=== PATIENT | female | born 1980 | race Caucasian/White ===

== ENCOUNTER 2017-09-28 13:02 | Emergency (ER) | payer MEDICAID, SELFPAY ==
[2017-09-28 13:02] VITALS: BP 162/101; PULSE 83; RESP 18; TEMP 36.6; O2SAT 99; BMI 42.7
--- NOTE | 2017-09-28 13:19 | CT_ITS ---
STUDY: CT ABDOMEN AND PELVIS WITHOUT CONTRAST REASON FOR EXAM: Female, 36 years old. Severe abdominal pain. History of prior gastric bypass surgery. RADIATION DOSAGE (If Supplied By Facility): CTDIvol = ( 23.32 ) mGy, DLP = ( 1223.28 ) mGycm TECHNIQUE: Transaxial images were obtained from the dome of the diaphragm to the symphysis pubis without oral contrast, and without intravenous contrast. Sagittal and coronal images were reconstructed. Individualized dose optimization techniques were used for this CT. COMPARISON: Comparison is made with prior study dated April 03, 2017. FINDINGS: The visualized lung bases are unremarkable. The visualized portions of the heart are within normal limits. Normal liver. There are surgical clips in the gallbladder fossa consistent with a prior cholecystectomy. Normal spleen. Normal pancreas. Normal bilateral adrenal glands. Normal right kidney. Normal left kidney. Prior subtotal gastrectomy for gastric bypass surgery. This is unchanged. Normal small intestine. Normal colon. The appendix is visualized and appears normal. Normal abdominal aorta. Normal inferior vena cava. Normal retroperitoneum. Normal urinary bladder. Normal abdominal wall. There are degenerative changes of the visualized lumbar spine. CT/Abdomen/Pelvis without Cont IMPRESSION: Status post gastric bypass surgery. No acute abnormality is seen. Electronically Signed: Rafael Dai MD at 15:39 EST Tel [phone], Service support ,
--- NOTE | 2017-09-28 13:26 | ED.VISSUMM ---
- ER Visit Summary Date of Service: 09/28/17 Chief Complaint: [] Left side abdominal pain, gastric bypass surgery with complications 2014 History of Present Illness: The patient is a 36 F [] she reports she had gastric bypass surgery in 2014 or 16, outside facility a few weeks later was complicated by which she believes might of been a leak, she required other extensive surgery and eventually everything healed. She reports since that time she has had chronic intermittent pain to the left side abdomen. He followed by gastric bypass surgeons in [place] who evaluated her for this condition, she has had multiple workups CAT scans etc. she has been told she has scar tissue related to some aspect of the left side of her abdomen she was scheduled to have a colonoscopy this week but the surgeon had some issues and that procedure was canceled. She has had normal ability to eat, normal bowel bladder habits without blood no fever no cough, she indicates her from the physician provides with Percocet use as needed for the pain, she is again having pain to the left side abdomen that is crampy in nature but she believes she had her gallbladder removed Physical Examination: [] Is in no distress is very large woman HEENT exam is unremarkable lungs clear heart tones normal she has pain to the left middle quadrant region. There is no rebound guarding organomegaly the abdomen actually soft there is no signs of bowel obstruction or distention. Her back is unremarkable and she assures me she has had normal bowel bladder habits, her extremities and rest of her exam are unremarkable Test Results: [] Emergency Department Course and Treatment: [] Conversation with the patient and a relative, this appears to be a chronic recurring condition I try to understand what was the new problem and they said the pain seemed to be more intense she is currently on home Percocet. Had multiple CAT scans reviewed some of the more recent ones that showed nothing acute with previous exacerbations Treatment Plan: [] IV fluids pain meds screening labs CT abdomen CT and the rest of the studies are unremarkable see those reports In all the above the patient and her partner I explained that the exact etiology of the chronic abdominal pain that she has had is unclear I advised her to follow-up with her physicians who are gastric bypass specialist and follow any instructions they have given her with regards to her pain management I explained her pain management cannot be assumed from the emergency department she needs to obtain her pain management from her physicians as an outpatient she stay in a bland diet return for change in symptoms Disposition: [] Home stable Impression: [] Recurrent abdominal pain since gastric bypass surgery This note was generated with [employer] dictation software. It may contain incorrect words, spelling, and punctuation that were not noted in review of the chart prior to signing ED Disposition - Plan for ED Patient: Chief Complaint: Abd Pain Referrals: Israel North DO [Primary Care Provider] -
[2017-09-28] MEDS: Ondansetron 4 MG/2 ML Vial IV (14:14)
[2017-09-28] MEDS: 0.9% Normal Saline 1,000 ML 125 ML IV (14:15)
[2017-09-28 14:17] LABS: Mucous, Urine 0 SEEN /hpf (<or=2+)
[2017-09-28 14:20] LABS: Absolute Lymphocyte Count 1.46 X10^3/ul (0.83-4.51); Absolute Neutrophil Count 2.9 X10^3/uL (2.0-7.7); Basophil# 0.02 X10^3/uL; Basophil% 0.4 % (0-1); Color, Urine Yellow (Yellow); Eosinophil# 0.06 X10^3/uL; Eosinophils% 1.3 % (0-5); Glucose, Dipstick Normal (Normal); Hematocrit 37.6 % (37-47); Hemoglobin 11.5 g/dl (12.0-15.0); Ketone-Dipstick Negative (Negative); Leukocyte Esterase-Dipstick Negative /ul (Negative); Lymphocyte # 1.46 X10^3/ul (4.0); Lymphocyte % 30.7 % (19-41); Mean Corp Hgb Conc 30.6 g/gl (32-36); Mean Corpuscular Hgb 23.1 pg (27.0-32.0); Mean Corpuscular Volume 75.7 fL (81-99); Mean Platelet Vol. 10.7 fl (6.2-12.0); Monocyte# 0.29 X10^3/uL; Monocyte% 6.1 % (0-10); Neutrophil # 2.91 X10^3/uL (2.7-7.7); Neutrophil % 61.3 % (47-70); Nitrite-Dipstick Negative (Negative); Occult Blood-Urine Negative /ul (Negative); Platelet Count 217 K/mm3 (150-450); Protein-Dipstick Negative (Negative); RBC Distribution Width CV 15.1 % (11.6-14.6); RBC Distribution Width SD 40.9 fl (35.1-43.9); Red Blood Count 4.97 M/mm3 (4.2-5.4); Urine Bilirubin Dipstick Negative (Negative); Urine Clarity Clear (Clear); Urine Urobilinogen Normal (Normal); White Blood Count 4.8 K/mm3 (4.4-11.0)
[2017-09-28 14:21] LABS: POSITIVE COUNT NO; POSITIVE DIFFERENTIAL NO; POSITIVE MORPHOLOGY NO
[2017-09-28 14:25] LABS: Bacteria 1+ /hpf (None Seen); Red Blood Cells-Urine 0-5 SEEN /hpf (0-5); Squamous Epithelial Cells - UA 0-5 SEEN /hpf (5-10); White Blood Cells 0-5 SEEN /hpf (0-5)
[2017-09-28 14:33] LABS: AST(SGOT) 19 U/L (15-37); Alanine Aminotransfer ALT/SGPT 29 U/L (13-56); Albumin, Serum 3.7 g/dL (3.2-5.0); Alkaline Phosphatase 101 U/L (45-117); Anion Gap 8 (5-15); BUN 11 mg/dL (7-18); BUN/Creat Ratio 16.6 RATIO (10-20); Bilirubin, Direct 0.07 mg/dL (0.00-0.30); Calcium,Total 8.8 mg/dL (8.5-10.1); Chloride 105 mmol/L (98-107); Creatinine, Serum 0.66 mg/dL (0.55-1.02); EST Glomerular Filtration Rate 107 mL/min (>60); Est Glom Filt Rate - Afr Amer 129 mL/min (>60); Estimated Creatinine Clearance 110.31 ml/min; Globulin 4.3 g/dL (2.2-4.2); Glucose 112 mg/dL (74-106); Lipase 161 U/L (73-393); Potassium 4.2 mmol/L (3.5-5.1); Sodium Level 140 mmol/L (136-145)
[2017-09-28 14:38] LABS: Pregnancy, Serum, hCG Quali. NEGATIVE Negative (0-9 Nonpreg)
--- NOTE | 2017-09-28 15:45 | ED.DEP ---
ED Disposition - Plan for ED Patient: Chief Complaint: Abd Pain Instructions: ED Abdominal Pain Unkn Cause Referrals: Israel North DO [Primary Care Provider] - Additional Instructions: See your gastric bypass specialist follow-up doctors
[2017-09-28 15:55] VITALS: BP 127/87; PULSE 71; RESP 15; O2SAT 100
== END 2017-09-28 15:56 | disposition home or self-care (01) ==
LOC: ED 13:21
PROVIDERS: Emergency Provider Emergency Medicine; Family Provider Family Medicine; PCP Family Medicine
DX: R10.9 Unspecified abdominal pain (principal); G89.29 Other chronic pain; Z79.899 Other long term (current) drug therapy; Z98.84 Bariatric surgery status
CPT/HCPCS: 74176; 80048; 80076; 81001; 83690; 84703; 85025; 96361; 96374; 96375; 99283; J7030; A4216; J2405

== ENCOUNTER → 2017-10-20 13:43 | Outpatient (CLI) | payer MEDICAID, SELFPAY ==
[2017-10-20 16:08] LABS: Absolute Lymphocyte Count 1.58 X10^3/ul (0.83-4.51); Absolute Neutrophil Count 5.2 X10^3/uL (2.0-7.7); Basophil# 0.01 X10^3/uL; Basophil% 0.1 % (0-1); Eosinophil# 0.04 X10^3/uL; Eosinophils% 0.6 % (0-5); Hematocrit 38.8 % (37-47); Hemoglobin 12.3 g/dl (12.0-15.0); Lymphocyte # 1.58 X10^3/ul (4.0); Lymphocyte % 21.9 % (19-41); Mean Corp Hgb Conc 31.7 g/gl (32-36); Mean Corpuscular Hgb 24.3 pg (27.0-32.0); Mean Corpuscular Volume 76.5 fL (81-99); Mean Platelet Vol. 12.2 fl (6.2-12.0); Monocyte# 0.39 X10^3/uL; Monocyte% 5.4 % (0-10); Neutrophil % 71.9 % (47-70); Platelet Count 236 K/mm3 (150-450); RBC Distribution Width CV 16.6 % (11.6-14.6); RBC Distribution Width SD 43.2 fl (35.1-43.9); Red Blood Count 5.07 M/mm3 (4.2-5.4); White Blood Count 7.2 K/mm3 (4.4-11.0)
[2017-10-20 16:16] LABS: ALB/GLOB Ratio 0.9 RATIO (0.9-2.4); AST(SGOT) 21 U/L (15-37); Alanine Aminotransfer ALT/SGPT 27 U/L (13-56); Albumin, Serum 3.7 g/dL (3.2-5.0); Alkaline Phosphatase 95 U/L (45-117); Anion Gap 6 (5-15); BUN 12 mg/dL (7-18); BUN/Creat Ratio 17.8 RATIO (10-20); Calcium,Total 8.4 mg/dL (8.5-10.1); Chloride 105 mmol/L (98-107); Creatinine, Serum 0.68 mg/dL (0.55-1.02); EST Glomerular Filtration Rate 104 mL/min (>60); Est Glom Filt Rate - Afr Amer 126 mL/min (>60); Ferritin 4 ng/mL (8-252); Globulin 4.3 g/dL (2.2-4.2); Glucose 109 mg/dL (74-106); Iron 36 ug/dL (50-170); Potassium 4.3 mmol/L (3.5-5.1); Sodium Level 137 mmol/L (136-145); T4 Free Direct 0.97 ng/dL (0.76-1.46); Thyroid Stim Hormone (TSH) 0.53 uIU/mL (0.358-3.74)
[2017-10-20 16:23] LABS: POSITIVE COUNT NO; POSITIVE DIFFERENTIAL NO; POSITIVE MORPHOLOGY NO
[2017-10-20 16:24] LABS: Vitamin B12 493 pg/mL (211-911); Vitamin D,25 Hydroxy 14.6 ng/mL (29.95-100.01)
== END ==
PROVIDERS: Family Provider Family Medicine; PCP Family Medicine; Visit Provider Family Medicine
DX: R53.83 Other fatigue (principal); E55.9 Vitamin D deficiency, unspecified; D64.9 Anemia, unspecified; R06.00 Dyspnea, unspecified; Z98.890 Other specified postprocedural states
CPT/HCPCS: 36415; 80053; 82306; 82607; 82728; 83540; 84439; 84443; 85025

== ENCOUNTER 2017-11-06 20:56 | Emergency (ER) | payer MEDICAID, SELFPAY ==
[2017-11-06 20:56] VITALS: BP 152/95; PULSE 101; RESP 16; TEMP 37; O2SAT 100; BMI 41.5
--- NOTE | 2017-11-06 21:04 | RAD_ITS ---
STUDY: X-RAY - LEFT ANKLE REASON FOR EXAM: Female, 36 years old. Injury TECHNIQUE: 3 view(s) of the ankle. COMPARISON: None. FINDINGS: Normal visualized distal tibia and fibula. Normal medial and lateral malleoli. Normal tibiotalar articulation and ankle mortise. There is calcaneal spurring. The visualized subtalar, talonavicular, calcaneocuboid and tarsal articulations are normal. Soft tissue calcification at the leg. RAD/Ankle min 3 Views IMPRESSION: No acute fracture Electronically Signed: Merlin Mensah MD at 21:27 EDT Tel , Service support ,
--- NOTE | 2017-11-06 22:29 | ED.DCSUM_ITS ---
- ER Visit Summary Date of Service: 11/06/17 Chief Complaint: Left foot pain History of Present Illness: The patient is a 36 F who presents after a fall. She states that she was stepping over a baby gate when she slipped and twisted her left foot and fell. She states she is unable to bear weight due to pain. She denies paresthesias weakness or loss of function. She denies any other injuries. No head injury loss of consciousness back injury chest pain abdominal pain injury to any other extremity or neck pain. Physical Examination: Heart rate 101 vitals otherwise normal No lacerations contusions abrasions or hematomas No evidence of head trauma Heart regular No respiratory distress Patient sitting comfortably with her left ankle and foot crossed across her lap in the bed she has active full range of motion is able to wiggle the toes I do not appreciate any significant soft tissue swelling or ecchymosis easily palpable dorsalis pedis pulse she has no focal bony tenderness but does have some diffuse tenderness across the foot no bony tenderness of the medial or lateral malleolus no tenderness of the proximal fibula brisk capillary refill with normal sensation distally Test Results: Left foot and ankle x-rays are normal. Emergency Department Course and Treatment: Patient reports allergy to all NSAIDs and Toradol. Per her medication reconciliation she has opiates prescribed. She was advised on supportive care including rest ice and elevation. Was given crutches. She understands to return for new or worsening symptoms. She was discharged. Treatment Plan: [] Disposition: Discharge Impression: Left foot sprain This note was generated with [employer] dictation software. It may contain incorrect words, spelling, and punctuation that were not noted in review of the chart prior to signing ED Disposition - Plan for ED Patient: Chief Complaint: Fall Referrals: Israel North DO [Primary Care Provider] -
--- NOTE | 2017-11-06 22:38 | RAD_ITS ---
STUDY: X-RAY - LEFT FOOT CLINICAL: Female, 36 years old. Fall TECHNIQUE: 3 view(s) of the foot. COMPARISON: None. FINDINGS: Normal talus, calcaneus, and tarsal bones. Calcaneal spurring. Normal visualized subtalar, talonavicular, calcaneocuboid, tarsal and tarsometatarsal articulations. Normal metatarsi. Normal metatarsophalangeal joint of the great toe. Normal tibial and fibular sesamoid bones. Normal interphalangeal joint of the great toe. Normal phalanges of the great toe. Normal second through fifth metatarsophalangeal joints. Normal interphalangeal joints and phalanges of the lesser toes. The soft tissue structures are unremarkable. RAD/Foot min 3 Views IMPRESSION: Normal x-ray examination of the foot. Electronically Signed: Jose Lovelace DO at 23:01 EDT Tel [phone], Service support ,
--- NOTE | 2017-11-06 23:11 | ED.DEP ---
ED Disposition - Plan for ED Patient: Chief Complaint: Fall Instructions: ED Mechanical Fall, ED Sprain Foot Referrals: Israel North DO [Primary Care Provider] -
== END 2017-11-06 23:39 | disposition home or self-care (01) ==
LOC: ED 22:31
PROVIDERS: Emergency Provider Emergency Medicine; Family Provider Family Medicine; PCP Family Medicine
DX: S93.602A Unspecified sprain of left foot, initial encounter (principal); W01.0XXA Fall on same level from slipping, tripping and stumbling without subsequent striking against object, initial encounter; Y93.89 Activity, other specified; Y92.9 Unspecified place or not applicable; M79.7 Fibromyalgia; Z98.84 Bariatric surgery status
CPT/HCPCS: 73610; 73630; 99283

== ENCOUNTER → 2018-01-04 12:05 | Outpatient (CLI) | payer MEDICAID, SELFPAY ==
[2018-01-04 16:07] LABS: Absolute Lymphocyte Count 1.56 X10^3/ul (0.83-4.51); Absolute Neutrophil Count 3.2 X10^3/uL (2.0-7.7); Basophil# 0.01 X10^3/uL; Basophil% 0.2 % (0-1); Eosinophil# 0.08 X10^3/uL; Eosinophils% 1.5 % (0-5); Hematocrit 34.2 % (37-47); Hemoglobin 10.6 g/dl (12.0-15.0); Lymphocyte # 1.56 X10^3/ul (4.0); Lymphocyte % 29.8 % (19-41); Mean Corpuscular Hgb 23.7 pg (27.0-32.0); Mean Corpuscular Volume 76.3 fL (81-99); Mean Platelet Vol. 11.2 fl (6.2-12.0); Monocyte% 7.6 % (0-10); Neutrophil # 3.18 X10^3/uL (2.7-7.7); Neutrophil % 60.7 % (47-70); POSITIVE COUNT NO; POSITIVE DIFFERENTIAL NO; POSITIVE MORPHOLOGY NO; Platelet Count 207 K/mm3 (150-450); RBC Distribution Width CV 15.4 % (11.6-14.6); RBC Distribution Width SD 42.1 fl (35.1-43.9); Red Blood Count 4.48 M/mm3 (4.2-5.4); White Blood Count 5.2 K/mm3 (4.4-11.0)
[2018-01-04 18:27] LABS: ALB/GLOB Ratio 0.9 RATIO (0.9-2.4); AST(SGOT) 20 U/L (15-37); Alanine Aminotransfer ALT/SGPT 24 U/L (13-56); Albumin, Serum 3.7 g/dL (3.2-5.0); Alkaline Phosphatase 86 U/L (45-117); Anion Gap 8 (5-15); BUN 7 mg/dL (7-18); BUN/Creat Ratio 9.2 RATIO (10-20); CRP 5.49 mg/L (0.0-3.0); Calcium,Total 8.6 mg/dL (8.5-10.1); Chloride 103 mmol/L (98-107); Creatinine, Serum 0.76 mg/dL (0.55-1.02); EST Glomerular Filtration Rate 91 mL/min (>60); Est Glom Filt Rate - Afr Amer 110 mL/min (>60); Ferritin 4 ng/mL (8-252); Globulin 4.2 g/dL (2.2-4.2); Glucose 105 mg/dL (74-106); Iron 40 ug/dL (50-170); Potassium 4.2 mmol/L (3.5-5.1); Protein, Total 7.9 g/dL (6.4-8.2); Sodium Level 138 mmol/L (136-145); Thyroid Stim Hormone (TSH) 1.15 uIU/mL (0.358-3.74)
[2018-01-09 12:53] LABS: ANTINUCLEAR ANTIBODIES DIRECT Negative (Negative)
== END ==
PROVIDERS: Family Provider Family Medicine; PCP Family Medicine; Visit Provider Family Medicine
DX: R60.9 Edema, unspecified (principal); R53.83 Other fatigue; E55.9 Vitamin D deficiency, unspecified; I10 Essential (primary) hypertension; G43.909 Migraine, unspecified, not intractable, without status migrainosus; D50.9 Iron deficiency anemia, unspecified; Z79.899 Other long term (current) drug therapy
CPT/HCPCS: 36415; 80053; 82533; 82728; 83540; 84443; 85025; 86038; 86140; 86225; 86235

== ENCOUNTER → 2018-01-30 14:57 | Outpatient (CLI) | payer MEDICAID, SELFPAY ==
[2018-01-30 15:13] VITALS: BP 120/82; PULSE 71; RESP 16; TEMP 36.4; O2SAT 100; BMI 41.3
== END ==
PROVIDERS: Family Provider Family Medicine; PCP Family Medicine; Visit Provider Family Medicine
DX: D50.9 Iron deficiency anemia, unspecified (principal); K90.9 Intestinal malabsorption, unspecified
CPT/HCPCS: 96365; J1756; J7050; A4216

== ENCOUNTER → 2018-02-13 14:58 | Outpatient (CLI) | payer MEDICAID, SELFPAY ==
[2018-02-13 15:04] VITALS: BP 128/81; PULSE 69; RESP 18; TEMP 36.9; O2SAT 98; BMI 41.3
== END ==
PROVIDERS: Family Provider Family Medicine; PCP Family Medicine; Visit Provider Family Medicine
DX: D50.9 Iron deficiency anemia, unspecified (principal); K90.9 Intestinal malabsorption, unspecified
CPT/HCPCS: 96374; J1756; J7050; A4216

== ENCOUNTER → 2018-03-13 14:59 | Outpatient (CLI) | payer MEDICAID, SELFPAY ==
[2018-03-13 15:11] VITALS: BP 118/79; PULSE 79; RESP 18; TEMP 35.8; O2SAT 98; BMI 41.3
== END ==
PROVIDERS: Family Provider Family Medicine; PCP Family Medicine; Visit Provider Family Medicine
DX: D50.9 Iron deficiency anemia, unspecified (principal); K90.9 Intestinal malabsorption, unspecified
CPT/HCPCS: 96365; J1756; J7050

== ENCOUNTER 2018-03-13 16:04 | Emergency (ER) | payer MEDICAID, SELFPAY ==
[2018-03-13 16:05] VITALS: BP 112/77; PULSE 73; RESP 16; TEMP 36.9; O2SAT 97; BMI 44.8
[2018-03-13] MEDS: proCHLORPERazine 10 MG/2 ML Vial IV (16:43)
[2018-03-13] MEDS: DiphenhydrAMINE 50 MG/ML Syringe 25 MG IV (16:43)
[2018-03-13] MEDS: 0.9% Normal Saline 1,000 ML 999 ML IV (16:43)
--- NOTE | 2018-03-13 17:31 | ED.DCSUM_ITS ---
- ER Visit Summary Date of Service: 03/13/18 Chief Complaint: Headache History of Present Illness: The patient is a 37 F who presents with a headache. She does have a history of migraines. She states the current headache began about 4 days ago and is gradually worsened since that time. She does have a history of similar prior headaches. Her pain is in the right retro-orbital region. She currently states it is severe but not the worst headache or pain of her life. She complains of seeing some spots and photophobia. She does report nausea and vomiting. She has had all of these symptoms previously with headaches except for seeing spots which was a new symptom. No fever. No head injury. Review of systems otherwise negative. Physical Examination: Afebrile vitals are normal No distress Alert and oriented no focal or lateralizing neurological deficits Moist mucous membranes Heart regular rate and rhythm Lungs are clear Abdomen soft Neck supple no meningismus Test Results: Not indicated Emergency Department Course and Treatment: Patient was treated with IV fluids Compazine and Benadryl and Decadron. On reevaluation she reports greater than 50% improvement. This is tolerable level of pain for her. She does feel well enough to go home. She understands return for new or worsening symptoms. Treatment Plan: [] Disposition: Discharge Impression: Migraine This note was generated with [employer] dictation software. It may contain incorrect words, spelling, and punctuation that were not noted in review of the chart prior to signing ED Disposition - Plan for ED Patient: Chief Complaint: Headache Referrals: Israel North DO [Primary Care Provider] -
--- NOTE | 2018-03-13 17:35 | ED.DEP ---
ED Disposition - Plan for ED Patient: Chief Complaint: Headache Instructions: ED Headache Migraine Referrals: Israel North DO [Primary Care Provider] -
== END 2018-03-13 17:49 | disposition home or self-care (01) ==
PROVIDERS: Emergency Provider Emergency Medicine; Family Provider Family Medicine; PCP Family Medicine
DX: G43.909 Migraine, unspecified, not intractable, without status migrainosus (principal); D50.9 Iron deficiency anemia, unspecified; K90.9 Intestinal malabsorption, unspecified; E11.9 Type 2 diabetes mellitus without complications; I10 Essential (primary) hypertension; Z79.899 Other long term (current) drug therapy
CPT/HCPCS: 96365; 96361; 96374; 96375; 99285; J1756; J7030; J7050; A4216

== ENCOUNTER 2018-03-23 15:13 | Emergency (ER) | payer MEDICAID, SELFPAY ==
[2018-03-23 15:15] VITALS: BP 127/75; PULSE 115; RESP 24; TEMP 37; O2SAT 99; BMI 44.4
--- NOTE | 2018-03-23 15:23 | ED.RN ---
PT SOUNDS LIKE RHONCHI.
[2018-03-23 15:56] LABS: Absolute Lymphocyte Count 1.51 X10^3/ul (0.83-4.51); Absolute Neutrophil Count 9.9 X10^3/uL (2.0-7.7); Basophil# 0.01 X10^3/uL; Basophil% 0.1 % (0-1); Eosinophil# 0.07 X10^3/uL; Eosinophils% 0.6 % (0-5); Hematocrit 38.2 % (37-47); Hemoglobin 12.2 g/dl (12.0-15.0); Lymphocyte # 1.51 X10^3/ul (4.0); Lymphocyte % 12.2 % (19-41); Mean Corp Hgb Conc 31.9 g/gl (32-36); Mean Corpuscular Hgb 23.7 pg (27.0-32.0); Mean Corpuscular Volume 74.3 fL (81-99); Mean Platelet Vol. 11.1 fl (6.2-12.0); Monocyte# 0.81 X10^3/uL; Monocyte% 6.6 % (0-10); Neutrophil # 9.92 X10^3/uL (2.7-7.7); Neutrophil % 80.3 % (47-70); Platelet Count 211 K/mm3 (150-450); RBC Distribution Width SD 44.1 fl (35.1-43.9); Red Blood Count 5.14 M/mm3 (4.2-5.4); White Blood Count 12.4 K/mm3 (4.4-11.0)
[2018-03-23 16:01] LABS: POSITIVE COUNT NO; POSITIVE DIFFERENTIAL NO; POSITIVE MORPHOLOGY NO
[2018-03-23] MEDS: 0.9% Normal Saline 1,000 ML 1000 ML IV (16:03)
[2018-03-23] MEDS: Morphine 4 MG/ML Syringe IV (16:03)
[2018-03-23] MEDS: Ondansetron 4 MG/2 ML Vial IV (16:03)
[2018-03-23 16:10] LABS: AST(SGOT) 13 U/L (15-37); Alanine Aminotransfer ALT/SGPT 20 U/L (13-56); Albumin, Serum 3.6 g/dL (3.2-5.0); Alkaline Phosphatase 100 U/L (45-117); Anion Gap 7 (5-15); BUN 11 mg/dL (7-18); BUN/Creat Ratio 15.3 RATIO (10-20); Bilirubin, Direct 0.11 mg/dL (0.00-0.30); Calcium,Total 8.7 mg/dL (8.5-10.1); Chloride 105 mmol/L (98-107); Creatinine, Serum 0.72 mg/dL (0.55-1.02); EST Glomerular Filtration Rate 97 mL/min (>60); Est Glom Filt Rate - Afr Amer 117 mL/min (>60); Estimated Creatinine Clearance 104.03 ml/min; Globulin 4.4 g/dL (2.2-4.2); Glucose 183 mg/dL (74-106); Lipase 68 U/L (73-393); Potassium 3.9 mmol/L (3.5-5.1); Sodium Level 138 mmol/L (136-145)
--- NOTE | 2018-03-23 16:10 | RAD_ITS ---
STUDY: X-RAY CHEST REASON FOR EXAM: Female, 37 years old. Productive cough TECHNIQUE: PA and lateral views of the chest. COMPARISON: Previous study of 04/04/2017 FINDINGS: The lungs are clear and expanded. There is no demonstrated pleural abnormality. Normal size heart. Normal mediastinum and edward. Normal visualized pulmonary arteries. Normal visualized aortic arch and descending thoracic aorta. There are diffuse degenerative changes of the visualized thoracic spine. Normal visualized ribs, clavicles, and shoulders. There is no demonstrated abnormality of the visualized soft tissue structures of the upper abdomen. RAD/Chest PA and Lateral IMPRESSION: Degenerative changes, as described above. No demonstrated acute cardiopulmonary process. Electronically Signed: Zion Trevino MD at 16:26 EDT , Service support ,
[2018-03-23 16:24] LABS: Pregnancy, Serum, hCG Quali. NEGATIVE Negative (0-9 Nonpreg)
[2018-03-23 16:31] LABS: Red Blood Cells-Urine 0 SEEN /hpf (0-5)
[2018-03-23 16:34] LABS: Color, Urine Yellow (Yellow); Glucose, Dipstick Normal (Normal); Ketone-Dipstick 5 mg/dl (Negative); Leukocyte Esterase-Dipstick 25 /ul (Negative); Nitrite-Dipstick Negative (Negative); Occult Blood-Urine Negative /ul (Negative); Protein-Dipstick 15 mg/dl (Negative); Urine Clarity Sl. Cloudy (Clear); Urine Urobilinogen 1 mg/dl (Normal)
[2018-03-23 16:49] LABS: Urine Bilirubin Dipstick 1 mg/dL (Negative)
[2018-03-23 16:52] LABS: Bacteria 1+ /hpf (None Seen); Mucous, Urine 1+ /hpf (<or=2+); Squamous Epithelial Cells - UA 10-25 SEEN /hpf (5-10); White Blood Cells 0-5 SEEN /hpf (0-5)
[2018-03-23 17:13] VITALS: BP 106/72; PULSE 82; RESP 14; O2SAT 99
--- NOTE | 2018-03-23 17:21 | ED.DCSUM_ITS ---
- ER Visit Summary Date of Service: 03/23/18 Chief Complaint: Abdominal pain History of Present Illness: The patient is a [address] North. She reports that she has abdominal pain that began at approximately midnight. Is a continuous burning pain in the right upper quadrant. Is 10 out of 10 at worst and 6 out of 10 currently. Is worsened by movement and relieved by pushing on it. She has had nausea without vomiting. She first had diarrhea 3-4 times a day for the past 2 days. No blood in her stools or black tarry stools. No dysuria or frequency. Patient also complains of subjective fever and chills that began overnight. She is a sore throat that is 10 out of 10 severity and began today. She has a cough productive brown/green sputum without blood. She reports that she is having mild difficulty breathing. Physical Examination: Vitals: Stable. Afebrile. General: Well-nourished and well-developed. Head: Normocephalic atraumatic. Neck: Supple, no lymphadenopathy. No JVD. Nontender. Pharyngeal erythema. No tonsillar enlargement or exudate. Cardiovascular: Regular rate and rhythm. No murmurs. Respiratory: No respiratory distress. Clear to auscultation bilaterally. Abdominal: Soft, mild right upper quadrant tenderness to palpation, nondistended , normal bowel sounds. No guarding, rebound, or peritoneal signs. Back: Nontender. Extremities: Nontender, no edema. Skin: Normal color, no rash. Neurologic: Alert and oriented ?3. Cranial nerves II through XII are intact. Normal strength and sensation. Psych: Normal affect. Test Results: Strep is negative. CBC is more for a white count of 12.4 with 80 segmented neutrophils and 12 lymphocytes. Chem-7 is more for glucose of 183. LFTs marked for an AST of 13 globulin 4.4. Lipase is 68. UA is negative. test is negative. Chest x-ray shows chronic changes. Emergency Department Course and Treatment: Patient was treated the dose of morphine and Zofran IV. She is resting comfortably. Treatment Plan: Patient will be discharged with Zofran. Instructed to push fluids. Follow-up with her primary care physician in 3-5 days if not improving. Return to the emergency department for any worsening symptoms. Disposition: To home in improved and stable condition. Impression: 1. Abdominal pain, uncertain cause. 2. URI. This note was generated with [employer] dictation software. It may contain incorrect words, spelling, and punctuation that were not noted in review of the chart prior to signing ED Disposition - Plan for ED Patient: Chief Complaint: Abd Pain Instructions: ED Abdominal Pain Unkn Cause, ED Upper Resp Infec No Abx Tx Prescriptions: Ondansetron [Zofran Odt] 4 mg PO Q8H PRN PRN #10 tablet PRN Reason: Nausea Referrals: Israel North DO [Primary Care Provider] - 3-5 Days if not improving
[2018-03-23 17:27] VITALS: BP 106/72; PULSE 82; RESP 14; O2SAT 99
== END 2018-03-23 17:34 | disposition home or self-care (01) ==
LOC: ED 16:36
PROVIDERS: Emergency Provider Emergency Medicine; Family Provider Family Medicine; PCP Family Medicine
DX: J06.9 Acute upper respiratory infection, unspecified (principal); R19.7 Diarrhea, unspecified; E11.9 Type 2 diabetes mellitus without complications; M54.9 Dorsalgia, unspecified; G89.29 Other chronic pain; F32.9 Major depressive disorder, single episode, unspecified; F41.9 Anxiety disorder, unspecified; Z79.899 Other long term (current) drug therapy; Z79.891 Long term (current) use of opiate analgesic; Z98.84 Bariatric surgery status
CPT/HCPCS: 71046; 80048; 80076; 81001; 83690; 84703; 85025; 87880; 96361; 96374; 96375; 99283; J7030; A4216; J2405

== ENCOUNTER 2018-03-26 08:32 | Outpatient (RCR) | payer MEDICAID, SELFPAY | END 2018-04-20 23:59 | LOC: NS 08:32 | PROVIDERS: Family Provider Family Medicine; PCP Family Medicine; Visit Provider Family Medicine | DX: R69 Illness, unspecified (principal) | CPT/HCPCS: 97803 ==

== ENCOUNTER → 2018-03-27 13:41 | Outpatient (CLI) | payer MEDICAID, SELFPAY ==
[2018-03-27 14:18] VITALS: BP 132/84; PULSE 71; RESP 16; TEMP 35.9; O2SAT 98
== END ==
PROVIDERS: Family Provider Family Medicine; PCP Family Medicine; Visit Provider Family Medicine
DX: D50.9 Iron deficiency anemia, unspecified (principal); K90.9 Intestinal malabsorption, unspecified
CPT/HCPCS: 96365; J1756; J7050; A4216

== ENCOUNTER → 2018-05-08 11:05 | Outpatient (CLI) | payer MEDICAID, SELFPAY ==
[2018-05-08 15:28] LABS: Absolute Lymphocyte Count 2.91 X10^3/ul (0.83-4.51); Absolute Neutrophil Count 4.1 X10^3/uL (2.0-7.7); Basophil# 0.01 X10^3/uL; Basophil% 0.1 % (0-1); Eosinophil# 0.11 X10^3/uL; Eosinophils% 1.5 % (0-5); Hematocrit 39.1 % (37-47); Lymphocyte # 2.91 X10^3/ul (4.0); Lymphocyte % 38.6 % (19-41); Mean Corp Hgb Conc 30.7 g/gl (32-36); Mean Corpuscular Volume 78.2 fL (81-99); Mean Platelet Vol. 10.3 fl (6.2-12.0); Monocyte# 0.44 X10^3/uL; Monocyte% 5.8 % (0-10); Neutrophil # 4.06 X10^3/uL (2.7-7.7); Neutrophil % 53.9 % (47-70); Platelet Count 209 K/mm3 (150-450); RBC Distribution Width CV 16.3 % (11.6-14.6); RBC Distribution Width SD 46.5 fl (35.1-43.9); White Blood Count 7.5 K/mm3 (4.4-11.0)
[2018-05-08 15:36] LABS: CRP 4.19 mg/L (0.0-3.0); Cholesterol 134 mg/dL (200); Glucose 122 mg/dL (74-106); High Density Lipoprotein 43 mg/dL; POSITIVE COUNT NO; POSITIVE DIFFERENTIAL NO; POSITIVE MORPHOLOGY NO; Triglycerides 112 mg/dL; Very Low Density Lipoprotein 22 mg/dL (5-40)
[2018-05-08 16:04] LABS: Erythrocyte Sedimentation Rate 15 mm/hr (0-20)
[2018-05-08 19:33] LABS: Hemoglobin A1c 7.8 % (4.2-6.3)
[2018-05-10 15:22] LABS: ANTINUCLEAR ANTIBODIES DIRECT Negative (Negative)
== END ==
PROVIDERS: Family Provider Family Medicine; PCP Family Medicine; Visit Provider Family Medicine
DX: Z00.00 Encounter for general adult medical examination without abnormal findings (principal); M79.7 Fibromyalgia; R73.01 Impaired fasting glucose; R21 Rash and other nonspecific skin eruption; G89.4 Chronic pain syndrome; Z98.890 Other specified postprocedural states
CPT/HCPCS: 36415; 80061; 82947; 83036; 85025; 85652; 86038; 86140; 86225; 86235

== ENCOUNTER 2018-05-15 09:30 | Outpatient (RCR) | payer MEDICAID, SELFPAY | END 2018-05-20 23:59 | LOC: NS 09:30 | PROVIDERS: Family Provider Family Medicine; PCP Family Medicine; Visit Provider Family Medicine | DX: E66.01 Morbid (severe) obesity due to excess calories (principal); Z71.3 Dietary counseling and surveillance | CPT/HCPCS: 97802; 97803 ==

== ENCOUNTER → 2018-05-28 13:26 | Outpatient (CLI) | payer MEDICAID, SELFPAY ==
[2018-05-28 15:34] LABS: BUN 7 mg/dL (7-18); Creatinine, Serum 0.66 mg/dL (0.55-1.02); EST Glomerular Filtration Rate 106 mL/min (>60); Est Glom Filt Rate - Afr Amer 128 mL/min (>60)
== END ==
PROVIDERS: Family Provider Family Medicine; PCP Family Medicine; Visit Provider Family Medicine
DX: R21 Rash and other nonspecific skin eruption (principal); R20.2 Paresthesia of skin
CPT/HCPCS: 36415; 82565; 84520

== ENCOUNTER → 2018-05-28 13:46 | Outpatient (CLI) | payer MEDICAID, SELFPAY ==
--- NOTE | 2018-05-28 13:48 | RAD_ITS ---
STUDY: X-RAY - LUMBAR SPINE REASON FOR EXAM: Female, 37 years old. Low back pain. Patient fell TECHNIQUE: 5 view(s) of the lumbar spine were obtained. COMPARISON: None FINDINGS: There is lumbarization of S1 and narrowing of the L4-5 disc space. There are spurs from the endplates at the L4-5 level. The rest of the disc spaces are normal. No fracture. RAD/L/S Spine Min 4 Views IMPRESSION: Lumbarization of S1. 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 No fracture Electronically Signed: Federico Cadena MD at 5:49 EDT Tel , Service support ,
== END ==
PROVIDERS: Family Provider Family Medicine; PCP Family Medicine; Referring Provider Family Medicine; Visit Provider Family Medicine
DX: M54.5 Low back pain (principal); R21 Rash and other nonspecific skin eruption; R20.2 Paresthesia of skin
CPT/HCPCS: 36415; 72110; 82565; 84520

== ENCOUNTER 2018-06-05 12:58 | Outpatient (RCR) | payer MEDICAID, SELFPAY | END 2018-06-20 23:59 | LOC: NS 12:58 | PROVIDERS: Family Provider Family Medicine; PCP Family Medicine; Visit Provider Family Medicine | DX: E66.01 Morbid (severe) obesity due to excess calories (principal); Z71.3 Dietary counseling and surveillance | CPT/HCPCS: 97803 ==

== ENCOUNTER 2018-07-10 11:06 | Outpatient (RCR) | payer MEDICAID, SELFPAY | END 2018-07-20 23:59 | LOC: NS 11:06 | PROVIDERS: Family Provider Family Medicine; PCP Family Medicine; Visit Provider Family Medicine | DX: E66.01 Morbid (severe) obesity due to excess calories (principal); Z71.3 Dietary counseling and surveillance | CPT/HCPCS: 97803 ==

== ENCOUNTER 2018-07-31 19:25 | Emergency (ER) | payer MEDICAID, SELFPAY ==
[2018-07-21 01:05] VITALS: BMI 42.7
[2018-07-31 19:26] VITALS: BP 161/106; PULSE 58; RESP 16; TEMP 35.9; O2SAT 99; BMI 43.7
--- NOTE | 2018-07-31 19:52 | ED.VISSUMM ---
- ER Visit Summary Date of Service: 07/31/18 Chief Complaint: Headache History of Present Illness: The patient is a 37 F presenting for evaluation secondary to headache. Patient reports that she had a gradual onset of a headache since yesterday. Patient reports that it is a continuous headache that started on the right side of her head and now is behind her left eye. She reports a throbbing type pain associated with nausea and photophobia. She denies any recent head injuries. She does state that she had a fever 2 days ago, but fever since resolved. She denies any neck stiffness or abnormal rashes. Patient does have a history of having headaches in the past, she took Imitrex at home and it did not seem to alleviate her symptoms. Physical Examination: Vital signs: Within normal limits General: Well-nourished well-developed no acute distress Head: Normocephalic atraumatic, left temporal tenderness to palpation, no vesicular rash noted. No sinus tenderness to percussion. Eyes: PERRLA, EOMI. Direct funduscopy shows no evidence of hemorrhage or papilledema. Neck: Supple, no lymphadenopathy, no JVD no meningismus. Negative Brudzinski, Kernig, jolt, and heel strike Cardiovascular: Heart regular rate and rhythm no murmurs Respiratory: Lung sounds clear to auscultation bilaterally no respiratory distress Abdomen: Soft, nontender Extremities: Nontender, no edema Skin: Normal color, no rash, no evidence of petechia Neuro: Alert and oriented ?4, cranial nerves II through XII intact, normal strength, sensation Test Results: ESR is normal Emergency Department Course and Treatment: Patient presented secondary to headache. She did have some temporal artery tenderness, ESR was obtained which makes the likelihood of giant cell arteritis unlikely. She was treated with Compazine and Benadryl. Repeat evaluation at 2100 showed the patient have some traumatic improvement. This point I believe the patient to be appropriate for discharge. Patient will follow up with primary care as needed. Disposition: Discharge Impression: 1. Migraine headache This note was generated with [employer] software. It may contain incorrect words, spelling, and punctuation that were not noted in review of the chart prior to signing ED Disposition - Plan for ED Patient: Disposition: Home or Assisted Living Chief Complaint: Headache Diagnosis: Migraine Instructions: ED Headache Migraine Referrals: Israel North DO [Primary Care Provider] - 3-5 Days
[2018-07-31] MEDS: proCHLORPERazine 10 MG/2 ML Vial IV (20:02)
[2018-07-31] MEDS: 0.9% Normal Saline 1,000 ML 999 ML IV (20:02)
[2018-07-31] MEDS: DiphenhydrAMINE 50 MG/ML Syringe IV (20:02)
[2018-07-31 20:18] LABS: Erythrocyte Sedimentation Rate 14 mm/hr (0-20)
[2018-07-31 21:10] VITALS: BP 172/102; PULSE 60; RESP 18; O2SAT 99
[2018-07-31 21:16] VITALS: BP 172/102; PULSE 60; RESP 17
--- OUTSIDE RECORDS SUMMARY | 2018-09-17 00:18 | XMS RPT_ITS ---
:1980 Author Organization OHIP Support Name Relationship Address Phone SNITZER, EZIO Unavailable [id number] + [place] [address] UE Unavailable Unavailable Unavailable SNITZER, EZIO Unavailable [address] + [place] [address] UE Unavailable Unavailable Unavailable SNITZER, EZIO Unavailable [address] + [place] [address] UE Unavailable Unavailable Unavailable SNITZER, EZIO Unavailable [address] + [place] [address] UE Unavailable Unavailable Unavailable SNITZER, EZIO Unavailable [address] + [place] [address] UE Unavailable Unavailable Unavailable SNITZER, EZIO Unavailable [address] + [place] [address] UE Unavailable Unavailable Unavailable SNITZER, EZIO Unavailable [address] + [place] [address] UE Unavailable Unavailable Unavailable SNITZER, EZIO Unavailable [address] + [place] [address] UE Unavailable Unavailable Unavailable SNITZER, EZIO Unavailable [address] + [place] [address] UE Unavailable Unavailable Unavailable SNITZER, EZIO Unavailable [address] + [place] [address] UE Unavailable Unavailable Unavailable SNITZER, EZIO Unavailable [address] + [place] [address] UE Unavailable Unavailable Unavailable SNITZER, EZIO Unavailable [address] + [place] [address] UE Unavailable Unavailable Unavailable SNITZER, EZIO Unavailable [address] + [place] [address] UE Unavailable Unavailable Unavailable SNITZER, EZIO Unavailable [address] + [place] [address] UE Unavailable Unavailable Unavailable SNITZER, EZIO Unavailable Unavailable + SNITZER, EZIO Unavailable Unavailable + SNITZER, EZIO Unavailable [address] + [place] [address] UE Unavailable Unavailable Unavailable SNITZER, EZIO Unavailable [address] + [place] [address] UE Unavailable Unavailable Unavailable SNITZER, EZIO Unavailable [address] + [place] [address] UE Unavailable Unavailable Unavailable SNITZER, EIZO Unavailable [address] + [place] [address] UE Unavailable Unavailable Unavailable SNITZER, EZIO Unavailable [address] + [place] [address] UE Unavailable Unavailable Unavailable SNITZER, EZIO Unavailable [address] + [place] [address] UE Unavailable Unavailable Unavailable SNITZER, EZIO Unavailable [address] + [place] [address] UE Unavailable Unavailable Unavailable SNITZER, EZIO Unavailable [address] + [place] [address] UE Unavailable Unavailable Unavailable Care Team Providers Name Role Phone Heather North Primary Care Unavailable Lien Hahn Attending Unavailable CanHeather Primary Care Unavailable Dwaine Bella Attending Unavailable Cheng Thompson Referring Unavailable CanHeather Primary Care Unavailable Hola Mckinley Attending Unavailable CanHeather youngblood Attending Unavailable CanHeather Primary Care Unavailable Can, Heather Primary Care Unavailable Jason Doss Attending Unavailable Heather North Attending Unavailable CanHeather youngblood Primary Care Unavailable Heather North Attending Unavailable Heather North Referring Unavailable CanHeather youngblood Primary Care Unavailable Heather North Attending Unavailable Heather North Referring Unavailable Can, Heather Primary Care Unavailable Heather North Attending Unavailable Heather North Referring Unavailable Can, Heather Primary Care Unavailable CanHeather youngblood Attending Unavailable Can, Heather Referring Unavailable Can, Heather Primary Care Unavailable Can, Heather Primary Care Unavailable Jason Doss Attending Unavailable Can, Heather Primary Care Unavailable Dat Stark Attending Unavailable CanHeather youngblood Attending Unavailable Can, Heather Primary Care Unavailable CanHeather youngblood Attending Unavailable Can, Heather Referring Unavailable Can, Heather Primary Care Unavailable CanHeather youngblood Attending Unavailable Can, Heather Referring Unavailable Can, Heather Primary Care Unavailable CanHeather youngblood Attending Unavailable Can, Heather Primary Care Unavailable CanHeather Attending Unavailable Can, Heather Primary Care Unavailable Can, Heather Attending Unavailable Can, Heather Primary Care Unavailable CanHeather youngblood Attending Unavailable Can, Heather Primary Care Unavailable Heather North Attending Unavailable Can, Heather Referring Unavailable Can, Heather Primary Care Unavailable CanHeather youngblood Attending Unavailable Can, Heather Primary Care Unavailable CanHeather youngblood Attending Unavailable Can, Heather Primary Care Unavailable REDDY WELLS Attending Unavailable HEATHER NORTH A Referring Unavailable REDDY WELLS Admitting Unavailable REDDY WELLS Attending Unavailable REDDY WELLS Referring Unavailable REDDY WELLS Referring Unavailable ELIAS JOHNSON, NBA Madsen JR. Attending Unavailable DR. HEATHRE NORTH DO Primary Care Unavailable Mini WELLS Referring Unavailable [facility] Primary Care Unavailable Mini WELLS Referring Unavailable [facility] Primary Care Unavailable Mini WELLS Referring Unavailable [facility] Primary Care Unavailable Mini WELLS Referring Unavailable [facility] Primary Care Unavailable Mini WELLS Admitting Unavailable Mini WELLS Attending Unavailable [facility] Primary Care Unavailable Mini WELLS Attending Unavailable [facility] Referring Unavailable [facility] Primary Care Unavailable Mini WELLS Attending Unavailable [facility] Referring Unavailable [facility] Primary Care Unavailable HUMZA TALBERT) Attending Unavailable [facility] Referring Unavailable [facility] Primary Care Unavailable PROBLEMS PROBLEMS DATE TYPE CONDITION / CODE ATTENDING STATUS SOURCE 09/10/2018 Unknown E66.01 - Morbid Heather North Active [facility] (severe) obesity due Community to excess calories / Hospital E66.01(ICD-10) Repository 05/28/2018 Unknown M54.5 - Low back Heather North Active [facility] pain / M54.5(ICD-10) Community Hospital Repository 05/08/2018 Unknown Z98.890 - Other Heather North Active [facility] specified Community postprocedural Hospital states / Repository Z98.890(ICD-10) 05/08/2018 Unknown Z00.00 - Encounter Heather North Active [facility] for general adult [facility] without abnormal Repository findings / Z00.00(ICD-10) 05/08/2018 Unknown M79.7 - Fibromyalgia Heather North Active [facility] / M79.7(ICD-10) Community Hospital Repository 05/08/2018 Unknown R21 - Rash and other Heather North Active [facility] nonspecific skin Community eruption / Hospital R21(ICD-10) Repository 05/08/2018 Unknown G89.4 - Chronic pain Heather North Active [facility] syndrome / Community G89.4(ICD-10) Hospital Repository 04/21/2018 Unknown R69 - Illness, Heather North Active [facility] unspecified / Community R69(ICD-10) Hospital Repository 02/27/2018 Unknown D50.9 - Iron Heather North Active [facility] deficiency anemia, Community unspecified / Hospital D50.9(ICD-10) Repository 10/23/2017 Admitting Unknown / NA Active [facility] diagnosis K(Unknown) [facility] System Repository 10/23/2017 Active Generalized REDDY WELLS Active [facility] abdominal pain / [facility] Other R10.84(ICD-10) [place] Repository 01/04/2018 Unknown R53.83 - Other Heather North Active [facility] fatigue / Community R53.83(ICD-10) Hospital Repository 01/04/2018 Unknown E55.9 - Vitamin D Heather North Active [facility] deficiency, Community unspecified / Hospital E55.9(ICD-10) Repository 01/04/2018 Unknown R60.9 - Edema, Heather North Active [facility] unspecified / Community R60.9(ICD-10) Hospital Repository 01/04/2018 Unknown I10 - Essential Heather North Active [facility] (primary) Community hypertension / Hospital I10(ICD-10) Repository 01/04/2018 Unknown Z79.899 - Other long Heather North Active [facility] term (current) drug Community therapy / Hospital Z79.899(ICD-10) Repository 01/04/2018 Unknown G43.909 - Migraine, Heather North Active [facility] unspecified, not Community intractable, without Hospital status migrainosus / Repository G43.909(ICD-10) 10/23/2017 Active Epigastric pain / NEHERREDDY Active [place] R10.13(ICD-10) [facility] Other [facility] Repository 10/20/2017 Unknown R06.00 - Dyspnea, Heather North Active [facility] unspecified / Community R06.00(ICD-10) Hospital Repository 10/20/2017 Unknown D64.9 - Anemia, Heather North Active [facility] unspecified / Community D64.9(ICD-10) Hospital Repository PROCEDURES PROCEDURES No Procedure Records FoundRESULTS RESULTS EMERGENCY DEPARTMENT Observed: 08/01/2018 Status: F Source: [place] SUMMARY 12:35 AM [facility] REPOSITORY [facility] Medical Records Department [address] [place] [address] Emergency Department Summary 07/31/181951 MR#: [id number] Acct: [id number] Name: NELLA DALE Rep #: [id number] : 1980 37 From: Hola Mckinley MD PCP: Heather Norht DO Status: DEP ER - ER Visit Summary Date of Service: 07/31/18 Chief Complaint: Headache History of Present Illness: The patient is a 37 F presenting for evaluation secondary to headache. Patient reports that she had a gradual onset of a headache since yesterday. Patient reports that it is a continuous headache that started on the right side of her head and now is behind her left eye. She reports a throbbing type pain associated with nausea and photophobia. She denies any recent head injuries. She does state that she had a fever 2 days ago, but fever since resolved. She denies any neck stiffness or abnormal rashes. Patient does have a history of having headaches in the past, she took Imitrex at home and it did not seem to alleviate her symptoms. Physical Examination: Vital signs: Within normal limits General: Well-nourished well-developed no acute distress Head: Normocephalic atraumatic, left temporal tenderness to palpation, no vesicular rash noted. No sinus tenderness to percussion. Eyes: PERRLA, EOMI. Direct funduscopy shows no evidence of hemorrhage or papilledema. Neck: Supple, no lymphadenopathy, no JVD no meningismus. Negative Brudzinski, Kernig, jolt, and heel strike Cardiovascular: Heart regular rate and rhythm no murmurs Respiratory: Lung sounds clear to auscultation bilaterally no respiratory distress Abdomen: Soft, nontender Extremities: Nontender, no edema Skin: Normal color, no rash, no evidence of petechia Neuro: Alert and oriented 4, cranial nerves II through XII intact, normal strength, sensation Test Results: ESR is normal Emergency Department Course and Treatment: Patient presented secondary to headache. She did have some temporal artery tenderness, ESR was obtained which makes the likelihood of giant cell arteritis unlikely. She was treated with Compazine and Benadryl. Repeat evaluation at 2100 showed the patient have some traumatic improvement. This point I believe the patient to be appropriate for discharge. Patient will follow up with primary care as needed. Disposition: Discharge Impression: 1. Migraine headache This note was generated with [employer]ugg [employer] dictation software. It may contain incorrect words, spelling, and punctuation that were not noted in review of the chart prior to signing ED Disposition - Plan for ED Patient: Disposition: Home or Assisted Living Chief Complaint: Headache Diagnosis: Migraine Instructions: ED Headache Migraine Referrals: Heather North, [Primary Care Provider] - 3-5 Days What to do if you have Problems For any increased pain, shortness of breath, bleeding, nausea or vomiting, chest pain, or any unexpected problems, contact your Primary Care Provider. Call [facility] ([phone]) or report to the closest Emergency Room. Call 911 if necessary. 08/01/18 0035 <Electronically signed by Hola Mckinley MD> Date Hola Mckinley MD Cosigner Signature (If Indicated): Date CC: Heather North DO ERYTHROCYTE SED RATE Collected: 07/31/2018 Status: F Source: [place] 7:46 PM [facility] REPOSITORY TYPE CODE TESTS RESULT OUT OF RANGE REFERENCE UNITS LAB L102.0000 0-20 mm/hr Normal SED RATE 14 Performed By: #### L101.9900 #### [facility] [address] [place], [address] L/S SPINE MIN 4 Observed: 05/28/2018 Status: F Source: [place] VIEWS 1:49 PM [facility] REPOSITORY [facility] Imaging Services [address] [place] [address] L/S Spine Min 4 Views MR#: [id number] Acct: [id number] Name: NELLA DALE Rep #: [id number] : 1980 F 37 From: Federico Cadena MD PCP: Heather North DO Status: REG CLI Study: L/S Spine Min 4 Views Date of Exam: 05/28/18 Exam# [id number] Ordering Dr: Heather North DO STUDY: X-RAY - LUMBAR SPINE REASON FOR EXAM: Female, 37 years old. Low back pain. Patient fell TECHNIQUE: 5 view(s) of the lumbar spine were obtained. COMPARISON: None FINDINGS: There is lumbarization of S1 and narrowing of the L4-5 disc space. There are spurs from the endplates at the L4-5 level. The rest of the disc spaces are normal. No fracture. RAD/L/S Spine Min 4 Views IMPRESSION: Lumbarization of S1. 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 No fracture Electronically Signed: Federico Cadena MD at 5:49 EDT Tel , Service support , CC: Heather North DO Garment Cutter: Signed BUN Collected: 05/28/2018 Status: F Source: [place] 1:30 PM [facility] REPOSITORY TYPE CODE TESTS RESULT OUT OF RANGE REFERENCE UNITS LAB L501.1000 7-18 mg/dL Normal BUN 7 Performed By: #### L501.1000, L501.1105 #### [facility] [address] [place], [place], [address] SERUM CREATININE AND Collected: 05/28/2018 Status: F Source: [place] GFR 1:30 PM [facility] REPOSITORY TYPE CODE TESTS RESULT OUT OF RANGE REFERENCE UNITS LAB L501.1100 0.55-1.02 mg/dL Normal 0.66 CREAT,SERUM Result Comment: The validity of the calculated GFR AND GFRAA in patients over 70 years has not been determined. Clinical correlation is essential. LAB L501.1110 >60 mL/min Normal EST GFR 106 Result Comment: Non- GFR Calc LAB L501.1115 >60 mL/min Normal EST GFR - AA 128 Result Comment: GFR Calc Performed By: #### L501.1000, L501.1105 #### [facility] [address] [place], [place], [address] CBC W/DIFF, AUTOMATED Collected: 05/08/2018 Status: F Source: [place] 11:07 AM [facility] REPOSITORY TYPE CODE TESTS RESULT OUT OF RANGE REFERENCE UNITS LAB L100.1000 4.4-11.0 K/mm3 Normal WBC 7.5 LAB L100.1200 4.2-5.4 M/mm3 Normal RBC 5.00 LAB L100.1300 12.0-15.0 g/dl Normal HGB 12.0 LAB L100.1400 37-47 % Normal HCT 39.1 LAB L100.1500 81-99 fL Low MCV 78.2 LAB L100.1600 27.0-32.0 pg Low MCH 24.0 LAB L100.1700 32-36 g/gl Low MCHC 30.7 LAB L100.1810 11.6-14.6 % High RDW CV 16.3 LAB L100.1820 35.1-43.9 fl High RDW SD 46.5 LAB L100.1900 150-450 K/mm3 Normal PLT 209 LAB L100.2000 6.2-12.0 fl Normal MPV 10.3 LAB L100.2100 47-70 % Normal NEUT% 53.9 LAB L100.2200 19-41 % Normal LY% 38.6 LAB L100.2300 0-10 % Normal MONO% 5.8 LAB L100.2400 0-5 % Normal EO% 1.5 LAB L100.2500 0-1 % Normal BASO% 0.1 LAB L100.2550 0.0-0.9 % Normal IM GRAN % 0.100 Result Comment: IG% - Immature Granulocytes (promyelocytes, myelocytes and metamyelocytes) > 1% indicates that a LEFT SHIFT is Present. LAB L100.2620 2.0-7.7 X10 3/uL Normal Absolute Neut 4.1 LAB L100.2720 0.83-4.51 X10 3/ul Normal Absolute Lymph 2.91 Performed By: #### L100.0100, L101.9900 #### [facility] [address] [place], [place], [address] ERYTHROCYTE SED RATE Collected: 05/08/2018 Status: F Source: [place] 11:07 [facility] REPOSITORY TYPE CODE TESTS RESULT OUT OF RANGE REFERENCE UNITS LAB L102.0000 0-20 mm/hr Normal SED RATE 15 Performed By: #### L100.0100, L101.9900 #### [facility] [address] [place], [place], [address] LIPID PROFILE Collected: 05/08/2018 Status: F Source: [place] 11:07 [facility] REPOSITORY TYPE CODE TESTS RESULT OUT OF RANGE REFERENCE UNITS LAB L501.4900 200 mg/dL Normal CHOL 134 Result Comment: <200 mg/dL Desirable 200-240 mg/dL Borderline >240 mg/dL High Risk LAB L501.5000 mg/dL Normal TRIG 112 Result Comment: The drugs N-Acetylcysteine and Metamizole may falsely depress this assay. Serum Triglycerides Reference Interval Normal <150 mg/dL Borderline high 150 - 199 mg/dL High 200 - 499 mg/dL Very High > or = 500 mg/dL LAB L501.6400 mg/dL Normal HDL 43 Result Comment: The drugs N-Acetylcysteine and Metamizole may falsely depress this assay. Reference Range HDL <40 mg/dL Low HDL Cholesterol HDL >or= 60 mg/dL High HDL Cholesterol LAB L501.6500 0-130 mg/dL Normal LDL 69 LAB L501.6600 5-40 mg/dL Normal VLDL 22 Performed By: #### L500.4100, L501.0100, L501.6710 #### [facility] [address] [place], [address] GLUCOSE Collected: 05/08/2018 Status: F Source: [place] 11:07 AM [facility] REPOSITORY TYPE CODE TESTS RESULT OUT OF RANGE REFERENCE UNITS LAB L501.0100 74-106 mg/dL High GLU 122 Result Comment: Fasting Glucose result from 100 to 125 mg/dL suggests IMPAIRED HOMEOSTASIS per A.D.A. criteria. Please note revised GLUCOSE reference range effective 2017. Performed By: #### L500.4100, L501.0100, L501.6710 #### [facility] [address] [place], [address] CRP Collected: 05/08/2018 Status: F Source: [place] 11:07 AM [facility] REPOSITORY TYPE CODE TESTS RESULT OUT OF RANGE REFERENCE UNITS LAB L501.6710 0.0-3.0 mg/L High 4.19 C-REACTIVE PROT Result Comment: C-Reactive Protein (CRP) provides useful information for the diagnosis, therapy and monitoring of inflammatory processes and associated diseases. For the evaluation of Relative Risk for Cardiovascular Disease, a High Sensitivity CRP (HSCRP) should be ordered. Performed By: #### L500.4100, L501.0100, L501.6710 #### [facility] [address] [place], [address] HEMOGLOBIN A1C Collected: 05/08/2018 Status: F Source: [place] 11:07 AM [facility] REPOSITORY TYPE CODE TESTS RESULT OUT OF RANGE REFERENCE UNITS LAB L501.9985 4.2-6.3 % High HGB A1C 7.8 Performed By: #### L501.9985 #### [facility] [address] [place], [address] CARROLL W/ REFLEX MULT Collected: 05/08/2018 Status: F Source: [place] CONFIRM 11:07 AM [facility] REPOSITORY TYPE CODE TESTS RESULT OUT OF RANGE REFERENCE UNITS LAB L3100.5475 Negative Normal Negative CARROLL-DIRECT Result Comment: Performed at: - [facility] [address] [id number] Steam Shovel Operating Engineer: Theron Pearce PhD, Phone: [phone] Performed By: #### L3100.5450 #### [facility] (refer to report for specific site) refer to report for address and phone number EMERGENCY DEPARTMENT Observed: 03/24/2018 Status: F Source: [place] SUMMARY 12:36 AM [facility] REPOSITORY [facility] Medical Records Department [address] [place] [address] Emergency Department Summary 03/23/18 1718 MR#: [id number] Acct: [id number] Name: NELLA DALE Rep #: [id number] : 1980 37 From: Dat Stark MD PCP: Heather North DO Status: DEP ER - ER Visit Summary Date of Service: 03/23/18 Chief Complaint: Abdominal pain History of Present Illness: The patient is a [address] North. She reports that she has abdominal pain that began at approximately midnight. Is a continuous burning pain in the right upper quadrant. Is 10 out of 10 at worst and 6 out of 10 currently. Is worsened by movement and relieved by pushing on it. She has had nausea without vomiting. She first had diarrhea 3-4 times a day for the past 2 days. No blood in her stools or black tarry stools. No dysuria or frequency. Patient also complains of subjective fever and chills that began overnight. She is a sore throat that is 10 out of 10 severity and began today. She has a cough productive brown/green sputum without blood. She reports that she is having mild difficulty breathing. Physical Examination: Vitals: Stable. Afebrile. General: Well-nourished and well-developed. Head: Normocephalic atraumatic. Neck: Supple, no lymphadenopathy. No JVD. Nontender. Pharyngeal erythema. No tonsillar enlargement or exudate. Cardiovascular: Regular rate and rhythm. No murmurs. Respiratory: No respiratory distress. Clear to auscultation bilaterally. Abdominal: Soft, mild right upper quadrant tenderness to palpation, nondistended, normal bowel sounds. No guarding, rebound, or peritoneal signs. Back: Nontender. Extremities: Nontender, no edema. Skin: Normal color, no rash. Neurologic: Alert and oriented 3. Cranial nerves II through XII are intact. Normal strength and sensation. Psych: Normal affect. Test Results: Strep is negative. CBC is more for a white count of 12.4 with 80 segmented neutrophils and 12 lymphocytes. Chem-7 is more for glucose of 183. LFTs marked for an AST of 13 globulin 4.4. Lipase is 68. UA is negative. test is negative. Chest x-ray shows chronic changes. Emergency Department Course and Treatment: Patient was treated the dose of morphine and Zofran IV. She is resting comfortably. Treatment Plan: Patient will be discharged with Zofran. Instructed to push fluids. Follow-up with her primary care physician in 3-5 days if not improving. Return to the emergency department for any worsening symptoms. Disposition: To home in improved and stable condition. Impression: 1. Abdominal pain, uncertain cause. 2. URI. This note was generated with [employer]ugg [employer] dictation software. It may contain incorrect words, spelling, and punctuation that were not noted in review of the chart prior to signing ED Disposition - Plan for ED Patient: Chief Complaint: Abd Pain Instructions: ED Abdominal Pain Unkn Cause, ED Upper Resp Infec No Abx Tx Prescriptions: Ondansetron [Zofran Odt] 4 mg PO Q8H PRN PRN #10 tablet PRN Reason: Nausea Referrals: Heather North, [Primary Care Provider] - 3-5 Days if not improving What to do if you have Problems For any increased pain, shortness of breath, bleeding, nausea or vomiting, chest pain, or any unexpected problems, contact your Primary Care Provider. Call [facility] ([phone]) or report to the closest Emergency Room. Call 911 if necessary. 03/24/18 0036 <Electronically signed by Dat Stark MD> Date Dat Berkowitz Signature (If Indicated): Date CC: Heather AraujoCan DO CBC W/DIFF, AUTOMATED Collected: 03/23/2018 Status: F Source: [place] 3:45 PM [facility] REPOSITORY TYPE CODE TESTS RESULT OUT OF RANGE REFERENCE UNITS LAB L100.1000 4.4-11.0 K/mm3 High WBC 12.4 LAB L100.1200 4.2-5.4 M/mm3 Normal RBC 5.14 LAB L100.1300 12.0-15.0 g/dl Normal HGB 12.2 LAB L100.1400 37-47 % Normal HCT 38.2 LAB L100.1500 81-99 fL Low MCV 74.3 LAB L100.1600 27.0-32.0 pg Low MCH 23.7 LAB L100.1700 32-36 g/gl Low MCHC 31.9 LAB L100.1810 11.6-14.6 % High RDW CV 17.0 LAB L100.1820 35.1-43.9 fl High RDW SD 44.1 LAB L100.1900 150-450 K/mm3 Normal PLT 211 LAB L100.2000 6.2-12.0 fl Normal MPV 11.1 LAB L100.2100 47-70 % High NEUT% 80.3 LAB L100.2200 19-41 % Low LY% 12.2 LAB L100.2300 0-10 % Normal MONO% 6.6 LAB L100.2400 0-5 % Normal EO% 0.6 LAB L100.2500 0-1 % Normal BASO% 0.1 LAB L100.2550 0.0-0.9 % Normal IM GRAN % 0.200 Result Comment: IG% - Immature Granulocytes (promyelocytes, myelocytes and metamyelocytes) > 1% indicates that a LEFT SHIFT is Present. LAB L100.2620 2.0-7.7 X10 3/uL High Absolute Neut 9.9 LAB L100.2720 0.83-4.51 X10 3/ul Normal Absolute Lymph 1.51 Performed By: #### L100.0100 #### [facility] [address] [facility] [place], [place], [id number] BASIC METABOLIC Collected: 03/23/2018 Status: F Source: [place] PROFILE (BMP) 3:45 PM [facility] REPOSITORY TYPE CODE TESTS RESULT OUT OF RANGE REFERENCE UNITS LAB L501.0100 74-106 mg/dL High GLU 183 Result Comment: Fasting Glucose result greater than or equal to 126 mg/dL suggests DIABETES MELLITUS per A.D.A. criteria. Please note revised GLUCOSE reference range effective 2017. LAB L501.1000 7-18 mg/dL Normal BUN 11 LAB L501.1100 0.55-1.02 mg/dL Normal CREAT,SERUM 0.72 Result Comment: The validity of the calculated GFR AND GFRAA in patients over 70 years has not been determined. Clinical correlation is essential. LAB L501.1110 >60 mL/min Normal EST GFR 97 Result Comment: Non- GFR Calc LAB L501.1115 >60 mL/min Normal EST GFR - AA 117 Result Comment: GFR Calc LAB L501.1255 ml/min Normal Estimated CRCL 104.03 LAB L501.1300 10-20 RATIO BUN/CRE Normal 15.3 LAB L501.2200 8.5-10 mg/dL .1 CA Normal 8.7 LAB L501.5300 136-14 mmol/L 5 NA Normal 138 LAB L501.5600 3.5-5. mmol/L 1 K Normal 3.9 LAB L501.5900 98-107 mmol/L CL Normal 105 LAB L501.6100 21.0-3 mmol/L 2.0 CO2 Normal 26.0 LAB L501.6200 5-15 GAP Normal 7 Performed By: #### L500.2500, L500.3400, L501.2450 #### [facility] [address] [place], [place], [id number] LIVER PROFILE Collected: 03/23/2018 Status: F Source: [place] 3:45 PM [facility] REPOSITORY TYPE CODE TESTS RESULT OUT OF RANGE REFERENCE UNITS LAB L501.1500 6.4-8.2 g/dL Normal T PROT 8.0 LAB L501.1800 3.2-5.0 g/dL Normal ALB 3.6 LAB L501.1950 2.2-4.2 g/dL High GLOB 4.4 LAB L501.4100 15-37 U/L Low AST 13 LAB L501.4305 45-117 U/L Normal ALK P 100 LAB L501.4405 13-56 U/L Normal ALT 20 LAB L501.4600 0.20-1.00 mg/dL Normal T BILI 0.40 LAB L501.4700 0.00-0.30 mg/dL Normal D BILI 0.11 Performed By: #### L500.2500, L500.3400, L501.2450 #### [facility] [address] [place], [place], [id number] LIPASE Collected: 03/23/2018 Status: F Source: [place] 3:45 PM [facility] REPOSITORY TYPE CODE TESTS RESULT OUT OF REFERENCE UNITS RANGE LAB L501.2450 73-393 U/L Low LIPASE 68 Performed By: #### L500.2500, L500.3400, L501.2450 #### [facility] [address] [place], [place], [id number] ,SERUM,HCG QUALI. Collected: Status: F Source: [place] 03/23/2018 3:45 PM [facility] REPOSITORY TYPE CODE TESTS RESULT OUT OF REFERENCE UNITS RANGE LAB L700.7000 0-9 Nonpreg Negative Normal HCGSQUAL NEGATIVE LAB L700.6700 =>Qualitative mIU/mL Normal HCG Qual < 1 triggr Performed By: #### L700.6800 #### [facility] [address] [place], [place], [id number] Observed: 03/23/2018 Status: F Source: [place] STREP A (THRO[place] 3:43 PM [facility] RAPID MICHAEL) REPOSITORY Strep A Rapid Rapid Strep A Screen NEGATIVE A Disk (Conf. Cult) Negative for Strep Group A : All NEGATIVE screens will be confirmed with a culture. Performed By: #### M100.676 #### [facility] [address] [place], [address] URINALYSIS, COMPLETE Collected: 03/23/2018 Status: F Source: [place] 3:41 PM [facility] REPOSITORY Order Comment: How was Urine Obtained? CLEAN CATCH TYPE CODE TESTS RESULT OUT OF RANGE REFERENCE UNITS LAB L400.3000 Yellow COLOR Normal Yellow LAB L400.3050 Clear Normal CLARITY Sl. Cloudy LAB L400.3200 Normal mg/dl Normal GLUCOSE, UR Normal LAB L400.3300 Negative mg/dL High BILIRUBIN URINE 1 Result Comment: COLOR OF URINE MAY AFFECT DIPSTICK RESULTS. LAB L400.3400 Negative mg/dl High KETONE UR 5 LAB L400.3465 1.002-1.030 Normal SP.GR. DIPSTX 1.020 LAB L400.3550 5.0 - 8.0 pH Normal UR 5.0 LAB L400.3600 Negative mg/dl High PROT DIPSTX 15 LAB L400.3700 Normal mg/dl High UROBILI 1 LAB L400.3750 Negative Normal NITRITE UR Negative LAB L400.3780 Negative /ul Normal OCCULT Negative BLOOD-UR LAB L400.3800 Negative /ul High LEUK ESTERASE 25 LAB L400.4050 0-5 /hpf Normal WBC 0-5 SEEN LAB L400.4100 0-5 /hpf Normal RBC-UA 0 SEEN LAB L400.4150 5-10 /hpf Normal SQUAM EPI 10-25 SEEN LAB L400.4300 None Seen /hpf Normal BACTERIA 1+ LAB L400.4350 <or=2+ /hpf Normal MUCUS, URINE 1+ Performed By: #### L400.0001 #### [facility] [address] [facility] [place], [address] CHEST PA AND LATERAL Observed: 03/23/2018 Status: F Source: [place] 3:37 PM [facility] REPOSITORY [facility] Imaging Services [address] [place] [address] Chest PA and Lateral MR#: [id number] Acct: [id number] Name: NELLA DALE Rep #: [id number] : 1980 F 37 From: Zion Trevino MD PCP: Can DO,Heather Status: PRE ER Study: Chest PA and Lateral Date of Exam: 03/23/18 Exam# [id number] Ordering Dr: Dat Stark MD STUDY: X-RAY CHEST REASON FOR EXAM: Female, 37 years old. Productive cough TECHNIQUE: PA and lateral views of the chest. COMPARISON: Previous study of 04/04/2017 FINDINGS: The lungs are clear and expanded. There is no demonstrated pleural abnormality. Normal size heart. Normal mediastinum and edward. Normal visualized pulmonary arteries. Normal visualized aortic arch and descending thoracic aorta. There are diffuse degenerative changes of the visualized thoracic spine. Normal visualized ribs, clavicles, and shoulders. There is no demonstrated abnormality of the visualized soft tissue structures of the upper abdomen. RAD/Chest PA and Lateral IMPRESSION: Degenerative changes, as described above. No demonstrated acute cardiopulmonary process. Electronically Signed: Zion Trevino MD at 16:26 EDT , Service support , CC: Heather North DO; Dat Stark MD Garment Cutter: Signed EMERGENCY DEPARTMENT Observed: 03/13/2018 Status: F Source: [place] SUMMARY 5:35 PM [facility] REPOSITORY [facility] Medical Records Department [address] [place] [address] Emergency Department Summary 03/13/18 1731 MR#: [id number] Acct: [id number] Name: NELLA DALE Rep #: [id number] : 1980 37 From: Jason Doss MD PCP: Heather North DO Status: REG ER - ER Visit Summary Date of Service: 03/13/18 Chief Complaint: Headache History of Present Illness: The patient is a 37 F who presents with a headache. She does have a history of migraines. She states the current headache began about 4 days ago and is gradually worsened since that time. She does have a history of similar prior headaches. Her pain is in the right retro-orbital region. She currently states it is severe but not the worst headache or pain of her life. She complains of seeing some spots and photophobia. She does report nausea and vomiting. She has had all of these symptoms previously with headaches except for seeing spots which was a new symptom. No fever. No head injury. Review of systems otherwise negative. Physical Examination: Afebrile vitals are normal No distress Alert and oriented no focal or lateralizing neurological deficits Moist mucous membranes Heart regular rate and rhythm Lungs are clear Abdomen soft Neck supple no meningismus Test Results: Not indicated Emergency Department Course and Treatment: Patient was treated with IV fluids Compazine and Benadryl and Decadron. On reevaluation she reports greater than 50% improvement. This is tolerable level of pain for her. She does feel well enough to go home. She understands return for new or worsening symptoms. Treatment Plan: [] Disposition: Discharge Impression: Migraine This note was generated with [employer] dictation software. It may contain incorrect words, spelling, and punctuation that were not noted in review of the chart prior to signing ED Disposition - Plan for ED Patient: Chief Complaint: Headache Referrals: Heather North, [Primary Care Provider] - What to do if you have Problems For any increased pain, shortness of breath, bleeding, nausea or vomiting, chest pain, or any unexpected problems, contact your Primary Care Provider. Call [facility] ([phone]) or report to the closest Emergency Room. Call 911 if necessary. 03/13/18 7682 <Electronically signed by Jason Doss MD> Date Jason Doss MD Cosigner Signature (If Indicated): Date CC: Heather North DO DISCHARGE INSTRUCTION Observed: 03/13/2018 Status: F Source: [place] 5:35 PM [facility] REPOSITORY [facility] Medical Records Department [address] [place] [address] Discharge Instruction 03/13/181734 MR#: [id number] Acct: [id number] Name: NELLA DALE Rep #: [id number] : 1980 37 From: Jason Doss MD PCP: Heather North DO Status: REG ER ED Disposition - Plan for ED Patient: Chief Complaint: Headache Instructions: ED Headache Migraine Referrals: Heather North DO [Primary Care Provider] - What to do if you have Problems For any increased pain, shortness of breath, bleeding, nausea or vomiting, chest pain, or any unexpected problems, contact your Primary Care Provider. Call [facility] ([phone]) or report to the closest Emergency Room. Call 911 if necessary. 03/13/181734 <Electronically signed by Jason Doss MD> Date Jason Doss MD Cosigner Signature (If Indicated): Date CC: Heather North DO CT ABDOMEN AND PELVIS Observed: 01/22/2018 Status: F Source: [facility] WITH CONTRAST 3:06 PM HEALTH SYSTEM REPOSITORY Performed at [facility] APPROVED BY: MARCUS CARRASQUILLO MD EXAMINATION: CT ABDOMEN AND PELVIS WITH IV CONTRAST CLINICAL HISTORY: Abdominal pain. Pain during bowel movement. History of prior gastric bypass surgery. TECHNIQUE: CT of the abdomen and pelvis was performed using standard technique, scanning from just above the dome of the diaphragm to the symphysis pubis. MQ: CTAP_3 Contrast: IV: 150 ml of Omnipaque 300 Oral: [address] Radiation dose: Integrated Dose-length product (DLP) for this visit = 1164.5 mGy*cm. CT Dose Reduction Employed: Automated exposure control (AEC) was used COMPARISON: None. RESULT: Liver: The liver is of low-density, when compared the spleen, suggesting fatty infiltration of liver. More focal fatty change is seen within the liver, adjacent to the falciform ligament. There is no focal hepatic mass. Biliary: The patient is status post cholecystectomy. There is mild biliary dilation, likely related to the cholecystectomy. Spleen: No mass. The spleen is enlarged, measuring approximately 16.2 cm in length. Pancreas: No mass or duct dilation. Adrenals: No mass. Kidneys: There is no hydronephrosis or perinephric fluid collection. GI tract: The patient is status post gastric bypass surgery. There are no dilated loops of bowel to suggest obstruction. The appendix is seen in the right lower quadrant and is within normal limits. Lymph nodes: There are prominent, less than 1 cm abdominal lymph nodes, likely reactive. Mesentery/Peritoneum: No ascites or mass. Retroperitoneum: No mass. Vasculature: The celiac axis and SMA are patent. The portal vein and branches, splenic vein, SMV, and hepatic veins are patent. Pelvis: There is an approximately 1.9 x 1.3 cm likely hemorrhagic left adnexal cyst (series 2, image #106). Trace amount of pelvic ascites is likely physiologic. There are prominent, less than 1 cm pe lvic lymph nodes, likely reactive. There is no pelvic mass. A few phleboliths are incidentally seen within the pelvis. Bones/Soft Tissues: There is multilevel degenerative change seen within the visualized spine, with associated mild scoliosis of the spine. There is mild bilateral hip degenerative change. There is no destructive bony lesion. Lower thorax: Lung bases are grossly clear. IMPRESSION: No acute abdominal or pelvic process is identified. Postsurgical changes of prior gastric bypass surgery. No evidence for bowel obstruction. Fatty infiltration of the liver. Splenomegaly, with the spleen measuring approximately 16.2 cm in length. No focal splenic lesion is identified. Approximately 1.9 cm likely hemorrhagic left adnexal cyst. Trace amount of pelvic ascites, likely physiologic. CREATININE WHOLE BLOOD Collected: 01/22/2018 Status: F Source: [facility] 2:50 PM HEALTH SYSTEM REPOSITORY TYPE CODE TESTS RESULT OUT OF REFERENCE UNITS RANGE LAB PCREA(LOIN 0.6-1.3 mg/dL C) Creatinine Whole 0.6 Blood Performed By: #### PCREA #### [place] [address] ANES POST Observed: 01/16/2018 Status: COMPLETED Source: [place] 11:17 AM [facility] REPOSITORY HNO ID: [id number] Author: Mike He Service: Anesthesiology Author Type: Physician Type: Anesthesia PostOp Filed: 01/16/2018 11:19 AM Note Text: POST ANESTHESIA EVALUATION NOTE SERVICE DATE: 01/16/2018 SERVICE TIME: 11:19 AM : 1980 Vitals: 01/16/18 0902 Temp: 36.9 ?C (98.4 ?F) 01/16/18 0902 01/16/18 0917 01/16/18 1049 01/16/18 1108 BP: 113/75 107/72 116/77 116/79 01/16/18 0902 01/16/18 0917 01/16/18 1049 01/16/18 1108 Pulse: (!) 142 103 68 79 01/16/18 0902 01/16/18 0917 01/16/18 1049 01/16/18 1108 Resp: 22 20 14 14 01/16/18 0902 01/16/18 0917 01/16/18 1049 01/16/18 1108 SpO2: 100% 100% 100% 100% Validated Vital Signs: Yes POST ANES STATUS: No apparent anesthetic complications. The patient is appropriately hydrated with stable respiratory and cardiovascular status. Patient has safe and adequate airway control. The patient has appropriate pain relief and no significant post operative nausea or vomiting. The patient has achieved baseline mental status. Further assessment by Anesthesia Service: None Other Remarks: SIGNATURE: Mike He MD PATIENT NAME: Nella Dale DATE: January 16, 2018 TIME: 11:19 AM PAGER/CONTACT #: PT ED Observed: 01/16/2018 Status: COMPLETED Source: [place] 11:08 AM [facility] REPOSITORY HNO ID: [id number] Author: Dion Mann) JABIER Reyes Service: Gastroenterology Author Type: Registered Nurse Type: Patient Education Filed: 01/16/2018 11:08 AM Note Text: POST OP LEARNING RESPONSE INSTRUCTION PROVIDED TO: Patient METHOD OF INSTRUCTION: Individual instruction PATIENT / FAMILY RESPONSE: Verbalizes understanding of: POST-PROCEDURE INSTRUCTIONS-Correct actions to take to reduce post procedure complications Information received as demonstrated by interest and questions FOLLOW-UP PLAN: Complete - No need for follow-up SUPPLEMENTAL MATERIAL: None REFERRAL (RECOMMENDATION): None Electronically Signed By: Dion Reyes RN In Department: [facility] BRIEF OP NOT Observed: 01/16/2018 Status: COMPLETED Source: [place] 10:48 AM [facility] REPOSITORY HNO ID: [id number] Author: Reddy Wells Service: Gastroenterology Author Type: Physician Type: Brief Op Note Filed: 01/16/2018 10:50 AM Note Text: BRIEF OPERATIVE / PROCEDURE NOTE LOG ID: [id number] SURGERY/PROCEDURE DATE: 01/16/2018 INCISION/PROCEDURE START TIME: 10:32 AM INCISION CLOSE/PROCEDURE END TIME: 10:42 AM SURGEON(S)/PROCEDURALIST(S) AND FISHER POT(S): Surgeon(s) and Role: * Reddy Wells - Primary No Additional Staff PROCEDURE(S): Colonoscopy ANESTHESIA: Monitored Anesthesia Care FINDINGS: 1. Suboptimal prep, but grossly nl colonoscopy ESTIMATED BLOOD LOSS: None SPECIMENS: * No specimens in log * COMPLICATIONS: None PRE-OP/PRE-PROCEDURE DIAGNOSIS: 1. Lower abd pain POST-OP/POST-PROCEDURE DIAGNOSIS: As above Rec: 1. Reschedule CT SIGNATURE: Reddy Wells MD PATIENT NAME: Nella Dale DATE: January 16, 2018 TIME: 10:48 AM PAGER/CONTACT #: PT ED Observed: 01/16/2018 Status: COMPLETED Source: [place] 9:19 AM [facility] REPOSITORY HNO ID: [id number] Author: Nichelle Mann) JABIER Angelo Service: Gastroenterology Author Type: Registered Nurse Type: Patient Education Filed: 01/16/2018 9:20 AM Note Text: PRE OP LEARNING ASSESSMENT PROCEDURE/SURGERY: GI PROCEDURES: Colonoscopy READINESS TO LEARN COGNITIVE ABILITY: Alert and oriented MOTIVATION TO LEARN: Eager FAMILY SUPPORT: High - Very involved in pt care PATIENT LEARNS BEST BY: Individual Instruction FACTORS AFFECTING LEARNING: None PHYSICAL LIMITATIONS AFFECTING LEARNING: None Electronically Signed By: Nichelle Angelo RN In Department: [facility] Colon with anesthesia, diet and activity restrictions, f/u with physician, emergent symptoms to report to physician URINE HCG, QUAL. Collected: 01/16/2018 Status: F Source: [facility] 9:13 AM HEALTH SYSTEM REPOSITORY TYPE CODE TESTS RESULT OUT OF REFERENCE UNITS RANGE LAB URHCG(LOIN Negative C) HCG, Qual. Negative Urine LAB SPGR(LOINC 1.005-1.030 ) Specific 1.016 [place], Ur Performed By: #### HCGUR #### [facility] [address] [place] [id number] ANES PREOP Observed: 01/16/2018 Status: COMPLETED Source: [place] 9:02 AM [facility] REPOSITORY HNO ID: [id number] Author: Mike He Service: Anesthesiology Author Type: Physician Type: Anesthesia PreOp Filed: 01/16/2018 9:34 AM Note Text: ANESTHESIOLOGY DAY OF SURGERY NOTE SERVICE DATE: 01/16/2018 SERVICE TIME: 9:04 AM : 1980 Procedure(s) (LRB): COLONOSCOPY (Left) Surgeon(s): Reddy Wells Estimated body mass index is 41.35 kg/m? as calculated from the following: Height as of 10/23/17: 170.2 cm (5' 7). Weight as of 10/23/17: 119.7 kg (264 lb). Most recent hematocrit and potassium results: No results found for this basename: HCT,HEMATOCRIT,K,POTASSIUM ANES DOS/PREOP NOTE: Vitals: There were no vitals filed for this visit. 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 The bones of the pelvis are unremarkable - DM (diabetes mellitus) (HCC) 2007 diet controlled - H/O arthroscopy of right knee 12/04/2013 [facility] - Helicobacter pylori ab+ 10/21/2015 - History of EMG 10/29/2015 [facility] - Normal study of bilateral lower exremities - History of gallstones - History of MRI of lumbar spine 09/16/2015 [facility]- L3-L4 : there is a 4 to 5 mm circumfrential disc bulge wiht narrowing of the intervertebral disc. Mild bilateral neural foraminal narrowing. Moderate spinal canal stenosis. PAST SURGICAL HISTORY Procedure Laterality Date - CARPAL TUNNEL Left - CARPAL TUNNEL RIGHT WRIST Right - GASTRIC BYPASS HX 12/2014 x2 - KNEE SCOPE,DIAGNOSTIC Right Arthroscopy, knee - L'SCOPE CHOLECYSTECTOMY FAMILY HISTORY Problem Relation Age of Onset - Arthritis Mother - Cancer Mother uterine - Hypertension Mother - Hyperlipidemia Mother - Diabetes Mother Social History: Social History Substance Use Topics - Smoking status: Former Smoker - Smokeless tobacco: Former User Quit date: 11/06/2010 Comment: Smoked on and off 15 yrs but never heavy - Alcohol use No Comment: No EtOH for 8 yrs No current facility-administered medications on file prior to encounter. Current Outpatient Prescriptions on File Prior to Encounter: PROAIR HFA 90 mcg/actuation inhaler INHALE TWO PUFFS BY MOUTH EVERY 4 HOURS (SHAKE WELL BEFORE USING) NYAMYC powder Apply to affected area twice daily as needed. rOPINIRole (REQUIP) 0.5 mg tablet TAKE ONE TABLET BY MOUTH EVERY DAY one to three hours before bedtime metoprolol succinate ER (TOPROL XL) 50 mg 24 hr tablet Take 50 mg by mouth once daily. morphine SR (MS CONTIN, ORAMORPH SR) 30 mg 12 hr tablet 1 tablet twice daily. zolpidem (AMBIEN) 10 mg tab Take 1 tablet by mouth at bedtime as needed (insomnia). oxyCODONE-acetaminophen (PERCOCET) 10-325 mg tablet Take 1 tablet by mouth every 6 hours as needed for Pain. clonazePAM (KLONOPIN) 1 mg tablet Take 1 tablet by mouth twice daily. fluocinolone (SYNALAR) 0.025 % ointment Apply 1 application to affected area twice daily. pea-sized amount No current facility-administered medications for this encounter. Allergies: ALLERGIES Allergen Reactions - Nsaids (Non-Steroid* Other: See Comments stomach ulcers - hx. of gastric bypass DOS EXAM: Adequate NPO status: Yes Anesthetic risks, benefits, alternatives, personnel and consent discussed: Yes Patient agrees to proceed: Yes Previous Anesthesia: No history of adverse event. Airway Assessment: MP 2; Neck ROM: Full ROM without neurologic symptoms; Airway Evaluation: No significant abnormalities Symptoms of Sleep Apnea: Hypertension and BMI > 35 Dentition: Teeth intact caps Additional Physical Exam: Lungs: Patient health status unchanged since recent history and physical. See history and physical for exam findings. Cardiac: Patient health status unchanged since recent history and physical. See history and physical for exam findings. Additional Pertinent Findings: N/A Blood Products: Not anticipated for this procedure. Anesthetic Plan: MAC with Sedation Pain Management Plan: Parenteral or Oral ASA Class: 3 Other Medical Problems: None. hcg neg. Chronic Beta Phuc medication administered within 24 hours: Yes I have interviewed and examined the patient. I have reviewed the medical record and/or the pre-anesthesia evaluation, pertinent labs, and test results. Significant changes in the patient's condition since the History and Physical, not otherwise documented in primary service progress notes: No This contains updated information obtained within 48 hours of Surgery/Procedure. SIGNATURE: Mike He MD PATIENT NAME: Nella Dale DATE: January 16, 2018 TIME: 9:02 AM CSN: [id number] HISTORY PHYSICAL Observed: 01/16/2018 Status: COMPLETED Source: [place] 8:32 AM [facility] REPOSITORY O ID: [id number] Author: Yin Ness Service: General Surgery Author Type: Nurse Practitioner Type: HANDP Filed: 01/16/2018 9:29 AM Note Text: HISTORY AND PHYSICAL EXAMINATION SERVICE DATE: 01/16/2018 SERVICE TIME: 832 PRIMARY CARE PHYSICIAN: Heather North DO REASON FOR VISIT: Nella Dale is a 37 year old female who is scheduled for Procedure(s): COLONOSCOPY (Left) - Dr. Wells. 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 First colonoscopy. Patient reports with abd pain with every BM. Denies rectal pain. Symptoms for 18 months. Gastric bypass in 2014- then bowel resection 2 wks later. Denies bloody and tarry stools. Daily BM. Denies constipation and diarrhea. Denies acid reflux. Denies dysphagia. Positive nausea and emesis. [address] Thompson. Past 2 months has gained 20 pounds- patient not sure reason for weight changes. 05/2017 IMPRESSION: 1. ?Changes consistent with the patient's history of gastric bypass surgery. ? Barium passes by the jejunojejunostomy without evidence of obstruction. ?Remainder ?of the small bowel is unremarkable. ? ? 2. On several of the early images, there is a persistent focus of barium within the gastric pouch. ?On subsequent images however this is not seen. ?This is felt to most likely represent a clump of undissolved barium that subsequently passed. ? The possibility of a small erosion that would be subsequently obscured on the later images is possible but felt less likely. ? 3. ?Small hiatal hernia. PAST MEDICAL HISTORY Diagnosis Date - Abnormal MRI, musculoskeletal 12/17/2015 Left hip - [facility] - Sacroiliac joints are intact. The bones of the pelvis are unremarkable - DM (diabetes mellitus) (HCC) 2007 diet controlled - H/O arthroscopy of right knee 12/04/2013 [facility] - Helicobacter pylori ab+ 10/21/2015 - History of EMG 10/29/2015 [facility] - Normal study of bilateral lower exremities - History of gallstones - History of MRI of lumbar spine 09/16/2015 [facility]- L3-L4 : there is a 4 to 5 mm circumfrential disc bulge wiht narrowing of the intervertebral disc. Mild bilateral neural foraminal narrowing. Moderate spinal canal stenosis. PAST SURGICAL HISTORY Procedure Laterality Date - CARPAL TUNNEL Left left upper arm surgery - CARPAL TUNNEL RIGHT WRIST Right - GASTRIC BYPASS HX 12/2014 x2 - KNEE SCOPE,DIAGNOSTIC Right Arthroscopy, knee - L'SCOPE CHOLECYSTECTOMY FAMILY HISTORY Problem Relation Age of Onset - Arthritis Mother - Cancer Mother uterine - Hypertension Mother - Hyperlipidemia Mother - Diabetes Mother SOCIAL HISTORY: Social History Marital status: Single Spouse name: Years of education: Number of children: Social History Main Topics Smoking status: Former Smoker Packs/day: 0.00 Years: 0.00 Smokeless tobacco: Former User Quit date: 11/06/2010 Comment: Smoked on and off 15 yrs but never heavy Alcohol use: No Comment: No EtOH for 8 yrs Drug use: No Sexual activity: Yes Partners with: Female Other Topics Concern Occupational Exposure No Comment:Not working. Been applying to [employer] since 2010 Sleep Concern Yes Comment:Sleeps well for 3 hrs. Then on and off the rest of the night Stress Concern Yes Comment:medium Back Care No Comment:none Exercise No Comment:none Prior to Admission medications as of 01/16/18 0907 Medication Sig Last Dose Taking rOPINIRole (REQUIP) 0.5 mg tablet TAKE ONE TABLET BY MOUTH EVERY DAY one to three hours before bedtime 01/15/2018 at Unknown time Yes morphine SR (MS CONTIN, ORAMORPH SR) 30 mg 12 hr tablet 1 tablet twice daily. 01/15/2018 at Unknown time Yes zolpidem (AMBIEN) 10 mg tab Take 1 tablet by mouth at bedtime as needed (insomnia). 01/15/2018 at Unknown time Yes clonazePAM (KLONOPIN) 1 mg tablet Take 1 tablet by mouth twice daily. 01/15/2018 at Unknown time Yes PROAIR HFA 90 mcg/actuation inhaler INHALE TWO PUFFS BY MOUTH EVERY 4 HOURS (SHAKE WELL BEFORE USING) 09/17/2017 NYAMYC powder Apply to affected area twice daily as needed. 12/17/2017 metoprolol succinate ER (TOPROL XL) 50 mg 24 hr tablet Take 50 mg by mouth once daily. 01/02/2018 oxyCODONE-acetaminophen (PERCOCET) 10-325 mg tablet Take 1 tablet by mouth every 6 hours as needed for Pain. t at 0400 fluocinolone (SYNALAR) 0.025 % ointment Apply 1 application to affected area twice daily. pea-sized amount 12/17/2017 No medication comments found. ALLERGIES Allergen Reactions - Nsaids (Non-Steroid* Other: See Comments stomach ulcers - hx. of gastric bypass REVIEW OF SYSTEMS: PAIN ASSESSMENT: Pain Pain Score: 0/10 Pain Assessment (RN/THICKENER OPERATOR): Assessment Tool: Verbal (Numeric Rating or Visual Analog Scale) General: Denies fever, chills. Neuro: Denies dizziness and headaches. Respiratory: Denies SOB. Cardiovascular: Denies CP and palpitations. GI: see HPI. : Denies dysuria. 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 Endocrine: history of diabetes- no medications Hematology: Denies history of bleeding or clotting disorder. Psych: positive anxiety/depression. Musculoskeletal: joint and back pain- seen by pcp Skin: Denies open sores and rashes. Objective PHYSICAL EXAM: VITALS: BP 107/72 Pulse 103 Temp 98.4 Resp 20 Wt 263 lb 14.3 oz (119.7kg) SpO2 100% General: NAD. Cooperative. Skin: Skin is warm, no rashes, and no open sores. HEENT: Normocephalic. Cardiovascular: Normal S1 AND S2. RRR Lungs: CTA. No respiratory distress. Abdomen: Soft. +BS Extremities: No edema. Neurological: Alert and oriented to person, place, and time. Pulses: radial pulses +2 Assessment/Plan METS: Climb a flight of stairs or walk up a hill (5.50 METs) ANESTHESIA FINDINGS: Intubation History: No history of difficult intubation Significant Anesthesia Considerations: None PLAN Diagnosis: Generalized abdominal pain [R10.84] Planned Procedure: Procedure(s): COLONOSCOPY (Left) The Following Tests/Procedures Have Been Initiated: Insert IV, LR KVO, HCG Planned Anesthetic: MAC Instructions Given to Patient: Patient given verbal preop instructions and voices comprehension and compliance. SIGNATURE: Yin Ness APRN.CNP PATIENT NAME: Nella Dale DATE: January 16, 2018 TIME: 8:33 AM PAGER/CONTACT #: OPERATIVE NO Observed: 01/16/2018 Status: COMPLETED Source: [place] 12:00 AM CLINIC OTHER CAMPUS REPOSITORY [facility] ID: [id number] Author: Reddy Wells Service: Gastroenterology Author Type: Physician Type: Operative Report Filed: 01/18/2018 8:40 AM Note Text: [facility] - Operative Report SURGEON: Reddy Wells MD PATIENT NAME: NELLA DALE CSN: [id number] DATE OF SURGERY: 01/16/2018 DATE OF : 1980 SEX/AGE: F/37 PATIENT TYPE: A HOSP SVC: [facility] LOCATION: [facility] DATE OF SURGERY: 01/16/2018 SURGEON: Reddy Wells MD PROCEDURE PERFORMED: Colonoscopy. PREPROCEDURE DIAGNOSIS: Lower abdominal pain. POSTPROCEDURE DIAGNOSIS: Suboptimal prep, but normal colonoscopy grossly. CONSENT: Risks and benefits of the procedure were discussed with the patient and consent was obtained. ENDOSCOPE: Olympus pediatric colonoscope. MEDICATIONS: MAC sedation. DESCRIPTION OF PROCEDURE: The procedure was performed in the endoscopy suite. The patient was placed in left lateral decubitus position. The patient was monitored throughout. Once the patient was sedated, a perianal exam was performed, which was normal. Digital examination revealed no rectal masses. The endoscope was pulled into the anorectal canal and advanced all the way to the cecum. The appendiceal orifice and ileocecal valve were identified and photo documented. The terminal ileum was intubated few centimeters distally and revealed normal mucosal pattern. The endoscope was then brought back slowly. There was formed stool and debris in the right side of the colon in particular. This obscured about 30% of the overall view of the colon. There were no gross abnormalities noted as the scope was withdrawn. Retroflexed view of the distal rectum was unremarkable. The endoscope was then completely withdrawn. The patient was transferred to the recovery room in stable condition. RECOMMENDATIONS: 1. High-fiber diet. 2. Stool softeners and MiraLAX p.r.n. 3. Reschedule CT scan as previously ordered in the office. Reddy Wells MD Gastroenterology JRN:modl /[id number] cc: * Heather North, CBC W/DIFF, AUTOMATED Collected: 01/04/2018 Status: F Source: [place] 12:07 PM [facility] REPOSITORY TYPE CODE TESTS RESULT OUT OF RANGE REFERENCE UNITS LAB L100.1000 4.4-11.0 K/mm3 Normal WBC 5.2 LAB L100.1200 4.2-5.4 M/mm3 Normal RBC 4.48 LAB L100.1300 12.0-15.0 g/dl Low HGB 10.6 LAB L100.1400 37-47 % Low HCT 34.2 LAB L100.1500 81-99 fL Low MCV 76.3 LAB L100.1600 27.0-32.0 pg Low MCH 23.7 LAB L100.1700 32-36 g/gl Low MCHC 31.0 LAB L100.1810 11.6-14.6 % High RDW CV 15.4 LAB L100.1820 35.1-43.9 fl Normal RDW SD 42.1 LAB L100.1900 150-450 K/mm3 Normal PLT 207 LAB L100.2000 6.2-12.0 fl Normal MPV 11.2 LAB L100.2100 47-70 % Normal NEUT% 60.7 LAB L100.2200 19-41 % Normal LY% 29.8 LAB L100.2300 0-10 % Normal MONO% 7.6 LAB L100.2400 0-5 % Normal EO% 1.5 LAB L100.2500 0-1 % Normal BASO% 0.2 LAB L100.2550 0.0-0.9 % Normal IM GRAN % 0.200 Result Comment: IG% - Immature Granulocytes (promyelocytes, myelocytes and metamyelocytes) > 1% indicates that a LEFT SHIFT is Present. LAB L100.2620 2.0-7.7 X10 3/uL Normal Absolute Neut 3.2 LAB L100.2720 0.83-4.51 X10 3/ul Normal Absolute Lymph 1.56 Performed By: #### L100.0100 #### [facility] [address] [place], [address] COMPREHENSIVE METABOLIC Collected: 01/04/2018 Status: F Source: [facility] 12:07 PM [facility] REPOSITORY Order Comment: Comments: WHOLE BLOOD SEND BOTH TUBES PLEASE TYPE CODE TESTS RESULT OUT OF RANGE REFERENCE UNITS LAB L501.0100 74-106 mg/dL Normal GLU 105 Result Comment: Fasting Glucose result from 100 to 125 mg/dL suggests IMPAIRED HOMEOSTASIS per A.D.A. criteria. Please note revised GLUCOSE reference range effective 2017. LAB L501.1000 7-18 mg/dL Normal BUN 7 LAB L501.1100 0.55-1.02 mg/dL Normal CREAT,SERUM 0.76 Result Comment: The validity of the calculated GFR AND GFRAA in patients over 70 years has not been determined. Clinical correlation is essential. LAB L501.1110 >60 mL/min Normal EST GFR 91 Result Comment: Non- GFR Calc LAB L501.1115 >60 mL/min Normal EST GFR - AA 110 Result Comment: GFR Calc LAB L501.1300 10-20 RATIO Low BUN/CRE 9.2 LAB L501.1500 6.4-8.2 g/dL Normal T PROT 7.9 LAB L501.1800 3.2-5.0 g/dL Normal ALB 3.7 LAB L501.1950 2.2-4.2 g/dL Normal GLOB 4.2 LAB L501.2000 0.9-2.4 RATIO Normal A/G 0.9 LAB L501.2200 8.5-10.1 mg/dL Normal CA 8.6 LAB L501.4100 15-37 U/L Normal AST 20 LAB L501.4305 45-117 U/L Normal ALK P 86 LAB L501.4405 13-56 U/L Normal ALT 24 LAB L501.4600 0.20-1.00 mg/dL Normal T BILI 0.20 LAB L501.5300 136-145 mmol/L Normal NA 138 LAB L501.5600 3.5-5.1 mmol/L Normal K 4.2 LAB L501.5900 98-107 mmol/L Normal CL 103 LAB L501.6100 21.0-32.0 mmol/L Normal CO2 27.0 LAB L501.6200 5-15 Normal GAP 8 Performed By: #### L500.4050, L501.6710, L501.9520, L503.6150, L503.6550 #### [facility] [address] [place], [place], [id number] CRP Collected: 01/04/2018 Status: F Source: [place] 12:07 PM [facility] REPOSITORY Order Comment: Comments: WHOLE BLOOD SEND BOTH TUBES PLEASE TYPE CODE TESTS RESULT OUT OF RANGE REFERENCE UNITS LAB L501.6710 0.0-3.0 mg/L High 5.49 C-REACTIVE PROT Result Comment: C-Reactive Protein (CRP) provides useful information for the diagnosis, therapy and monitoring of inflammatory processes and associated diseases. For the evaluation of Relative Risk for Cardiovascular Disease, a High Sensitivity CRP (HSCRP) should be ordered. Performed By: #### L500.4050, L501.6710, L501.9520, L503.6150, L503.6550 #### [facility] [address] [place], [place], [id number] THYROID STIM HORMONE Collected: 01/04/2018 Status: F Source: [place] (TSH) 12:07 PM [facility] REPOSITORY Order Comment: Comments: WHOLE BLOOD SEND BOTH TUBES PLEASE TYPE CODE TESTS RESULT OUT OF RANGE REFERENCE UNITS LAB L501.9520 0.358-3.74 uIU/mL Normal TSH 1.15 Performed By: #### L500.4050, L501.6710, L501.9520, L503.6150, L503.6550 #### [facility] [address] [place], [address] IRON Collected: 01/04/2018 Status: F Source: [place] 12:07 PM [facility] REPOSITORY Order Comment: Comments: WHOLE BLOOD SEND BOTH TUBES PLEASE TYPE CODE TESTS RESULT OUT OF RANGE REFERENCE UNITS LAB L503.6150 50-170 ug/dL Low IRON 40 Performed By: #### L500.4050, L501.6710, L501.9520, L503.6150, L503.6550 #### [facility] [address] [place], [address] FERRITIN Collected: 01/04/2018 Status: F Source: [place] 12:07 PM [facility] REPOSITORY Order Comment: Comments: WHOLE BLOOD SEND BOTH TUBES PLEASE TYPE CODE TESTS RESULT OUT OF REFERENCE UNITS RANGE LAB L503.6550 8-252 ng/mL Low FERRITIN 4 Performed By: #### L500.4050, L501.6710, L501.9520, L503.6150, L503.6550 #### [facility] [address] [place], [address] CORTISOL SERUM Collected: 01/04/2018 Status: F Source: [place] 12:07 PM [facility] REPOSITORY Order Comment: Comments: WHOLE BLOOD SEND BOTH TUBES PLEASE TYPE CODE TESTS RESULT OUT OF RANGE REFERENCE UNITS LAB L509.6000 3.09-22.40 ug/dL Normal CORTISOL 8.10 Result Comment: Adult (AM) 4.30 - 22.40 ug/dL Adult (PM) 3.09 - 16.66 ug/dL Performed By: #### L509.6000 #### [facility] [address] [place], [address] CARROLL W/ REFLEX MULT Collected: 01/04/2018 Status: F Source: [place] CONFIRM 12:07 PM [facility] REPOSITORY TYPE CODE TESTS RESULT OUT OF RANGE REFERENCE UNITS LAB L3100.5475 Negative Normal Negative CARROLL-DIRECT Result Comment: Performed at: [address] [place] [id number] Steam Shovel Operating Engineer: Theron Pearce PhD, Phone: [phone] Performed By: #### M4030.9108 #### [facility] (refer to report for specific site) refer to report for address and phone number MISCELLANEOUS LAB Collected: 01/04/2018 Status: F Source: [place] PROCEDURE 12:07 PM [facility] REPOSITORY Order Comment: Comments: WHOLE BLOOD SEND BOTH TUBES PLEASE Test(s) Ordered: [id number] TYPE CODE TESTS RESULT OUT OF RANGE REFERENCE UNITS LAB L801.1541 Normal [facility] TEST Result Comment: TEST RESULT UNITS REF INTERVAL Drug Screen 16 w/Conf, WB AMPHETAMINES, [place] Negative ng/mL Cutoff:50 BARBITURATES, [place] Negative ug/mL Cutoff:0.1 BENZODIAZEPINES, [place] Negative ng/mL Cutoff:20 COCAINE/METABOLITE,[place] Negative ng/mL Cutoff:25 PHENCYCLIDINE, [place] Negative ng/mL Cutoff:8 THC (MARIJUANA) MTB,IA Negative ng/mL Cutoff:5 OPIATES, [place] Negative ng/mL Cutoff:5 OXYCODONES, [place] ++POSITIVE++ ng/mL Cutoff:5 METHADONE, [place] Negative ng/mL Cutoff:25 FENTANYL, [place] Negative ng/mL Cutoff:1.0 BUPRENORPHINE, [place] Negative ng/mL Cutoff:1.0 PROPOXYPHENE, IA Negative ng/mL Cutoff:50 MEPERIDINE, IA Negative ng/mL Cutoff:100 TRAMADOL, [place] Negative ng/mL Cutoff:50 GABAPENTIN, [place] Negative ug/mL Cutoff:1.0 CARISOPRODOL, [place] Negative ug/mL Cutoff:0.5 This test was developed and its performance characteristics determined by [facility]. It has not been cleared or approved by the Food and Drug Administration. OXYCODONES,MS,WB/SP RFX Oxycodones Confirmation Positive Oxycodone 24.6 ng/mL Oxymorphone Negative ng/mL Confirmation threshold: 1.0 ng/mL TESTING PERFORMED AT [facility]. ORIGINAL REPORT ON FILE IN LAB CONTAINS ADDITIONAL TEST SITE INFORMATION. Performed By: #### L801.1541 #### [facility] [address] [place], [address] DISCHARGE INSTRUCTION Observed: 11/06/2017 Status: F Source: [place] 11:12 PM [facility] REPOSITORY [facility] [place] [facility] Medical Records Department [address] [place], [place] [address] [address] Discharge Instruction 11/06/172310 MR#: [id number] Acct: [id number] Name: NELLA DALE Rep #: [id number] : 1980 36 From: Jason Doss MD PCP: Heather North DO Status: REG ER ED Disposition - Plan for ED Patient: Chief Complaint: Fall Instructions: ED Mechanical Fall, ED Sprain Foot Referrals: Heather North DO [Primary Care Provider] - What to do if you have Problems For any increased pain, shortness of breath, bleeding, nausea or vomiting, chest pain, or any unexpected problems, contact your Primary Care Provider. Call [facility] ([phone]) or report to the closest Emergency Room. Call 911 if necessary. 11/06/172310 <Electronically signed by Jason Doss MD> Date Jason Doss MD Cosigner Signature (If Indicated): Date CC: Heather North DO EMERGENCY DEPARTMENT Observed: 11/06/2017 Status: F Source: [place] SUMMARY 11:11 PM [facility] REPOSITORY [facility] [place] [facility] Medical Records Department [address] [place] [address] Emergency Department Summary 11/06/172224 MR#: [id number] Acct: [id number] Name: NELLA DALE Rep #: [id number] : 1980 36 From: Jason Doss MD PCP: Heather North DO Status: REG ER - ER Visit Summary Date of Service: 11/06/17 Chief Complaint: Left foot pain History of Present Illness: The patient is a 36 F who presents after a fall. She states that she was stepping over a baby gate when she slipped and twisted her left foot and fell. She states she is unable to bear weight due to pain. She denies paresthesias weakness or loss of function. She denies any other injuries. No head injury loss of consciousness back injury chest pain abdominal pain injury to any other extremity or neck pain. Physical Examination: Heart rate 101 vitals otherwise normal No lacerations contusions abrasions or hematomas No evidence of head trauma Heart regular No respiratory distress Patient sitting comfortably with her left ankle and foot crossed across her lap in the bed she has active full range of motion is able to wiggle the toes I do not appreciate any significant soft tissue swelling or ecchymosis easily palpable dorsalis pedis pulse she has no focal bony tenderness but does have some diffuse tenderness across the foot no bony tenderness of the medial or lateral malleolus no tenderness of the proximal fibula brisk capillary refill with normal sensation distally Test Results: Left foot and ankle x-rays are normal. Emergency Department Course and Treatment: Patient reports allergy to all NSAIDs and Toradol. Per her medication reconciliation she has opiates prescribed. She was advised on supportive care including rest ice and elevation. Was given crutches. She understands to return for new or worsening symptoms. She was discharged. Treatment Plan: [] Disposition: Discharge Impression: Left foot sprain This note was generated with [employer] dictation software. It may contain incorrect words, spelling, and punctuation that were not noted in review of the chart prior to signing ED Disposition - Plan for ED Patient: Chief Complaint: Fall Referrals: Heather North DO [Primary Care Provider] - What to do if you have Problems For any increased pain, shortness of breath, bleeding, nausea or vomiting, chest pain, or any unexpected problems, contact your Primary Care Provider. Call [employer] [facility] ([phone]) or report to the closest Emergency Room. Call 911 if necessary. 11/06/17 2311 <Electronically signed by Jason Doss MD> Date Jason Doss MD Cosigner Signature (If Indicated): Date CC: Heather North DO FOOT MIN 3 VIEWS Observed: 11/06/2017 Status: F Source: [place] 10:23 PM [facility] REPOSITORY [facility] [place] [facility] Imaging Services [address] [place] [address] Foot min 3 Views MR#: [id number] Acct: [id number] Name: NELLA DALE Taras Rep #: [id number] : 1980 F 36 From: Jose Lovelace DO PCP: Heather North DO Status: REG ER Study: Foot min 3 Views Date of Exam: 11/06/17 Exam# [id number] Ordering Dr: Jason Doss MD STUDY: X-RAY - LEFT FOOT CLINICAL: Female, 36 years old. Fall TECHNIQUE: 3 view(s) of the foot. COMPARISON: None. FINDINGS: Normal talus, calcaneus, and tarsal bones. Calcaneal spurring. Normal visualized subtalar, talonavicular, calcaneocuboid, tarsal and tarsometatarsal articulations. Normal metatarsi. Normal metatarsophalangeal joint of the great toe. Normal tibial and fibular sesamoid bones. Normal interphalangeal joint of the great toe. Normal phalanges of the great toe. Normal second through fifth metatarsophalangeal joints. Normal interphalangeal joints and phalanges of the lesser toes. The soft tissue structures are unremarkable. RAD/Foot min 3 Views IMPRESSION: Normal x-ray examination of the foot. Electronically Signed: Jose Lovelace DO at 23:01 EDT Tel [phone], Service support , CC: Jason Doss MD; Heather North DO Garment Cutter: Signed ANKLE MIN 3 VIEWS Observed: 11/06/2017 Status: F Source: [place] 9:05 PM [facility] REPOSITORY [facility] [place] [facility] Imaging Services [address] [place] [address] Ankle min 3 Views MR#: [id number] Acct: [id number] Name: NELLA DALE Rep #: [id number] : 1980 F 36 From: Merlin Mensah MD PCP: Heather North DO Status: PRE ER Study: Ankle min 3 Views Date of Exam: 11/06/17 Exam# [id number] Ordering Dr: Provider, Ed P. STUDY: X-RAY - LEFT ANKLE REASON FOR EXAM: Female, 36 years old. Injury TECHNIQUE: 3 view(s) of the ankle. COMPARISON: None. FINDINGS: Normal visualized distal tibia and fibula. Normal medial and lateral malleoli. Normal tibiotalar articulation and ankle mortise. There is calcaneal spurring. The visualized subtalar, talonavicular, calcaneocuboid and tarsal articulations are normal. Soft tissue calcification at the leg. RAD/Ankle min 3 Views IMPRESSION: No acute fracture Electronically Signed: Merlin Mensah MD at 21:27 EDT Tel , Service support , CC: ED PHYSICIAN PROVIDER; Heather North DO Garment Cutter: Signed PROGRESS Observed: 10/23/2017 Status: COMPLETED Source: [place] 3:31 PM CLINIC OTHER CAMPUS REPOSITORY [facility] ID: [id number] Author: Reddy Wells Service: (none) Author Type: Physician Type: Progress Notes Filed: 10/23/2017 3:47 PM Note Text: HPI: Nella Dale is a 36 year old female who presents for Consult (colonoscopy ). Pt is here for hx of abd pain and pain w defecation. Had a gastric bypass in 2014, then had subsequent surgery including some type of bowel resection about 2 wks later. No blood, has a daily BM not hard. No reflux, dysphgia, frequent nausea, no emesis. 10# wt loss since 2014. EGD reviewed by Dr. Thompson in 2015. UGI w SBFT reviewed also. Current Outpatient Prescriptions: PROAIR HFA 90 mcg/actuation inhaler INHALE TWO PUFFS BY MOUTH EVERY 4 HOURS (SHAKE WELL BEFORE USING) NYAMYC powder Apply to affected area twice daily as needed. rOPINIRole (REQUIP) 0.5 mg tablet TAKE ONE TABLET BY MOUTH EVERY DAY one to three hours before bedtime metoprolol succinate ER (TOPROL XL) 50 mg 24 hr tablet Take 50 mg by mouth once daily. morphine SR (MS CONTIN, ORAMORPH SR) 30 mg 12 hr tablet 1 tablet twice daily. zolpidem (AMBIEN) 10 mg tab Take 1 tablet by mouth at bedtime as needed (insomnia). oxyCODONE-acetaminophen (PERCOCET) 10-325 mg tablet Take 1 tablet by mouth every 6 hours as needed for Pain. clonazePAM (KLONOPIN) 1 mg tablet Take 1 tablet by mouth twice daily. fluocinolone (SYNALAR) 0.025 % ointment Apply 1 application to affected area twice daily. pea-sized amount No current facility-administered medications for this visit. PAST MEDICAL HISTORY Diagnosis Date - Abnormal MRI, musculoskeletal 12/17/2015 Left hip - [facility] - Sacroiliac joints are intact. The bones of the pelvis are unremarkable - DM (diabetes mellitus) (HCC) 2007 diet controlled - H/O arthroscopy of right knee 12/04/2013 [facility] - Helicobacter pylori ab+ 10/21/2015 - History of EMG 10/29/2015 [facility] - Normal study of bilateral lower exremities - History of gallstones - History of MRI of lumbar spine 09/16/2015 [facility]- L3-L4 : there is a 4 to 5 mm circumfrential disc bulge wiht narrowing of the intervertebral disc. Mild bilateral neural foraminal narrowing. Moderate spinal canal stenosis. PAST SURGICAL HISTORY Procedure Laterality Date - CARPAL TUNNEL Left - CARPAL TUNNEL RIGHT WRIST Right - GASTRIC BYPASS HX 12/2014 x2 - KNEE SCOPE,DIAGNOSTIC Right Arthroscopy, knee - L'SCOPE CHOLECYSTECTOMY FAMILY HISTORY Problem Relation Age of Onset - Arthritis Mother - Cancer Mother uterine - Hypertension Mother - Hyperlipidemia Mother - Diabetes Mother Social History Marital status: Single Spouse name: Years of education: Number of children: Social History Main Topics Smoking status: Former Smoker Packs/day: 0.00 Years: 0.00 Smokeless status: Former User Quit date: 11/06/2010 Comment: Smoked on and off 15 yrs but never heavy Alcohol use: No Comment: No EtOH for 8 yrs Drug use: No Sexual activity: Yes Partners with: Female Other Topics Concern Occupational Exposure No Comment:Not working. Been applying to [employer] since 2010 Sleep Concern Yes Comment:Sleeps well for 3 hrs. Then on and off the rest of the night Stress Concern Yes Comment:medium Back Care No Comment:none Exercise No Comment:none ALLERGIES Allergen Reactions - Nsaids (Non-Steroid* Other: See Comments stomach ulcers - hx. of gastric bypass REVIEW OF SYSTEMS GENERAL: No weight loss, malaise or fevers. HEENT: Negative for frequent or significant headaches, No changes in hearing or vision, no nose bleeds or other nasal problems. NECK: Negative for lumps, goiter, pain and significant neck swelling. RESPIRATORY: Negative for cough, hemoptysis, wheezing or shortness of breath CARDIOVASCULAR: Negative for chest pain, leg swelling or palpitations GI: See HPI : No history of dysuria, frequency or incontinence MUSCULOSKELETAL: Negative for joint pain or swelling, back pain or muscle pain. SKIN: Negative for lesions, rash, and itching PSYCH: Negative for sleep disturbance, mood disorder and recent psychosocial stressors NEURO: No history of headaches, syncope, paralysis, seizures or tremors PHYSICAL EXAMINATION: BP 116/73 Pulse 75 Ht 5' 7 (1.70m) Wt 264 lb (119.8kg) BMI 41.34 kg/(m2). GENERAL APPEARANCE: Well appearing, alert, in no acute distress, well-hydrated, well nourished.. SKIN: Skin color, texture, turgor normal, no suspicious rashes or lesions. EYES: Anicteric sclera. Pupils are equally round and reactive to light. Extraocular movements are intact. . NECK: Supple, no adenopathy; thyroid symmetric, normal size, no bruits. LUNGS: Lungs clear to auscultation. No wheezing, rhonchi, rales. HEART: RRR without murmur, gallop, or rubs. No ectopy. ABDOMEN: Normal, soft, non-tender, no masses or organomegaly. EXTREMITIES: No deformities, edema, skin discoloration, clubbing or cyanosis. NEUROLOGIC: Gait normal. Sensation and strength grossly intact.. ASSESSMENT AND PLAN: ASSESSMENT/PLAN: 1. Epigastric pain - ICD9: 789.06, ICD10: R10.13 (primary diagnosis) - CT ABD/PEL W IVCON - IV CONTRAST (RADIOLOGY PROCEDURE) - ENTERIC CONTRAST (RADIOLOGY PROCEDURE) - BASIC METABOLIC PNL 2. Generalized abdominal pain - ICD9: 789.07, ICD10: R10.84 - COLONOSCOPY - DIAGNOSTIC - CT ABD/PEL W IVCON - IV CONTRAST (RADIOLOGY PROCEDURE) - ENTERIC CONTRAST (RADIOLOGY PROCEDURE) - BASIC METABOLIC PNL Reddy Wells MD CNOV Observed: 10/23/2017 Status: COMPLETED Source: [place] 2:30 PM [facility] OTHER [facility] REPOSITORY Office Visit (AGGASTACC) NELLA DALE ([id number]) 1980 F Date Time Provider Department 10/23/17 2:30 PM REDDY WELLS AGGASTACC During your visit today, we recorded the following information about you: Pulse Blood pressure Weight Height 75/minute 116/73 119.7 kg 1.702 m Reddy Wells MD 10/23/2017 3:47 PM Signed HPI: Nella Dale is a 36 year old female who presents for Consult (colonoscopy ). Pt is here for hx of abd pain and pain w defecation. Had a gastric bypass in 2014, then had subsequent surgery including some type of bowel resection about 2 wks later. No blood, has a daily BM not hard. No reflux, dysphgia, frequent nausea, no emesis. 10# wt loss since 2014. EGD reviewed by Dr. Thompson in 2016. UGI w SBFT reviewed also. Current Outpatient Prescriptions: PROAIR HFA 90 mcg/actuation inhaler INHALE TWO PUFFS BY MOUTH EVERY 4 HOURS (SHAKE WELL BEFORE USING) NYAMYC powder Apply to affected area twice daily as needed. rOPINIRole (REQUIP) 0.5 mg tablet TAKE ONE TABLET BY MOUTH EVERY DAY one to three hours before bedtime metoprolol succinate ER (TOPROL XL) 50 mg 24 hr tablet Take 50 mg by mouth once daily. morphine SR (MS CONTIN, ORAMORPH SR) 30 mg 12 hr tablet 1 tablet twice daily. zolpidem (AMBIEN) 10 mg tab Take 1 tablet by mouth at bedtime as needed (insomnia). oxyCODONE-acetaminophen (PERCOCET) 10-325 mg tablet Take 1 tablet by mouth every 6 hours as needed for Pain. clonazePAM (KLONOPIN) 1 mg tablet Take 1 tablet by mouth twice daily. fluocinolone (SYNALAR) 0.025 % ointment Apply 1 application to affected area twice daily. pea-sized amount No current facility-administered medications for this visit. PAST MEDICAL HISTORY Diagnosis Date - Abnormal MRI, musculoskeletal 12/17/2015 Left hip - [facility] - Sacroiliac joints are intact. The bones of the pelvis are unremarkable - DM (diabetes mellitus) [facility] 2007 diet controlled - H/O arthroscopy of right knee 12/04/2013 [facility] - Helicobacter pylori ab+ 10/21/2015 - History of EMG 10/29/2015 [facility] - Normal study of bilateral lower exremities - History of gallstones - History of MRI of lumbar spine 09/16/2015 [facility]- L3-L4 : there is a 4 to 5 mm circumfrential disc bulge wiht narrowing of the intervertebral disc. Mild bilateral neural foraminal narrowing. Moderate spinal canal stenosis. PAST SURGICAL HISTORY Procedure Laterality Date - CARPAL TUNNEL Left - CARPAL TUNNEL RIGHT WRIST Right - GASTRIC BYPASS HX 12/2014 x2 - KNEE SCOPE,DIAGNOSTIC Right Arthroscopy, knee - L'SCOPE CHOLECYSTECTOMY FAMILY HISTORY Problem Relation Age of Onset - Arthritis Mother - Cancer Mother uterine - Hypertension Mother - Hyperlipidemia Mother - Diabetes Mother Social History Marital status: Single Spouse name: Years of education: Number of children: Social History Main Topics Smoking status: Former Smoker Packs/day: 0.00 Years: 0.00 Smokeless status: Former User Quit date: 11/06/2010 Comment: Smoked on and off 15 yrs but never heavy Alcohol use: No Comment: No EtOH for 8 yrs Drug use: No Sexual activity: Yes Partners with: Female Other Topics Concern Occupational Exposure No Comment:Not working. Been applying to [employer] since 2010 Sleep Concern Yes Comment:Sleeps well for 3 hrs. Then on and off the rest of the night Stress Concern Yes Comment:medium Back Care No Comment:none Exercise No Comment:none ALLERGIES Allergen Reactions - Nsaids (Non-Steroid* Other: See Comments stomach ulcers - hx. of gastric bypass REVIEW OF SYSTEMS GENERAL: No weight loss, malaise or fevers. HEENT: Negative for frequent or significant headaches, No changes in hearing or vision, no nose bleeds or other nasal problems. NECK: Negative for lumps, goiter, pain and significant neck swelling. RESPIRATORY: Negative for cough, hemoptysis, wheezing or shortness of breath CARDIOVASCULAR: Negative for chest pain, leg swelling or palpitations GI: See HPI : No history of dysuria, frequency or incontinence MUSCULOSKELETAL: Negative for joint pain or swelling, back pain or muscle pain. SKIN: Negative for lesions, rash, and itching PSYCH: Negative for sleep disturbance, mood disorder and recent psychosocial stressors NEURO: No history of headaches, syncope, paralysis, seizures or tremors PHYSICAL EXAMINATION: BP 116/73 Pulse 75 Ht 5' 7ANDquot; (1.70m) Wt 264 lb (119.8kg) BMI 41.34 kg/(m2). GENERAL APPEARANCE: Well appearing, alert, in no acute distress, well-hydrated, well nourished.. SKIN: Skin color, texture, turgor normal, no suspicious rashes or lesions. EYES: Anicteric sclera. Pupils are equally round and reactive to light. Extraocular movements are intact. . NECK: Supple, no adenopathy; thyroid symmetric, normal size, no bruits. LUNGS: Lungs clear to auscultation. No wheezing, rhonchi, rales. HEART: RRR without murmur, gallop, or rubs. No ectopy. ABDOMEN: Normal, soft, non-tender, no masses or organomegaly. EXTREMITIES: No deformities, edema, skin discoloration, clubbing or cyanosis. NEUROLOGIC: Gait normal. Sensation and strength grossly intact.. ASSESSMENT AND PLAN: ASSESSMENT/PLAN: 1. Epigastric pain - ICD9: 789.06, ICD10: R10.13 (primary diagnosis) - CT ABD/PEL W IVCON - IV CONTRAST (RADIOLOGY PROCEDURE) - ENTERIC CONTRAST (RADIOLOGY PROCEDURE) - BASIC METABOLIC PNL 2. Generalized abdominal pain - ICD9: 789.07, ICD10: R10.84 - COLONOSCOPY - DIAGNOSTIC - CT ABD/PEL W IVCON - IV CONTRAST (RADIOLOGY PROCEDURE) - ENTERIC CONTRAST (RADIOLOGY PROCEDURE) - BASIC METABOLIC PNL Reddy Wells MD Referring Provider: HEATHER NORTH [[id number]] Allergies As of Date: 10/23/2017 Noted Allergy Reaction NSAIDS (NON-STEROIDAL ANTI-INFLAM*02/12/2016 14 - Other: See Comments Comments: stomach ulcers - hx. of gastric bypass Date Reviewed: 10/23/2017 Reviewed by: Reddy Wells - Fully Assessed Reason for Visit: Consult [173] Cmt: colonoscopy Primary Visit Diagnosis:Epigastric pain [R10.13] Other Visit Diagnosis:Generalized abdominal pain [R10.84] Order(s):COLONOSCOPY - DIAGNOSTIC [[id number]] Order #: [id number] FUTURE CT ABD/PEL W IVCON [[id number]] Order #: [id number] FUTURE iv contrast (radiology procedure)CT ABD/PEL -Inject, intravenously, once for 1 dose.No IV access, insert saline lock prior to the beginning of sedation, infusion, injection of imaging exam. Discontinue saline lock post exam. If Pt. has a central line or IVAD, may access for administration according to line specific nursing protocol. Once exam is complete flush line and de- access according to line specific nursing protocol in the CT contrast administration guidelines link.Disp: 1 EachRfl: 0 enteric contrast (radiology procedure)For CT ABD/PEL W IVCON Routine order Administer, As Directed One Time Only, via Oral, Rectal, both Oral and Rectal, Enteric Tube, Stoma or Indwelling Catheter, Enteric Contrast as designated per enteric contrast guidelinesDisp: 1 EachRfl: 0 BASIC METABOLIC PNL [SQBMP] Order #: [id number] FUTURE Prescriptions as of 10/23/2017 Sig: PROAIR HFA 90 MCG/ACTUATION A* INHALE TWO PUFFS BY MOUTH ANJALI* NYAMYC 100,000 UNIT/GRAM TOPI* Apply to affected area twice* ROPINIROLE 0.5 MG TABLET TAKE ONE TABLET BY MOUTH EVER* METOPROLOL SUCCINATE ER 50 MG* Take 50 mg by mouth once dameon* MORPHINE ER 30 MG TABLET,EXTE* 1 tablet twice daily. ZOLPIDEM 10 MG TABLET Take 1 tablet by mouth at bed* OXYCODONE-ACETAMINOPHEN 10 MG* Take 1 tablet by mouth every * CLONAZEPAM 1 MG TABLET Take 1 tablet by mouth twice * FLUOCINOLONE 0.025 % TOPICAL * Apply 1 application to affect* IV CONTRAST (RADIOLOGY PROCED* CT ABD/PEL -Inject, intraveno* ENTERIC CONTRAST (RADIOLOGY P* For CT ABD/PEL W IVCON Routin* Problem List As Of Date 10/23/2017 Noted Resolved Chronic midline low back pain without sciatica *INVALID FOR* Intervertebral disc disorder with radiculopathy*INVALID FOR* Displacement of lumbar intervertebral disc with*INVALID FOR* DDD (degenerative disc disease), lumbar [M51.36]INVALID FOR* Chronic, continuous use of opioids [F11.90] INVALID FOR* Hypertension, essential [I10] INVALID FOR* Restless leg syndrome [G25.81] INVALID FOR* History of gastric bypass [Z98.84] INVALID FOR* Generalized abdominal pain [R10.84] INVALID FOR* More... Prescriptions ordered this encounter Disp Refills Start End IV CONTRAST (RADIOLOGY PROCEDURE) 1 Ea* 0 10/23/2017 10/24/2017 Class: In Office Sig: CT ABD/PEL -Inject, intravenously, once for 1 dose.No IV access, insert saline lock prior to the beginning of sedation, infusion, injection of imaging exam. Discontinue saline lock post exam. If Pt. has a central line or IVAD, may access for administration according to line specific nursing protocol. Once exam is complete flush line and de-access according to line specific nursing protocol in the CT contrast administration guidelines link. ENTERIC CONTRAST (RADIOLOGY PROCEDUR* 1 Ea* 0 10/23/2017 10/24/2017 Class: In Office Sig: For CT ABD/PEL W IVCON Routine order Administer, As Directed One Time Only, via Oral, Rectal, both Oral and Rectal, Enteric Tube, Stoma or Indwelling Catheter, Enteric Contrast as designated per enteric contrast guidelines Level of Service: NEW PATIENT VISIT LEVEL 4 [[id number]] Disposition: Return for after colonoscopy. LOS history recorded Follow-up and Disposition History Recorded Letter Text Reddy Wells MD Gastroenterology 1 [facility] [address] ([facility]) [place] [address] 10/23/2017 Re: Nella Dale Dear Heather North, DO I have had the opportunity to evaluate your patient, Nella Dale. Please see a copy of my impression and recommendations below. Thank you for allowing me to participate in the care of your patient. If you would like additional details of our visit, please contact our office. Impression and Recommendations: ASSESSMENT/PLAN: 1. Epigastric pain - ICD9: 789.06, ICD10: R10.13 (primary diagnosis) - CT ABD/PEL W IVCON - IV CONTRAST (RADIOLOGY PROCEDURE) - ENTERIC CONTRAST (RADIOLOGY PROCEDURE) - BASIC METABOLIC PNL 2. Generalized abdominal pain - ICD9: 789.07, ICD10: R10.84 - COLONOSCOPY - DIAGNOSTIC - CT ABD/PEL W IVCON - IV CONTRAST (RADIOLOGY PROCEDURE) - ENTERIC CONTRAST (RADIOLOGY PROCEDURE) - BASIC METABOLIC PNL Reddy Wells MD Sincerely, Reddy Wells MD Encounter Status:Closed by REDDY WELLS MD on 10/23/17 HOSP Observed: 10/23/2017 Status: COMPLETED Source: [place] 12:00 AM CLINIC OTHER CAMPUS REPOSITORY Patient:Nella Dale MRN: <[id number]> Height:5' 7(1.702 m) Weight:No patient weight recorded within the last 30 days. 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 Wells. Called pt back, but no asnwer. Left msg for pt stating that I sent it to her email and [employer] and if she had any questions to give us a call. 01/12/2018 15:54:45 An Duran CMA Progress Notes (MANUEL AG ACC): Roberto Patel 01/11/2018 9:14 AM Signed LVM FOR PT TO CALL AND RESCHEDULE DUE TO DR WELLS'S SCHEDULE CHANGE COMPREHENSIVE METABOLIC Collected: 10/20/2017 Status: F Source: [place] 1:45 PM [facility] REPOSITORY TYPE CODE TESTS RESULT OUT OF RANGE REFERENCE UNITS LAB L501.0100 74-106 mg/dL High GLU 109 Result Comment: Fasting Glucose result from 100 to 125 mg/dL suggests IMPAIRED HOMEOSTASIS per A.D.A. criteria. Please note revised GLUCOSE reference range effective 2017. LAB L501.1000 7-18 mg/dL Normal BUN 12 LAB L501.1100 0.55-1.02 mg/dL Normal CREAT,SERUM 0.68 Result Comment: The validity of the calculated GFR AND GFRAA in patients over 70 years has not been determined. Clinical correlation is essential. LAB L501.1110 >60 mL/min Normal EST GFR 104 Result Comment: Non- GFR Calc LAB L501.1115 >60 mL/min Normal EST GFR - AA 126 Result Comment: GFR Calc LAB L501.1300 10-20 RATIO Normal BUN/CRE 17.8 LAB L501.1500 6.4-8.2 g/dL T Normal PROT 8.0 LAB L501.1800 3.2-5.0 g/dL Normal ALB 3.7 LAB L501.1950 2.2-4.2 g/dL High GLOB 4.3 LAB L501.2000 0.9-2.4 RATIO Normal A/G 0.9 LAB L501.2200 8.5-10.1 mg/dL Low CA 8.4 LAB L501.4100 15-37 U/L Normal AST 21 LAB L501.4305 45-117 U/L Normal ALK P 95 LAB L501.4405 13-56 U/L Normal ALT 27 Result Comment: Please note revised ALT reference range effective 2017. LAB L501.4600 0.20-1.00 mg/dL Normal T BILI 0.30 LAB L501.5300 136-145 mmol/L Normal NA 137 LAB L501.5600 3.5-5.1 mmol/L Normal K 4.3 LAB L501.5900 98-107 mmol/L Normal CL 105 LAB L501.6100 21.0-32.0 mmol/L Normal CO2 26.0 LAB L501.6200 5-15 Normal GAP 6 Performed By: #### L500.4050, L501.9520, L503.6150, L503.6550, L506.0400 #### [facility] [address] [place], [address] THYROID STIM HORMONE Collected: 10/20/2017 Status: F Source: [place] (TSH) 1:45 PM [facility] REPOSITORY TYPE CODE TESTS RESULT OUT OF RANGE REFERENCE UNITS LAB L501.9520 0.358-3.74 uIU/mL Normal TSH 0.53 Performed By: #### L500.4050, L501.9520, L503.6150, L503.6550, L506.0400 #### [facility] [address] [place], [address] IRON Collected: 10/20/2017 Status: F Source: [place] 1:45 PM [facility] REPOSITORY TYPE CODE TESTS RESULT OUT OF RANGE REFERENCE UNITS LAB L503.6150 50-170 ug/dL Low IRON 36 Performed By: #### L500.4050, L501.9520, L503.6150, L503.6550, L506.0400 #### [facility] [address] [place], [address] FERRITIN Collected: 10/20/2017 Status: F Source: [place] 1:45 PM [facility] REPOSITORY TYPE CODE TESTS RESULT OUT OF REFERENCE UNITS RANGE LAB L503.6550 8-252 ng/mL Low FERRITIN 4 Performed By: #### L500.4050, L501.9520, L503.6150, L503.6550, L506.0400 #### [facility] [place], [address] T4 FREE DIRECT Collected: 10/20/2017 Status: F Source: [place] 1:45 PM [facility] REPOSITORY TYPE CODE TESTS RESULT OUT OF RANGE REFERENCE UNITS LAB L506.0400 0.76-1.46 ng/dL Normal T4 FREE 0.97 DIRECT Performed By: #### L500.4050, L501.9520, L503.6150, L503.6550, L506.0400 #### [facility] [place], [address] CBC W/DIFF, AUTOMATED Collected: 10/20/2017 Status: F Source: [place] 1:45 PM [facility] REPOSITORY TYPE CODE TESTS RESULT OUT OF RANGE REFERENCE UNITS LAB L100.1000 4.4-11.0 K/mm3 Normal WBC 7.2 LAB L100.1200 4.2-5.4 M/mm3 Normal RBC 5.07 LAB L100.1300 12.0-15.0 g/dl Normal HGB 12.3 LAB L100.1400 37-47 % Normal HCT 38.8 LAB L100.1500 81-99 fL Low MCV 76.5 LAB L100.1600 27.0-32.0 pg Low MCH 24.3 LAB L100.1700 32-36 g/gl Low MCHC 31.7 LAB L100.1810 11.6-14.6 % High RDW CV 16.6 LAB L100.1820 35.1-43.9 fl Normal RDW SD 43.2 LAB L100.1900 150-450 K/mm3 Normal PLT 236 LAB L100.2000 6.2-12.0 fl High MPV 12.2 LAB L100.2100 47-70 % High NEUT% 71.9 LAB L100.2200 19-41 % Normal LY% 21.9 LAB L100.2300 0-10 % Normal MONO% 5.4 LAB L100.2400 0-5 % Normal EO% 0.6 LAB L100.2500 0-1 % Normal BASO% 0.1 LAB L100.2550 0.0-0.9 % Normal IM GRAN % 0.100 Result Comment: IG% - Immature Granulocytes (promyelocytes, myelocytes and metamyelocytes) > 1% indicates that a LEFT SHIFT is Present. LAB L100.2620 2.0-7.7 X10 3/uL Normal Absolute Neut 5.2 LAB L100.2720 0.83-4.51 X10 3/ul Normal Absolute Lymph 1.58 Performed By: #### L100.0100 #### [facility] [address] [place], [address] VITAMIN B12 Collected: 10/20/2017 Status: F Source: [place] 1:45 PM [facility] REPOSITORY TYPE CODE TESTS RESULT OUT OF RANGE REFERENCE UNITS LAB L503.0105 211-911 pg/mL Normal Vitamin B12 493 Performed By: #### L503.0105, L506.1000 #### [facility] [address] [place], [address] VITAMIN D,25 HYDROXY Collected: 10/20/2017 Status: F Source: [place] 1:45 PM [facility] REPOSITORY TYPE CODE TESTS RESULT OUT OF REFERENCE UNITS RANGE LAB L506.1000 29.95-100.01 ng/mL Low Vitamin D 14.6 25-OH Result Comment: Vitamin D 25(OH) Status Range Deficiency <20 ng/mL (50nmol/L) Insuffciency 20 - 30 ng/mL (50 - 75 nmol/L) Sufficiency 30 - 100 ng/mL (75 - 250 nmol/L) Toxicity >100 ng/mL (>250 nmol/L) Performed By: #### L503.0105, L506.1000 #### [facility] [address] [place], [address] EMERGENCY DEPARTMENT Observed: 09/28/2017 Status: F Source: [place] SUMMARY 5:02 PM [facility] REPOSITORY [facility] Medical Records Department [address] [place] [address] Emergency Department Summary 09/28/17 1326 MR#: [id number] Acct: [id number] Name: NELAL DALE Rep #: [id number] : 1980 36 From: Dwaine Bella MD PCP: Heather North DO Status: DEP ER - ER Visit Summary Date of Service: 09/28/17 Chief Complaint: [] Left side abdominal pain, gastric bypass surgery with complications 2014 History of Present Illness: The patient is a 36 F [] she reports she had gastric bypass surgery in 2014 or , outside facility a few weeks later was complicated by which she believes might of been a leak, she required other extensive surgery and eventually everything healed. She reports since that time she has had chronic intermittent pain to the left side abdomen. He followed by gastric bypass surgeons in [place] who evaluated her for this condition, she has had multiple workups CAT scans etc. she has been told she has scar tissue related to some aspect of the left side of her abdomen she was scheduled to have a colonoscopy this week but the surgeon had some issues and that procedure was canceled. She has had normal ability to eat, normal bowel bladder habits without blood no fever no cough, she indicates her from the physician provides with Percocet use as needed for the pain, she is again having pain to the left side abdomen that is crampy in nature but she believes she had her gallbladder removed Physical Examination: [] Is in no distress is very large woman HEENT exam is unremarkable lungs clear heart tones normal she has pain to the left middle quadrant region. There is no rebound guarding organomegaly the abdomen actually soft there is no signs of bowel obstruction or distention. Her back is unremarkable and she assures me she has had normal bowel bladder habits, her extremities and rest of her exam are unremarkable Test Results: [] Emergency Department Course and Treatment: [] Conversation with the patient and a relative, this appears to be a chronic recurring condition I try to understand what was the new problem and they said the pain seemed to be more intense she is currently on home Percocet. Had multiple CAT scans reviewed some of the more recent ones that showed nothing acute with previous exacerbations Treatment Plan: [] IV fluids pain meds screening labs CT abdomen CT and the rest of the studies are unremarkable see those reports In all the above the patient and her partner I explained that the exact etiology of the chronic abdominal pain that she has had is unclear I advised her to follow-up with her physicians who are gastric bypass specialist and follow any instructions they have given her with regards to her pain management I explained her pain management cannot be assumed from the emergency department she needs to obtain her pain management from her physicians as an outpatient she stay in a bland diet return for change in symptoms Disposition: [] Home stable Impression: [] Recurrent abdominal pain since gastric bypass surgery This note was generated with [employer] dictation software. It may contain incorrect words, spelling, and punctuation that were not noted in review of the chart prior to signing ED Disposition - Plan for ED Patient: Chief Complaint: Abd Pain Referrals: Heather North, [Primary Care Provider] - What to do if you have Problems For any increased pain, shortness of breath, bleeding, nausea or vomiting, chest pain, or any unexpected problems, contact your Primary Care Provider. Call [facility] ([phone]) or report to the closest Emergency Room. Call 911 if necessary. 09/28/17 1702 <Electronically signed by Dwaine Bella MD> Date Dwaine Bella MD Cosigner Signature (If Indicated): Date CC: Heather North DO DISCHARGE INSTRUCTION Observed: 09/28/2017 Status: F Source: [place] 3:45 PM [facility] REPOSITORY [facility] Medical Records Department [address] [address] Discharge Instruction 09/28/17 1545 MR#: [id number] Acct: [id number] Name: NELLA DALE Rep #: [id number] : 1980 36 From: Dwaine Bella MD PCP: Heather North DO Status: REG ER ED Disposition - Plan for ED Patient: Chief Complaint: Abd Pain Instructions: ED Abdominal Pain Unkn Cause Referrals: Heather North DO [Primary Care Provider] - Additional Instructions: See your gastric bypass specialist follow-up doctors What to do if you have Problems For any increased pain, shortness of breath, bleeding, nausea or vomiting, chest pain, or any unexpected problems, contact your Primary Care Provider. Call [facility] ([phone]) or report to the closest Emergency Room. Call 911 if necessary. 09/28/17 1545 <Electronically signed by Dwaine Bella MD> Date Dwaine Bella MD Cosigner Signature (If Indicated): Date CC: Heather North DO CBC W/DIFF, AUTOMATED Collected: 09/28/2017 Status: F Source: [place] 2:00 PM [facility] REPOSITORY TYPE CODE TESTS RESULT OUT OF RANGE REFERENCE UNITS LAB L100.1000 4.4-11.0 K/mm3 Normal WBC 4.8 LAB L100.1200 4.2-5.4 M/mm3 Normal RBC 4.97 LAB L100.1300 12.0-15.0 g/dl Low HGB 11.5 LAB L100.1400 37-47 % Normal HCT 37.6 LAB L100.1500 81-99 fL Low MCV 75.7 LAB L100.1600 27.0-32.0 pg Low MCH 23.1 LAB L100.1700 32-36 g/gl Low MCHC 30.6 LAB L100.1810 11.6-14.6 % High RDW CV 15.1 LAB L100.1820 35.1-43.9 fl Normal RDW SD 40.9 LAB L100.1900 150-450 K/mm3 Normal PLT 217 LAB L100.2000 6.2-12.0 fl Normal MPV 10.7 LAB L100.2100 47-70 % Normal NEUT% 61.3 LAB L100.2200 19-41 % Normal LY% 30.7 LAB L100.2300 0-10 % Normal MONO% 6.1 LAB L100.2400 0-5 % Normal EO% 1.3 LAB L100.2500 0-1 % Normal BASO% 0.4 LAB L100.2550 0.0-0.9 % Normal IM GRAN % 0.200 Result Comment: IG% - Immature Granulocytes (promyelocytes, myelocytes and metamyelocytes) > 1% indicates that a LEFT SHIFT is Present. LAB L100.2620 2.0-7.7 X10 3/uL Normal Absolute Neut 2.9 LAB L100.2720 0.83-4.51 X10 3/ul Normal Absolute Lymph 1.46 Performed By: #### L100.0100 #### [facility] [address] [place], [address] URINALYSIS, COMPLETE Collected: 09/28/2017 Status: F Source: [place] 2:00 PM [facility] REPOSITORY Order Comment: Order Date: 09/28/17 How was Urine Obtained? CLEAN CATCH TYPE CODE TESTS RESULT OUT OF RANGE REFERENCE UNITS LAB L400.3000 Yellow COLOR Normal Yellow LAB L400.3050 Clear Normal CLARITY Clear LAB L400.3200 Normal mg/dl Normal GLUCOSE, UR Normal LAB L400.3300 Negative mg/dL Normal BILIRUBIN URINE Negative LAB L400.3400 Negative mg/dl Normal KETONE UR Negative LAB L400.3465 1.002-1.030 Normal SP.GR. DIPSTX 1.010 LAB L400.3550 5.0 - 8.0 pH UR Normal 6.0 LAB L400.3600 Negative mg/dl PROT Normal DIPSTX Negative LAB L400.3700 Normal mg/dl Normal UROBILI Normal LAB L400.3750 Negative Normal NITRITE UR Negative LAB L400.3780 Negative /ul Normal OCCULT BLOOD-UR Negative LAB L400.3800 Negative /ul LEUK Normal ESTERASE Negative LAB L400.4050 0-5 /hpf WBC Normal 0-5 SEEN LAB L400.4100 0-5 /hpf Normal RBC-UA 0-5 SEEN LAB L400.4150 5-10 /hpf SQUAM Normal EPI 0-5 SEEN LAB L400.4300 None Seen /hpf 1+ Normal BACTERIA LAB L400.4350 <or=2+ /hpf 0 Normal MUCUS, URINE SEEN Performed By: #### L400.0001 #### [facility] [address] [place], [address] BASIC METABOLIC Collected: 09/28/2017 Status: F Source: [place] PROFILE (BMP) 2:00 PM [facility] REPOSITORY TYPE CODE TESTS RESULT OUT OF RANGE REFERENCE UNITS LAB L501.0100 74-106 mg/dL High GLU 112 Result Comment: Fasting Glucose result from 100 to 125 mg/dL suggests IMPAIRED HOMEOSTASIS per A.D.A. criteria. Please note revised GLUCOSE reference range effective 2017. LAB L501.1000 7-18 mg/dL Normal BUN 11 LAB L501.1100 0.55-1.02 mg/dL Normal CREAT,SERUM 0.66 Result Comment: The validity of the calculated GFR AND GFRAA in patients over 70 years has not been determined. Clinical correlation is essential. LAB L501.1110 >60 mL/min Normal EST GFR 107 Result Comment: Non- GFR Calc LAB L501.1115 >60 mL/min Normal EST GFR - AA 129 Result Comment: GFR Calc LAB L501.1255 ml/min Normal Estimated CRCL 110.31 LAB L501.1300 10-20 RATIO BUN/CRE Normal 16.6 LAB L501.2200 8.5-10 mg/dL .1 CA Normal 8.8 LAB L501.5300 136-14 mmol/L 5 NA Normal 140 LAB L501.5600 3.5-5. mmol/L 1 K Normal 4.2 LAB L501.5900 98-107 mmol/L CL Normal 105 LAB L501.6100 21.0-3 mmol/L 2.0 CO2 Normal 27.0 LAB L501.6200 5-15 GAP Normal 8 Performed By: #### L500.2500, L500.3400, L501.2450 #### [facility] [address] [place], [place], [address] LIVER PROFILE Collected: 09/28/2017 Status: F Source: [place] 2:00 PM [facility] REPOSITORY TYPE CODE TESTS RESULT OUT OF RANGE REFERENCE UNITS LAB L501.1500 6.4-8.2 g/dL Normal T PROT 8.0 LAB L501.1800 3.2-5.0 g/dL Normal ALB 3.7 LAB L501.1950 2.2-4.2 g/dL High GLOB 4.3 LAB L501.4100 15-37 U/L Normal AST 19 LAB L501.4305 45-117 U/L Normal ALK P 101 LAB L501.4405 13-56 U/L Normal ALT 29 Result Comment: Please note revised ALT reference range effective 2017. LAB L501.4600 0.20-1.00 mg/dL Normal T BILI 0.30 LAB L501.4700 0.00-0.30 mg/dL Normal D BILI 0.07 Performed By: #### L500.2500, L500.3400, L501.2450 #### [facility] [address] [place], [place], [address] LIPASE Collected: 09/28/2017 Status: F Source: [place] 2:00 PM [facility] REPOSITORY TYPE CODE TESTS RESULT OUT OF RANGE REFERENCE UNITS LAB L501.2450 73-393 U/L Normal LIPASE 161 Performed By: #### L500.2500, L500.3400, L501.2450 #### [facility] [address] [place], [address] ,SERUM,HCG QUALI. Collected: Status: F Source: [place] 09/28/2017 2:00 PM [facility] REPOSITORY TYPE CODE TESTS RESULT OUT OF REFERENCE UNITS RANGE LAB L700.7000 0-9 Nonpreg Negative Normal HCGSQUAL NEGATIVE LAB L700.6700 =>Qualitative mIU/mL Normal HCG Qual < 1 triggr Performed By: #### L700.6800 #### [facility] [address] [place], [address] ABDOMEN/PELVIS WITHOUT Observed: 09/28/2017 Status: F Source: [place] CONT 1:20 PM [facility] REPOSITORY [facility] Imaging Services [address] [place] [address] Abdomen/Pelvis without Cont MR#: [id number] Acct: [id number] Name: NELLA DALE Rep #: [id number] : 1980 F 36 From: Rafael Dai MD PCP: Heather North DO Status: REG ER Study: Abdomen/Pelvis without Cont Date of Exam: 09/28/17 Exam# [id number] Ordering Dr: Dwaine Bella MD STUDY: CT ABDOMEN AND PELVIS WITHOUT CONTRAST REASON FOR EXAM: Female, 36 years old. Severe abdominal pain. History of prior gastric bypass surgery. RADIATION DOSAGE (If Supplied By Facility): CTDIvol = ( 23.32 ) mGy, DLP = ( 1223.28 ) mGycm TECHNIQUE: Transaxial images were obtained from the dome of the diaphragm to the symphysis pubis without oral contrast, and without intravenous contrast. Sagittal and coronal images were reconstructed. Individualized dose optimization techniques were used for this CT. COMPARISON: Comparison is made with prior study dated April 03, 2017. FINDINGS: The visualized lung bases are unremarkable. The visualized portions of the heart are within normal limits. Normal liver. There are surgical clips in the gallbladder fossa consistent with a prior cholecystectomy. Normal spleen. Normal pancreas. Normal bilateral adrenal glands. Normal right kidney. Normal left kidney. Prior subtotal gastrectomy for gastric bypass surgery. This is unchanged. Normal small intestine. Normal colon. The appendix is visualized and appears normal. Normal abdominal aorta. Normal inferior vena cava. Normal retroperitoneum. Normal urinary bladder. Normal abdominal wall. There are degenerative changes of the visualized lumbar spine. CT/Abdomen/Pelvis without Cont IMPRESSION: Status post gastric bypass surgery. No acute abnormality is seen. Electronically Signed: Rafael Dia MD at 15:39 EST Tel [phone], Service support , CC: MD Sona Bella; Heather North DO Garment Cutter: Signed EMERGENCY DEPARTMENT Observed: 09/13/2017 Status: F Source: [place] SUMMARY 2:06 AM [facility] REPOSITORY [facility] Medical Records Department [address] [place] [address] Emergency Department Summary 09/12/17 2359 MR#: [id number] Acct: [id number] Name: NELLA DALE Rep #: [id number] : 1980 36 From: Lien Hahn MD PCP: Heather North DO Status: REG ER - ER Visit Summary Date of Service: 09/12/17 Chief Complaint: Headache History of Present Illness: The patient is a 36 F with a history of migraine headaches. Patient states she started up with a regular headache this morning that progressed into a migraine. She describes nausea and vomiting along with light sensitivity. She denies any recent URI symptoms or head injury. She tried Tylenol and Percocet without improvement. Physical Examination: Vital signs are significant for blood pressure 161/87, otherwise normal. Patient's lying in a darkened room in no acute distress. Heart is regular rate and rhythm. Lungs are clear. Abdomen is soft, obese, nontender. Neuro exam reveals no focal deficits. Test Results: [] Emergency Department Course and Treatment: Patient advises allergies to NSAIDs and Toradol. She is ordered Tylenol, Compazine, Benadryl, and IV fluids. On repeat evaluation she is sleeping comfortably. She easily awakens. She states headache is at least 50% better if not more. At this time she will be discharged home to sleep in a quiet dark room. Treatment Plan: [] Disposition: Discharge Impression: Migraine, improved This note was generated with Dragon dictation software. It may contain incorrect words, spelling, and punctuation that were not noted in review of the chart prior to signing ED Disposition - Plan for ED Patient: Chief Complaint: Headache Referrals: Heather North DO [Primary Care Provider] - What to do if you have Problems For any increased pain, shortness of breath, bleeding, nausea or vomiting, chest pain, or any unexpected problems, contact your Primary Care Provider. Call [facility] ([phone]) or report to the closest Emergency Room. Call 911 if necessary. 09/13/17205 <Electronically signed by Lien Hahn MD> Date Lien Hahn MD Cosigner Signature (If Indicated): Date CC: Heather North DO DISCHARGE INSTRUCTION Observed: 09/13/2017 Status: F Source: [place] 1:46 AM [facility] REPOSITORY [facility] Medical Records Department [address] [place] [address] Discharge Instruction 09/13/17145 MR#: [id number] Acct: [id number] Name: NELLA DALE Rep #: [id number] : 1980 36 From: Lien Hahn MD PCP: Heather North DO Status: REG ER ED Disposition - Plan for ED Patient: Disposition: Home or Assisted Living Chief Complaint: Headache Instructions: ED Headache Migraine Referrals: Heather North DO [Primary Care Provider] - 1-2 Days if not improving What to do if you have Problems For any increased pain, shortness of breath, bleeding, nausea or vomiting, chest pain, or any unexpected problems, contact your Primary Care Provider. Call [facility] ([phone]) or report to the closest Emergency Room. Call 911 if necessary. 09/13/17145 <Electronically signed by Lien Hahn MD> Date Lien Hahn MD Cosigner Signature (If Indicated): Date CC: Heather North DO ALLERGIES ALLERGIES DATE TYPE / CODE NAME / CODE REACTION SEVERITY SOURCE 03/23/2018 Drug NSAIDS Other Unknown [facility] Allergy/4160 (Non-Steroidal Hospital 80789(SNOMED Anti-Inflamma/ Repository CT) S351924099(RXN ORM) 03/23/2018 Drug ketorolac/F006 Itching Unknown [facility] Allergy/4160 011973(RXNORM) Hospital 49160(SNOMED Repository CT) 02/12/2016 Drug NSAIDS OTHER: SEE C Bills [facility] Class/048733 (NON-STEROIDAL Other [place] 003(SNOMED ANTI-INFLAMMAT Repository CT) [facility]) NG/461604535 NSAIDS [facility] (SNOMED CT) (NON-STEROIDAL Health System ANTI-INFLAMMAT Repository [facility]) ENCOUNTERS ENCOUNTERS ADMIT/DISCHARGE ACCOUNT NUMBER ADMITTING ENCOUNTER LOCATION SOURCE CLASS 09/11/2018 [id number] [facility] ding:NS Repository 07/31/2018/07/31/20 [id number] Emergency [address] ding:ED Repository 07/10/2018/07/20/20 [id number] Ambulatory [address] ding:NS Repository 06/05/2018/06/20/20 [id number] Ambulatory [address] ding:NS Repository 05/28/2018 [id number] Ambulatory [facility] ding:MTRAD Repository 05/28/2018 [id number] [facility] ding:LAB.FUT Repository URE 05/15/2018/05/20/[id number] ding:NS Repository 05/08/2018 [id number] Ambulatory [facility] ding:LAB.FUT Repository URE 04/10/2018 [id number] Ambulatory [facility] ding:MEDOUTP Repository 03/27/2018 [id number] Ambulatory [facility] ding:MEDOUTP Repository 03/26/2018/04/20/20 [id number] Ambulatory [address] ding:NS Repository 03/23/2018/03/23/20 [id number] Emergency [address] ding:ED Repository 03/13/2018/03/13/20 [id number] Emergency [address] ding:ED Repository 03/13/2018 [id number] Ambulatory [facility] ding:MEDOUTP Repository 03/07/2018/03/07/20 [id number] Ambulatory [address] ding:[place] Repository 02/27/2018 [id number] Ambulatory [facility] ding:MEDOUTP Repository 02/13/2018 [id number] Ambulatory [facility] ding:MEDOUTP Repository 01/31/2018 [id number] Ambulatory [facility] MEDICAL Repository CENTERBuildi ng:AGGASTACC 01/30/2018 [id number] Ambulatory [facility] ding:MEDOUTP Repository 01/22/2018 [id number] Ambulatory [facility] Repository 01/22/2018/01/23/20 [id number] Ambulatory [address] MEDICAL Repository CENTERBuildi ng:AKXRCT 01/22/2018 [id number] [facility] Repository 01/22/2018/01/23/20 [id number] Ambulatory [address] MEDICAL Repository CENTERBuildi ng:AKXRCT 01/16/2018/01/17/20 [id number] PRISCILLA Ambulatory [address] Repository 01/16/2018/01/17/20 [id number] Mini WELLS Inpatient [address] MEDICAL Repository CENTERBuildi ng:ENDORoom: POOLBed: 09 01/04/2018 [id number] Ambulatory [facility] ding:BFHLAB Repository 11/06/2017/11/07/19 [id number] Emergency [address] ding:ED Repository 11/01/2017 [id number] Ambulatory [facility] MEDICAL Repository CENTERBuildi ng:AKCTB 11/01/2017 [id number] Ambulatory [facility] MEDICAL Repository CENTERBuildi ng:AKCTB 10/23/2017/10/24/19 [id number] Ambulatory [address] Other [place] Repository 10/23/2017/10/24/19 [id number] Ambulatory [address] MEDICAL Repository CENTERBuildi ng:AGGASTACC 10/20/2017 [id number] Ambulatory [facility] ding:BFHLAB Repository 09/28/2017/09/28/19 [id number] Emergency [address] ding:ED Repository 09/19/2017 [id number] Ambulatory [facility] MEDICAL Repository CENTERBuildi ng:AGGASTACC 09/12/2017/09/13/19 [id number] Emergency [address] ding:ED Repository PAYERS PAYERS ENCOUNTER GUARANTOR PAYER SUBSCRIBER SOURCE 09/11/2018 DARALEE L Primary DARALEE L [place] [id number] Insurance[facility]CARESOURCEP [facility] Number: [id number], [place] [id number] Repository [address]Kta: [phone]) Date:2018-03-26 O [phone] (QL) [address]ATTN: [place] [address]EW: 09/11/2018 Secondary NOT GIVENUNK [place] Insurance:SELF PAY [facility] Number: Effective Repository Date:2018-07-21 07/31/2018 HUDSONE L Primary HUDSONE L [place] [id number] Insurance:CARESOURCEP PATRICKDOB: [facility] Number: [id number], [place] [id number] Repository [address]Ymc: ([phone]) Date:2018-07-31P O [phone] () [address]ATTN: [place] [address]PF: 07/31/2018 Secondary NOT GIVENUNK [place] Insurance:SELF PAY [facility] Number: Effective Repository Date:2018-07-31 07/10/2018 DARPRESTONE L Primary DARPRESTONE L [place] [id number] Insurance:CARESOURCEP PATRICKDOB: [facility] Number: [id number], [place] [id number] Repository [address]Qeb: ([phone]) Date:2018-03-26P O [phone] () [address]ATTN: [place] [address]QA: 07/10/2018 Secondary NOT GIVENUNK [place] Insurance:SELF PAY [facility] Number: Effective Repository Date:2018-06-21 06/05/2018 DARALEE L Primary DARALEE L [place] [id number] Insurance:CARESOURCEP PATRICKDOB: [facility] Number: [id number], [place] [id number] Repository [address]Fbs: ([phone]) Date:2018-03-26P O [phone] () [address]ATTN: [place] [address]EB: 06/05/2018 Secondary NOT GIVENUNK [place] Insurance:SELF PAY [facility] Number: Effective Repository Date:2018-05-21 05/28/2018 DARALEE L Primary SHELDONALEE L [place] [id number] Insurance:CARESOURCEP PATRICKDOB: [facility] Number: [id number], [place] [id number] Repository 6[address]Qpa: ([phone]) Date:2018-05-28P O [phone] (HP) [address]ATTN: [place] [address]EG: 05/28/2018 Secondary NOT GIVENUNK [place] Insurance:SELF PAY [facility] Number: Effective Repository Date:2018-05-28 05/28/2018 DARALEE L Primary SHELDONALEE L [place] [id number] Insurance:CARESOURCEP [facility] Number: [id number], [place] [id number] Repository [address]39[address]Xao: ([phone]) Date:2018-04-25P O [phone] (HP) [address]ATTN: [place] [address]DZ: 05/28/2018 Secondary NOT GIVENUNK [place] Insurance:SELF PAY [facility] Number: Effective Repository Date:2018-04-25 05/15/2018 DARALEE L Primary SHELDONALEE L [place] [id number] Insurance:CARESOURCEP PATRICKDOB: [facility] Number: [id number], [place] [id number] Repository [address]Vsd: ([phone]) Date:2018-03-26P O [phone] (HP) [address]ATTN: [place] [address]NB: 05/15/2018 Secondary NOT GIVENUNK [place] Insurance:SELF PAY [facility] Number: Effective Repository Date:2018-04-21 05/08/2018 DARALEE L Primary DARALEE L [place] [id number] Insurance:CARESOURCEP PATRICKDOB: [facility] Number: [id number], [place] [id number] Repository [address]Ize: ([phone]) Date:2018-05-04P O [phone] (HP) [address]ATTN: [place] [address]JZ: 05/08/2018 Secondary NOT GIVENUNK [place] Insurance:SELF PAY [facility] Number: Effective Repository Date:2018-05-04 04/10/2018 DARALEE L Primary DARALEE L [place] [id number] Insurance:CARESOURCEP PATRICKDOB: [facility] CINTHYA olicy Number: [id number], [place] [id number] Repository 110[address]Geq: ([phone]) Date:2018-03-13P O [phone] () [address]ATTN: [place] [address]PF: 04/10/2018 Secondary NOT GIVENUNK [place] Insurance:SELF PAY [facility] Number: Effective Repository Date:2018-03-13 03/27/2018 DARPRESTONE L Primary HUDSONE L [place] [id number] Insurance:CARESOURCEP PATRICKDOB: [facility] Number: [id number], [place] [id number] Repository 17[address]Tud: ([phone]) Date:2018-01-30 O [phone] () [address]ATTN: [place] [address]MH: 03/27/2018 Secondary NOT GIVENUNK [place] Insurance:SELF PAY [facility] Number: Effective Repository Date:2018-01-30 03/26/2018 DARPRESTONE L Primary HUDSONE L [place] [id number] Insurance:CARESOURCEP PATRICKDOB: [facility] Number: [id number], [place] [id number] Repository [address]Ock: ([phone]) Date:2018-03-26P O [phone] () [address]ATTN: [place] [address]BW: 03/26/2018 Secondary NOT GIVENUNK [place] Insurance:SELF PAY [facility] Number: Effective Repository Date:2018-03-26 03/23/2018 DARALEE L Primary DARALEE L [place] [id number] Insurance:CARESOURCEP PATRICKDOB: [facility] Number: [id number], [place] [id number] Repository 585[address]Qbo: ([phone]) Date:2018-03-23P O [phone] () [address]ATTN: [place] [address]KE: 03/23/2018 Secondary NOT GIVENUNK [place] Insurance:SELF PAY [facility] Number: Effective Repository Date:2018-03-23 03/13/2018 DARALEE L Primary [facility]ALEE L [facility] [id number] Insurance:CARESOURCEP CEDARDOB: [facility] Number: [id number], [place] [id number] Repository 935[address]Tcy: ([phone]) Date:2018-03-13P O [phone] () [address]ATTN: [place] [address]MV: 03/13/2018 Secondary NOT GIVENUNK [place] Insurance:SELF PAY [facility] Number: Effective Repository Date:2018-03-13 03/13/2018 [facility]EE L [id number] Insurance:CARESOURCEP [facility] Number: [id number], [place] [id number] Repository 325[address]Ixz: ([phone]) Date:2018-01-30 O [phone] () [address]ATTN: [place] [address]VO: 03/13/2018 Secondary NOT GIVENUNK [place] Insurance:SELF PAY [facility] Number: Effective Repository Date:2018-01-30 03/07/2018 DARALEE L Primary [facility]ONE L [facility] Insurance:CARESOURCE PATRICKDOB: [facility] [id number] MEDICAIDPolicy [id number] [place] [address] Number: [address] [place] [address] [id number] [place] [address]~[id number] Date:2018-03-07 [phone]: [phone]) 47@[facility] HEALTH CENTERel: [id number] [phone] Name:HANNYO Box (HP)Tel: [phone]) (HP) [address] [place] [address] [phone] () [address]PV: 02/27/2018 DARALEE L Primary DARALEE L [place] [id number] Insurance:CARESOURCEP PATRICKDOB: [facility] Number: [id number], [place] [id number] Repository [address]Fbd: ([phone]) Date:2018-01-30 O [phone] () [address]ATTN: [place] [address]XZ: 02/27/2018 Secondary NOT GIVENUNK [place] Insurance:SELF PAY [facility] Number: Effective Repository Date:2018-01-30 02/13/2018 DARALEE L Primary DARALEE L [place] [id number] Insurance:CARESOURCEP PATRICKDOB: [facility] Number: [id number], [place] [id number] Repository [address]Pqv: ([phone]) Date:2018-01-30 O [phone] () [address]ATTN: [place] [address]QV: 02/13/2018 Secondary NOT GIVENUNK [place] Insurance:SELF PAY [facility] Number: Effective Repository Date:2018-01-30 01/31/2018 DARALEE Primary DARALEE [facility] PATRICKDOB: Insurance:CARESOURCE PATRICKDOB: [facility] MEDICAIDPolicy [id number] Repository [facility] Number: [place], [place] [id number] [address]Wkr: ([phone]) Date: [phone] () 01/30/2018 DARALEE L Primary DARALEE L [place] [id number] Insurance:CARESOURCEP PATRICKDOB: [facility] Number: [id number] Hospital marilia BROWN [id number] Repository 159[address]Zrt: ([phone]) Date:2018-01-25P O (HP) [address]ATTN: [place] [address]HN: 01/30/2018 Secondary NOT GIVENUNK [place] Insurance:SELF PAY [facility] Number: Effective Repository Date:2018-01-25 01/22/2018 DARALEE Primary DARALEE [facility] PATRICKDOB: Insurance:CARESOURCE PATRICKDOB: Health System MEDICAIDPolicy [id number] Repository CINTHYA Number: MARILIA BROWN [id number] 66[address]Bpz: ([phone]) Date: (HP) 01/22/2018 DARALEE Primary DARALEE [facility] PATRICKDOB: Insurance:CARESOURCE PATRICKDOB: [facility] MEDICAIDPolicy [id number] Repository CINTHYA Number: MARILIA BROWN [id number] 94607Tsh: ([phone]) Date: (HP) 01/16/2018 DARALEE Primary DARALEE [facility] PATRICKDOB: Insurance:CARESOURCE PATRICKDOB: [facility] MEDICAIDPolicy [id number] Repository CINTHYA Number: MARILIA BROWN [id number] 922[address]Tdp: ([phone]) Date: (HP) 01/04/2018 DARALEE L Primary DARALEE L [place] [id number] Insurance:CARESOURCEP PATRICKDOB: [facility] Number: [id number] General Hospitalmarilia ANDRADE [id number] Repository 340[address]Yfo: ([phone]) Date:2018-01-04 O (HP) [address]ATTN: [place] [address]YH: 01/04/2018 Secondary NOT GIVENUNK [place] Insurance:SELF PAY [facility] Number: Effective Repository Date:2018-01-04 11/06/2017 DARALEE L Primary HUDSONE L [place] [id number] Insurance:CARESOURCEP PATRICKDOB: [facility] Number: [id number] [place] [id number] Repository 55[address]Ggs: ([phone]) Date:2017-11-06P O [phone] () [address]ATTN: [place] [address]AJ: 11/06/2017 Secondary NOT GIVENUNK [place] Insurance:SELF PAY [facility] Number: Effective Repository Date:2017-11-06 11/01/2017 DARALEE Primary HUDSONE [facility] PATRICKDOB: Insurance:CARESOURCE PATRICKDOB: [facility] System MEDICAIDPolicy [id number] [facility] Number: [place], [place] [id number] [address]Ttb: ([phone]) Date: [phone] (HP) 10/23/2017 DARALEE Primary HUDSONE [facility] PATRICKDOB: Insurance:CARESOURCE PATRICKDOB: [facility] System MEDICAIDPolicy [id number] [facility] Healthcare Main[facility] Number: [place], [place] [id number] [address]Yne: ([phone]) Date: 366 (HP) 10/20/2017 Sheldonalee L Primary Hudsone L [place] [id number] Insurance:CARESOURCEP PatrickDOB: [facility] Number: [id number] Crossing, [place] [id number] Repository [address]Dyp: ([phone]) Date:2017-10-20P O [phone] () [address]ATTN: [place] [address]NT: 10/20/2017 Secondary NOT GIVENUNK [place] Insurance:SELF PAY [facility] Number: Effective Repository Date:2017-10-20 09/28/2017 Daralee L Primary Daralee L [place] [id number] Insurance:CARESOURCEP PatrickDOB: [facility] Number: [id number] [place], [place] [id number] Repository [address]Xsi: ([phone]) Date:2017-09-28P O [phone] () [address]ATTN: [place] [address]DO: 09/28/2017 Secondary NOT GIVENUNK [place] Insurance:SELF PAY [facility] Number: Effective Repository Date:2017-09-28 09/19/2017 DARALEE Primary HUDSONE [facility] PATRICKDOB: Insurance:[facility]PITALKORINAB: [facility] System MEDICAIDPolicy [id number] [place] Hospital Number: [place], [place] [id number]: [id number] Date: [id number] () 09/12/2017 Hudsone L Primary Hudsone L Manju [id number] Insurance:CARESOURCEP PatrickDOB[facility] Number: [id number] [id number] Repository [id number]: [phone]) Date:2017-09-12P O [phone] () [address]ATTN: [place] [id number]: 09/12/2017 Secondary NOT GIVENUNK [place] Insurance:SELF PAY [facility] Number: Effective Repository Date:2017-09-12
== END 2018-07-31 21:18 | disposition home or self-care (01) ==
PROVIDERS: Emergency Provider Emergency Medicine; Family Provider Family Medicine; PCP Family Medicine
DX: G43.909 Migraine, unspecified, not intractable, without status migrainosus (principal); I10 Essential (primary) hypertension; Z79.891 Long term (current) use of opiate analgesic; Z79.899 Other long term (current) drug therapy; Z98.84 Bariatric surgery status
CPT/HCPCS: 85652; 96361; 96374; 96375; 99283; J7030; A4216

== ENCOUNTER 2018-10-01 09:58 | Outpatient (RCR) | payer MEDICAID, SELFPAY ==
[2018-07-21 01:05] VITALS: BMI 42.7
== END 2018-10-01 23:59 | disposition home or self-care (01) ==
LOC: NS 09:58
PROVIDERS: Family Provider Family Medicine; PCP Family Medicine; Visit Provider Family Medicine
DX: E66.01 Morbid (severe) obesity due to excess calories (principal); Z71.3 Dietary counseling and surveillance
CPT/HCPCS: 97803

== ENCOUNTER → 2018-10-01 10:02 | Outpatient (CLI) | payer MEDICAID, SELFPAY ==
--- NOTE | 2018-10-01 10:09 | MRI_ITS ---
STUDY: MRI CERVICAL SPINE WITHOUT CONTRAST REASON FOR EXAM: Female, 37 years old. Right cervical radiculopathy. Right arm pain. TECHNIQUE: Standardized fat and water weighted pulse sequences were obtained in the sagittal and axial planes. COMPARISON: None FINDINGS: Normal foramen magnum and brainstem-cervical cord junction. Normal craniovertebral junction. Normal anterior atlantoaxial articulation. Normal odontoid process. Normal cervical lordosis. Normal vertebral bodies and posterior osseous elements. C2-3: Normal endplates. Normal disc height, signal and morphology. Normal central canal and intervertebral neural foramina. C3-4: Normal endplates. Normal disc height, signal and morphology. Normal central canal and intervertebral neural foramina. C4-5: Normal endplates. Normal disc height, signal and morphology. Normal central canal and intervertebral neural foramina. C5-6: Normal endplates. Normal disc height, signal and morphology. Normal central canal and intervertebral neural foramina. C6-7: Normal endplates. Normal disc height, signal and morphology. Normal central canal and intervertebral neural foramina. C7-T1: Normal endplates. Normal disc height, signal and morphology. Normal central canal and intervertebral neural foramina. Normal cervical cord. Normal visualized soft tissue structures. MRI/Spine Cervical (Routine) IMPRESSION: Normal unenhanced MR examination of the cervical spine. Electronically Signed: Moody Franco MD at 11:57 EST , Service support ,
--- NOTE | 2018-10-01 10:09 | MRI_ITS ---
STUDY: MRI LUMBAR SPINE WITHOUT CONTRAST REASON FOR EXAM: Female, 37 years old. Compression fracture L4-5 one year ago. Bilateral leg weakness. Radiculopathy. TECHNIQUE: Standardized fat and water weighted pulse sequences were obtained in the sagittal and axial planes. COMPARISON: 04/15/2016. FINDINGS: T11-T12: (Sagittal only). Minimal anterior marginal spurs. Normal endplates. While this space height narrowing. Normal disc morphology. No ventral extradural defect. Normal central canal and bilateral intervertebral neural foramina. T12-L1: (Sagittal only). Normal endplates. Normal disc height, hydration and morphology. No ventral extradural defect. Normal central canal and bilateral intervertebral neural foramina. Normal lumbar lordosis. There is no substantial scoliosis. Normal conus medullaris that terminates at the lower T12 vertebral body level. L1-2: Normal endplates. Normal disc height, hydration and morphology. Normal bilateral facet joints. Normal central canal and bilateral lateral recesses. Normal bilateral intervertebral neural foramina. L2-3: Normal endplates. Normal disc height, hydration and morphology. Normal bilateral facet joints. Normal central canal and bilateral lateral recesses. Normal bilateral intervertebral neural foramina. L3-4: Modic type I degenerative vertebral marrow edema underneath the vertebral endplates. Pronounced disc space height narrowing. Small posterior bulging disc. Mild central canal stenosis. The AP canal diameter is 10 mm. Normal bilateral lateral recesses. Mild left degenerative facet arthropathy. Normal right facet joint. Normal bilateral intervertebral neural foramina. L4-5: Normal endplates. Normal disc height, hydration and morphology. Mild central canal stenosis. The AP canal diameter is 11 mm. Normal bilateral lateral recesses. Mild left degenerative facet arthropathy. Normal right facet joint. Normal bilateral intervertebral neural foramina. L5-S1: Normal endplates. Normal disc height, hydration and morphology. Normal bilateral facet joints. Normal central canal and bilateral lateral recesses. Normal bilateral intervertebral neural foramina. Normal visualized sacral ala. Normal visualized paraspinous soft tissue structures. MRI/Spine Lumbar (Routine) IMPRESSION: 1. No MRI evidence of lumbar extruded disc fragment. 2. Moderate pronounced L3-L4 disc space height narrowing with Modic type I degenerative vertebral marrow edema underneath the vertebral endplates and mild central canal stenosis. 3. Mild central canal stenosis at L4-L5 disc level and mild left degenerative facet arthropathy. 4. No interval changes when compared to 04/15/2016. Electronically Signed: Moody Franco MD at 11:47 EST , Service support ,
== END ==
PROVIDERS: Family Provider Family Medicine; PCP Family Medicine; Referring Provider Family Medicine; Visit Provider Family Medicine
DX: M51.36 Other intervertebral disc degeneration, lumbar region (principal); M54.16 Radiculopathy, lumbar region; M54.12 Radiculopathy, cervical region; E66.01 Morbid (severe) obesity due to excess calories; Z71.3 Dietary counseling and surveillance
CPT/HCPCS: 72141; 72148; 97803

== ENCOUNTER → 2018-10-17 11:13 | Outpatient (CLI) | payer MEDICAID, SELFPAY ==
[2018-10-17 13:02] LABS: Absolute Lymphocyte Count 2.02 X10^3/ul (0.83-4.51); Absolute Neutrophil Count 4.3 X10^3/uL (2.0-7.7); Basophil# 0.01 X10^3/uL; Basophil% 0.1 % (0-1); Eosinophil# 0.08 X10^3/uL; Eosinophils% 1.2 % (0-5); Hematocrit 40.7 % (37-47); Hemoglobin 12.6 g/dl (12.0-15.0); Lymphocyte # 2.02 X10^3/ul (4.0); Lymphocyte % 29.8 % (19-41); Mean Corpuscular Hgb 25.4 pg (27.0-32.0); Mean Corpuscular Volume 81.9 fL (81-99); Mean Platelet Vol. 11.3 fl (6.2-12.0); Monocyte% 5.9 % (0-10); Neutrophil # 4.26 X10^3/uL (2.7-7.7); Neutrophil % 62.9 % (47-70); Platelet Count 222 K/mm3 (150-450); RBC Distribution Width CV 14.9 % (11.6-14.6); RBC Distribution Width SD 43.6 fl (35.1-43.9); Red Blood Count 4.97 M/mm3 (4.2-5.4); White Blood Count 6.8 K/mm3 (4.4-11.0)
[2018-10-17 13:04] LABS: POSITIVE COUNT NO; POSITIVE DIFFERENTIAL NO; POSITIVE MORPHOLOGY NO
[2018-10-17 13:36] LABS: Vitamin B12 506 pg/mL (211-911); Vitamin D,25 Hydroxy 22.6 ng/mL (29.95-100.01)
[2018-10-17 14:04] LABS: ALB/GLOB Ratio 0.9 RATIO (0.9-2.4); AST(SGOT) 12 U/L (15-37); Alanine Aminotransfer ALT/SGPT 16 U/L (13-56); Albumin, Serum 3.6 g/dL (3.2-5.0); Alkaline Phosphatase 75 U/L (45-117); Anion Gap 8 (5-15); BUN 10 mg/dL (7-18); BUN/Creat Ratio 13.2 RATIO (10-20); Calcium,Total 8.7 mg/dL (8.5-10.1); Chloride 106 mmol/L (98-107); Creatinine, Serum 0.76 mg/dL (0.55-1.02); EST Glomerular Filtration Rate 91 mL/min (>60); Est Glom Filt Rate - Afr Amer 110 mL/min (>60); Ferritin 6 ng/mL (8-252); Globulin 4.2 g/dL (2.2-4.2); Glucose 80 mg/dL (74-106); Iron 54 ug/dL (50-170); Magnesium 1.9 mg/dL (1.6-2.6); Potassium 3.6 mmol/L (3.5-5.1); Protein, Total 7.8 g/dL (6.4-8.2); Sodium Level 138 mmol/L (136-145)
[2018-10-20 08:57] LABS: Hemoglobin A1c 6.8 % (4.2-6.3)
== END ==
PROVIDERS: Family Provider Family Medicine; PCP Family Medicine; Visit Provider Family Medicine
DX: E11.9 Type 2 diabetes mellitus without complications (principal); D64.9 Anemia, unspecified; G47.00 Insomnia, unspecified; E55.9 Vitamin D deficiency, unspecified; R25.3 Fasciculation
CPT/HCPCS: 36415; 80053; 82306; 82607; 82728; 82746; 83036; 83540; 83735; 85025

== ENCOUNTER → 2018-10-31 14:23 | Outpatient (CLI) | payer MEDICAID, SELFPAY ==
--- NOTE | 2018-10-31 15:32 | NEURO ---
NCS and/or EMG Patient Report Ordering Doctor: Israel North DATE OF SERVICE: 10/31/18 Nella Dale is a 37-year-old female presents for electrodiagnostic testing of the right upper limb. She reports numbness and tingling in the right hand for the past 5 months. Electrodiagnostic findings: Right median motor nerve demonstrates prolonged distal latency with normal amplitude and conduction velocity. Normal right ulnar motor response. Normal median ulnar F-wave. Prolonged median sensory latency at the wrist. Prolonged median palmar latency. Needle EMG testing shows no evidence of denervation with normal motor unit action potentials. Electrodiagnostic assessment: This is an abnormal study in the right upper limb. 1. Electrodiagnostic findings demonstrate right-sided median mononeuropathy. This is consistent with a mild right carpal tunnel syndrome. If there are any further questions, please do not hesitate to contact me.
== END ==
PROVIDERS: Family Provider Family Medicine; PCP Family Medicine; Referring Provider Family Medicine; Visit Provider Family Medicine
DX: R25.1 Tremor, unspecified (principal); R25.3 Fasciculation; G56.11 Other lesions of median nerve, right upper limb
CPT/HCPCS: 95886; 95910

== ENCOUNTER 2018-11-11 11:48 | Emergency (ER) | payer MEDICAID, SELFPAY ==
[2018-11-11 11:49] VITALS: BP 152/92; PULSE 79; RESP 18; TEMP 36.6; O2SAT 99; BMI 43.6
[2018-11-11 12:41] LABS: Mucous, Urine 0 SEEN /hpf (<or=2+); Red Blood Cells-Urine 0 SEEN /hpf (0-5)
[2018-11-11 12:43] LABS: Color, Urine Yellow (Yellow); Glucose, Dipstick Normal (Normal); Ketone-Dipstick Negative (Negative); Leukocyte Esterase-Dipstick 25 /ul (Negative); Nitrite-Dipstick Negative (Negative); Occult Blood-Urine Negative /ul (Negative); Protein-Dipstick Negative (Negative); Urine Bilirubin Dipstick Negative (Negative); Urine Clarity Cloudy (Clear); Urine Urobilinogen 1 mg/dl (Normal); Urine pH 6.5 (5.0 - 8.0)
[2018-11-11 12:48] LABS: Bacteria 2+ /hpf (None Seen); Squamous Epithelial Cells - UA 10-25 SEEN /hpf (5-10); White Blood Cells 0-5 SEEN /hpf (0-5)
--- NOTE | 2018-11-11 12:48 | ED.VISSUMM ---
- ER Visit Summary Date of Service: 11/11/18 Chief Complaint: Abdominal pain History of Present Illness: The patient is a 37 F who presents with right upper quadrant abdominal pain that has been getting worse over the past 3 days. Patient states pain is constant and stabbing. Patient states pain is worse with eating. Patient admits to nausea but denies any vomiting. Patient denies any diarrhea. Patient denies any dysuria hematuria. Patient denies any melena or hematochezia. Patient denies any back pain. Patient states she has had a cholecystectomy and gastric bypass. Physical Examination: Vital signs are stable. Patient is afebrile. Patient is in no acute distress. Oral mucosa is pink and moist. Neck is supple. Trachea is midline. There is no JVD noted. Heart was regular rate and rhythm. Lungs are clear and equal bilaterally. There is good respiratory effort noted. Abdomen is soft. There is right upper quadrant and mild right lower quadrant tenderness. There is no rebound or guarding noted. Cranial nerves II through XII are intact. There are no focal motor or sensory deficits noted. Test Results: CBC showed a mild anemia with a hemoglobin of 11.6 and hematocrit 36.3. Comprehensive metabolic profile was within normal limits. Lipase was normal. Urinalysis was normal. CT scan of the abdomen and pelvis was obtained. There is no acute intra-abdominal process. Emergency Department Course and Treatment: Patient was given IV fluids and morphine here. Patient was still complaining of some pain. Patient was given a repeat dose of morphine. Patient was instructed to follow-up with her primary care physician in 5-7 days. Patient understood and was agreeable with the plan. All questions were answered. Disposition: Discharge home Impression: Right upper quadrant abdominal pain This note was generated with [employer] dictation software. It may contain incorrect words, spelling, and punctuation that were not noted in review of the chart prior to signing ED Disposition - Plan for ED Patient: Disposition: Home or Assisted Living Diagnosis: Right upper quadrant abdominal pain, Obesity Instructions: ED Abdominal Pain Unkn Cause Referrals: Israel North, [Primary Care Provider] - 3-5 Days if not improving
[2018-11-11 12:49] LABS: Internal QC Validated? YES +Cl - CLEAR BKGD; Pregnancy, Urine Negative Negative
[2018-11-11] MEDS: Morphine 4 MG/ML Syringe IV ×3 (12:49→17:20)
[2018-11-11] MEDS: Ondansetron 4 MG/2 ML Vial IV (12:49)
[2018-11-11 12:56] LABS: Absolute Lymphocyte Count 1.64 X10^3/ul (0.83-4.51); Absolute Neutrophil Count 3.8 X10^3/uL (2.0-7.7); Basophil# 0.01 X10^3/uL; Basophil% 0.2 % (0-1); Eosinophil# 0.05 X10^3/uL; Eosinophils% 0.9 % (0-5); Hematocrit 36.3 % (37-47); Hemoglobin 11.6 g/dl (12.0-15.0); Lymphocyte # 1.64 X10^3/ul (4.0); Lymphocyte % 28.5 % (19-41); Mean Corpuscular Hgb 25.8 pg (27.0-32.0); Mean Corpuscular Volume 80.7 fL (81-99); Mean Platelet Vol. 10.8 fl (6.2-12.0); Monocyte# 0.29 X10^3/uL; Neutrophil # 3.76 X10^3/uL (2.7-7.7); Neutrophil % 65.2 % (47-70); Platelet Count 184 K/mm3 (150-450); RBC Distribution Width CV 13.9 % (11.6-14.6); RBC Distribution Width SD 40.1 fl (35.1-43.9); White Blood Count 5.8 K/mm3 (4.4-11.0)
[2018-11-11 12:58] LABS: POSITIVE COUNT NO; POSITIVE DIFFERENTIAL NO; POSITIVE MORPHOLOGY NO
[2018-11-11 13:15] LABS: ALB/GLOB Ratio 0.9 RATIO (0.9-2.4); AST(SGOT) 13 U/L (15-37); Alanine Aminotransfer ALT/SGPT 19 U/L (13-56); Albumin, Serum 3.8 g/dL (3.2-5.0); Alkaline Phosphatase 76 U/L (45-117); Anion Gap 9 (5-15); BUN 11 mg/dL (7-18); BUN/Creat Ratio 17.1 RATIO (10-20); Calcium,Total 8.4 mg/dL (8.5-10.1); Chloride 104 mmol/L (98-107); Creatinine, Serum 0.64 mg/dL (0.55-1.02); EST Glomerular Filtration Rate 110 mL/min (>60); Est Glom Filt Rate - Afr Amer 133 mL/min (>60); Estimated Creatinine Clearance 112.67 ml/min; Globulin 4.1 g/dL (2.2-4.2); Glucose 121 mg/dL (74-106); Lipase 72 U/L (73-393); Potassium 3.7 mmol/L (3.5-5.1); Protein, Total 7.9 g/dL (6.4-8.2); Sodium Level 140 mmol/L (136-145)
--- NOTE | 2018-11-11 14:29 | CT_ITS ---
STUDY: CT ABDOMEN AND PELVIS WITHOUT CONTRAST REASON FOR EXAM: Female, 37 years old. Right upper quadrant pain. Nausea. Chills RADIATION DOSAGE (If Supplied By Facility): CTDIvol = ( 30.48 ) mGy, DLP = ( 1682.95 ) mGycm TECHNIQUE: Transaxial images were obtained from the dome of the diaphragm to the symphysis pubis without oral contrast, and without intravenous contrast. Sagittal and coronal images were reconstructed. Individualized dose optimization techniques were used for this CT. COMPARISON: September 28, 2017. FINDINGS: The visualized lung bases are unremarkable. The visualized portions of the heart are within normal limits. There is hepatomegaly with diffuse hepatic enlargement. There are surgical clips in the gallbladder fossa consistent with a prior cholecystectomy. There is mild splenomegaly. Normal pancreas. Normal bilateral adrenal glands. Normal right kidney. Normal left kidney. Postoperative changes of the stomach and proximal small intestine. Normal colon. There is moderate stool. The appendix is visualized and appears normal. Normal abdominal aorta. Normal inferior vena cava. Normal retroperitoneum. Normal urinary bladder. Normal visualized uterus. There is trace free fluid in the pelvis. Normal abdominal wall. There are diffuse degenerative changes of the visualized lumbar spine. CT/Abdomen/Pelvis without Cont IMPRESSION: Hepatosplenomegaly. Prior cholecystectomy. No biliary dilatation. Prior gastric bypass. No obstruction. No stones or hydronephrosis. Electronically Signed: Enmanuel Shaw MD at 16:16 EDT , Service support ,
[2018-11-11 14:31] VITALS: BP 128/73; PULSE 77; RESP 17; O2SAT 100
[2018-11-11 17:26] VITALS: PULSE 82; RESP 16; O2SAT 100
== END 2018-11-11 17:27 | disposition home or self-care (01) ==
PROVIDERS: Emergency Provider Emergency Medicine; Family Provider Family Medicine; PCP Family Medicine
DX: R10.11 Right upper quadrant pain (principal); R11.0 Nausea; E11.9 Type 2 diabetes mellitus without complications; I10 Essential (primary) hypertension; D64.9 Anemia, unspecified; M79.7 Fibromyalgia; M54.9 Dorsalgia, unspecified; G89.29 Other chronic pain; F32.9 Major depressive disorder, single episode, unspecified; F41.9 Anxiety disorder, unspecified; E66.9 Obesity, unspecified; Z98.84 Bariatric surgery status; Z79.899 Other long term (current) drug therapy
CPT/HCPCS: 74176; 80053; 81001; 81025; 83690; 85025; 96374; 96375; 96376; 99284; A4216; J2405

== ENCOUNTER → 2019-01-02 09:35 | Outpatient (CLI) | payer MEDICAID, SELFPAY ==
[2019-01-02 12:30] LABS: Absolute Lymphocyte Count 1.68 X10^3/ul (0.83-4.51); Absolute Neutrophil Count 3.2 X10^3/uL (2.0-7.7); Basophil# 0.01 X10^3/uL; Basophil% 0.2 % (0-1); Eosinophil# 0.09 X10^3/uL; Eosinophils% 1.7 % (0-5); Hemoglobin 12.6 g/dl (12.0-15.0); Lymphocyte # 1.68 X10^3/ul (4.0); Lymphocyte % 31.6 % (19-41); Mean Corp Hgb Conc 30.7 g/gl (32-36); Mean Corpuscular Hgb 24.6 pg (27.0-32.0); Mean Corpuscular Volume 80.1 fL (81-99); Mean Platelet Vol. 11.8 fl (6.2-12.0); Monocyte# 0.29 X10^3/uL; Monocyte% 5.5 % (0-10); Neutrophil # 3.24 X10^3/uL (2.7-7.7); Neutrophil % 60.8 % (47-70); Platelet Count 180 K/mm3 (150-450); RBC Distribution Width CV 14.6 % (11.6-14.6); RBC Distribution Width SD 41.9 fl (35.1-43.9); Red Blood Count 5.12 M/mm3 (4.2-5.4); White Blood Count 5.3 K/mm3 (4.4-11.0)
[2019-01-02 12:36] LABS: POSITIVE COUNT NO; POSITIVE DIFFERENTIAL NO; POSITIVE MORPHOLOGY NO
[2019-01-02 12:52] LABS: Ferritin 4 ng/mL (8-252); Iron 35 ug/dL (50-170)
[2019-01-02 15:35] LABS: Anion Gap 5 (5-15); BUN 7 mg/dL (7-18); BUN/Creat Ratio 9.3 RATIO (10-20); Calcium,Total 8.5 mg/dL (8.5-10.1); Chloride 104 mmol/L (98-107); Creatinine, Serum 0.75 mg/dL (0.55-1.02); EST Glomerular Filtration Rate 91 mL/min (>60); Est Glom Filt Rate - Afr Amer 111 mL/min (>60); Glucose 126 mg/dL (74-106); Potassium 4.1 mmol/L (3.5-5.1); Sodium Level 137 mmol/L (136-145)
== END ==
PROVIDERS: Nurse Practitioner Family; Family Provider Family Medicine; PCP Family Medicine; Visit Provider Family Medicine
DX: Z01.818 Encounter for other preprocedural examination (principal); D64.9 Anemia, unspecified
CPT/HCPCS: 36415; 80048; 82728; 83540; 85025

== ENCOUNTER 2019-01-11 13:21 | Emergency (ER) | payer MEDICAID, SELFPAY ==
[2019-01-11 13:22] VITALS: BP 107/67; PULSE 70; RESP 16; TEMP 36.2; O2SAT 99; BMI 42.9
--- NOTE | 2019-01-11 13:45 | ED.DCSUM_ITS ---
- ER Visit Summary Date of Service: 01/11/19 Chief Complaint: Right wrist pain History of Present Illness: The patient is a 38 F presents to the emergency department with right wrist pain. Patient is one-week status post carpal tunnel revision surgery by Dr. Guerrero at [facility]. She states that yesterday, she went to move her shirt and pushed with her thumb. She felt something pop in her wrist. Since then, she had significant pain at her incision. She describes a burning sensation. It does not travel into her hand. She denies any weakness in the hand. She denies any fevers or chills. Physical Examination: Exam is relatively unremarkable. Her incision is clean dry and intact. There is mild erythema right at the midline of the incision, but no purulence. She has normal sensation and motor function in the median nerve distribution. She has normal pulses in the wrist. The compartment is soft. Test Results: [] Emergency Department Course and Treatment: The patient's pain seems all superficial. There is no significant hematoma. There is minimal erythema. I did remove the stitch at her maximal area of tenderness and did some scant debridement. There is no purulence that was expressed. Given the redness of the wound edges, I am going to place her on Keflex. Again, I do not suspect a deep space infection. She had no nerve symptoms. I do feel that she can safely follow-up with her orthopedic surgeon. Treatment Plan: [] Disposition: Discharge Impression: 1. Postoperative pain of the right wrist This note was generated with [employer] dictation software. It may contain incorrect words, spelling, and punctuation that were not noted in review of the chart prior to signing ED Disposition - Plan for ED Patient: Instructions: ED Post Op Pain Prescriptions: Cephalexin [Keflex] 500 mg PO Q6 #40 cap Referrals: Enmanuel Guerrero MD [STAFF PHYSICIAN] - As soon as possible
[2019-01-11] MEDS: Cephalexin 250 MG Capsule 500 MG PO (14:01)
[2019-01-11 14:04] VITALS: RESP 18
== END 2019-01-11 14:04 | disposition home or self-care (01) ==
PROVIDERS: Emergency Provider Emergency Medicine; Family Provider Family Medicine; PCP Family Medicine
DX: M25.531 Pain in right wrist (principal); G89.18 Other acute postprocedural pain; Z79.899 Other long term (current) drug therapy
CPT/HCPCS: 99283

== ENCOUNTER 2019-01-20 12:28 | Emergency (ER) | payer MEDICAID, SELFPAY ==
[2019-01-20 12:29] VITALS: BP 149/73; PULSE 54; RESP 16; TEMP 36.7; O2SAT 98; BMI 41.1
--- NOTE | 2019-01-20 12:38 | RAD_ITS ---
STUDY: X-RAY - RIGHT WRIST REASON FOR EXAM: Female, 38 years old. Carpal tunnel surgery several weeks ago, fall today TECHNIQUE: 3 view(s) of the wrist were obtained. COMPARISON: None. FINDINGS: Normal visualized distal radius and ulna. Normal radiocarpal articulation. Normal distal radioulnar articulation. Normal carpal bones. Normal carpal articulations. There is a small osseous density projecting over the dorsal wrist (at distal radius/ulnar level) Normal carpometacarpal articulation of the thumb. Normal second through fifth carpometacarpal articulations. Normal visualized metacarpal bones. The soft tissue structures are unremarkable. RAD/Wrist min 3 Views IMPRESSION: 1. No displaced fracture. 2. Osseous density of the dorsal wrist with smooth margins suggesting old avulsion injury or related to prior surgery. Electronically Signed: Stewart Ayala MD at 13:39 EDT , Service support ,
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
[2019-01-20 13:53] VITALS: BP 112/100; PULSE 86; RESP 17
== END 2019-01-20 13:57 | disposition home or self-care (01) ==
PROVIDERS: Emergency Provider Emergency Medicine; Family Provider Family Medicine; PCP Family Medicine
DX: S60.221A Contusion of right hand, initial encounter (principal); W19.XXXA Unspecified fall, initial encounter; Y93.9 Activity, unspecified; Y92.9 Unspecified place or not applicable; Y99.9 Unspecified external cause status; D50.9 Iron deficiency anemia, unspecified; I10 Essential (primary) hypertension; M54.9 Dorsalgia, unspecified; G89.29 Other chronic pain; F11.20 Opioid dependence, uncomplicated; F41.9 Anxiety disorder, unspecified; E66.9 Obesity, unspecified; Z98.84 Bariatric surgery status; Z88.6 Allergy status to analgesic agent; Z90.49 Acquired absence of other specified parts of digestive tract
CPT/HCPCS: 73110; 99282

== ENCOUNTER → 2019-05-27 15:42 | Outpatient (CLI) | payer MEDICAID, SELFPAY ==
[2019-05-27 18:10] LABS: Absolute Lymphocyte Count 2.32 X10^3/uL (0.83-4.51); Basophil# 0.02 X10^3/uL; Basophil% 0.3 % (0-1); Eosinophil# 0.06 X10^3/uL; Eosinophils% 0.8 % (0-5); Hematocrit 36.6 % (37-47); Lymphocyte # 2.32 X10^3/ul (4.0); Lymphocyte % 29.4 % (19-41); Mean Corp Hgb Conc 30.1 g/dL (32-36); Mean Corpuscular Hgb 23.7 pg (27.0-32.0); Mean Corpuscular Volume 78.9 fL (81-99); Mean Platelet Vol. 11.5 fl (6.2-12.0); Monocyte# 0.42 X10^3/uL; Monocyte% 5.3 % (0-10); NRBC Flagged by Analyzer 0 % (0-5); Neutrophil # 5.03 X10^3/uL (2.7-7.7); Neutrophil % 63.8 % (47-70); Platelet Count 227 K/mm3 (150-450); RBC Distribution Width CV 13.5 % (11.6-14.6); RBC Distribution Width SD 38.4 fl (35.1-43.9); Red Blood Count 4.64 M/mm3 (4.2-5.4); White Blood Count 7.9 K/mm3 (4.4-11.0)
[2019-05-27 18:30] LABS: Vitamin B12 436 pg/mL (211-911)
[2019-05-27 18:33] LABS: ALB/GLOB Ratio 0.9 RATIO (0.9-2.4); AST(SGOT) 18 U/L (15-37); Alanine Aminotransfer ALT/SGPT 19 U/L (13-56); Albumin, Serum 3.6 g/dL (3.2-5.0); Alkaline Phosphatase 80 U/L (45-117); Anion Gap 8 (5-15); BUN 7 mg/dL (7-18); BUN/Creat Ratio 10.6 RATIO (10-20); Calcium,Total 8.8 mg/dL (8.5-10.1); Chloride 103 mmol/L (98-107); Cholesterol 158 mg/dL (200); Creatinine, Serum 0.66 mg/dL (0.55-1.02); EST Glomerular Filtration Rate 106 mL/min (>60); Est Glom Filt Rate - Afr Amer 128 mL/min (>60); Ferritin 3 ng/mL (8-252); Globulin 4.1 g/dL (2.2-4.2); Glucose 113 mg/dL (74-106); High Density Lipoprotein 54 mg/dL; Iron 24 ug/dL (50-170); Potassium 4.3 mmol/L (3.5-5.1); Protein, Total 7.7 g/dL (6.4-8.2); Sodium Level 140 mmol/L (136-145); Triglycerides 112 mg/dL; Very Low Density Lipoprotein 22 mg/dL (5-40)
== END ==
PROVIDERS: Family Provider Family Medicine; PCP Family Medicine; Visit Provider Family Medicine
DX: E11.9 Type 2 diabetes mellitus without complications (principal); I11.0 Hypertensive heart disease with heart failure; D64.9 Anemia, unspecified; Z98.890 Other specified postprocedural states
CPT/HCPCS: 36415; 80053; 80061; 82607; 82728; 83036; 83540; 85025

== ENCOUNTER → 2019-09-02 15:50 | Outpatient (CLI) | payer MEDICAID, SELFPAY ==
[2019-09-02 17:09] LABS: Absolute Lymphocyte Count 2.24 X10^3/uL (0.83-4.51); Absolute Neutrophil Count 3.7 X10^3/uL (2.0-7.7); Basophil# 0.03 X10^3/uL; Basophil% 0.5 % (0-1); Eosinophil# 0.11 X10^3/uL; Eosinophils% 1.7 % (0-5); Hematocrit 35.3 % (37-47); Hemoglobin 10.7 g/dL (12.0-15.0); Lymphocyte # 2.24 X10^3/ul (4.0); Lymphocyte % 34.4 % (19-41); Mean Corp Hgb Conc 30.3 g/dL (32-36); Mean Corpuscular Volume 75.9 fL (81-99); Mean Platelet Vol. 10.8 fl (6.2-12.0); Monocyte# 0.41 X10^3/uL; Monocyte% 6.3 % (0-10); NRBC Flagged by Analyzer 0 % (0-5); Neutrophil % 56.8 % (47-70); Platelet Count 272 K/mm3 (150-450); RBC Distribution Width CV 14.5 % (11.6-14.6); Red Blood Count 4.65 M/mm3 (4.2-5.4); White Blood Count 6.5 K/mm3 (4.4-11.0)
[2019-09-02 17:34] LABS: Anion Gap 4 (5-15); BUN 9 mg/dL (7-18); BUN/Creat Ratio 11.7 RATIO (10-20); Calcium,Total 8.9 mg/dL (8.5-10.1); Chloride 102 mmol/L (98-107); Creatinine, Serum 0.77 mg/dL (0.55-1.02); EST Glomerular Filtration Rate 89 mL/min (>60); Est Glom Filt Rate - Afr Amer 108 mL/min (>60); Ferritin 4 ng/mL (8-252); Glucose 155 mg/dL (74-106); Iron 19 ug/dL (50-170); Potassium 3.8 mmol/L (3.5-5.1); Sodium Level 136 mmol/L (136-145)
[2019-09-04 13:17] LABS: ANTINUCLEAR ANTIBODIES DIRECT Negative (Negative)
== END ==
PROVIDERS: Family Provider Family Medicine; PCP Family Medicine; Visit Provider Family Medicine
DX: D50.9 Iron deficiency anemia, unspecified (principal); R21 Rash and other nonspecific skin eruption
CPT/HCPCS: 36415; 80048; 82728; 83540; 85025; 86038; 86225; 86235

== ENCOUNTER → 2019-10-24 14:46 | Outpatient (CLI) | payer MEDICAID, SELFPAY ==
[2019-10-24 14:52] VITALS: BP 131/81; PULSE 62; RESP 16; TEMP 36.2; BMI 43.5
[2019-10-24] MEDS: 0.9% Saline Lock 10 ML Syringe IV (15:06)
[2019-10-24 15:40] VITALS: BP 151/99; PULSE 66; RESP 16
== END ==
PROVIDERS: PCP Family Medicine; Referring Provider Family Medicine; Visit Provider Family Medicine
DX: D50.9 Iron deficiency anemia, unspecified (principal); K90.9 Intestinal malabsorption, unspecified
CPT/HCPCS: 96365; J1756; J7050; A4216

== ENCOUNTER → 2019-10-31 14:50 | Outpatient (CLI) | payer MEDICAID, SELFPAY ==
[2019-10-24 14:52] VITALS: BMI 43.5
[2019-10-31] MEDS: 0.9% Saline Lock 10 ML Syringe IV (15:05)
[2019-10-31 15:10] VITALS: BP 132/89; PULSE 67; RESP 16; TEMP 36.4; O2SAT 100; BMI 43.5
== END ==
PROVIDERS: PCP Family Medicine; Referring Provider Family Medicine; Visit Provider Family Medicine
DX: D50.9 Iron deficiency anemia, unspecified (principal); K90.9 Intestinal malabsorption, unspecified
CPT/HCPCS: 96365; J1756; J7050; A4216

== ENCOUNTER 2019-10-31 16:12 | Emergency (ER) | payer MEDICAID, SELFPAY ==
[2019-10-31 15:10] VITALS: BMI 43.5
[2019-10-31 16:13] VITALS: BP 160/98; PULSE 76; RESP 16; TEMP 36.1; O2SAT 100; BMI 43.5
--- NOTE | 2019-10-31 16:36 | ED.DCSUM_ITS ---
- ER Visit Summary Date of Service: 10/31/19 Chief Complaint: Right elbow pain History of Present Illness: The patient is a [address] North. She is also seen Dr. Guerrero. She reports that she has right elbow pain that began 3 days ago. She denies any trauma. No fall, MVA, or change in activity. She describes a sharp pain that is 10-10 at worst and 6 out of 10 currently. Is worsened by lifting. Is relieved by rest and Percocet. She denies any numbness or weakness. Review of systems is negative. Physical Examination: Vitals: Stable. Afebrile. General: Well-nourished and well-developed. Head: Normocephalic atraumatic. Neck: Supple, no lymphadenopathy. No JVD. Nontender. Cardiovascular: Regular rate and rhythm. No murmurs. Respiratory: No respiratory distress. Clear to auscultation bilaterally. Abdominal: Soft, nontender, nondistended, normal bowel sounds. No guarding, rebound, or peritoneal signs. Back: Nontender. Extremities: Full range of motion of her left elbow with minimal pain. She has more pain with supination and with flexion extension. There is no erythema or warmth to suggest a septic joint. She has moderate tenderness outpatient over the lateral epicondyle. Her pain is worsened with supination against resistance. She is neuro vas intact distal sensation light touch less than 2- second cap refill. Skin: Normal color, no rash. Neurologic: Alert and oriented ?3. Cranial nerves II through XII are intact. Normal strength and sensation. Psych: Normal affect. Emergency Department Course and Treatment: Patient refused pain medications. She has a history of gastric bypass cannot do NSAIDs. She is already on Percocet. Treatment Plan: Patient be discharged instructions to ice the area. Follow-up with her primary care physician and/or Dr. Guerrero in 1 week if not improving. Return to the emergency department for any worsening symptoms. Disposition: To home in improved and stable condition. Impression: 1. Lateral epicondylitis on the right. This note was generated with [employer] software. It may contain incorrect words, spelling, and punctuation that were not noted in review of the chart prior to signing ED Disposition - Plan for ED Patient: Disposition: Home or Assisted Living Instructions: Tennis Elbow Referrals: CanIsrael youngblood DO [Primary Care Provider] - 1 Week if not improving Enmanuel Guerrero MD [STAFF PHYSICIAN] - 1 Week if not improving
== END 2019-10-31 16:59 | disposition home or self-care (01) ==
LOC: ED 16:56
PROVIDERS: Emergency Provider Emergency Medicine; PCP Family Medicine
DX: M77.11 Lateral epicondylitis, right elbow (principal); I10 Essential (primary) hypertension; D50.9 Iron deficiency anemia, unspecified; K90.9 Intestinal malabsorption, unspecified
CPT/HCPCS: 96365; 99282; J1756; J7050; A4216

== ENCOUNTER → 2019-11-28 14:53 | Outpatient (CLI) | payer MEDICAID, SELFPAY ==
[2019-10-24 14:52] VITALS: BMI 43.5
[2019-10-31 16:13] VITALS: BMI 43.5
[2019-11-28 15:00] VITALS: BP 120/78; PULSE 76; RESP 18; TEMP 35.9; O2SAT 100; BMI 43.5
[2019-11-28] MEDS: 0.9% NaCl Peripheral Flush Adult/Peds IV (15:14)
[2019-11-28] MEDS: 0.9% NaCl IVPB Med Flush (250 mL) 15 ML IV (15:14)
[2019-11-28 15:47] VITALS: BP 110/70; PULSE 71; TEMP 36.4
== END ==
PROVIDERS: PCP Family Medicine; Referring Provider Family Medicine; Visit Provider Family Medicine
DX: D50.9 Iron deficiency anemia, unspecified (principal); K90.9 Intestinal malabsorption, unspecified
CPT/HCPCS: 96365; J1756; J7050; A4216

== ENCOUNTER → 2019-12-05 14:53 | Outpatient (CLI) | payer MEDICAID, SELFPAY ==
[2019-11-28 15:00] VITALS: BMI 43.5
[2019-12-05] MEDS: 0.9% NaCl Peripheral Flush Adult/Peds IV (15:15)
[2019-12-05] MEDS: 0.9% NaCl IVPB Med Flush (250 mL) 15 ML IV (15:16)
[2019-12-05 15:17] VITALS: BP 118/71; PULSE 66; RESP 16; TEMP 36; O2SAT 98; BMI 43.5
== END ==
PROVIDERS: PCP Family Medicine; Referring Provider Family Medicine; Visit Provider Family Medicine
DX: D50.9 Iron deficiency anemia, unspecified (principal); K90.9 Intestinal malabsorption, unspecified
CPT/HCPCS: 96365; J1756; J7050; A4216

== ENCOUNTER → 2019-12-12 14:53 | Outpatient (CLI) | payer MEDICAID, SELFPAY ==
[2019-12-05 15:17] VITALS: BMI 43.5
[2019-12-12 15:30] VITALS: BP 129/80; PULSE 53; RESP 18; TEMP 36.1; O2SAT 99; BMI 43.5
[2019-12-12] MEDS: 0.9% NaCl IVPB Med Flush (250 mL) 15 ML IV (15:32)
[2019-12-12] MEDS: 0.9% NaCl Peripheral Flush Adult/Peds IV (15:33)
== END ==
PROVIDERS: PCP Family Medicine; Referring Provider Family Medicine; Visit Provider Family Medicine
DX: D50.9 Iron deficiency anemia, unspecified (principal); K90.9 Intestinal malabsorption, unspecified
CPT/HCPCS: 96365; J1756; J7050; A4216

== ENCOUNTER → 2020-02-05 09:24 | Outpatient (CLI) | payer MEDICAID, SELFPAY ==
[2020-02-05 09:03] VITALS: BMI 43.5
[2020-02-05 10:34] LABS: HIV - WCH Non-Reactive (Nonreactive)
[2020-02-05 13:09] LABS: Chlamydia Trachomatis by PCR Negative (Negative); Neisserai gonorrhoeae by PCR Negative (Negative); Probe Check PASS; Sample Adequacy Control PASS; Specimen Processing Control PASS
[2020-02-05 17:06] LABS: Chlamydia Trachomatis by PCR Negative (Negative); Neisserai gonorrhoeae by PCR Negative (Negative); Probe Check PASS; Sample Adequacy Control PASS; Specimen Processing Control PASS
[2020-02-05 21:57] LABS: Rapid Plasmin Reagin (RPR) NONREACTIVE (NONREACTIVE)
[2020-02-07 14:08] LABS: HCV Quant. RNA PCR HCV Not Detected IU/mL (.)
[2020-02-10 05:18] LABS: HSV Culture Without Typing NEGATIVE (.)
[2020-02-11 16:36] LABS: HPV APTIMA, High Risk Negative (Negative)
== END ==
PROVIDERS: PCP Family Medicine; Referring Provider Nurse Practitioner Women's Health; Visit Provider Nurse Practitioner Women's Health
DX: Z12.4 Encounter for screening for malignant neoplasm of cervix (principal); Z11.3 Encounter for screening for infections with a predominantly sexual mode of transmission; N76.0 Acute vaginitis
CPT/HCPCS: 36415; 86592; 86695; 86696; 86703; 87070; 87077; 87186; 87205; 87255; 87491; 87522; 87591; 87624; 88175; G0145

== ENCOUNTER → 2020-02-24 11:41 | Outpatient (CLI) | payer MEDICAID, SELFPAY ==
[2020-02-05 09:03] VITALS: BMI 43.5
[2020-02-24 16:04] LABS: Absolute Lymphocyte Count 2.16 X10^3/uL (0.83-4.51); Absolute Neutrophil Count 3.7 X10^3/uL (2.0-7.7); Basophil# 0.02 X10^3/uL; Basophil% 0.3 % (0-1); Eosinophils% 1.6 % (0-5); Hematocrit 39.8 % (37-47); Hemoglobin 11.9 g/dL (12.0-15.0); Lymphocyte # 2.16 X10^3/ul (4.0); Mean Corp Hgb Conc 29.9 g/dL (32-36); Mean Corpuscular Hgb 26.1 pg (27.0-32.0); Mean Corpuscular Volume 87.3 fL (81-99); Mean Platelet Vol. 11.1 fl (6.2-12.0); Monocyte# 0.38 X10^3/uL; NRBC Flagged by Analyzer 0 % (0-5); Neutrophil # 3.68 X10^3/uL (2.7-7.7); Neutrophil % 57.8 % (47-70); Platelet Count 219 K/mm3 (150-450); RBC Distribution Width CV 15.3 % (11.6-14.6); RBC Distribution Width SD 47.8 fl (35.1-43.9); Red Blood Count 4.56 M/mm3 (4.2-5.4); White Blood Count 6.4 K/mm3 (4.4-11.0)
[2020-02-24 16:19] LABS: Vitamin B12 392 pg/mL (211-911)
[2020-02-24 16:21] LABS: Ferritin 5 ng/mL (8-252); Iron 42 ug/dL (50-170)
[2020-02-24 16:22] LABS: Hemoglobin A1c 7.3 % (3.8-5.6)
[2020-02-24 16:27] LABS: Amphetamine Urine VISTA NEGATIVE (<1000 ng/mL); Barbiturate Urine VISTA NEGATIVE (< 200 ng/mL); Benzodiazepine Urine VISTA NEGATIVE (< 200 ng/mL); Cocaine Urine VISTA NEGATIVE (< 300 ng/mL); Ecstacy Urine VISTA POSITIVE (< 500 ng/mL); Methadone Urine VISTA NEGATIVE (< 300 ng/mL); PCP Urine VISTA NEGATIVE (< 25 ng/mL); THC Urine VISTA POSITIVE (< 50 ng/mL); Vista UDS pH Range 5
[2020-02-24 16:35] LABS: OXY Internal Control LINE = VALID (VALID); Oxycodone Drug Screen Positive (<100 ng/mL)
== END ==
PROVIDERS: PCP Family Medicine; Visit Provider Family Medicine
DX: E11.9 Type 2 diabetes mellitus without complications (principal); D64.9 Anemia, unspecified; Z79.899 Other long term (current) drug therapy
CPT/HCPCS: 36415; 80307; 80365; 82607; 82728; 83036; 83540; 85025; G0480

== ENCOUNTER → 2020-03-06 15:05 | Outpatient (CLI) | payer MEDICAID, SELFPAY ==
[2020-02-05 09:03] VITALS: BMI 43.5
[2020-03-06 15:13] VITALS: BP 102/62; PULSE 71; RESP 16; TEMP 36.2; O2SAT 98; BMI 44.4
[2020-03-06] MEDS: 0.9% NaCl Peripheral Flush Adult/Peds IV (15:18)
[2020-03-06] MEDS: 0.9% NaCl IVPB Med Flush (250 mL) 15 ML IV (15:32)
[2020-03-06 15:56] VITALS: BP 113/75; PULSE 65; RESP 12; O2SAT 97
== END ==
PROVIDERS: PCP Family Medicine; Referring Provider Family Medicine; Visit Provider Family Medicine
DX: D50.9 Iron deficiency anemia, unspecified (principal); K90.9 Intestinal malabsorption, unspecified; Z98.890 Other specified postprocedural states
CPT/HCPCS: 96365; J1756; J7050; A4216

== ENCOUNTER → 2020-03-20 14:09 | Outpatient (CLI) | payer MEDICAID, SELFPAY ==
[2020-02-05 09:03] VITALS: BMI 43.5
[2020-03-06 15:13] VITALS: BMI 44.4
[2020-03-20 14:36] VITALS: BP 116/79; PULSE 60; RESP 18; TEMP 37; O2SAT 97; BMI 44.4
[2020-03-20] MEDS: 0.9% NaCl IVPB Med Flush (250 mL) 15 ML IV (14:48)
== END ==
PROVIDERS: PCP Family Medicine; Referring Provider Family Medicine; Visit Provider Family Medicine
DX: D50.9 Iron deficiency anemia, unspecified (principal); K90.9 Intestinal malabsorption, unspecified
CPT/HCPCS: 96365; J1756; J7050

== ENCOUNTER → 2020-04-02 | Outpatient (CLI) | payer MEDICAID, SELFPAY ==
[2020-02-05 09:03] VITALS: BMI 43.5
[2020-03-20 14:36] VITALS: BMI 44.4
[2020-04-02] MEDS: 0.9% NaCl Peripheral Flush Adult/Peds IV (10:38)
[2020-04-02] MEDS: 0.9% NaCl IVPB Med Flush (250 mL) 15 ML IV (10:38)
[2020-04-02 10:39] VITALS: BP 111/89; PULSE 61; RESP 14; TEMP 36.7; O2SAT 99; BMI 45.2
== END | disposition home or self-care (01) ==
LOC: MEDOUTP 10:16
PROVIDERS: PCP Family Medicine; Referring Provider Family Medicine; Visit Provider Family Medicine
DX: D50.9 Iron deficiency anemia, unspecified (principal); K90.9 Intestinal malabsorption, unspecified
CPT/HCPCS: 96365; J1756; J7050; A4216

== ENCOUNTER 2020-04-07 11:02 | Emergency (ER) | payer MEDICAID, SELFPAY ==
[2020-04-02 10:39] VITALS: BMI 45.2
[2020-04-07 11:03] VITALS: BP 164/94; PULSE 77; RESP 20; TEMP 36.4; O2SAT 98; BMI 44.4
--- NOTE | 2020-04-07 11:20 | ED.VISSUMM ---
- ER Visit Summary Date of Service: 04/07/20 Chief Complaint: Bee sting History of Present Illness: The patient is a 39 F who presents after bee sting. She states that she was stung on the right side of the face. Afterwards she felt short of breath. EMS was called. Upon their arrival the patient appeared to be in anaphylaxis. She was given epinephrine. She now feels better. She no longer feels short of breath. She feels tingly all over. She denies any history of anaphylaxis. She currently is denying any tongue swelling. No throat closing. She has a history of gastric bypass and anxiety. She is a non-smoker. Physical Examination: Vital signs reviewed. There is some swelling of the right eye where the sting site is located. HEENT exam unremarkable. There is no throat swelling. Tongue is normal.. Heart is regular rate and rhythm without murmurs. Lungs are clear to auscultation. Abdomen is soft and nontender. Extremities reveal no edema. Skin exam normal. Neurologic exam normal. Test Results: None performed Emergency Department Course and Treatment: Patient was given IV Benadryl and observed in the emergency department. She is feeling much better. She ambulated without difficulty. Her pulse ox is 100% on room air. Patient like to go home. I will give her a prescription for EpiPen's at home. She will follow-up with her PCP Treatment Plan: [] Disposition: Discharge Impression: Anaphylaxis to bee sting This note was generated with [employer] dictation software. It may contain incorrect words, spelling, and punctuation that were not noted in review of the chart prior to signing ED Disposition - Plan for ED Patient: Disposition: Home or Assisted Living Instructions: ED BEE STING General Allergic Rxn Prescriptions: Epi Pen (for allergic rxn) 0.3 mg IM X1 #2 syringe Transmission Status: Pending to [facility]/pharmacy #[id number] Referrals: Israel North DO [Primary Care Provider] -
[2020-04-07] MEDS: DiphenhydrAMINE 50 MG/ML Syringe 25 MG IV (11:28)
[2020-04-07 12:04] VITALS: BP 120/99; PULSE 74; RESP 18; O2SAT 99
[2020-04-07 13:26] VITALS: BP 141/87; PULSE 62; RESP 15; O2SAT 100
== END 2020-04-07 13:34 | disposition home or self-care (01) ==
PROVIDERS: Emergency Provider Emergency Medicine; PCP Family Medicine
DX: T63.441A Toxic effect of venom of bees, accidental (unintentional), initial encounter (principal); T78.2XXA Anaphylactic shock, unspecified, initial encounter; F41.9 Anxiety disorder, unspecified
CPT/HCPCS: 96374; 99285; A4216

== ENCOUNTER 2020-04-07 22:12 | Emergency (ER) | payer MEDICAID, SELFPAY ==
[2020-04-07 11:03] VITALS: BMI 44.4
[2020-04-07 22:14] VITALS: BP 160/110; PULSE 66; RESP 18; TEMP 36.4; O2SAT 97; BMI 44.9
--- NOTE | 2020-04-07 22:35 | ED.DCSUM_ITS ---
History of Present Illness Chief Complaint: Allergic Reaction Informant: Patient Narrative: She stated she has persistent inflammation and swelling to her right lower eyelid after a bee sting earlier today. She had anaphylaxis reaction and received epinephrine by EMS. She was given IV Benadryl and took a dose of Benadryl orally approximately 3 hours ago. She continues to have inflammation and came in for further evaluation. She is nervous her eye will swell shut. She is having surgery on tennis elbow tomorrow. Current severity is mild no anaphylaxis symptoms currently. 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 Smoking Status: Former smoker Alcohol: None Drugs: None - Family History Maternal Family History: Family History (Last Updated 02/05/20 @ 09:00 by Ivy Tabares) Mother Diabetes Hypertension Cancer Family History: Reports: No pertinent history Paternal Family History: Family History (Last Updated 02/05/20 @ 09:00 by Ivy Tabares) Mother Diabetes Hypertension Cancer Family History: Reports: No pertinent history Review of Systems General: Denies: Chills, Fever, Sweats Eyes: Denies: Visual changes - bilaterally, Diplopia ENT: Denies: Rhinorrhea, Sore throat Cardiovascular: Denies: Chest pain, Palpitations Respiratory: Denies: Dyspnea, Cough, Dyspnea on exertion Gastrointestinal: Denies: Abdominal pain, Nausea, Vomiting, Diarrhea, Melena, Hematochezia Genitourinary: Denies: Dysuria, Hematuria, Frequency Musculoskeletal: Denies: Back pain, Extremity Pain Skin: Reports: - - See HPI. Denies: Rash, Wounds Neurological: Denies: Headache, Weakness, Numbness Physical Exam Vital Signs/Narrative: Vital Signs Temp Pulse Resp BP Pulse Ox 04/07/20 22:14 97.6 F L 66 18 160/110 H 97 General: Well nourished, Well developed, No Acute Distress Head: Normocephalic, Atraumatic Eyes: Perrl, EOMI ENT: Moist mucous membranes, No rhinorrhea Neck: Supple, Nontender Cardiovascular: Regular rate, Regular rhythm, No murmurs Respiratory: No distress, CTA bilaterally, Chest nontender Abdomen: Soft, Nontender, Nondistended, Normal bowel sounds Back: Nontender, Normal Inspection Extremities: Nontender, No edema Skin: - - Has mild inflammatory edema of the right lower eyelid and upper cheek. This is secondary to the bee sting local reaction Neurological: Alert, Oriented x3, Cranial nerves II-XII grossly intact, Normal Strength, Normal Sensation Psychological: Normal affect, Normal Mood Diagnostic/Tx/Re-eval - Medical Decision Making Since having mild inflammatory reaction to the toxins from the bee sting. I told her I macho vazquez patient was reassured t. She is can ice continue Benadryl. I will hold off on steroids as she is having surgery tomorrow and I do not want to delay wound healing or increase the risk of her infection. She is not having anaphylaxis at all. This is just a mild local reaction ED Disposition - Plan for ED Patient: Disposition: Home or Assisted Living Diagnosis: Bee sting allergy Instructions: ED Insect Sting Local Reaction Prescriptions: DiphenhydrAMINE [Benadryl] 50 mg PO TID PRN PRN #30 cap PRN Reason: Allergies Transmission Status: Pending to [facility]/pharmacy #[id number] Referrals: Israel North DO [Primary Care Provider] -
== END 2020-04-07 22:45 | disposition home or self-care (01) ==
PROVIDERS: Emergency Provider Emergency Medicine; PCP Family Medicine
DX: T63.441A Toxic effect of venom of bees, accidental (unintentional), initial encounter (principal); E66.9 Obesity, unspecified; F41.9 Anxiety disorder, unspecified; I10 Essential (primary) hypertension; T78.2XXA Anaphylactic shock, unspecified, initial encounter; Z87.891 Personal history of nicotine dependence
CPT/HCPCS: 96374; 99282; 99285; A4216

== ENCOUNTER 2020-04-17 09:44 | Emergency (ER) | payer MEDICAID, SELFPAY ==
[2020-04-17 09:45] VITALS: BP 173/114; PULSE 99; RESP 18; TEMP 36.3; O2SAT 100
--- NOTE | 2020-04-17 10:06 | ED.DCSUM_ITS ---
History of Present Illness Informant: Patient - Abdominal Pain/Flank Pain Onset: Days - 5 days Context: Gradual Onset Timing: Continuous Quality: Sharp Location: Epigastric Current Severity: Severe Maximum Severity: Severe Worsened by: Food Relieved by: Nothing - Nausea/Vomiting/Emesis GI Symptom: Nausea, Vomiting Onset: Days - 5 days Quality: Nonbilious Severity: Severe Episodes: 5 - Diarrhea/Melena/Hematochezia GI Symptom: Diarrhea. Negative for: Melena, Hematochezia Onset: Days - 5 days Stool Quality: Loose, Watery Severity: Severe Episodes: 10 Associated Symptoms: Negative for: Dysuria, Frequency, Hematuria, Urgency Narrative: 39-year-old female presents with 5 days of sharp stabbing epigastric abdominal pain with vomiting and diarrhea. She has no melena no hematochezia no coffee- ground emesis or hematemesis. No fevers. No chest pain shortness of breath. She is not lightheaded or dizzy. She has been using Pepto-Bismol and Sherry- [place] without improvement. Denies any back pain. She is not on a PPI. Gastric bypass 5 years ago in [place]. She denies any recent illness recent travel recent antibiotic use or sick contacts Prior similar symptoms: Yes Recent Illness/Hospitalization: No <Nirav Reese - Last Filed: 04/17/20 12:34> <Lien Hahn - Last Filed: 04/17/20 14:08> Chief Complaint: Abd Pain Past Medical History Prior records reviewed: Yes Past Medical History: - - Gastric bypass chronic iron deficiency anemia Surgical History: cholecystectomy, - - Gastric bypass surgery ?2. Lives: With Family Smoking Status: Former smoker Alcohol: None Drugs: None - Family History Maternal Family History: Family History (Last Updated 02/05/20 @ 09:00 by Ivy Tabares) Mother Diabetes Hypertension Cancer Family History: Reports: No pertinent history Paternal Family History: Family History (Last Updated 02/05/20 @ 09:00 by Ivy Tabares) Mother Diabetes Hypertension Cancer Family History: Reports: No pertinent history <Nirav Reese - Last Filed: 04/17/20 12:34> - Family History Maternal Family History: Family History (Last Updated 02/05/20 @ 09:00 by Ivy Tabares) Mother Diabetes Hypertension Cancer Paternal Family History: Family History (Last Updated 02/05/20 @ 09:00 by Ivy Tabares) Mother Diabetes Hypertension Cancer <JovaniLien - Last Filed: 04/17/20 14:08> - Allergies and Home Meds Allergies/Adverse Reactions: Allergies bee pollen Allergy (Verified 04/17/20 09:45) Anaphylaxis ketorolac [From Toradol] Allergy (Verified 04/17/20 09:45) Itching NSAIDS (Non-Steroidal Anti-Inflamma Allergy (Verified 04/17/20 09:45) Other Primary Care Physician: Prema Echavarria MD [STAFF PHYSICIAN] - As soon as possible Israel North DO [Primary Care Provider] - Review of Systems All systems negative except as indicated General: Denies: Chills, Fever, Sweats Eyes: Denies: Visual changes - bilaterally, Diplopia ENT: Denies: Rhinorrhea, Sore throat Cardiovascular: Denies: Chest pain, Palpitations Respiratory: Denies: Dyspnea, Cough, Dyspnea on exertion Gastrointestinal: Reports: Abdominal pain, Nausea, Vomiting, Diarrhea. Denies: Constipation, Melena, Hematochezia Genitourinary: Denies: Dysuria, Hematuria, Frequency Musculoskeletal: Denies: Back pain, Extremity Pain Skin: Denies: Rash, Wounds Neurological: Denies: Headache, Weakness, Numbness <Nirav Reese - Last Filed: 04/17/20 12:34> Physical Exam Vital Signs/Narrative: Vital Signs Temp Pulse Resp BP Pulse Ox 04/17/20 09:45 97.4 F L 99 18 173/114 H 100 Inital Vital Signs reviewed: Yes General: Well nourished, Well developed, No Acute Distress Head: Normocephalic, Atraumatic Eyes: Perrl, EOMI ENT: Moist mucous membranes, No rhinorrhea Neck: Supple, Nontender Cardiovascular: Regular rate, Regular rhythm, No murmurs Respiratory: No distress, CTA bilaterally, Chest nontender Abdomen: Soft, Nondistended, Normal bowel sounds, Tender - Epigastric pain on palpation. Negative for: Guarding, Rebound tenderness Back: Nontender, Normal Inspection Extremities: Nontender, No edema Skin: Normal color, No rash Neurological: Alert, Oriented x3, Cranial nerves II-XII grossly intact, Normal Strength, Normal Sensation Psychological: Normal affect, Normal Mood <Nirav Reese - Last Filed: 04/17/20 12:34> Vital Signs/Narrative: Vital Signs Pulse Resp BP Pulse Ox 04/17/20 12:52 61 14 132/99 H 99 04/17/20 10:51 61 16 170/98 H 100 <Lien Hahn - Last Filed: 04/17/20 14:08> Diagnostic/Tx/Re-eval CT: Abdomen and Pelvis Impressions Abdomen/Pelvis CT 04/17/20 10:10 IMPRESSION: Status post subtotal gastrectomy. Fatty infiltration of the liver. Mild hepatomegaly. Electronically Signed: Rafael Dai, at 12:27 EDT , Service support , 04/17/20 10:10 Abdomen/Pelvis WITH Contrast [CT] Stat Laboratory Results 04/17/20 04/17/20 04/17/20 10:03 10:03 11:22 WBC 6.7 RBC 5.19 Hgb 14.2 Hct 44.8 MCV 86.3 MCH 27.4 MCHC 31.7 L RDW Std Deviation 46.3 H RDW Coeff of [place] 14.7 H Plt Count 230 MPV 10.9 Immature Gran % (Auto) 0.300 Neut % (Auto) 64.7 Lymph % (Auto) 26.9 [place] % (Auto) 6.2 Eos % (Auto) 1.8 Baso % (Auto) 0.1 Absolute Neuts (auto) 4.4 Absolute Lymphs (auto) 1.81 Nucleated RBC % 0 Sodium 140 Potassium 3.7 Chloride 103 Carbon Dioxide 31.0 Anion Gap 6 BUN 10 Creatinine 0.88 Estim Creat Clear Calc 3.30 Est GFR (MDRD) Af Amer 92 Est GFR (MDRD) Non-Af 76 BUN/Creatinine Ratio 11.4 Glucose 106 Calcium 8.6 Total Bilirubin 0.60 AST 25 ALT 27 Alkaline Phosphatase 74 Total Protein 8.3 H Albumin 4.2 Globulin 4.1 Albumin/Globulin Ratio 1.0 Lipase 159 Urine Color Urine Clarity Urine pH Ur Specific [place] Urine Protein Urine Glucose (UA) Urine Ketones Urine Occult Blood Urine Nitrite Urine Bilirubin Urine Urobilinogen Ur Leukocyte Esterase Urine RBC Urine WBC Ur Squamous Epith Cells Urine Bacteria Urine Mucus Urine Test Negative 04/17/20 11:22 WBC RBC Hgb Hct MCV MCH MCHC RDW Std Deviation RDW Coeff of [place] Plt Count MPV Immature Gran % (Auto) Neut % (Auto) Lymph % (Auto) [place] % (Auto) Eos % (Auto) Baso % (Auto) Absolute Neuts (auto) Absolute Lymphs (auto) Nucleated RBC % Sodium Potassium Chloride Carbon Dioxide Anion Gap BUN Creatinine Estim Creat Clear Calc Est GFR (MDRD) Af Amer Est GFR (MDRD) Non-Af BUN/Creatinine Ratio Glucose Calcium Total Bilirubin AST ALT Alkaline Phosphatase Total Protein Albumin Globulin Albumin/Globulin Ratio Lipase Urine Color Yellow Urine Clarity Sl. Cloudy Urine pH 6.5 Ur Specific [place] 1.010 Urine Protein Negative Urine Glucose (UA) 50 H Urine Ketones Negative Urine Occult Blood Negative Urine Nitrite Negative Urine Bilirubin Negative Urine Urobilinogen Normal Ur Leukocyte Esterase 25 H Urine RBC 0 SEEN Urine WBC 0-5 SEEN Ur Squamous Epith Cells 0-5 SEEN Urine Bacteria 1+ Urine Mucus 0 SEEN Urine Test - Medical Decision Making Patient's pain was treated with morphine Zofran and fluids. CBC CMP lipase unremarkable. Urinalysis is unremarkable as well. CT scan abdomen and pelvis with p.o. and IV contrast unremarkable. Repeat exam patient does feel improved she does endorse symptoms that are concerning for gastroparesis we will give her a dose of Reglan prescribe her Reglan and have her follow-up with Dr. Echavarria at [facility]. Her abdomen is soft and nontender she is tolerating by mouth and she is comfortable with plan and I did discuss return precautions <Nirav Reese - Last Filed: 04/17/20 12:34> - Medical Decision Making Patient seen and evaluated with physicians dental hygiene administrative assistant. Patient presents with epigastric abdominal pain. She has a history of gastric bypass several years ago. She has had nausea and vomiting. She states she feels like her food sits in her stomach and does not move through. No fever or chills. Head neck examinations unremarkable. Heart is regular rate and rhythm. Lung sounds are clear. Abdomen is soft with epigastric tenderness. No guarding or rebound. Hypoactive but present bowel sounds are noted. Blood work and CT scan abdomen pelvis are pursued. These are grossly unremarkable. Patient was given a dose of Reglan to see if that would help her nausea and her sense of feeling very full. She will follow-up Dr. Echavarria at the [facility]. Disposition: Discharge <Lien Hahn - Last Filed: 04/17/20 14:08> ED Disposition <Nirav Reese - Last Filed: 04/17/20 12:34> <Lien Hahn - Last Filed: 04/17/20 14:08> - Plan for ED Patient: Disposition: Home or Assisted Living Diagnosis: Abdominal pain, H/O gastric bypass Instructions: ED Abdominal Pain Unkn Cause Fem Prescriptions: Metoclopramide [Reglan] 10 mg PO TID #20 tab Transmission Status: Received by [facility]/pharmacy #[id number] Referrals: Israel North DO [Primary Care Provider] - Prema Echavarria MD [STAFF PHYSICIAN] - As soon as possible
--- NOTE | 2020-04-17 10:10 | CT_ITS ---
STUDY: CT ABDOMEN AND PELVIS WITH CONTRAST REASON FOR EXAM: Female, 39 years old. ABD PAIN, EPIGASTRIC PAIN, N/V/D X 5 DAYS, GASTRIC BYPASS 2014 RADIATION DOSAGE (If Supplied By Facility): CTDIvol = ( 17.03 ) mGy, DLP = ( 1284.34 ) mGycm TECHNIQUE: Transaxial images were obtained from the dome of the diaphragm to the symphysis pubis with oral contrast. Oral and amp; IV Breeza and amp; 100mL Isovue-300 was administered. Sagittal and coronal images were reconstructed. Individualized dose optimization techniques were used for this CT. COMPARISON: Comparison is made with prior study dated 11/11/2018. FINDINGS: The visualized lung bases are unremarkable. The visualized portions of the heart are within normal limits. There is decreased attenuation of the liver consistent with steatosis. Mild hepatomegaly. There are surgical clips in the gallbladder fossa consistent with a prior cholecystectomy. Normal spleen. Normal pancreas. Normal bilateral adrenal glands. Normal right kidney. Normal left kidney. The patient is status post subtotal gastrectomy for gastric bypass surgery. Normal small intestine. Normal colon. The appendix is visualized and appears normal. Normal abdominal aorta. Normal inferior vena cava. Normal retroperitoneum. Normal urinary bladder. Normal abdominal wall. There are degenerative changes of the visualized lumbar spine. Minimal retrolisthesis and disc space narrowing at the L3-L4 level. CT/Abdomen/Pelvis WITH Contrast IMPRESSION: Status post subtotal gastrectomy. Fatty infiltration of the liver. Mild hepatomegaly. Electronically Signed: Rafael Dai, at 12:27 EDT , Service support ,
[2020-04-17 10:20] LABS: Absolute Lymphocyte Count 1.81 X10^3/uL (0.83-4.51); Absolute Neutrophil Count 4.4 X10^3/uL (2.0-7.7); Basophil# 0.01 X10^3/uL; Basophil% 0.1 % (0-1); Eosinophil# 0.12 X10^3/uL; Eosinophils% 1.8 % (0-5); Hematocrit 44.8 % (37-47); Hemoglobin 14.2 g/dL (12.0-15.0); Lymphocyte # 1.81 X10^3/ul (4.0); Lymphocyte % 26.9 % (19-41); Mean Corp Hgb Conc 31.7 g/dL (32-36); Mean Corpuscular Hgb 27.4 pg (27.0-32.0); Mean Corpuscular Volume 86.3 fL (81-99); Mean Platelet Vol. 10.9 fl (6.2-12.0); Monocyte# 0.42 X10^3/uL; Monocyte% 6.2 % (0-10); NRBC Flagged by Analyzer 0 % (0-5); Neutrophil # 4.36 X10^3/uL (2.7-7.7); Neutrophil % 64.7 % (47-70); Platelet Count 230 K/mm3 (150-450); RBC Distribution Width CV 14.7 % (11.6-14.6); RBC Distribution Width SD 46.3 fl (35.1-43.9); Red Blood Count 5.19 M/mm3 (4.2-5.4); White Blood Count 6.7 K/mm3 (4.4-11.0)
[2020-04-17 10:42] LABS: AST(SGOT) 25 U/L (15-37); Alanine Aminotransfer ALT/SGPT 27 U/L (13-56); Albumin, Serum 4.2 g/dL (3.2-5.0); Alkaline Phosphatase 74 U/L (45-117); Anion Gap 6 (5-15); BUN 10 mg/dL (7-18); BUN/Creat Ratio 11.4 RATIO (10-20); Calcium,Total 8.6 mg/dL (8.5-10.1); Chloride 103 mmol/L (98-107); Creatinine, Serum 0.88 mg/dL (0.55-1.02); EST Glomerular Filtration Rate 76 mL/min (>60); Est Glom Filt Rate - Afr Amer 92 mL/min (>60); Globulin 4.1 g/dL (2.2-4.2); Glucose 106 mg/dL (74-106); Lipase 159 U/L (73-393); Potassium 3.7 mmol/L (3.5-5.1); Protein, Total 8.3 g/dL (6.4-8.2); Sodium Level 140 mmol/L (136-145)
[2020-04-17] MEDS: 0.9% Normal Saline 1,000 ML 1000 ML IV (10:48)
[2020-04-17] MEDS: Morphine 4 MG/ML Syringe IV (10:48)
[2020-04-17] MEDS: Ondansetron 4 MG/2 ML Vial IV (10:48)
[2020-04-17 10:51] VITALS: BP 170/98; PULSE 61; RESP 16; O2SAT 100
[2020-04-17 11:38] LABS: Mucous, Urine 0 SEEN /hpf (<or=2+); Red Blood Cells-Urine 0 SEEN /hpf (0-5)
[2020-04-17 11:44] LABS: Color, Urine Yellow (Yellow); Glucose, Dipstick 50 mg/dl (Normal); Ketone-Dipstick Negative (Negative); Leukocyte Esterase-Dipstick 25 /ul (Negative); Nitrite-Dipstick Negative (Negative); Occult Blood-Urine Negative /ul (Negative); Protein-Dipstick Negative (Negative); Urine Bilirubin Dipstick Negative (Negative); Urine Clarity Sl. Cloudy (Clear); Urine Urobilinogen Normal (Normal); Urine pH 6.5 (5.0 - 8.0)
[2020-04-17 11:46] LABS: Internal QC Validated? YES +Cl - CLEAR BKGD; Pregnancy, Urine Negative Negative
[2020-04-17 11:51] LABS: Bacteria 1+ /hpf (None Seen); Squamous Epithelial Cells - UA 0-5 SEEN /hpf (5-10); White Blood Cells 0-5 SEEN /hpf (0-5)
[2020-04-17 12:52] VITALS: BP 132/99; PULSE 61; RESP 14; O2SAT 99
[2020-04-17] MEDS: Metoclopramide 10 MG Tablet PO (12:52)
== END 2020-04-17 13:02 | disposition home or self-care (01) ==
PROVIDERS: Emergency Provider Physician Assistant Medical; PCP Family Medicine
DX: R10.13 Epigastric pain (principal); R11.2 Nausea with vomiting, unspecified; Z98.84 Bariatric surgery status; Z90.49 Acquired absence of other specified parts of digestive tract; Z87.891 Personal history of nicotine dependence
CPT/HCPCS: 74177; 80053; 81001; 81025; 83690; 85025; 96361; 96374; 96375; 99284; J7030; Q9967; A4216; J2405

== ENCOUNTER → 2020-05-15 13:16 | Outpatient (CLI) | payer MEDICAID, SELFPAY ==
[2020-05-15 13:20] VITALS: BP 163/99; PULSE 68; RESP 14; TEMP 36.3; O2SAT 96; BMI 43.4
[2020-05-15] MEDS: 0.9% Saline Lock 10 ML Syringe IV (13:52)
[2020-05-15 14:22] VITALS: BP 160/90; PULSE 70; RESP 16; TEMP 36.1; O2SAT 96
== END ==
PROVIDERS: PCP Family Medicine; Referring Provider Family Medicine; Visit Provider Family Medicine
DX: D50.9 Iron deficiency anemia, unspecified (principal); K90.9 Intestinal malabsorption, unspecified
CPT/HCPCS: 96365; J1756; J7050; A4216

== ENCOUNTER → 2020-07-07 16:28 | Outpatient (CLI) | payer MEDICAID, SELFPAY ==
[2020-05-15 13:20] VITALS: BMI 43.4
[2020-07-07 17:22] LABS: Absolute Lymphocyte Count 1.72 X10^3/uL (0.83-4.51); Absolute Neutrophil Count 2.7 X10^3/uL (2.0-7.7); Basophil# 0.01 X10^3/uL; Basophil% 0.2 % (0-1); Eosinophil# 0.07 X10^3/uL; Eosinophils% 1.4 % (0-5); Hematocrit 38.2 % (37-47); Hemoglobin 12.7 g/dL (12.0-15.0); Lymphocyte # 1.72 X10^3/ul (4.0); Lymphocyte % 35.4 % (19-41); Mean Corp Hgb Conc 33.2 g/dL (32-36); Mean Corpuscular Hgb 28.4 pg (27.0-32.0); Mean Corpuscular Volume 85.5 fL (81-99); Mean Platelet Vol. 10.9 fl (6.2-12.0); Monocyte# 0.33 X10^3/uL; Monocyte% 6.8 % (0-10); NRBC Flagged by Analyzer 0 % (0-5); Neutrophil # 2.72 X10^3/uL (2.7-7.7); Platelet Count 201 K/mm3 (150-450); RBC Distribution Width CV 13.8 % (11.6-14.6); RBC Distribution Width SD 42.4 fl (35.1-43.9); Red Blood Count 4.47 M/mm3 (4.2-5.4); White Blood Count 4.9 K/mm3 (4.4-11.0)
[2020-07-07 17:45] LABS: SARS-COV-2 TOTAL ABS Nonreactive (Nonreactive); Vitamin B12 811 pg/mL (211-911); Vitamin D,25 Hydroxy 25.5 ng/mL
[2020-07-07 17:46] LABS: D-Dimer Quantitative (DVT/PE) 0.31 FEU/ug/m (0.27-0.49)
[2020-07-07 17:51] LABS: ALB/GLOB Ratio 1.2 RATIO (0.9-2.4); AST(SGOT) 11 U/L (15-37); Alanine Aminotransfer ALT/SGPT 17 U/L (13-56); Albumin, Serum 3.7 g/dL (3.2-5.0); Alkaline Phosphatase 83 U/L (45-117); Anion Gap 7 (5-15); BUN 6 mg/dL (7-18); BUN/Creat Ratio 8.8 RATIO (10-20); Calcium,Total 8.1 mg/dL (8.5-10.1); Chloride 108 mmol/L (98-107); Creatinine, Serum 0.68 mg/dL (0.55-1.02); EST Glomerular Filtration Rate 102 mL/min (>60); Est Glom Filt Rate - Afr Amer 124 mL/min (>60); Ferritin 12 ng/mL (8-252); Globulin 3.2 g/dL (2.2-4.2); Glucose 125 mg/dL (74-106); Iron 36 ug/dL (50-170); Potassium 3.4 mmol/L (3.5-5.1); Protein, Total 6.9 g/dL (6.4-8.2); Sodium Level 140 mmol/L (136-145); Thyroid Stim Hormone (TSH) 1.45 uIU/mL (0.358-3.74)
== END ==
PROVIDERS: PCP Family Medicine; Visit Provider Family Medicine
DX: E11.9 Type 2 diabetes mellitus without complications (principal); I10 Essential (primary) hypertension; E61.1 Iron deficiency; E55.9 Vitamin D deficiency, unspecified; R53.83 Other fatigue; R05 Cough; R06.00 Dyspnea, unspecified; Z98.890 Other specified postprocedural states
CPT/HCPCS: 36415; 80053; 82306; 82607; 82728; 83540; 84443; 85025; 85379; 86769

== ENCOUNTER → 2020-09-09 10:15 | Outpatient (CLI) | payer MEDICAID, SELFPAY ==
[2020-05-15 13:20] VITALS: BMI 43.4
[2020-09-09 12:33] LABS: Ferritin 11 ng/mL (8-252); Iron 62 ug/dL (50-170)
[2020-09-09 12:40] LABS: Hemoglobin A1c 5.6 % (3.8-5.6)
[2020-09-09 12:46] LABS: Absolute Lymphocyte Count 1.86 X10^3/uL (0.83-4.51); Absolute Neutrophil Count 3.9 X10^3/uL (2.0-7.7); Basophil# 0.03 X10^3/uL; Basophil% 0.5 % (0-1); Eosinophils% 4.6 % (0-5); Hematocrit 40.2 % (37-47); Hemoglobin 12.6 g/dL (12.0-15.0); Lymphocyte # 1.86 X10^3/ul (4.0); Lymphocyte % 28.2 % (19-41); Mean Corp Hgb Conc 31.3 g/dL (32-36); Mean Corpuscular Hgb 27.5 pg (27.0-32.0); Mean Corpuscular Volume 87.6 fL (81-99); Mean Platelet Vol. 11.6 fl (6.2-12.0); Monocyte# 0.45 X10^3/uL; Monocyte% 6.8 % (0-10); NRBC Flagged by Analyzer 0 % (0-5); Neutrophil # 3.94 X10^3/uL (2.7-7.7); Neutrophil % 59.7 % (47-70); Platelet Count 187 K/mm3 (150-450); RBC Distribution Width CV 14.1 % (11.6-14.6); RBC Distribution Width SD 44.6 fl (35.1-43.9); Red Blood Count 4.59 M/mm3 (4.2-5.4); White Blood Count 6.6 K/mm3 (4.4-11.0)
== END ==
PROVIDERS: PCP Family Medicine; Visit Provider Family Medicine
DX: E11.9 Type 2 diabetes mellitus without complications (principal); E61.1 Iron deficiency
CPT/HCPCS: 36415; 82728; 83036; 83540; 85025

== ENCOUNTER → 2020-12-22 13:02 | Outpatient (CLI) | payer MEDICAID, SELFPAY ==
[2020-11-23 09:43] VITALS: BMI 38.9
[2020-12-03 15:09] VITALS: BMI 38.9
--- NOTE | 2020-12-22 13:04 | US_ITS ---
STUDY: ULTRASOUND OF THE FEMALE PELVIS - COMPLETE REASON FOR EXAM: Female, 40 years old. Menorrhagia LMP: 12/03/2020. TECHNIQUE: Transabdominal and Transvaginal TECHNICAL QUALITY: Adequate. COMPARISON: None. FINDINGS: The uterus is anteverted and is in a midline position. The uterus measures 6.3 cm x 5.8 cm x 3.8 cm. Normal uterine cervix. The endometrium measures 10 mm in thickness, and is heterogeneous (striated). There is no demonstrated endometrial mass. The uterus is of heterogeneous echotexture suggestive of fibrotic change although no definite fibroid is seen. I.U.D. - The patient does not have an I.U.D. The right ovary is visualized. The right ovary measures 2.7 cm x 2.8 cm x 1.4 cm. There is a dominant follicle in the ovary measuring 1.5 cm x 1.4 cm x 0.5 cm. There is no visualized right adnexal mass or complex lesion. There is normal arterial and normal venous vascularity. The left ovary is visualized. The left ovary measures 2.7 cm x 2.3 cm x 1.2 cm. There is no left ovarian cyst or ovarian mass. There is no visualized left adnexal mass or complex lesion. There is normal arterial and normal venous vascularity. There is no fluid in the cul-de-sac. The pre void volume of the bladder was 137 ml. Polycystic ovary disease: No. US/Pelvic (Non ) IMPRESSION: Dominant follicle in the right ovary measuring 1.5 cm x 1.4 cm x 0.5 cm. Heterogeneous appearance of the uterine echotexture. Electronically Signed: Rafael Dai MD at 15:08 EDT , Service support ,
--- NOTE | 2020-12-22 13:04 | US_ITS ---
STUDY: ULTRASOUND OF THE FEMALE PELVIS - COMPLETE REASON FOR EXAM: Female, 40 years old. Menorrhagia LMP: 12/03/2020. TECHNIQUE: Transabdominal and Transvaginal TECHNICAL QUALITY: Adequate. COMPARISON: None. FINDINGS: The uterus is anteverted and is in a midline position. The uterus measures 6.3 cm x 5.8 cm x 3.8 cm. Normal uterine cervix. The endometrium measures 10 mm in thickness, and is heterogeneous (striated). There is no demonstrated endometrial mass. The uterus is of heterogeneous echotexture suggestive of fibrotic change although no definite fibroid is seen. I.U.D. - The patient does not have an I.U.D. The right ovary is visualized. The right ovary measures 2.7 cm x 2.8 cm x 1.4 cm. There is a dominant follicle in the ovary measuring 1.5 cm x 1.4 cm x 0.5 cm. There is no visualized right adnexal mass or complex lesion. There is normal arterial and normal venous vascularity. The left ovary is visualized. The left ovary measures 2.7 cm x 2.3 cm x 1.2 cm. There is no left ovarian cyst or ovarian mass. There is no visualized left adnexal mass or complex lesion. There is normal arterial and normal venous vascularity. There is no fluid in the cul-de-sac. The pre void volume of the bladder was 137 ml. Polycystic ovary disease: No. US/Transvaginal Non- IMPRESSION: Dominant follicle in the right ovary measuring 1.5 cm x 1.4 cm x 0.5 cm. Heterogeneous appearance of the uterine echotexture. Electronically Signed: Rafael Dai MD at 15:08 EDT , Service support ,
--- NOTE | 2020-12-22 13:04 | BI_ITS ---
MAMMOGRAPHY - BILATERAL SCREENING REASON FOR EXAM: Female, 40 years old. Routine annual screening examination. PERTINENT HISTORY: Non-contributory. TECHNIQUE: Digital bilateral breast aki (3D mammographic acquisition) in the CC and MLO projections. 2-D mediolateral oblique (MLO) and craniocaudad (CC) views of both breasts were obtained. CAD: Full Field Digital Mammography with Computer Added Detection was performed. COMPARISON: None. Baseline examination. FINDINGS: Breast Composition: There are scattered areas of fibroglandular density. There are no dominant masses or suspicious calcifications. Small benign-appearing bilateral axillary lymph nodes. No other significant abnormalities are identified. BI/SCRN MAMM (CAD)W/AKI BILAT IMPRESSION: Negative screening mammogram. Yearly followup mammogram recommended. (A) ASSESSMENT CATEGORY: BIRADS Category 2: Benign. A letter regarding these results will be sent to the patient by the facility within 30 days. Approximately 10% of breast cancers are not detected by mammography. A normal mammogram should not delay biopsy of a clinically suspicious abnormality. [id number] Electronically Signed: Rafael Dai MD at 14:44 EDT , Service support ,
== END ==
PROVIDERS: PCP Family Medicine; Referring Provider Nurse Practitioner Women's Health; Visit Provider Nurse Practitioner Women's Health
DX: N92.0 Excessive and frequent menstruation with regular cycle (principal); N94.6 Dysmenorrhea, unspecified; Z12.31 Encounter for screening mammogram for malignant neoplasm of breast
CPT/HCPCS: 76830; 76856; 77063; 77067

== ENCOUNTER → 2021-01-06 12:24 | Outpatient (CLI) | payer MEDICAID, SELFPAY ==
[2020-05-15 13:20] VITALS: BMI 43.4
[2021-01-04 11:03] VITALS: BMI 38.9
--- NOTE | 2021-01-06 15:38 | NEURO ---
NCS and/or EMG Patient Report Ordering Doctor: Israel North DATE OF SERVICE: 01/06/21 Nella Dale presents for electrodiagnostic testing of the lower limbs. She reports numbness tingling and pain in both legs Electrodiagnostic findings: Peroneal motor nerve demonstrates normal distal latency, amplitude and conduction velocity bilaterally. Normal tibial motor response bilaterally. Normal tibial and peroneal F waves. H reflex normal bilaterally. Sensory responses are within normal limits. On needle EMG, 1+ fibrillations noted in the right gastrocnemius, peroneus longus and lower lumbar paraspinals. Motor unit action potentials of normal amplitude and duration. Electrodiagnostic impression: This is an abnormal study in the lower limbs. 1. Electrodiagnostic findings are suggestive of right-sided S1 radiculopathy. Recommend clinical correlation with lumbar spine imaging. 2. No electrodiagnostic evidence is noted for peripheral polyneuropathy.
== END ==
PROVIDERS: PCP Family Medicine; Referring Provider Family Medicine; Visit Provider Family Medicine
DX: G62.9 Polyneuropathy, unspecified (principal)
CPT/HCPCS: 95886; 95913

== ENCOUNTER 2021-02-25 19:13 | Emergency (ER) | payer MEDICAID, SELFPAY ==
[2021-02-17 14:26] VITALS: BMI 38.9
[2021-02-25 19:13] VITALS: BP 130/85; PULSE 78; RESP 16; TEMP 36.6; O2SAT 100; BMI 38.5
[2021-02-25 20:11] LABS: Absolute Lymphocyte Count 2.15 X10^3/uL (0.83-4.51); Basophil# 0.03 X10^3/uL; Basophil% 0.4 % (0-1); Eosinophil# 0.17 X10^3/uL; Eosinophils% 2.5 % (0-5); Hematocrit 40.8 % (37-47); Lymphocyte # 2.15 X10^3/ul (0.83-4.51); Lymphocyte % 31.9 % (19-41); Mean Corp Hgb Conc 31.9 g/dL (32-36); Mean Corpuscular Hgb 27.5 pg (27.0-32.0); Mean Corpuscular Volume 86.3 fL (81-99); Mean Platelet Vol. 11.3 fl (6.2-12.0); Monocyte# 0.42 X10^3/uL; Monocyte% 6.2 % (0-10); NRBC Flagged by Analyzer 0 % (0-5); Neutrophil # 3.95 X10^3/uL (2.7-7.7); Neutrophil % 58.7 % (47-70); Platelet Count 196 K/mm3 (150-450); RBC Distribution Width CV 13.6 % (11.6-14.6); RBC Distribution Width SD 42.7 fl (35.1-43.9); Red Blood Count 4.73 M/mm3 (4.2-5.4); White Blood Count 6.7 K/mm3 (4.4-11.0)
--- NOTE | 2021-02-25 20:14 | US_ITS ---
STUDY: VENOUS DOPPLER ULTRASOUND - RIGHT LOWER EXTREMITY REASON FOR EXAM: Female, 40 years old. undefined -- PAIN swelling and edema TECHNIQUE: Ultrasound evaluation of the deep vein system to include mai-scale imaging and compression was performed. Mai-scale imaging and Doppler sonographic evaluation, including duplex spectral analysis and qualitative color flow sonography, was performed. COMPARISON: None. FINDINGS: Common Femoral Vein: Normal compression, spontaneity and augmentation. Normal color Doppler. Common Femoral Vein/Greater Saphenous Junction: Normal compression, spontaneity and augmentation. Normal color Doppler. Deep Femoral Vein: Normal compression, spontaneity and augmentation. Normal color Doppler. Femoral Proximal: Normal compression, spontaneity and augmentation. Normal color Doppler. Femoral Middle: Normal compression, spontaneity and augmentation. Normal color Doppler. Femoral Distal: Normal compression, spontaneity and augmentation. Normal color Doppler. Popliteal Vein: Normal compression, spontaneity and augmentation. Normal color Doppler. Posterior Tibial Vein: Normal compression, spontaneity and augmentation. Normal color Doppler. Peroneal Vein: Normal compression, spontaneity and augmentation. Normal color Doppler. US/Venous Duplex Imag/Limited/Uni IMPRESSION: Normal venous Doppler ultrasound of the lower extremity. Electronically Signed: Jamey Corbin DO at 22:37 EDT Tel , Service support ,
[2021-02-25 20:40] LABS: AST(SGOT) 26 U/L (15-37); Alanine Aminotransfer ALT/SGPT 16 U/L (13-56); Alkaline Phosphatase 90 U/L (45-117); Anion Gap 3 (5-15); BUN 12 mg/dL (7-18); BUN/Creat Ratio 16.6 RATIO (10-20); Calcium,Total 8.7 mg/dL (8.5-10.1); Chloride 106 mmol/L (98-107); Creatinine, Serum 0.72 mg/dL (0.55-1.02); EST Glomerular Filtration Rate 95 mL/min (>60); Est Glom Filt Rate - Afr Amer 115 mL/min (>60); Estimated Creatinine Clearance 97.23 ml/min; Globulin 4.2 g/dL (2.2-4.2); Glucose 88 mg/dL (74-106); Protein, Total 8.2 g/dL (6.4-8.2); Sodium Level 138 mmol/L (136-145)
--- NOTE | 2021-02-25 22:54 | ED.VIS.LOWEX ---
HPI History of Present Illness HPI Narrative: Patient presents with pain in her right knee and lower leg that has been constant for the past 2 weeks. Patient states it is gradually getting worse. Patient states her pain is burning and dull. Patient states the pain starts in her right knee and radiates to her right lower leg. Patient states nothing makes it worse and nothing makes it better. Patient mitts to some swelling of her right lower leg. Patient denies any fevers or chills. Patient states she also developed a rash over her right zoroastrian area at the same time her pain began. Chief Complaint: Lower Extremity Injury Informant: patient Onset/Context/Timing Onset: Weeks (2) Context: Gradual Onset Timing: Continuous Quality of Pain: Dull and Burning Location: Right knee and right lower leg Worsened by: Nothing Relieved by: Nothing Associated Symptoms Associated Symptoms: Negative for Parasthesia, Weakness and Loss of Funtion PFSH [facility] Medical History Anemia Arthritis Asthma Back pain Candidal dermatitis Chronic pain Chronic pain syndrome Depression Depressive disorder Diabetes Fibromyalgia Former smoker History of stress test History of ulceration Hypertension Lumbar spinal stenosis Marijuana use Restless leg Type II diabetes mellitus Wears glasses Home Medications sumatriptan succinate 50 mg PO .X1 PRN 03/13/18 [History Last Taken Unknown] ondansetron 4 mg PO Q8H PRN PRN #10 tab 03/23/18 [Rx Last Taken Unknown] oxycodone-acetaminophen 10 mg-325 mg tablet 1 tab PO Q4H PRN 02/05/20 [History Last Taken Unknown] alprazolam [Xanax] 1 mg PO TID PRN PRN 03/20/20 [History Last Taken Unknown] quetiapine [Seroquel] 25 - 50 mg PO QHS 03/20/20 [History Last Taken Unknown] diphenhydramine HCl 50 mg PO TID PRN PRN #30 cap 04/07/20 [Rx Last Taken Unknown] epinephrine 0.3 mg IM X1 #2 syringe 04/07/20 [Rx Last Taken Unknown] escitalopram oxalate 5 mg tablet 10 mg PO DAILY 11/23/20 [History Last Taken Unknown] bupropion HCl 300 mg 24 hr tablet, extended release 300 mg PO DAILY tab 02/09/21 [History Last Taken Unknown] buspirone 10 mg tablet 20 mg PO TID tab 02/09/21 [History Last Taken Unknown] clonidine HCl 0.1 mg tablet 0.1 mg PO BID #60 tab 02/09/21 [Rx Last Taken Unknown] furosemide 20 mg tablet 20 mg PO DAILY tab 02/09/21 [History Last Taken Unknown] lamotrigine 25 mg tablet 25 mg PO DAILY tab 02/09/21 [History Last Taken Unknown] pantoprazole 40 mg tablet,delayed release 40 mg PO DAILY tab 02/09/21 [History Last Taken Unknown] promethazine 25 mg tablet 25 mg PO TID PRN 02/09/21 [History Last Taken Unknown] ropinirole 1 mg tablet 1 mg PO DAILY tab 02/09/21 [History Last Taken Unknown] gabapentin 600 mg PO TID 02/23/21 [History Last Taken Unknown] Allergy/AdvReac Type Severity Reaction Status Date / Time bee pollen Allergy Anaphylaxis Verified 02/25/21 19:16 ketorolac [From Toradol] Allergy Itching Verified 02/25/21 19:16 NSAIDS (Non-Steroidal Allergy Other Verified 02/25/21 19:16 Anti-Inflamma Family History Mother Diabetes Hypertension Cancer Surgical History Carpal tunnel syndrome FHx: cholecystectomy Gastric bypass status for obesity History of surgery on arm Hx of arthroscopy of right knee Hx of tooth extraction Social History number of children: 4 current occupational status: unemployed other: children are adopted Smoking Status: Former smoker Tobacco: How many years used: 15 Electronic Cigarette Use: not used how long ago did patient quit smokin years ago second hand exposure: No alcohol intake: former substance use type: other details: medical marijuana caffeine: Yes seatbelt use: always do you feel safe at home: Yes ROS ROS ED Constitutional Constitutional ED: Denies chills or fever(s) Eyes Eyes: Denies blurry vision or change in vision ENT ENT ED: Denies rhinorrhea or sore throat Cardiovascular Cardiovascular: Denies chest pain or palpitations Respiratory/Chest Respiratory/Chest: Denies cough or dyspnea Gastrointestinal Gastrointestinal: Denies nausea or vomiting Genitourinary Genitourinary ED: Denies dysuria or hematuria Musculoskeletal Musculoskeletal: Reports neck pain; Denies back pain Integumentary Reports rash; Denies abscess Neurologic Neurologic: Denies headache(s) or weakness Allergic/Immunologic Allergic/Immunologic ED: Denies mouth swelling or urticaria EXAM Physical Exam Const Vital Signs: 02/25/21 19:13 Temperature 97.9 F Temperature Source Temporal Pulse Rate 78 Respiratory Rate 16 Blood Pressure 130/85 H Blood Pressure Mean 100 Pulse Ox 100 Oxygen Delivery Method Room Air Positive well nourished, well developed and obese General Appearance ED: well developed Nutritional Appearance: obese HEENT Reports moist mucous membranes Neck full ROM and supple Extremity Extremity Narrative: There is tenderness over the lateral aspect of the right knee and right lower leg. There is no knee effusion. There is no bony crepitance or step-off. There is no deformity. There is no ecchymosis. Range of motion was slightly limited in flexion of the right knee secondary to pain. Sensation was intact to light touch bilaterally in the lower extremities. Strength is 5/5 bilaterally. Extensor mechanism is intact. Neuro oriented x3, CN's II-XII intact bilaterally, moves all extremities and no sensory deficits noted Sensorium / Orientation: alert Psych mental status grossly normal MDM MDM MDM Narrative Medical decision making narrative: CBC and comprehensive metabolic profile was within normal limits. Venous duplex of the right lower extremity was obtained. There is no evidence of DVT. Patient was advised that this may be muscular strain. It could be a flareup of her fibromyalgia. Patient was instructed to use ice to the area. Patient was instructed to continue her Percocet as needed for pain. Patient was instructed to follow-up with her primary care physician in 3 to 5 days. Patient understood and was agreeable with the plan. All questions were answered. Lab Data Attestation: I reviewed the patient's lab results. Labs: Laboratory Results - last 24 hr 02/25/21 02/25/21 19:55 19:55 WBC 6.7 RBC 4.73 Hgb 13.0 Hct 40.8 MCV 86.3 MCH 27.5 MCHC 31.9 L RDW Std Deviation 42.7 RDW Coeff of Dudley 13.6 Plt Count 196 MPV 11.3 Immature Gran % (Auto) 0.300 Neut % (Auto) 58.7 Lymph % (Auto) 31.9 Edgar % (Auto) 6.2 Eos % (Auto) 2.5 Baso % (Auto) 0.4 Absolute Neuts (auto) 4.0 Absolute Lymphs (auto) 2.15 Nucleated RBC % 0 Sodium 138 Potassium 4.0 Chloride 106 Carbon Dioxide 29.0 Anion Gap 3 L BUN 12 Creatinine 0.72 Estim Creat Clear Calc 97.23 Est GFR (MDRD) Af Amer 115 Est GFR (MDRD) Non-Af 95 BUN/Creatinine Ratio 16.6 Glucose 88 Calcium 8.7 Total Bilirubin 0.30 AST 26 ALT 16 Alkaline Phosphatase 90 Total Protein 8.2 Albumin 4.0 Globulin 4.2 Albumin/Globulin Ratio 1.0 Radiography Diagnostic Testing: Radiology Impression Venous Duplex 02/25/21 20:14 IMPRESSION: Normal venous Doppler ultrasound of the lower extremity. Electronically Signed: Jamey Corbin DO at 22:37 EDT Tel , Service support , Discharge Plan Triage Chief Complaint: Lower Extremity Injury ED Provider: Myron Silva Dx/Rx/DC Orders Clinical Impression: Acute pain of right lower extremity Instructions: ED Knee Pain of Uncertain Cause, ED Pain, Acute, Uncertain Cause Prescriptions: No Action oxycodone-acetaminophen [Percocet] 10-325 mg tablet 1 tab PO Q4H PRN (Reason: Pain Score 1-10/10) RF: 0 escitalopram oxalate [Lexapro] 5 mg tablet 10 mg PO DAILY RF: 0 buspirone 10 mg tablet 20 mg PO TID RF: 0 lamotrigine [Lamictal] 25 mg tablet 25 mg PO DAILY RF: 0 bupropion HCl 300 mg tablet extended release 24 hr 300 mg PO DAILY RF: 0 ropinirole 1 mg tablet 1 mg PO DAILY RF: 0 furosemide 20 mg tablet 20 mg PO DAILY RF: 0 pantoprazole 40 mg tablet,delayed release (DR/EC) 40 mg PO DAILY RF: 0 promethazine 25 mg tablet 25 mg PO TID PRN (Reason: Nausea) RF: 0 clonidine HCl 0.1 mg tablet 0.1 mg PO BID Qty: 60 RF: 2 sumatriptan succinate 50 MG tablet 50 mg PO .X1 PRN RF: 0 ondansetron 4 MG tablet 4 mg PO Q8H PRN PRN (Reason: Nausea) Qty: 10 RF: 0 quetiapine [Seroquel] 25 MG tablet 25 - 50 mg PO QHS RF: 0 alprazolam [Xanax] 1 MG tablet 1 mg PO TID PRN PRN (Reason: Anxiety) RF: 0 epinephrine 0.3 MG syringe 0.3 mg IM X1 Qty: 2 RF: 0 diphenhydramine HCl 25 MG capsule 50 mg PO TID PRN PRN (Reason: Allergies) Qty: 30 RF: 0 gabapentin 600 mg tablet 600 mg PO TID RF: 0 Primary Care Provider: Israel North Referrals: Israel North DO [Primary Care Provider] - 3-5 Days Disposition Disposition: Home, Self Care
[2021-02-25] MEDS: Morphine 4 MG/ML Syringe IV (23:14)
[2021-02-25 23:18] VITALS: BP 146/69; PULSE 65; RESP 17; O2SAT 97
== END 2021-02-25 23:31 | disposition home or self-care (01) ==
PROVIDERS: Emergency Provider Emergency Medicine; PCP Family Medicine
DX: M25.561 Pain in right knee (principal); M79.661 Pain in right lower leg; M79.89 Other specified soft tissue disorders; E66.9 Obesity, unspecified; Z87.891 Personal history of nicotine dependence
CPT/HCPCS: 80053; 85025; 93971; 96374; 99284; A4216

== ENCOUNTER 2021-03-02 05:31 | Day surgery (SDC) | payer MEDICAID, SELFPAY ==
[2021-01-04 11:03] VITALS: BMI 38.9
[2021-03-01 10:52] LABS: Hematocrit 41.2 % (37-47); Mean Corp Hgb Conc 31.6 g/dL (32-36); Mean Corpuscular Hgb 27.3 pg (27.0-32.0); Mean Corpuscular Volume 86.6 fL (81-99); Mean Platelet Vol. 10.9 fl (6.2-12.0); Platelet Count 217 K/mm3 (150-450); RBC Distribution Width CV 13.7 % (11.6-14.6); RBC Distribution Width SD 43.5 fl (35.1-43.9); Red Blood Count 4.76 M/mm3 (4.2-5.4); White Blood Count 5.8 K/mm3 (4.4-11.0)
[2021-03-01 11:45] LABS: AST(SGOT) 16 U/L (15-37); Alanine Aminotransfer ALT/SGPT 14 U/L (13-56); Albumin, Serum 3.9 g/dL (3.2-5.0); Alkaline Phosphatase 88 U/L (45-117); Anion Gap 6 (5-15); BUN 7 mg/dL (7-18); BUN/Creat Ratio 10.2 RATIO (10-20); Calcium,Total 8.7 mg/dL (8.5-10.1); Chloride 106 mmol/L (98-107); Creatinine, Serum 0.69 mg/dL (0.55-1.02); EST Glomerular Filtration Rate 101 mL/min (>60); Est Glom Filt Rate - Afr Amer 122 mL/min (>60); Estimated Creatinine Clearance 101.46 ml/min; Globulin 3.9 g/dL (2.2-4.2); Glucose 97 mg/dL (74-106); Magnesium 2.1 mg/dL (1.6-2.6); Potassium 4.1 mmol/L (3.5-5.1); Protein, Total 7.8 g/dL (6.4-8.2); Sodium Level 138 mmol/L (136-145); Thyroid Stim Hormone (TSH) 1.16 uIU/mL (0.358-3.74)
[2021-03-01 15:40] LABS: Vitamin B12 503 pg/mL (211-911); Vitamin D,25 Hydroxy 26.1 ng/mL
[2021-03-02] VITALS (26 sets, daily range): BP systolic 146–212; BP diastolic 91–119; PULSE 54–74; RESP 14–16; TEMP 36.2–36.7; O2SAT 94–100; BMI 38.6
[2021-03-02 06:10] LABS: Internal QC Validated? YES +Cl - CLEAR BKGD; Pregnancy, Urine Negative Negative
[2021-03-02 06:21] LABS: Bedside Glucose 135 mg/dL (70-110)
[2021-03-02] MEDS: Lactated Ringers 1,000 ML 40 ML IV (06:48)
[2021-03-02] MEDS: Scopolamine 1mg/72hr Patch 1 PATCH TD (06:48)
[2021-03-02] MEDS: Acetaminophen 500 MG Tablet 1000 MG PO (06:49)
[2021-03-02] MEDS: Gabapentin 600 MG Tablet PO (06:50)
[2021-03-02] MEDS: Phenazopyridine 95 MG Tablet 190 MG PO (06:50)
[2021-03-02] MEDS: dexAMETHasone 10 MG/ML Vial 8 MG IV (06:52)
--- NOTE | 2021-03-02 07:13 | PCM.HP.OB ---
HPI - General HPI Narrative AJITH SUN, is a 40 F who presents for robotic assisted total laparoscopic hysterectomy, bilateral salpingectomy, possible bilateral salpingoophorectomy, cystoscopy for AUB PFSH PFSH Medical History Anemia Arthritis Asthma Back pain Candidal dermatitis Chronic pain Chronic pain syndrome Depression Depressive disorder Diabetes Fibromyalgia Former smoker History of stress test History of ulceration Hypertension Lumbar spinal stenosis Marijuana use Restless leg Type II diabetes mellitus Wears glasses Home Medications sumatriptan succinate 50 mg PO .X1 PRN 03/13/18 [History Last Taken Unknown] ondansetron 4 mg PO Q8H PRN PRN #10 tab 03/23/18 [Rx Last Taken Unknown] oxycodone-acetaminophen 10 mg-325 mg tablet 1 tab PO Q4H PRN 02/05/20 [History Last Taken Unknown] alprazolam [Xanax] 1 mg PO TID PRN PRN 03/20/20 [History Last Taken Unknown] quetiapine [Seroquel] 25 - 50 mg PO QHS 03/20/20 [History Last Taken Unknown] diphenhydramine HCl 50 mg PO TID PRN PRN #30 cap 04/07/20 [Rx Last Taken Unknown] epinephrine 0.3 mg IM X1 #2 syringe 04/07/20 [Rx Last Taken Unknown] escitalopram oxalate 5 mg tablet 10 mg PO DAILY 11/23/20 [History Last Taken Unknown] bupropion HCl 300 mg 24 hr tablet, extended release 300 mg PO DAILY tab 02/09/21 [History Last Taken Unknown] buspirone 10 mg tablet 20 mg PO TID tab 02/09/21 [History Last Taken Unknown] clonidine HCl 0.1 mg tablet 0.1 mg PO BID #60 tab 02/09/21 [Rx Last Taken 03/02/21 04:50 0.1 mg] furosemide 20 mg tablet 20 mg PO DAILY tab 02/09/21 [History Last Taken Unknown] lamotrigine 25 mg tablet 25 mg PO DAILY tab 02/09/21 [History Last Taken Unknown] pantoprazole 40 mg tablet,delayed release 40 mg PO DAILY tab 02/09/21 [History Last Taken Unknown] promethazine 25 mg tablet 25 mg PO TID PRN 02/09/21 [History Last Taken Unknown] ropinirole 1 mg tablet 1 mg PO DAILY tab 02/09/21 [History Last Taken Unknown] gabapentin 600 mg PO TID 02/23/21 [History Last Taken Unknown] Allergy/AdvReac Type Severity Reaction Status Date / Time bee pollen Allergy Anaphylaxis Verified 02/25/21 19:16 ketorolac [From Toradol] Allergy Itching Verified 02/25/21 19:16 NSAIDS (Non-Steroidal Allergy Other Verified 02/25/21 19:16 Anti-Inflamma Family History Mother Diabetes Hypertension Cancer Surgical History Carpal tunnel syndrome FHx: cholecystectomy Gastric bypass status for obesity History of surgery on arm Hx of arthroscopy of right knee Hx of tooth extraction Social History number of children: 4 current occupational status: unemployed other: children are adopted Smoking Status: Former smoker Tobacco: How many years used: 15 Electronic Cigarette Use: not used how long ago did patient quit smokin years ago second hand exposure: No alcohol intake: former substance use type: other details: medical marijuana caffeine: Yes seatbelt use: always do you feel safe at home: Yes History 0 Elective abortions Hx Para 0 Spontaneous abortions Hx # Term Pregnancies Ectopic pregnancies Hx # Pregnancies Multiple births # of living children ROS Eyes Eyes: Reports systems reviewed and no addt'l complaints, except as documented ENT HEENT: Reports systems reviewed and no addt'l complaints, except as documented Cardiovascular Cardiovascular: Reports systems reviewed and no addt'l complaints, except as documented Respiratory/Chest Respiratory/Chest: Reports systems reviewed and no addt'l complaints, except as documented Gastrointestinal Gastrointestinal: Reports systems reviewed and no addt'l complaints, except as documented Genitourinary Genitourinary: Reports systems reviewed and no addt'l complaints, except as documented Musculoskeletal Musculoskeletal: Reports systems reviewed and no addt'l complaints, except as documented Integumentary Integumentary: Reports systems reviewed and no addt'l complaints, except as documented Neurologic Neurologic: Reports systems reviewed and no addt'l complaints, except as documented Psychiatric Psychiatric: Reports systems reviewed and no addt'l complaints, except as documented Endocrine Endocrinology: Reports systems reviewed and no addt'l complaints, except as documented Hematologic/Lymphatic Hematologic/Lymphatic: Reports systems reviewed and no addt'l complaints, except as documented Allergic/Immunologic Allergic/Immunologic: Reports systems reviewed and no addt'l complaints, except as documented Vital Signs Vital Signs Vital Signs: 03/02/21 06:30 Temperature 97.2 F L Temperature Source Temporal Pulse Rate 54 L Respiratory Rate 14 Respiratory Pattern Normal Blood Pressure 151/91 H Blood Pressure Mean 111 Blood Pressure Source Monitor Blood Pressure Position Semi-Fowlers Blood Pressure Location Right Arm Pulse Ox 100 Oxygen Delivery Method Room Air Weight Weight: 239 lb 3.225 oz Body Mass Index (BMI) 38.6 Physical Exam Const alert, oriented x3, no apparent distress, average body habitus, healthy appearing and well nourished HEENT normocephalic and moist oral mucous membranes Head and Scalp: atraumatic Eyes PERRL and EOMs intact bilaterally Neck full ROM Resp normal respiratory effort, no retractions and no use of accessory muscles Cardio regular rate and regular rhythm GI soft to palpation, non-tender and non-distended Extremity normal to inspection and full ROM Skin no rashes or lesions noted Neuro no focal motor deficits and no sensory deficits noted Psych mental status grossly normal, affect normal, speech normal and activity/motor behavior normal Labs Labs Labs: Blood Type B POSITIVE Antibody Screen NEGATIVE Hct 41.2 % (37-47) Hgb 13.0 g/dL (12.0-15.0) HIV 1&2 Antibody Non-Reactive (Nonreactive) C.trachomatis DNA (PCR) Negative (Negative) Miscellaneous Test Assessment & Plan (1) Menorrhagia with regular cycle: COMMENT: US nl. Refer Dr Somers re TVH vs ablation PLAN: presents for robotic assisted total laparoscopic hysterectomy, bilateral salpingectomy, possible bilateral salpingoophorectomy, cystoscopy for AUB. Again reviewed risks of surgery and all questions answered Medical clearance obtained by PCP No changes to medical or surgical history Plans to stay overnight after surgery Consent form signed
[2021-03-02] MEDS: Cefazolin 2 GM in 0.9% Normal Saline 100 ML IV (07:30)
--- NOTE | 2021-03-02 08:50 | PCM.PN.BLA ---
Progress Note The patient was taken to the operating room but on induction of anesthesia, the patient experienced blood pressures in the 220s/140s. Anesthesia recommended aborting the procedure due to concern for stroke with blood pressures this high. The patient was awakened from anesthesia and taken to the recovery area. It was discussed with the patient and her spouse that due to her blood pressures we were not able to proceed with her hysterectomy today. The patient was made aware that on her U tox prior to surgery she did test positive for ecstasy. A repeat urine was ordered and we will obtain confirmation of this. Counseled the patient that she must see her PCP in the next day or 2 and that we will make her PCP aware of what happened. She may need her blood pressure medications modified. Blood pressures are now stable so we will plan on discharge to home once patient fully awake from anesthesia.
[2021-03-02 09:26] LABS: Amphetamine Urine VISTA NEGATIVE (<1000 ng/mL); Barbiturate Urine VISTA NEGATIVE (< 200 ng/mL); Benzodiazepine Urine VISTA POSITIVE (< 200 ng/mL); Cocaine Urine VISTA NEGATIVE (< 300 ng/mL); Ecstacy Urine VISTA POSITIVE (< 500 ng/mL); Methadone Urine VISTA NEGATIVE (< 300 ng/mL); PCP Urine VISTA NEGATIVE (< 25 ng/mL); THC Urine VISTA POSITIVE (< 50 ng/mL); Vista UDS pH Range 6
[2021-03-02] MEDS: cloNIDine HCl 0.2 MG Tablet PO (11:21)
[2021-03-02 14:40] LABS: ANTINUCLEAR ANTIBODIES DIRECT Negative (Negative)
--- NOTE | 2021-03-03 09:42 | PCM.OPRPT ---
Problems Associated Problem List Diagnoses (1) Menorrhagia with regular cycle: Report of Operation Date of Procedure: 03/03/21 Pre-Operative Diagnosis: AUB Post-Operative Diagnosis: Same Surgery/Procedure Performed:: None Description of Surgical Findings:: Patient unable to tolerate general anesthesia Type of Anesthesia: General Special Medications: NA Specimen's removed: NA Estimated Blood Loss (mL): 0 Description of Procedure: The patient was taken to the operating room for planned robotic assisted total laparoscopic hysterectomy. After induction of anesthesia, patient became severely hypertensive into the 220s/140s. Her blood pressure was persistently in this range. The decision was made to abort the procedure. Patient was awakened from anesthesia and taken to the recovery room Complications None apparent Admit VTE Documentation VTE Present on Admission: No VTE Mechan Device Prophylaxis: SCD's VTE Pharm Prophylaxis ordered?: No Procedures Urinary/Genital [id number]: No Charge
[2021-03-04 07:08] LABS: Free Lambda Light Chains 16.5 mg/L (5.7-26.3)
[2021-03-04 11:02] LABS: Vitamin B1, Thiamine 113.5 nmol/L (66.5-200.0)
== END 2021-03-02 11:31 | disposition home or self-care (01) ==
LOC: SDC 05:32 → AC 05:32
PROVIDERS: Anesthesiology; Psychiatry & Neurology Neurology; PCP Family Medicine; Referring Provider Obstetrics & Gynecology; Visit Provider Obstetrics & Gynecology
PROC: 0UT94ZZ Resection of Uterus, Percutaneous Endoscopic Approach (ICD-10-PCS; CPT 58570; principal; 2021-03-02 07:10)
DX: N92.0 Excessive and frequent menstruation with regular cycle (principal); Z53.09 Procedure and treatment not carried out because of other contraindication; J45.909 Unspecified asthma, uncomplicated; E11.9 Type 2 diabetes mellitus without complications; F32.9 Major depressive disorder, single episode, unspecified; I10 Essential (primary) hypertension; G89.4 Chronic pain syndrome; M79.7 Fibromyalgia; Z87.891 Personal history of nicotine dependence; G25.81 Restless legs syndrome; M48.061 Spinal stenosis, lumbar region without neurogenic claudication; M19.90 Unspecified osteoarthritis, unspecified site; Z79.899 Other long term (current) drug therapy; Z98.84 Bariatric surgery status
CPT/HCPCS: 00940; 58570; 36415; 80053; 80307; 81025; 82306; 82607; 82746; 82962; 83735; 83883; 84425; 84443; 85027; 86038; 86225; 86235; 86850; 86900; 86901; 87426; C9803; J7120

== ENCOUNTER 2021-03-03 12:59 | Emergency (ER) | payer MEDICAID, SELFPAY ==
[2021-03-02 06:30] VITALS: BMI 38.6
[2021-03-03 13:00] VITALS: BP 105/64; PULSE 76; RESP 16; TEMP 36; O2SAT 94; BMI 38.7
[2021-03-03 13:21] VITALS: BP 116/60; PULSE 63; RESP 18
--- NOTE | 2021-03-03 14:36 | EX.ED.DYSGE1 ---
HPI History of Present Illness Chief Complaint: General Illness Informant: patient Onset/Context/Timing Onset: Hours (2-3) Context: Sudden Onset Timing: Continuous Quality: feel poorly Location: all over Current Severity: Moderate Maximum Severity: Moderate Worsened by: nothing Relieved by: nothing Associated Symptoms Associated Symptoms: low SBP, 72 Narrative Narrative: Patient relatively suddenly started feeling very poorly earlier, she took her blood pressure and it read low in the 70s. She has felt a little lightheaded but no syncope or presyncopal symptoms. No palpitations, shortness of breath, chest discomfort. She has eaten and drank fluids this morning like usual. Yesterday, she went to the operating room for a routine hysterectomy, she states she is on medication for her blood pressure and has been taking it, they checked her blood pressure and she does not know what it was, they sedated her for the operating room and took her to the operating room, and then at some point her blood pressure was over 200 and so they allowed her to wake up and aborted the procedure before they started it. Since then she has had a scopolamine patch and states she has had urinary frequency without dysuria or hematuria. [facility] Medical History Anemia Arthritis Asthma Back pain Candidal dermatitis Chronic pain Chronic pain syndrome Depression Depressive disorder Diabetes Fibromyalgia Former smoker History of stress test History of ulceration Hypertension Lumbar spinal stenosis Marijuana use Restless leg Type II diabetes mellitus Wears glasses Home Medications sumatriptan succinate 50 mg PO .X1 PRN 03/13/18 [History Last Taken Unknown] ondansetron 4 mg PO Q8H PRN PRN #10 tab 03/23/18 [Rx Last Taken Unknown] oxycodone-acetaminophen 10 mg-325 mg tablet 1 tab PO Q4H PRN 02/05/20 [History Last Taken Unknown] alprazolam [Xanax] 1 mg PO TID PRN PRN 03/20/20 [History Last Taken Unknown] quetiapine [Seroquel] 25 - 50 mg PO QHS 03/20/20 [History Last Taken Unknown] diphenhydramine HCl 50 mg PO TID PRN PRN #30 cap 04/07/20 [Rx Last Taken Unknown] epinephrine 0.3 mg IM X1 #2 syringe 04/07/20 [Rx Last Taken Unknown] escitalopram oxalate 5 mg tablet 10 mg PO DAILY 11/23/20 [History Last Taken Unknown] bupropion HCl 300 mg 24 hr tablet, extended release 300 mg PO DAILY tab 02/09/21 [History Last Taken Unknown] buspirone 10 mg tablet 20 mg PO TID tab 02/09/21 [History Last Taken Unknown] clonidine HCl 0.1 mg tablet 0.1 mg PO BID #60 tab 02/09/21 [Rx Last Taken 03/02/21 04:50 0.1 mg] furosemide 20 mg tablet 20 mg PO DAILY tab 02/09/21 [History Last Taken Unknown] lamotrigine 25 mg tablet 25 mg PO DAILY tab 02/09/21 [History Last Taken Unknown] pantoprazole 40 mg tablet,delayed release 40 mg PO DAILY tab 02/09/21 [History Last Taken Unknown] promethazine 25 mg tablet 25 mg PO TID PRN 02/09/21 [History Last Taken Unknown] ropinirole 1 mg tablet 1 mg PO DAILY tab 02/09/21 [History Last Taken Unknown] gabapentin 600 mg PO TID 02/23/21 [History Last Taken Unknown] cholecalciferol (vitamin D3) 1,250 mcg (50,000 unit) capsule 1,250 mcg PO QWEEK #4 cap 03/02/21 [Rx Last Taken Unknown] Allergy/AdvReac Type Severity Reaction Status Date / Time bee pollen Allergy Anaphylaxis Verified 03/03/21 13:00 ketorolac [From Toradol] Allergy Itching Verified 03/03/21 13:00 NSAIDS (Non-Steroidal Allergy Other Verified 03/03/21 13:00 Anti-Inflamma Family History Mother Diabetes Hypertension Cancer Surgical History Carpal tunnel syndrome FHx: cholecystectomy Gastric bypass status for obesity History of surgery on arm Hx of arthroscopy of right knee Hx of tooth extraction Social History number of children: 4 current occupational status: unemployed other: children are adopted Smoking Status: Former smoker Tobacco: How many years used: 15 Electronic Cigarette Use: not used how long ago did patient quit smokin years ago second hand exposure: No alcohol intake: former substance use type: other details: medical marijuana caffeine: Yes seatbelt use: always do you feel safe at home: Yes ROS ROS ED Constitutional Constitutional ED: Reports as per HPI, fatigue and malaise; Denies chills or fever(s) Eyes Eyes: Denies change in vision or diplopia ENT ENT ED: Denies rhinorrhea or sore throat Cardiovascular Cardiovascular: Denies chest pain or palpitations Respiratory/Chest Respiratory/Chest: Denies cough or dyspnea Gastrointestinal Gastrointestinal: Denies abdominal pain, diarrhea, nausea or vomiting Genitourinary Genitourinary ED: Denies dysuria or hematuria Musculoskeletal Musculoskeletal: Denies back pain or neck pain Integumentary Denies abscess or rash Neurologic Neurologic: Reports restless legs; Denies headache(s), paresthesias or weakness Psychiatric Psychiatric: Denies anxiety or suicidal thoughts EXAM Physical Exam Const Vital Signs: 03/03/21 13:00 03/03/21 13:21 03/03/21 14:29 Temperature 96.8 F L Temperature Source Temporal Pulse Rate 76 63 Respiratory Rate 16 18 Respiratory Effort Normal Blood Pressure 105/64 116/60 Blood Pressure Mean 77 78 Pulse Ox 94 Oxygen Delivery Method Room Air Positive well nourished, well developed and obese Constitutional Narrative: Fidgety with regards to lower extremities but otherwise in no distress and pleasant, conversive in full sentences, well-appearing General Appearance ED: well developed and NAD Nutritional Appearance: obese HEENT Reports moist mucous membranes normocephalic and atraumatic Eyes PERRL and EOMs intact bilaterally Neck full ROM and supple Resp normal respiratory effort and clear to auscultation bilaterally Cardio regular rate, regular rhythm and no murmurs Rate: Negative for tachycardic GI non-tender and non-distended Auscultation: normoactive bowel sounds Palpation: soft Back/Spine no CVA tenderness General Back: other FROM Extremity normal to inspection General Extremety ED: Negative for edema, pulses abnormal or tenderness General Extremity: Negative for edema or pulses abnormal Neuro oriented x3, CN's II-XII intact bilaterally and no sensory deficits noted Sensorium / Orientation: awake and alert Motor Exam: strength 5/5 throughout Skin no rashes or lesions noted and no wounds MDM MDM MDM Narrative Medical decision making narrative: Blood pressure and vital signs of been normal with the last one being 116/60. Routine labs were obtained in addition to urine, EKG, all of it is normal with the exception of the patient's blood sugar 181. This is not fasting, she states she did have diabetes but her doctor told her it resolved, this is not necessarily diagnostic, she needs outpatient follow-up and probably a recheck at some point fasting. On reevaluation, she states she feels fatigued but she is eating and feeling otherwise fine. I had to remove the scopolamine patch from behind her right ear and we discarded it. Lab Data Attestation: I reviewed the patient's lab results. Labs: Laboratory Results - last 24 hr 03/03/21 03/03/21 03/03/21 14:00 15:03 15:03 WBC 7.8 RBC 4.30 Hgb 11.8 L Hct 37.9 MCV 88.1 MCH 27.4 MCHC 31.1 L RDW Std Deviation 44.2 H RDW Coeff of [place] 13.9 Plt Count 216 MPV 11.2 Immature Gran % (Auto) 0.400 Neut % (Auto) 65.7 Lymph % (Auto) 28.2 [place] % (Auto) 4.8 Eos % (Auto) 0.8 Baso % (Auto) 0.1 Absolute Neuts (auto) 5.2 Absolute Lymphs (auto) 2.21 Nucleated RBC % 0 Sodium 138 Potassium 3.5 Chloride 106 Carbon Dioxide 31.0 Anion Gap 1 L BUN 8 Creatinine 0.81 Estim Creat Clear Calc 86.43 Est GFR (MDRD) Af Amer 101 Est GFR (MDRD) Non-Af 84 BUN/Creatinine Ratio 9.9 L Glucose 181 H Calcium 8.5 Urine Color Yellow Urine Clarity Clear Urine pH 5.0 Ur Specific [place] 1.025 Urine Protein 30 H Urine Glucose (UA) Normal Urine Ketones 5 H Urine Occult Blood Negative Urine Nitrite Negative Urine Bilirubin 1 H Urine Urobilinogen 1 H Ur Leukocyte Esterase 25 H Urine RBC 0 SEEN Urine WBC 0-5 SEEN Ur Squamous Epith Cells 0-5 SEEN Calcium Oxalate Crystal 1+ Urine Bacteria 1+ Urine Mucus 1+ EKG Initial EKG: Attestation: I personally reviewed and interpreted this EKG as follows: Interpretation: Sinus Rhythm and No Acute Injury Pattern Comments: normal EKG Discharge Plan Triage Chief Complaint: General Illness ED Provider: Enmanuel Yin Dx/Rx/DC Orders Clinical Impression: Transient hypotension, Malaise Instructions: ED Low Blood Pressure, All Causes Prescriptions: No Action oxycodone-acetaminophen [Percocet] 10-325 mg tablet 1 tab PO Q4H PRN (Reason: Pain Score 1-10/10) RF: 0 escitalopram oxalate [Lexapro] 5 mg tablet 10 mg PO DAILY RF: 0 buspirone 10 mg tablet 20 mg PO TID RF: 0 lamotrigine [Lamictal] 25 mg tablet 25 mg PO DAILY RF: 0 bupropion HCl 300 mg tablet extended release 24 hr 300 mg PO DAILY RF: 0 ropinirole 1 mg tablet 1 mg PO DAILY RF: 0 furosemide 20 mg tablet 20 mg PO DAILY RF: 0 pantoprazole 40 mg tablet,delayed release (DR/EC) 40 mg PO DAILY RF: 0 promethazine 25 mg tablet 25 mg PO TID PRN (Reason: Nausea) RF: 0 clonidine HCl 0.1 mg tablet 0.1 mg PO BID Qty: 60 RF: 2 sumatriptan succinate 50 MG tablet 50 mg PO .X1 PRN RF: 0 ondansetron 4 MG tablet 4 mg PO Q8H PRN PRN (Reason: Nausea) Qty: 10 RF: 0 quetiapine [Seroquel] 25 MG tablet 25 - 50 mg PO QHS RF: 0 alprazolam [Xanax] 1 MG tablet 1 mg PO TID PRN PRN (Reason: Anxiety) RF: 0 epinephrine 0.3 MG syringe 0.3 mg IM X1 Qty: 2 RF: 0 diphenhydramine HCl 25 MG capsule 50 mg PO TID PRN PRN (Reason: Allergies) Qty: 30 RF: 0 gabapentin 600 mg tablet 600 mg PO TID RF: 0 cholecalciferol (vitamin D3) 1,250 mcg (50,000 unit) capsule 1,250 mcg PO QWEEK Qty: 4 RF: 2 Primary Care Provider: Israel North Referrals: Israel North DO [Primary Care Provider] - 3-5 Days Activity Restrictions/Additional Instructions: Drink plenty of fluids today Disposition Disposition: Home, Self Care
--- NOTE | 2021-03-03 14:37 | EKG12_ITS ---
Test Reason : GEN ILLNESS Blood Pressure : / mmHG Vent. Rate : 058 BPM Atrial Rate : 058 BPM P-R Int : 134 ms QRS Dur : 096 ms QT Int : 434 ms P-R-T Axes : 027 013 040 degrees QTc Int : 426 ms Sinus bradycardia Otherwise normal ECG Confirmed by JUAN CARLOS JOHNSON, DEE ([id number]), commercial production editor ATUL BONILLA ([id number]) on 03/05/2021 9:23:11 AM Referred By: JOSELINE Confirmed By:KELTON RANGEL MD
[2021-03-03 15:15] LABS: Red Blood Cells-Urine 0 SEEN /hpf (0-5)
[2021-03-03 15:18] LABS: Color, Urine Yellow (Yellow); Glucose, Dipstick Normal (Normal); Ketone-Dipstick 5 mg/dl (Negative); Leukocyte Esterase-Dipstick 25 /ul (Negative); Nitrite-Dipstick Negative (Negative); Occult Blood-Urine Negative /ul (Negative); Protein-Dipstick 30 mg/dl (Negative); Specific Gravity, Urine 1.025 (1.002-1.030); Urine Clarity Clear (Clear); Urine Urobilinogen 1 mg/dl (Normal)
[2021-03-03 15:19] LABS: Absolute Lymphocyte Count 2.21 X10^3/uL (0.83-4.51); Absolute Neutrophil Count 5.2 X10^3/uL (2.0-7.7); Basophil# 0.01 X10^3/uL; Basophil% 0.1 % (0-1); Eosinophil# 0.06 X10^3/uL; Eosinophils% 0.8 % (0-5); Hematocrit 37.9 % (37-47); Hemoglobin 11.8 g/dL (12.0-15.0); Lymphocyte # 2.21 X10^3/ul (0.83-4.51); Lymphocyte % 28.2 % (19-41); Mean Corp Hgb Conc 31.1 g/dL (32-36); Mean Corpuscular Hgb 27.4 pg (27.0-32.0); Mean Corpuscular Volume 88.1 fL (81-99); Mean Platelet Vol. 11.2 fl (6.2-12.0); Monocyte# 0.38 X10^3/uL; Monocyte% 4.8 % (0-10); NRBC Flagged by Analyzer 0 % (0-5); Neutrophil # 5.15 X10^3/uL (2.7-7.7); Neutrophil % 65.7 % (47-70); Platelet Count 216 K/mm3 (150-450); RBC Distribution Width CV 13.9 % (11.6-14.6); RBC Distribution Width SD 44.2 fl (35.1-43.9); White Blood Count 7.8 K/mm3 (4.4-11.0)
[2021-03-03 15:31] LABS: Anion Gap 1 (5-15); BUN 8 mg/dL (7-18); BUN/Creat Ratio 9.9 RATIO (10-20); Calcium,Total 8.5 mg/dL (8.5-10.1); Chloride 106 mmol/L (98-107); Creatinine, Serum 0.81 mg/dL (0.55-1.02); EST Glomerular Filtration Rate 84 mL/min (>60); Est Glom Filt Rate - Afr Amer 101 mL/min (>60); Estimated Creatinine Clearance 86.43 ml/min; Glucose 181 mg/dL (74-106); Potassium 3.5 mmol/L (3.5-5.1); Sodium Level 138 mmol/L (136-145)
[2021-03-03 15:33] LABS: Urine Bilirubin Dipstick 1 mg/dL (Negative)
[2021-03-03 15:37] LABS: Bacteria 1+ /hpf (None Seen); Calcium Oxalate Crystals Ur 1+ /hpf (<or=2+); Mucous, Urine 1+ /hpf (<or=2+); Squamous Epithelial Cells - UA 0-5 SEEN /hpf (5-10); White Blood Cells 0-5 SEEN /hpf (0-5)
[2021-03-03 16:01] VITALS: BP 124/77; PULSE 68; RESP 15; O2SAT 98
== END 2021-03-03 16:10 | disposition home or self-care (01) ==
PROVIDERS: Emergency Provider Emergency Medicine; PCP Family Medicine
DX: I95.9 Hypotension, unspecified (principal); R53.81 Other malaise; I10 Essential (primary) hypertension; D64.9 Anemia, unspecified; M79.7 Fibromyalgia; G25.81 Restless legs syndrome; G89.4 Chronic pain syndrome; F32.9 Major depressive disorder, single episode, unspecified; E66.9 Obesity, unspecified; Z68.38 Body mass index [BMI] 38.0-38.9, adult; Z79.899 Other long term (current) drug therapy; Z87.891 Personal history of nicotine dependence
CPT/HCPCS: 80048; 81001; 85025; 93005; 99285; J7030; A4216

== ENCOUNTER 2021-03-30 15:45 | Observation (INO) | payer MEDICAID, SELFPAY ==
[2021-03-22 10:35] VITALS: BMI 38.7
[2021-03-29 16:48] LABS: Hematocrit 39.9 % (37-47); Hemoglobin 12.7 g/dL (12.0-15.0); Mean Corp Hgb Conc 31.8 g/dL (32-36); Mean Corpuscular Hgb 27.4 pg (27.0-32.0); Mean Corpuscular Volume 86.2 fL (81-99); Mean Platelet Vol. 11.2 fl (6.2-12.0); Platelet Count 210 K/mm3 (150-450); RBC Distribution Width CV 13.6 % (11.6-14.6); RBC Distribution Width SD 42.1 fl (35.1-43.9); Red Blood Count 4.63 M/mm3 (4.2-5.4); White Blood Count 6.2 K/mm3 (4.4-11.0)
[2021-03-30] VITALS (27 sets, daily range): BP systolic 119–148; BP diastolic 56–99; PULSE 58–90; RESP 16; TEMP 36.2–36.8; O2SAT 94–100; BMI 37.9
[2021-03-30 06:40] LABS: Internal QC Validated? YES +Cl - CLEAR BKGD; Pregnancy, Urine Negative Negative
[2021-03-30] MEDS: Phenazopyridine 95 MG Tablet 190 MG PO (06:51)
[2021-03-30] MEDS: Scopolamine 1mg/72hr Patch 1 PATCH TD (06:52)
[2021-03-30] MEDS: Gabapentin 600 MG Tablet PO ×2 (06:52→16:58)
[2021-03-30] MEDS: Acetaminophen 500 MG Tablet 1000 MG PO ×3 (06:52→23:10)
[2021-03-30] MEDS: dexAMETHasone 10 MG/ML Vial 8 MG IV (07:00)
[2021-03-30] MEDS: Lactated Ringers 1,000 ML 40 ML IV (07:09)
[2021-03-30 07:31] LABS: Bedside Glucose 111 mg/dL (70-110)
--- NOTE | 2021-03-30 07:53 | PCM.HP.OB ---
HPI - General HPI Narrative AJITH SUN, is a 40 F who presents for Robotic assisted total laparoscopic hysterectomy, bilateral salpingectomy, possible bilateral salpingo-oophorectomy, cystoscopy for abnormal uterine bleeding PFSH PFSH Medical History (Updated 03/29/21 @ 10:49 by Lisa Steward) Anemia Arthritis Asthma Back pain Candidal dermatitis Chronic pain Chronic pain syndrome Depression Depressive disorder Diabetes Fibromyalgia Former smoker History of stress test History of ulceration Hypertension Lumbar spinal stenosis Marijuana use Restless leg Type II diabetes mellitus Wears glasses Home Medications sumatriptan succinate 50 mg PO .X1 PRN 03/13/18 [History Last Taken 03/29/21] ondansetron 4 mg PO Q8H PRN PRN #10 tab 03/23/18 [Rx Last Taken 03/29/21] oxycodone-acetaminophen 10 mg-325 mg tablet 1 tab PO Q4H PRN 02/05/20 [History Last Taken 03/29/21] alprazolam [Xanax] 1 mg PO TID PRN PRN 03/20/20 [History Last Taken 03/30/21] quetiapine [Seroquel] 25 - 50 mg PO QHS 03/20/20 [History Last Taken 03/29/21] diphenhydramine HCl 50 mg PO TID PRN PRN #30 cap 04/07/20 [Rx Last Taken 03/29/21] epinephrine 0.3 mg IM X1 #2 syringe 04/07/20 [Rx Last Taken 03/29/21] escitalopram oxalate 5 mg tablet 10 mg PO DAILY 11/23/20 [History Last Taken 03/29/21] bupropion HCl 300 mg 24 hr tablet, extended release 300 mg PO DAILY tab 02/09/21 [History Last Taken 03/29/21] buspirone 10 mg tablet 20 mg PO TID tab 02/09/21 [History Last Taken 03/29/21] furosemide 20 mg tablet 20 mg PO PRN PRN tab 02/09/21 [History Last Taken 03/29/21] lamotrigine 25 mg tablet 150 mg PO DAILY tab 02/09/21 [History Last Taken 03/29/21] pantoprazole 40 mg tablet,delayed release 40 mg PO DAILY tab 02/09/21 [History Last Taken 03/30/21] promethazine 25 mg tablet 25 mg PO TID PRN 02/09/21 [History Last Taken 03/29/21] ropinirole 1 mg tablet 1 mg PO DAILY tab 02/09/21 [History Last Taken 03/29/21] gabapentin 600 mg PO TID 02/23/21 [History Last Taken 03/29/21] cholecalciferol (vitamin D3) 1,250 mcg (50,000 unit) capsule 1,250 mcg PO QWEEK #4 cap 03/02/21 [Rx Last Taken 03/29/21] lisinopril 10 mg tablet 10 mg PO DAILY tab 03/11/21 [History Last Taken 03/30/21] metoprolol succinate 50 mg tablet,extended release 24 hr 50 mg PO QHS tab 03/11/21 [History Last Taken 03/29/21] atomoxetine [Strattera] 40 mg PO DAILY 03/29/21 [History Last Taken 03/29/21] Allergy/AdvReac Type Severity Reaction Status Date / Time bee pollen Allergy Anaphylaxis Verified 03/29/21 10:43 ketorolac [From Toradol] Allergy Itching Verified 03/29/21 10:43 NSAIDS (Non-Steroidal Allergy GASTRIC Verified 03/30/21 06:38 Anti-Inflamma ULCERS Family History Mother Diabetes Hypertension Cancer Surgical History Carpal tunnel syndrome FHx: cholecystectomy Gastric bypass status for obesity History of surgery on arm Hx of arthroscopy of right knee Hx of tooth extraction Social History number of children: 4 current occupational status: unemployed other: children are adopted Smoking Status: Former smoker Tobacco: How many years used: 15 Electronic Cigarette Use: not used how long ago did patient quit smokin years ago second hand exposure: No alcohol intake: former substance use type: other details: medical marijuana caffeine: Yes seatbelt use: always do you feel safe at home: Yes History 0 Elective abortions Hx Para 0 Spontaneous abortions Hx # Term Pregnancies Ectopic pregnancies Hx # Pregnancies Multiple births # of living children ROS Eyes Eyes: Reports systems reviewed and no addt'l complaints, except as documented ENT HEENT: Reports systems reviewed and no addt'l complaints, except as documented Cardiovascular Cardiovascular: Reports systems reviewed and no addt'l complaints, except as documented Respiratory/Chest Respiratory/Chest: Reports systems reviewed and no addt'l complaints, except as documented Gastrointestinal Gastrointestinal: Reports systems reviewed and no addt'l complaints, except as documented Genitourinary Genitourinary: Reports systems reviewed and no addt'l complaints, except as documented Musculoskeletal Musculoskeletal: Reports systems reviewed and no addt'l complaints, except as documented Integumentary Integumentary: Reports systems reviewed and no addt'l complaints, except as documented Neurologic Neurologic: Reports systems reviewed and no addt'l complaints, except as documented Psychiatric Psychiatric: Reports systems reviewed and no addt'l complaints, except as documented Endocrine Endocrinology: Reports systems reviewed and no addt'l complaints, except as documented Hematologic/Lymphatic Hematologic/Lymphatic: Reports systems reviewed and no addt'l complaints, except as documented Allergic/Immunologic Allergic/Immunologic: Reports systems reviewed and no addt'l complaints, except as documented Vital Signs Vital Signs Vital Signs: 03/30/21 06:40 Temperature 97.2 F L Temperature Source Temporal Pulse Rate 58 L Respiratory Rate 16 Respiratory Pattern Normal Blood Pressure 119/56 L Blood Pressure Mean 77 Blood Pressure Source Monitor Blood Pressure Position Semi-Fowlers Blood Pressure Location Right Arm Pulse Ox 100 Oxygen Delivery Method Room Air Weight Weight: 235 lb 0.204 oz Body Mass Index (BMI) 37.9 Physical Exam Const alert, oriented x3, no apparent distress, average body habitus, healthy appearing and well nourished HEENT normocephalic and moist oral mucous membranes Head and Scalp: atraumatic Eyes PERRL and EOMs intact bilaterally Neck full ROM Resp normal respiratory effort, no retractions and no use of accessory muscles Cardio regular rate and regular rhythm GI soft to palpation, non-tender and non-distended Extremity normal to inspection and full ROM Skin no rashes or lesions noted Neuro no focal motor deficits and no sensory deficits noted Psych mental status grossly normal, affect normal, speech normal and activity/motor behavior normal Labs Labs Labs: Blood Type B POSITIVE Antibody Screen NEGATIVE Hct 39.9 % (37-47) Hgb 12.7 g/dL (12.0-15.0) HIV 1&2 Antibody Non-Reactive (Nonreactive) C.trachomatis DNA (PCR) Negative (Negative) Miscellaneous Test Assessment & Plan (1) Menorrhagia with regular cycle: COMMENT: US nl. Refer Dr Somers re TVH vs ablation PLAN: Patient presents for preop visit for robotic assisted total laparoscopic hysterectomy, bilateral salpingectomy, possible resulting oophorectomy, cystoscopy for menorrhagia Case previously rescheduled due to hypertensive urgency on induction of anesthesia-blood pressure is now well controlled after adjusting medications and patient now cleared by PCP No other changes to medical history or medications All questions again answered about the procedure. Full risks and benefits of the procedure were discussed previously with the patient Consent form signed in the office
[2021-03-30] MEDS: Cefazolin 2 GM in 0.9% Normal Saline 100 ML IV (08:00)
--- NOTE | 2021-03-30 08:00 | HYST_PTH ---
PATIENT: AJITH SUN LOC: MS3 U#:[id number] AGE/SX: 40/F ROOM: W[facility]325 RE03/30/[address]: Dr. Poornima Somers MD : [id number] BED: 1 DIS: 03/31/2021 SPEC #: [id number] RECD: 03/30/21 11:47 STATUS: MANISHA VILLA #: [id number] LORENZA: 03/30/21 08:[address]: Poornima Somers DEPT: SURGICAL PATHOLOGY RECD BY: Virgie Alcaraz ENTERED: 03/30/21 13:16 SP TYPE: HYSTERECT OTHR DR: Dr. Israel North DO Tissues: Uterus, NOS Procedures: Surgery Specimen Level V HEADER OPERATION: ERAS, robotic assisted total laparoscopic hysterectomy PRE-OP DIAGNOSIS: Menorrhagia with regular cycle TISSUE SUBMITTED: Uterus, cervix, bilateral fallopian tubes MICROSCOPIC DIAGNOSIS Uterus, cervix, bilateral fallopian tubes, hysterectomy and bilateral salpingectomy: Cervix - no pathologic diagnosis. Endometrium ? proliferative endometrium. Myometrium - no pathologic diagnosis. Serosal surface ? focal changes consistent with serosal adhesions. Bilateral fallopian tubes - no pathologic diagnosis. SJ:kim 03/31/2021 MICROSCOPIC DESCRIPTION Slides are reviewed. GROSS DESCRIPTION Received in fixative is one container labeled with the patient's name and designated uterus, cervix, bilateral fallopian tubes. The specimen consists of a hysterectomy specimen consisting of uterus with cervix and detached bilateral fallopian tubes. The uterus with cervix weighs 88 gm and measures 9 x 7 x 4 cm. The serosal surface is ragged. The ectocervical mucosa is unremarkable. The external os is slit-like in contour. The endocervical canal measures 3 cm in length and the endocervical mucosa is adan, glistening and unremarkable. The triangular endometrial cavity measures 4.5 cm in length and 2.5 cm in width. The endometrium is adan, glistening without any mass lesion and measures 0.1 cm in thickness. Sections of the uterine wall do not reveal any mass lesion and it measures up to 2 cm in thickness. Also present in the container are two detached bilateral fallopian tubes. The fallopian tubes are not identified as right or left and measures 6.5 cm in length and 0.6 cm in diameter and 6 cm in length and 0.7 cm in diameter. The fimbrial ends are identified. Sections reveal unremarkable cut surfaces. Database Admin sections are submitted in eight cassettes as follows: 1 - anterior cervix, 2 - posterior cervix, 3 & 4 - anterior uterine wall, 5 & 6 - posterior uterine wall, 7 & 8 - bilateral fallopian tubes with each cassette containing one fallopian tube. / SCARLET:kim 03/30/21 TC:5 CPT: 92271
[2021-03-30] MEDS: Lactated Ringers 1,000 ML 70 ML IV (09:15)
[2021-03-30] MEDS: Ondansetron 4 MG/2 ML Vial IV (10:26)
[2021-03-30] MEDS: Ropivacaine 0.5% 30 ML Vial (10:50)
--- NOTE | 2021-03-30 11:28 | PCM.OPRPT ---
Problems Associated Problem List Diagnoses (1) Menorrhagia with regular cycle: Report of Operation Date of Procedure: 03/30/21 Pre-Operative Diagnosis: Abnormal uterine bleeding Post-Operative Diagnosis: Same Surgery/Procedure Performed:: Robotic assisted total laparoscopic hysterectomy, bilateral salpingectomy, cystoscopy Description of Surgical Findings:: Small filmy adhesions noted between the bowel and the pelvic sidewalls bilaterally. Filmy adhesions noted in the posterior cul-de-sac. Normal-appearing uterus, tubes, ovaries bilaterally. Surgeon: yecenia Type of Anesthesia: General Special Medications: Ancef 2 g Specimen's removed: Uterus, cervix, bilateral fallopian tubes Drains: Davenport Estimated Blood Loss (mL): 50 cc Description of Procedure: The patient was taken to the operating room where general anesthesia was obtained without difficulty. She was prepped and draped in the dorsolithotomy position with yellowfin stirrups. Weighted speculum was placed in the posterior aspect of the vagina and the anterior lip of the cervix was grasped with a single-tooth tenaculum. The cervix was sequentially dilated in order to accommodate a Aventicular uterine manipulator. Gloves were changed and attention was directed to the abdominal cavity. A 5 mm incision was made in the left upper quadrant and the varies needle was inserted without difficulty. The abdomen was insufflated. The Veress needle was removed and a 5 mm Optiview port was placed under direct visualization. Intra-abdominal placement was confirmed. 8 mm incisions were made in the right and left lower quadrants and approximately 2 fingerbreadths above the umbilicus and robotic ports were placed. A 12 mm accessory port was placed in the right upper quadrant. Findings were as above. The patient was placed in steep Trendelenburg positioning and the bowel was displaced superiorly. The da Severo robot was subsequently docked without any complications.the bilateral fallopian tubes were elevated and grasped. The mesosalpinx was cauterized and transected bilaterally. The fallopian tubes were amputated at the cornual region and removed through the accessory port. The utero-ovarian ligaments were identified bilaterally.. These were cauterized and transected with the bipolar cautery and the EndoShears. This was followed by the round ligament, which was cauterized and transected in a similar fashion. The anterior leaf of the broad ligament was entered and the bladder flap dissected off of the lower uterine segment and cervix without complications. The uterine arteries bilaterally were skeletonized, cauterized, and transected. At this time, the uterus was blanched effectively demonstrating that the blood supply to the uterus had been terminated. The colpotomy cup was made with the monopolar scissors and carried around the entire cervicovaginal junction until the cervix and uterus were released from its connection to the vagina. The cervix and uterus were removed from the abdominal cavity through the vagina. A pneumooccluder was then placed in the vagina. The cuff was then closed in a running fashion using oh V-Loc suture. The abdomen was copiously irrigated, cleared of all clots and debris, and the pedicles were examined and noted to be hemostatic. Occluder was then removed from the vagina. Attention was then directed to the pelvis to perform a cystoscopy. Davenport catheter was removed and the cystoscope was introduced into the bladder. The bladder was inspected and no evidence of trauma was noted. Vigorous spill was noted bilaterally from the ureters. The cystoscope was then removed from the bladder. Gloves were changed and all the instruments were subsequently removed from the patient?s abdomen and vagina, and the 12-mm fascial defect was closed with a #0 Vicryl stitch, and the five skin incisions were closed with #4-0 Monocryl for excellent hemostasis and reapproximation. All counts were correct x2. The patient was awakened and taken to the recovery room in stable condition. Complications None apparent Admit VTE Documentation VTE Present on Admission: No VTE Mechan Device Prophylaxis: SCD's VTE Pharm Prophylaxis ordered?: Yes Procedures Urinary/Genital [id number]: [id number] TLH+BS/O <250gr uterus (Robotic assisted)
--- NOTE | 2021-03-30 12:13 | SUR.PHASEI ---
AT APPROXIMATELY 1145 AWAKENED WITH C/O INABILITY TO BREATH DUE TO SIMPLE MASK O2; MASK REMOVED AND REPLACED WITH O2 AT 4L/NC. FACE FLUSH; SKIN DIAPHORETIC; C/O FEELING VERY HOT. COVERS REMOVED; SCD BILAT REMOVED. WARMING BLANKET REMOVED. ATTEMPTED TO VOID PER BEDPAN. STATES IS AFRAID TO PEE BECAUSE OF THE POSSIBILTY OF PAIN ON URINATION. ON BEDPAN FOR APPROXIMATELY 15 MIN. VOIDED A SMALL NON-MEASURABLE AMOUNT OF CONCENTRATED URINE.
--- NOTE | 2021-03-30 13:12 | PCM.DC ---
Discharge Instructions Diet Discharge Diet: No restrictions Activity Discharge Activity: May Not Drive (While on narcotic pain medication) and May Shower May resume sexual activity in: 8 weeks Lifting Restrictions: No lifting greater than 20 pounds until postop visit Dressing / Incision Call your doctor if your incision/area has: Continuous Slow Oozing, Sudden Increased Bleeding, Increased Pain/ Swelling, Increased Redness, Foul Smelling Discharge and Swelling at the incision site Call your doctor if you observe: Fever of 101 or Higher, Inability to urinate, Using more than 1 pad per hour, Shortness of breath, Dizziness, Fainting spells, Chest pain and Uncontrolled pain Remove Dressing in: 1 week Cleanse incision/area with: Soap & Water Follow Up Care Please Follow Up With: Poornima Somers MD When: 2 weeks Test Results: Test results from this visit will be discussed in further detail at your follow-up appointment, if applicable. Discharge Plan Admission Attending Provider: Poornima Somers Primary Care Provider: Israle North Discharge Orders/Prescriptions Prescriptions: No Action oxycodone-acetaminophen [Percocet] 10-325 mg tablet 1 tab PO Q4H PRN (Reason: Pain Score 1-10/10) RF: 0 escitalopram oxalate [Lexapro] 5 mg tablet 10 mg PO DAILY RF: 0 buspirone 10 mg tablet 20 mg PO TID RF: 0 lamotrigine [Lamictal] 25 mg tablet 150 mg PO DAILY RF: 0 bupropion HCl 300 mg tablet extended release 24 hr 300 mg PO DAILY RF: 0 ropinirole 1 mg tablet 1 mg PO DAILY RF: 0 furosemide 20 mg tablet 20 mg PO PRN PRN (Reason: Edema) RF: 0 pantoprazole 40 mg tablet,delayed release (DR/EC) 40 mg PO DAILY RF: 0 promethazine 25 mg tablet 25 mg PO TID PRN (Reason: Nausea) RF: 0 metoprolol succinate 50 mg tablet extended release 24 hr 50 mg PO QHS RF: 0 lisinopril 10 mg tablet 10 mg PO DAILY RF: 0 sumatriptan succinate 50 MG tablet 50 mg PO .X1 PRN RF: 0 ondansetron 4 MG tablet 4 mg PO Q8H PRN PRN (Reason: Nausea) Qty: 10 RF: 0 quetiapine [Seroquel] 25 MG tablet 25 - 50 mg PO QHS RF: 0 alprazolam [Xanax] 1 MG tablet 1 mg PO TID PRN PRN (Reason: Anxiety) RF: 0 epinephrine 0.3 MG syringe 0.3 mg IM X1 Qty: 2 RF: 0 diphenhydramine HCl 25 MG capsule 50 mg PO TID PRN PRN (Reason: Allergies) Qty: 30 RF: 0 gabapentin 600 mg tablet 600 mg PO TID RF: 0 atomoxetine [Strattera] 40 mg Capsule 40 mg PO DAILY RF: 0 cholecalciferol (vitamin D3) 1,250 mcg (50,000 unit) capsule 1,250 mcg PO QWEEK Qty: 4 RF: 2
[2021-03-30] MEDS: HYDROmorphone 0.5 MG/0.5 ML SYRINGE IV (16:58)
[2021-03-30] MEDS: oxyCODONE 5 MG Tablet PO (21:02)
[2021-03-30] MEDS: Docusate Sodium 100 MG Capsule PO (21:03)
[2021-03-30] MEDS: busPIRone 5 MG Tablet 20 MG PO (21:03)
[2021-03-30] MEDS: QUEtiapine 25 MG Tablet PO (21:04)
[2021-03-30] MEDS: Metoprolol(XL)Succ 50 MG Tablet PO (21:05)
[2021-03-30] MEDS: Pramipexole Di-HCl 0.5 MG Tablet PO (21:10)
[2021-03-30] MEDS: Rizatriptan Benzoate 10 MG Tablet PO (23:57)
[2021-03-31] MEDS: Acetaminophen 500 MG Tablet 1000 MG PO (06:19)
[2021-03-31] MEDS: busPIRone 5 MG Tablet 20 MG PO (06:19)
[2021-03-31] MEDS: oxyCODONE 5 MG Tablet PO ×2 (06:23→10:39)
[2021-03-31 06:30] VITALS: BP 120/68; PULSE 67; RESP 16; TEMP 37.1; O2SAT 100
[2021-03-31 07:20] LABS: Hematocrit 38.1 % (37-47); Hemoglobin 12.3 g/dL (12.0-15.0); Mean Corp Hgb Conc 32.3 g/dL (32-36); Mean Corpuscular Hgb 27.7 pg (27.0-32.0); Mean Corpuscular Volume 85.8 fL (81-99); Mean Platelet Vol. 11.2 fl (6.2-12.0); Platelet Count 212 K/mm3 (150-450); RBC Distribution Width CV 13.5 % (11.6-14.6); RBC Distribution Width SD 41.8 fl (35.1-43.9); Red Blood Count 4.44 M/mm3 (4.2-5.4); White Blood Count 13.4 K/mm3 (4.4-11.0)
[2021-03-31 07:33] VITALS: O2SAT 95
--- NOTE | 2021-03-31 08:41 | PCM.PN.OB ---
Subjective Subjective Patient seen and examined. Reports doing. Pain controlled. Tolerating p.o. intake. Passing gas. Ambulating and voiding without difficulty. Denies fevers, chills, chest pain, shortness of breath, lightheadedness, dizziness Objective Data Objective Data Vital Signs: Vital Signs Temp Pulse Resp BP Pulse Ox 98.8 F 67 16 120/68 95 03/31/21 06:30 03/31/21 06:30 03/31/21 06:30 03/31/21 06:30 03/31/21 07:33 Oxygen Flow Rate (L/min) 4 Oxygen Delivery Method Room Air Weight: 235 lb 0.204 oz Body Mass Index (BMI) 37.9 Intake & Output: Intake and Output for Last 24 Hours 03/29/21 03/30/21 03/31/21 23:59 23:59 23:59 Intake Total 2915.17 / 2915.17 Output Total 1700 / 1700 Balance 1215.17 / 1215.17 Lab / Micro Data Result Diagrams: 03/31/21 06:54 Labs: Laboratory Results - last 24 hr 03/31/21 06:54: WBC 13.4 H, RBC 4.44, Hgb 12.3, Hct 38.1, MCV 85.8, MCH 27.7, MCHC 32.3, RDW Std Deviation 41.8, RDW Coeff of [place] 13.5, Plt Count 212, MPV 11.2 Micro: Microbiology 03/29/21 16:08 Interface Orders SARS-CoV-2 Antigen (Rapid) - Final ROS Constitutional Constitutional: Denies fever(s) Cardiovascular Cardiovascular: Denies chest pain, dyspnea or lightheadedness Gastrointestinal Gastrointestinal: Reports abdominal pain; Denies constipation or diarrhea Neurologic Neurologic: Denies dizziness or headache(s) Physical Exam Const alert, oriented x3, no apparent distress, average body habitus, healthy appearing and well nourished HEENT normocephalic Head and Scalp: atraumatic Eyes PERRL and EOMs intact bilaterally Neck full ROM Lymph Lymphatic: no lymphadenopathy noted Resp normal respiratory effort, no retractions and no use of accessory muscles Cardio regular rate GI soft to palpation, non-tender and non-distended Inspection: incision intact and other (dressing in place) Extremity normal to inspection and no clubbing, cyanosis or edema Skin no rashes or lesions noted Neuro no focal motor deficits and no sensory deficits noted Psych mental status grossly normal, affect normal and speech normal Assessment & Plan (1) S/P hysterectomy: PLAN: Patient meeting postop milestones Ambulating and voiding without difficulty Passing gas Tolerating p.o. intake without nausea or vomiting Pain controlled. Patient has a pain contract with pain management-does not need narcotic prescription on discharge Anticipate discharge to home later this morning
[2021-03-31 08:45] VITALS: BP 122/80; PULSE 66; RESP 18; TEMP 36.7; O2SAT 94
[2021-03-31] MEDS: Docusate Sodium 100 MG Capsule PO (08:48)
[2021-03-31] MEDS: Gabapentin 600 MG Tablet PO (08:48)
[2021-03-31] MEDS: Pantoprazole Sodium 40 MG Tablet PO (08:49)
[2021-03-31] MEDS: buPROPion (XL) 300 MG TABLET.XL PO (08:49)
[2021-03-31] MEDS: Lisinopril 10 MG Tablet PO (08:49)
[2021-03-31] MEDS: Escitalopram Oxalate 10 MG Tablet PO (08:49)
== END 2021-03-31 11:20 | disposition home or self-care (01) ==
LOC: MS3 16:19 → SDC 04-02 16:44
PROVIDERS: Anesthesiology; Admitting Provider Obstetrics & Gynecology; PCP Family Medicine; Referring Provider Obstetrics & Gynecology; Visit Provider Obstetrics & Gynecology
PROC: 0UT94ZZ Resection of Uterus, Percutaneous Endoscopic Approach (ICD-10-PCS; CPT 58571; principal; 2021-03-30 07:40)
DX: N92.0 Excessive and frequent menstruation with regular cycle (principal); M19.90 Unspecified osteoarthritis, unspecified site; J45.909 Unspecified asthma, uncomplicated; F32.9 Major depressive disorder, single episode, unspecified; G89.4 Chronic pain syndrome; M79.7 Fibromyalgia; E11.9 Type 2 diabetes mellitus without complications; G25.81 Restless legs syndrome; M48.061 Spinal stenosis, lumbar region without neurogenic claudication; I10 Essential (primary) hypertension; Z87.891 Personal history of nicotine dependence; Z79.899 Other long term (current) drug therapy; Z98.84 Bariatric surgery status
CPT/HCPCS: 00940; 58571; S2900; 36415; 81025; 82962; 85027; 86850; 86900; 86901; 87426; 88307; 96374; 99218; 99251; C9803; J7120; G0378; G0463; J2405

== ENCOUNTER 2021-04-07 18:11 | Emergency (ER) | payer MEDICAID, SELFPAY ==
[2021-04-07 18:13] VITALS: BP 140/102; PULSE 82; RESP 15; TEMP 35.9; O2SAT 100; BMI 37.9
[2021-04-07 18:17] VITALS: BP 140/102; PULSE 82; RESP 15; TEMP 35.9; O2SAT 100
[2021-04-07 19:09] LABS: Bacteria 0 SEEN /hpf (None Seen); Color, Urine Yellow (Yellow); Glucose, Dipstick Normal (Normal); Ketone-Dipstick Negative (Negative); Leukocyte Esterase-Dipstick Negative /ul (Negative); Mucous, Urine 0 SEEN /hpf (<or=2+); Nitrite-Dipstick Negative (Negative); Occult Blood-Urine Negative /ul (Negative); Protein-Dipstick Negative (Negative); Red Blood Cells-Urine 0 SEEN /hpf (0-5); Urine Bilirubin Dipstick Negative (Negative); Urine Clarity Clear (Clear); Urine Urobilinogen Normal (Normal); Urine pH 6.5 (5.0 - 8.0); White Blood Cells 0 SEEN /hpf (0-5)
[2021-04-07 19:16] LABS: Squamous Epithelial Cells - UA 0-5 SEEN /hpf (5-10)
[2021-04-07 19:26] LABS: Absolute Lymphocyte Count 1.79 X10^3/uL (0.83-4.51); Absolute Neutrophil Count 5.3 X10^3/uL (2.0-7.7); Basophil# 0.03 X10^3/uL; Basophil% 0.4 % (0-1); Eosinophil# 0.49 X10^3/uL; Eosinophils% 6.1 % (0-5); Hematocrit 43.1 % (37-47); Hemoglobin 13.7 g/dL (12.0-15.0); Lymphocyte # 1.79 X10^3/ul (0.83-4.51); Lymphocyte % 22.3 % (19-41); Mean Corp Hgb Conc 31.8 g/dL (32-36); Mean Corpuscular Hgb 27.3 pg (27.0-32.0); Mean Corpuscular Volume 85.9 fL (81-99); Mean Platelet Vol. 10.5 fl (6.2-12.0); Monocyte# 0.38 X10^3/uL; Monocyte% 4.7 % (0-10); NRBC Flagged by Analyzer 0 % (0-5); Neutrophil # 5.32 X10^3/uL (2.7-7.7); Neutrophil % 66.1 % (47-70); Platelet Count 265 K/mm3 (150-450); RBC Distribution Width CV 13.3 % (11.6-14.6); RBC Distribution Width SD 41.5 fl (35.1-43.9); Red Blood Count 5.02 M/mm3 (4.2-5.4)
[2021-04-07] MEDS: Ondansetron 4 MG/2 ML Vial IV (19:28)
[2021-04-07] MEDS: 0.9% Normal Saline 1,000 ML 1000 ML IV (19:28)
[2021-04-07] MEDS: Morphine 4 MG/ML Syringe IV (19:30)
[2021-04-07 19:34] VITALS: BP 134/90; PULSE 83; RESP 18; TEMP 37.1; O2SAT 98
[2021-04-07 19:38] LABS: AST(SGOT) 12 U/L (15-37); Alanine Aminotransfer ALT/SGPT 17 U/L (13-56); Alkaline Phosphatase 83 U/L (45-117); Anion Gap 8 (5-15); BUN 7 mg/dL (7-18); BUN/Creat Ratio 8.4 RATIO (10-20); Calcium,Total 9.1 mg/dL (8.5-10.1); Chloride 101 mmol/L (98-107); Creatinine, Serum 0.84 mg/dL (0.55-1.02); EST Glomerular Filtration Rate 80 mL/min (>60); Est Glom Filt Rate - Afr Amer 97 mL/min (>60); Estimated Creatinine Clearance 83.34 ml/min; Globulin 4.2 g/dL (2.2-4.2); Glucose 174 mg/dL (74-106); Potassium 3.8 mmol/L (3.5-5.1); Protein, Total 8.2 g/dL (6.4-8.2); Sodium Level 136 mmol/L (136-145)
--- NOTE | 2021-04-07 20:00 | CT_ITS ---
HISTORY: Abdominal pain EXAMINATION: CT Abdomen And Pelvis W/ Contrast Injection TECHNIQUE: Helically acquired images were obtained of the abdomen and pelvis following IV contrast. A radiation dose optimization technique was used for this scan. IV Contrast dosage and agent: 100mL Isovue-370 Oral contrast: None. COMPARISON: 04/17/20 FINDINGS: LOWER CHEST: Lung bases are clear. No cardiomegaly or pericardial effusion. LIVER: Homogeneous enlargement to 20 cm. No focal mass. GALLBLADDER AND BILIARY TREE: Cholecystectomy. No intra- or extrahepatic biliary ductal dilation. PANCREAS: No focal cystic or solid mass. SPLEEN: Splenomegaly without focal cystic or solid mass. ADRENAL GLANDS: No nodules. KIDNEYS AND URETERS: Normal renal size and position. No hydronephrosis. PERITONEUM: No free air. Small amount of pelvic ascites. BOWEL: Normal appendix. No stomach or bowel distension. Increased small bowel fluid contents with scattered fluid levels. No focal inflammatory bowel wall changes. Prior gastric surgery. LYMPH NODES: No enlarged mesenteric or retroperitoneal lymph nodes. VESSELS: Aorta is non-dilated. URINARY BLADDER: Unremarkable. REPRODUCTIVE ORGANS: No pelvic masses. Uterus absent. ABDOMINAL WALL: No discrete abdominal or pelvic wall hernia. BONES: No acute or aggressive abnormality. CT/Abdomen/Pelvis W IV Cont ONLY IMPRESSION: Nonspecific small bowel changes most consistent with enteritis in the appropriate clinical setting. Hepatosplenomegaly. Individualized dose optimization techniques were used for this CT. at 2102 Reported and signed by: Clyde Alvarado MD Electronically Signed: Clyde Alvarado MD at 21:01 EDT Tel , Service support ,
--- NOTE | 2021-04-07 22:29 | EDS_ITS ---
HPI HPI - GI History of Present Illness Chief Complaint: Abd Pain Abdominal Pain/Flank Pain Onset: Yesterday Context: Gradual Onset Timing: Continuous Quality: - (Pressure) Location: RLQ and LLQ Worsened by: Movement (Bending forward) Relieved by: - (Applying pressure to her lower abdomen) Nausea/Vomiting/Emesis GI Symptom: Negative for Nausea and Vomiting Diarrhea/Melena/Hematochezia GI Symptom: Negative for Diarrhea, Melena and Hematochezia Associated Symptoms Associated Symptoms: Positive for Frequency; Negative for Dysuria and Hematuria Narrative Narrative: Patient presents with abdominal pain that has been getting worse since yesterday. Patient states it feels like pressure in her lower abdomen. Patient had a recent hysterectomy. Patient states it is worse whenever she bends forward. Patient states it is better whenever she applies pressure to her lower abdomen. Patient admits to some urinary frequency but denies any dysuria or hematuria. Patient denies any fevers or chills. Patient denies any nausea or vomiting. Patient denies any diarrhea, melena, or hematochezia. PFSH PFSH Medical History Anemia Arthritis Asthma Back pain Candidal dermatitis Chronic pain Chronic pain syndrome Depression Depressive disorder Diabetes Fibromyalgia Former smoker History of stress test History of ulceration Hypertension Hypertension Lumbar spinal stenosis Marijuana use Restless leg Type II diabetes mellitus Wears glasses Home Medications ondansetron 4 mg PO Q8H PRN PRN #10 tab 03/23/18 [Rx Last Taken 03/29/21] oxycodone-acetaminophen 10 mg-325 mg tablet 1 tab PO Q4H PRN 02/05/20 [History Last Taken 03/29/21] alprazolam [Xanax] 1 mg PO TID PRN PRN 03/20/20 [History Last Taken 03/30/21] quetiapine [Seroquel] 25 - 50 mg PO QHS 03/20/20 [History Last Taken 03/29/21] diphenhydramine HCl 50 mg PO TID PRN PRN #30 cap 04/07/20 [Rx Last Taken 03/29/21] epinephrine 0.3 mg IM X1 #2 syringe 04/07/20 [Rx Last Taken 03/29/21] escitalopram oxalate 5 mg tablet 10 mg PO DAILY 11/23/20 [History Last Taken 03/29/21] bupropion HCl 300 mg 24 hr tablet, extended release 300 mg PO DAILY tab 02/09/21 [History Last Taken 03/29/21] buspirone 10 mg tablet 20 mg PO TID tab 02/09/21 [History Last Taken 03/29/21] furosemide 20 mg tablet 20 mg PO PRN PRN tab 02/09/21 [History Last Taken 03/29/21] lamotrigine 25 mg tablet 150 mg PO DAILY tab 02/09/21 [History Last Taken 03/29/21] pantoprazole 40 mg tablet,delayed release 40 mg PO DAILY tab 02/09/21 [History Last Taken 03/30/21] promethazine 25 mg tablet 25 mg PO TID PRN 02/09/21 [History Last Taken 03/29/21] ropinirole 1 mg tablet 1 mg PO QHS tab 02/09/21 [History Last Taken 03/29/21] gabapentin 600 mg PO TID 02/23/21 [History Last Taken 03/29/21] cholecalciferol (vitamin D3) 1,250 mcg (50,000 unit) capsule 1,250 mcg PO QWEEK #4 cap 03/02/21 [Rx Last Taken 03/29/21] lisinopril 10 mg tablet 10 mg PO DAILY tab 03/11/21 [History Last Taken 03/30/21] metoprolol succinate 50 mg tablet,extended release 24 hr 50 mg PO QHS tab 03/11/21 [History Last Taken 03/29/21] atomoxetine [Strattera] 40 mg PO DAILY 03/29/21 [History Last Taken 03/29/21] sumatriptan succinate 50 - 100 mg PO BID PRN PRN 03/30/21 [History Last Taken Unknown] Allergy/AdvReac Type Severity Reaction Status Date / Time bee pollen Allergy Anaphylaxis Verified 03/29/21 10:43 ketorolac [From Toradol] Allergy Itching Verified 03/29/21 10:43 NSAIDS (Non-Steroidal Allergy GASTRIC Verified 03/30/21 06:38 Anti-Inflamma ULCERS Family History Mother Diabetes Hypertension Cancer Surgical History Carpal tunnel syndrome FHx: cholecystectomy Gastric bypass status for obesity History of surgery on arm Hx of arthroscopy of right knee Hx of tooth extraction S/P hysterectomy Social History number of children: 4 current occupational status: unemployed other: children are adopted Smoking Status: Former smoker Tobacco: How many years used: 15 Electronic Cigarette Use: not used how long ago did patient quit smokin years ago second hand exposure: No alcohol intake: former substance use type: other details: medical marijuana caffeine: Yes seatbelt use: always do you feel safe at home: Yes ROS ROS ED Constitutional Constitutional ED: Denies chills or fever(s) Eyes Eyes: Denies blurry vision or change in vision ENT ENT ED: Denies rhinorrhea or sore throat Cardiovascular Cardiovascular: Denies chest pain or palpitations Respiratory/Chest Respiratory/Chest: Denies cough or dyspnea Gastrointestinal Gastrointestinal: Reports abdominal pain; Denies nausea or vomiting Genitourinary Genitourinary ED: Reports urinary frequency; Denies dysuria or hematuria Musculoskeletal Musculoskeletal: Denies back pain or neck pain Integumentary Denies abscess or rash Neurologic Neurologic: Denies headache(s) or weakness Allergic/Immunologic Allergic/Immunologic ED: Denies mouth swelling or urticaria EXAM Physical Exam Const Vital Signs: 04/07/21 18:13 04/07/21 18:17 04/07/21 19:34 Temperature 96.7 F L 96.7 F L 98.8 F Temperature Source Temporal Temporal Oral Pulse Rate 82 82 83 Respiratory Rate 15 15 18 Blood Pressure 140/102 H 140/102 H 134/90 H Blood Pressure Mean 114 114 104 Pulse Ox 100 100 98 Oxygen Delivery Method Room Air Room Air Room Air 04/07/21 22:47 Temperature Temperature Source Pulse Rate 62 Respiratory Rate 15 Blood Pressure 124/77 H Blood Pressure Mean Pulse Ox 98 Oxygen Delivery Method Positive well nourished and well developed General Appearance ED: well developed HEENT Reports moist mucous membranes Neck supple and no JVD Resp normal respiratory effort and clear to auscultation bilaterally Cardio regular rate, regular rhythm and no murmurs GI normal to inspection, nondistended, normoactive bowel sounds and non-distended Auscultation: normoactive bowel sounds Palpation: soft and tender suprapubic; Negative for guarding or rebound tenderness present Extremity normal to inspection General Extremety ED: Negative for edema or tenderness General Extremity: Negative for edema Neuro oriented x3, CN's II-XII intact bilaterally and no sensory deficits noted Sensorium / Orientation: alert Motor Exam: strength 5/5 throughout Psych mental status grossly normal Skin no rashes or lesions noted MDM MDM MDM Narrative Medical decision making narrative: Patient was given IV fluids, morphine, and Zofran. CBC and comprehensive metabolic profile were obtained were within normal limits. Urinalysis does not show any evidence of urinary tract infection. CT scan of the abdomen and pelvis was obtained. There are nonspecific small bowel changes. There is no evidence of obstruction or perforation. There is no evidence of any abscess. This was interpreted by the radiologist and reviewed by myself. Patient was feeling better on reevaluation. Patient states she has Zofran at home. Patient was instructed to use this as needed for nausea and vomiting. Patient was instructed to start with a liquid diet and advance to a bland diet and then regular diet as she feels better. Patient was instructed to follow-up with her primary care physician in 5 to 7 days. Patient was instructed return if worse in any way. Patient understood and was agreeable with the plan. All questions were answered. Lab Data Attestation: I reviewed the patient's lab results. Labs: Laboratory Results - last 24 hr 04/07/21 04/07/21 04/07/21 18:30 18:45 18:45 WBC 8.0 RBC 5.02 Hgb 13.7 Hct 43.1 MCV 85.9 MCH 27.3 MCHC 31.8 L RDW Std Deviation 41.5 RDW Coeff of [place] 13.3 Plt Count 265 MPV 10.5 Immature Gran % (Auto) 0.400 Neut % (Auto) 66.1 Lymph % (Auto) 22.3 [place] % (Auto) 4.7 Eos % (Auto) 6.1 H Baso % (Auto) 0.4 Absolute Neuts (auto) 5.3 Absolute Lymphs (auto) 1.79 Nucleated RBC % 0 Sodium 136 Potassium 3.8 Chloride 101 Carbon Dioxide 27.0 Anion Gap 8 BUN 7 Creatinine 0.84 Estim Creat Clear Calc 83.34 Est GFR (MDRD) Af Amer 97 Est GFR (MDRD) Non-Af 80 BUN/Creatinine Ratio 8.4 L Glucose 174 H Calcium 9.1 Total Bilirubin 0.30 AST 12 L ALT 17 Alkaline Phosphatase 83 Total Protein 8.2 Albumin 4.0 Globulin 4.2 Albumin/Globulin Ratio 1.0 Urine Color Yellow Urine Clarity Clear Urine pH 6.5 Ur Specific [place] 1.010 Urine Protein Negative Urine Glucose (UA) Normal Urine Ketones Negative Urine Occult Blood Negative Urine Nitrite Negative Urine Bilirubin Negative Urine Urobilinogen Normal Ur Leukocyte Esterase Negative Urine RBC 0 SEEN Urine WBC 0 SEEN Ur Squamous Epith Cells 0-5 SEEN Urine Bacteria 0 SEEN Urine Mucus 0 SEEN Radiography Diagnostic Testing: Radiology Impression Abdomen/Pelvis CT 04/07/21 20:00 IMPRESSION: Nonspecific small bowel changes most consistent with enteritis in the appropriate clinical setting. Hepatosplenomegaly. Individualized dose optimization techniques were used for this CT. at 2102 Reported and signed by: Clyde Alvarado MD Electronically Signed: Clyde Alvarado MD at 21:01 EDT Tel , Service support , Discharge Plan Triage Chief Complaint: Abd Pain ED Provider: Myron Silva Dx/Rx/DC Orders Clinical Impression: Abdominal pain in female Instructions: ED Abdominal Pain Unkn Cause Fem Prescriptions: No Action oxycodone-acetaminophen [Percocet] 10-325 mg tablet 1 tab PO Q4H PRN (Reason: Pain Score 1-10/10) RF: 0 escitalopram oxalate [Lexapro] 5 mg tablet 10 mg PO DAILY RF: 0 buspirone 10 mg tablet 20 mg PO TID RF: 0 lamotrigine [Lamictal] 25 mg tablet 150 mg PO DAILY RF: 0 bupropion HCl 300 mg tablet extended release 24 hr 300 mg PO DAILY RF: 0 ropinirole 1 mg tablet 1 mg PO QHS RF: 0 furosemide 20 mg tablet 20 mg PO PRN PRN (Reason: Edema) RF: 0 pantoprazole 40 mg tablet,delayed release (DR/EC) 40 mg PO DAILY RF: 0 promethazine 25 mg tablet 25 mg PO TID PRN (Reason: Nausea) RF: 0 metoprolol succinate 50 mg tablet extended release 24 hr 50 mg PO QHS RF: 0 lisinopril 10 mg tablet 10 mg PO DAILY RF: 0 ondansetron 4 MG tablet 4 mg PO Q8H PRN PRN (Reason: Nausea) Qty: 10 RF: 0 quetiapine [Seroquel] 25 MG tablet 25 - 50 mg PO QHS RF: 0 alprazolam [Xanax] 1 MG tablet 1 mg PO TID PRN PRN (Reason: Anxiety) RF: 0 epinephrine 0.3 MG syringe 0.3 mg IM X1 Qty: 2 RF: 0 diphenhydramine HCl 25 MG capsule 50 mg PO TID PRN PRN (Reason: Allergies) Qty: 30 RF: 0 gabapentin 600 mg tablet 600 mg PO TID RF: 0 atomoxetine [Strattera] 40 mg Capsule 40 mg PO DAILY RF: 0 sumatriptan succinate 50 mg tablet 50 - 100 mg PO BID PRN PRN (Reason: migraines) RF: 0 cholecalciferol (vitamin D3) 1,250 mcg (50,000 unit) capsule 1,250 mcg PO QWEEK Qty: 4 RF: 2 Primary Care Provider: Israel North Referrals: Israel North DO [Primary Care Provider] - 3-5 Days Disposition Disposition: Home, Self Care Discharge Date/Time: 04/07/21 22:50
[2021-04-07 22:47] VITALS: BP 124/77; PULSE 62; RESP 15; O2SAT 98
== END 2021-04-07 22:50 | disposition home or self-care (01) ==
PROVIDERS: Emergency Provider Emergency Medicine; PCP Family Medicine
DX: R10.31 Right lower quadrant pain (principal); R10.32 Left lower quadrant pain; R35.0 Frequency of micturition; M19.90 Unspecified osteoarthritis, unspecified site; E11.9 Type 2 diabetes mellitus without complications; M79.7 Fibromyalgia; I10 Essential (primary) hypertension; D64.9 Anemia, unspecified; F32.9 Major depressive disorder, single episode, unspecified; Z79.899 Other long term (current) drug therapy; Z87.891 Personal history of nicotine dependence
CPT/HCPCS: 74177; 80053; 81001; 85025; 96361; 96374; 96375; 99283; J7030; Q9967; A4216; J2405

== ENCOUNTER → 2021-06-24 11:14 | Outpatient (CLI) | payer MEDICAID, SELFPAY ==
[2021-06-24 11:45] VITALS: BP 121/85; PULSE 77; RESP 16; TEMP 35.9
[2021-06-24] MEDS: 0.9% NaCl Peripheral Flush Adult/Peds IV (11:59)
[2021-06-24] MEDS: 0.9% NaCl IVPB Med Flush (250 mL) 15 ML IV (12:05)
[2021-06-24] MEDS: Sodium Ferric Gluconat 250 MG in 0.9% Normal Saline 250 ML 135 MG IV (12:05)
[2021-06-24 14:51] VITALS: BP 124/67; PULSE 78
== END ==
PROVIDERS: PCP Family Medicine; Referring Provider Family Medicine; Visit Provider Family Medicine
DX: E61.1 Iron deficiency (principal); G25.81 Restless legs syndrome
CPT/HCPCS: 96365; 96366; J7050; A4216; J2916

== ENCOUNTER → 2021-07-12 10:34 | Outpatient (CLI) | payer MEDICAID, SELFPAY ==
[2021-07-12 10:39] VITALS: BP 113/73; PULSE 65; RESP 16
[2021-07-12] MEDS: 0.9% NaCl Peripheral Flush Adult/Peds IV (10:48)
[2021-07-12] MEDS: 0.9% NaCl IVPB Med Flush (250 mL) 15 ML IV (10:48)
[2021-07-12] MEDS: Sodium Ferric Gluconat 250 MG in 0.9% Normal Saline 250 ML 135 MG IV (11:01)
[2021-07-12 13:38] VITALS: BP 118/71; PULSE 66; RESP 16; TEMP 36.1; O2SAT 100
== END ==
PROVIDERS: PCP Family Medicine; Referring Provider Family Medicine; Visit Provider Family Medicine
DX: E61.1 Iron deficiency (principal); G25.81 Restless legs syndrome
CPT/HCPCS: 96365; 96366; J7050; A4216; J2916

== ENCOUNTER → 2022-05-13 | Outpatient (CLI) | payer MEDICAID, SELFPAY ==
[2022-05-13 12:20] LABS: Absolute Lymphocyte Count 1.18 X10^3/uL (0.83-4.51); Basophil# 0.01 X10^3/uL; Basophil% 0.2 % (0-1); Eosinophils% 2.2 % (0-5); Hematocrit 41.1 % (37-47); Hemoglobin 13.3 g/dL (12.0-15.0); Lymphocyte # 1.18 X10^3/ul (0.83-4.51); Lymphocyte % 25.6 % (19-41); Mean Corp Hgb Conc 32.4 g/dL (32-36); Mean Corpuscular Hgb 28.7 pg (27.0-32.0); Mean Corpuscular Volume 88.8 fL (81-99); Mean Platelet Vol. 11.1 fl (6.2-12.0); Monocyte# 0.27 X10^3/uL; Monocyte% 5.9 % (0-10); NRBC Flagged by Analyzer 0 % (0-5); Neutrophil # 3.04 X10^3/uL (2.7-7.7); Neutrophil % 65.9 % (47-70); Platelet Count 189 K/mm3 (150-450); RBC Distribution Width CV 13.3 % (11.6-14.6); RBC Distribution Width SD 42.5 fl (35.1-43.9); Red Blood Count 4.63 M/mm3 (4.2-5.4); White Blood Count 4.6 K/mm3 (4.4-11.0)
[2022-05-13 12:41] LABS: Vitamin B12 520 pg/mL (211-911); Vitamin D,25 Hydroxy 39.5 ng/mL
[2022-05-13 12:50] LABS: AST(SGOT) 18 U/L (15-37); Alanine Aminotransfer ALT/SGPT 21 U/L (13-56); Albumin, Serum 3.8 g/dL (3.2-5.0); Alkaline Phosphatase 86 U/L (45-117); Anion Gap 5 (5-15); BUN 9 mg/dL (7-18); BUN/Creat Ratio 14.1 RATIO (10-20); Calcium,Total 8.7 mg/dL (8.5-10.1); Chloride 105 mmol/L (98-107); Cholesterol 151 mg/dL (200); Creatinine, Serum 0.64 mg/dL (0.55-1.02); EST Glomerular Filtration Rate 109 mL/min (>60); Est Glom Filt Rate - Afr Amer 132 mL/min (>60); Ferritin 24 ng/mL (8-252); Globulin 3.7 g/dL (2.2-4.2); Glucose 91 mg/dL (74-106); High Density Lipoprotein 52 mg/dL; Iron 57 ug/dL (50-170); Magnesium 1.5 mg/dL (1.6-2.6); Potassium 3.9 mmol/L (3.5-5.1); Protein, Total 7.5 g/dL (6.4-8.2); Sodium Level 140 mmol/L (136-145); Thyroid Stim Hormone (TSH) 0.72 uIU/mL (0.358-3.74); Triglycerides 66 mg/dL; Very Low Density Lipoprotein 13 mg/dL (5-40)
== END | disposition home or self-care (01) ==
PROVIDERS: PCP Family Medicine; Referring Provider Family Medicine; Visit Provider Family Medicine
DX: Z00.00 Encounter for general adult medical examination without abnormal findings (principal); E55.9 Vitamin D deficiency, unspecified; R53.83 Other fatigue; R73.01 Impaired fasting glucose
CPT/HCPCS: 36415; 80053; 80061; 82306; 82607; 82728; 83036; 83540; 83735; 84443; 85025

== ENCOUNTER 2022-07-03 00:53 | Emergency (ER) | payer MEDICAID, SELFPAY ==
[2022-07-03 00:54] VITALS: BP 150/106; PULSE 69; RESP 18; TEMP 36.4; O2SAT 98; BMI 32.3
--- NOTE | 2022-07-03 02:08 | CT_ITS ---
STUDY: CT ABDOMEN AND PELVIS WITHOUT CONTRAST REASON FOR EXAM: Female, 41 years old. Abdominal pain RADIATION DOSAGE (If Supplied By Facility): CTDIvol = ( 14.97 ) mGy, DLP = ( 830.33 ) mGycm TECHNIQUE: Transaxial images were obtained from the dome of the diaphragm to the symphysis pubis with oral contrast, and without intravenous contrast. Sagittal and coronal images were reconstructed. Individualized dose optimization techniques were used for this CT. COMPARISON: 04/07/2021 FINDINGS: Mild dependent lung base atelectasis. The visualized portions of the heart are within normal limits. Normal liver. There are surgical clips in the gallbladder fossa consistent with a prior cholecystectomy. Normal spleen. Normal pancreas. Normal bilateral adrenal glands. Normal right kidney. Normal left kidney. Prior bariatric surgery. Normal small intestine. Normal colon. The appendix is visualized and appears normal. There is enteric contrast in proximal the small bowel, appendix, and distal large bowel. Normal abdominal aorta. Normal inferior vena cava. Normal retroperitoneum. Normal urinary bladder. Hysterectomy with similar small free fluid in the pelvis. Laparotomy valeria noted. Thoracolumbar spine degenerative disease. CT/Abdomen/Pel W ORAL Cont Only IMPRESSION: No acute abnormal finding the abdomen or pelvis. Electronically Signed: Chad Hickey MD at 4:19 EST ,
[2022-07-03] MEDS: Morphine 4 MG/ML Syringe IV ×2 (02:20→04:22)
[2022-07-03] MEDS: Ondansetron 4 MG/2 ML Vial IV (02:20)
[2022-07-03 02:32] LABS: Absolute Lymphocyte Count 0.95 X10^3/uL (0.83-4.51); Absolute Neutrophil Count 5.1 X10^3/uL (2.0-7.7); Basophil# 0.01 X10^3/uL; Basophil% 0.1 % (0-1); Eosinophil# 0.37 X10^3/uL; Eosinophils% 5.4 % (0-5); Hematocrit 33.9 % (37-47); Lymphocyte # 0.95 X10^3/ul (0.83-4.51); Mean Corp Hgb Conc 32.4 g/dL (32-36); Mean Corpuscular Hgb 28.6 pg (27.0-32.0); Mean Corpuscular Volume 88.1 fL (81-99); Mean Platelet Vol. 9.8 fl (6.2-12.0); Monocyte# 0.39 X10^3/uL; Monocyte% 5.7 % (0-10); NRBC Flagged by Analyzer 0 % (0-5); Neutrophil # 5.05 X10^3/uL (2.7-7.7); Neutrophil % 74.2 % (47-70); Platelet Count 264 K/mm3 (150-450); RBC Distribution Width CV 13.8 % (11.6-14.6); RBC Distribution Width SD 42.4 fl (35.1-43.9); Red Blood Count 3.85 M/mm3 (4.2-5.4); White Blood Count 6.8 K/mm3 (4.4-11.0)
[2022-07-03 02:48] LABS: ALB/GLOB Ratio 0.9 RATIO (0.9-2.4); AST(SGOT) 29 U/L (15-37); Alanine Aminotransfer ALT/SGPT 23 U/L (13-56); Albumin, Serum 2.9 g/dL (3.2-5.0); Alkaline Phosphatase 53 U/L (45-117); Anion Gap 7 (5-15); BUN 11 mg/dL (7-18); BUN/Creat Ratio 20.8 RATIO (10-20); Calcium,Total 8.6 mg/dL (8.5-10.1); Chloride 105 mmol/L (98-107); Creatinine, Serum 0.53 mg/dL (0.55-1.02); EST Glomerular Filtration Rate 135 mL/min (>60); Est Glom Filt Rate - Afr Amer 163 mL/min (>60); Estimated Creatinine Clearance 130.77 ml/min; Globulin 3.2 g/dL (2.2-4.2); Glucose 129 mg/dL (74-106); Lipase 199 U/L (73-393); Potassium 3.5 mmol/L (3.5-5.1); Protein, Total 6.1 g/dL (6.4-8.2); Sodium Level 142 mmol/L (136-145)
--- NOTE | 2022-07-03 05:20 | EDS_ITS ---
HPI History of Present Illness Chief Complaint: Abd Pain Informant: patient Narrative Narrative: Patient [id number] female presenting to the emergency room with abdominal pain. States that she underwent a Isabell-en-Y gastric bypass in 2014. Last week she was admitted to [facility] with a perforated viscus. She underwent surgery and was discharged home yesterday. She states that she went to [facility] to the emergency room due to upper abdominal pain. She notes that she has been eating today but has not yet had a bowel movement since Monday when she had diarrhea. She notes the pain is constant. @ [facility] she had a CT scan with IV contrast and blood work. She states these were negative. She was discharged home and she returned home she started vomiting and so she came back to emergency. She states she has not been able to contact her surgeon. She states she has not 100% sure which surgeon is hers. She has not gone to or any facility since being discharged. There is been no reported fevers. [facility] Medical History Anemia Arthritis Asthma Back pain Candidal dermatitis Chronic pain Chronic pain syndrome Depression Depressive disorder Diabetes Fibromyalgia Former smoker Hepatomegaly History of stress test History of ulceration Hypertension Hypertension Lumbar spinal stenosis Marijuana use Restless leg Type II diabetes mellitus Wears glasses Home Medications epinephrine 0.3 mg/0.3 mL injection, auto-injector 0.3 mg (0.3 mL) IM X1 #2 syringes 04/07/20 [Rx Last Taken 03/29/21] buspirone 10 mg tablet 20 mg PO TID 02/09/21 [History Last Taken 03/29/21] furosemide 20 mg tablet 20 - 40 mg PO DAILY PRN PRN Edema 02/09/21 [History Last Taken 03/29/21] lamotrigine 25 mg tablet (Lamictal) 150 mg PO DAILY 02/09/21 [History Last Taken 03/29/21] pantoprazole 40 mg tablet,delayed release 40 mg PO DAILY 02/09/21 [History Last Taken 03/30/21] ropinirole 1 mg tablet 1 mg PO QHS restless legs 02/09/21 [History Last Taken 03/29/21] gabapentin 600 mg tablet 600 mg PO TID PRN PRN leg pain 02/23/21 [History Last Taken 03/29/21] lisinopril 10 mg tablet 10 mg PO DAILY 03/11/21 [History Last Taken 03/30/21] sumatriptan succinate 50 mg tablet 50 - 100 mg PO BID PRN PRN migraines 03/30/21 [History Last Taken Unknown] cholecalciferol (vitamin D3) 1,250 mcg (50,000 unit) capsule 1,250 mcg PO QWEEK #4 caps 11/16/21 [Rx Last Taken Unknown] sertraline 50 mg tablet (Zoloft) 100 mg PO DAILY 11/16/21 [History Last Taken Unknown] cyanocobalamin (vitamin B-12) 1,000 mcg/mL injection solution 1,000 mcg IM QMONTH 07/03/22 [History Last Taken Unknown] dextroamphetamine-amphetamine 10 mg tablet 1 tab PO TID 07/03/22 [History Last Taken Unknown] diclofenac sodium 1 % topical gel 1 g topical 4XD 07/03/22 [History Last Taken Unknown] docusate sodium 100 mg capsule 100 mg PO BID 07/03/22 [History Last Taken Unknown] escitalopram oxalate 10 mg tablet 10 mg PO DAILY 07/03/22 [History Last Taken Unknown] ondansetron 4 mg disintegrating tablet 4 mg PO Q6H PRN PRN Nausea 07/03/22 [History Last Taken Unknown] oxycodone 5 mg tablet 5 mg PO Q6H PRN PRN pain 4-6 07/03/22 [History Last Taken Unknown] polyethylene glycol 3350 17 gram/dose oral powder 17 g PO DAILY PRN PRN Constipation 07/03/22 [History Last Taken Unknown] Allergy/AdvReac Type Severity Reaction Status Date / Time bee pollen Allergy Anaphylaxis Verified 07/03/22 01:00 ketorolac [From Toradol] Allergy Itching Verified 07/03/22 01:00 NSAIDS (Non-Steroidal Allergy GASTRIC Verified 07/03/22 01:00 Anti-Inflamma ULCERS Family History Mother Diabetes Hypertension Cancer Surgical History Carpal tunnel syndrome FHx: cholecystectomy Gastric bypass status for obesity H/O abdominal surgery History of surgery on arm Hx of arthroscopy of right knee Hx of tooth extraction S/P hysterectomy Social History number of children: 4 current occupational status: unemployed other: children are adopted Smoking Status: Former smoker Tobacco: How many years used: 15 Electronic Cigarette Use: not used how long ago did patient quit smokin years ago second hand exposure: No alcohol intake: former substance use type: other details: medical marijuana caffeine: Yes seatbelt use: always do you feel safe at home: Yes ROS ROS ED Constitutional Constitutional ED: Denies chills, fever(s) or weight loss Eyes Eyes: Denies change in vision or diplopia ENT ENT ED: Denies ear pain, rhinorrhea or sore throat Cardiovascular Cardiovascular: Denies chest pain, orthopnea, palpitations or racing heartbeat Respiratory/Chest Respiratory/Chest: Denies cough, dyspnea or orthopnea Gastrointestinal Gastrointestinal: Reports abdominal pain, nausea and vomiting; Denies diarrhea Genitourinary Genitourinary ED: Denies dysuria, hematuria or urinary frequency Musculoskeletal Musculoskeletal: Denies arthralgias or myalgias Integumentary Denies abscess or rash Neurologic Neurologic: Denies headache(s) or weakness Psychiatric Psychiatric: Denies anxiety, depression, suicidal ideation or suicidal thoughts Endocrine Endocrinology: Denies polydipsia, polyphagia or polyuria Allergic/Immunologic Allergic/Immunologic ED: Denies mouth swelling, tongue swelling or urticaria EXAM Physical Exam Const Vital Signs: 07/03/22 00:54 07/03/22 05:30 Temperature 97.6 F L Temperature Source Temporal Pulse Rate 69 65 Respiratory Rate 18 16 Blood Pressure 150/106 H 139/83 H Blood Pressure Mean 120 101 Pulse Ox 98 99 Oxygen Delivery Method Room Air Room Air Positive well nourished and well developed General Appearance ED: well developed HEENT Reports normocephalic, head/scalp atraumatic and moist mucous membranes Eyes PERRL and EOMs intact bilaterally Neck no lymphadenopathy, supple and no JVD Resp normal respiratory effort and clear to auscultation bilaterally Cardio regular rate, regular rhythm and no murmurs GI GI Narrative: There is a healing laparotomy incision in the midline with valeria. There is no significant surrounding erythema or concerns for infection there. There are no drains pleasant. She notes tenderness to palpation in her epigastrium. No crepitance. Inspection: Negative for abdominal distention Auscultation: normoactive bowel sounds Palpation: soft, tender and guarding Back/Spine no CVA tenderness and normal ROM Extremity normal to inspection General Extremety ED: Negative for edema General Extremity: Negative for edema Neuro oriented x3 and CN's II-XII intact bilaterally Sensorium / Orientation: alert Motor Exam: strength 5/5 throughout Psych mental status grossly normal Mood & Affect: Negative for depressed or tearful Skin no rashes or lesions noted and no wounds MDM MDM MDM Narrative Medical decision making narrative: Basic blood work was obtained and was negative. CT of the abdomen pelvis was obtained with oral contrast. However the patient was unable to drink much of the contrast but there was some noted on the CT scan. There is no obvious bowel obstruction or free air. No fluid collections. She has received several doses of morphine with no improvement of her pain. GI cocktail was given. Upon repeat examination patient was sleeping. Woke her up she stated that it did help a little bit. I revisited her CT and I see is significant amount of stool in the right and transverse hemicolon. Asked her if she has been using MiraLAX and she states that she has. At this point the patient in the past 24 hours has been discharged from the hospital and has had 2 CAT scans and 2 sets of blood work that were negative. I do not think that she is going to require transfer back to at this time. Patient will be discharged home Lab Data Attestation: I reviewed the patient's lab results. Labs: Laboratory Results - last 24 hr 07/03/22 07/03/22 02:20 02:20 WBC 6.8 RBC 3.85 L Hgb 11.0 L Hct 33.9 L MCV 88.1 MCH 28.6 MCHC 32.4 RDW Std Deviation 42.4 RDW Coeff of [place] 13.8 Plt Count 264 MPV 9.8 Immature Gran % (Auto) 0.600 Neut % (Auto) 74.2 H Lymph % (Auto) 14.0 L [facility] % (Auto) 5.7 Eos % (Auto) 5.4 H Baso % (Auto) 0.1 Absolute Neuts (auto) 5.1 Absolute Lymphs (auto) 0.95 Nucleated RBC % 0 Sodium 142 Potassium 3.5 Chloride 105 Carbon Dioxide 30.0 Anion Gap 7 BUN 11 Creatinine 0.53 L Estim Creat Clear Calc 130.77 Est GFR (MDRD) Af Amer 163 Est GFR (MDRD) Non-Af 135 BUN/Creatinine Ratio 20.8 H Glucose 129 H Calcium 8.6 Total Bilirubin 0.20 AST 29 ALT 23 Alkaline Phosphatase 53 Total Protein 6.1 L Albumin 2.9 L Globulin 3.2 Albumin/Globulin Ratio 0.9 Lipase 199 Radiography Diagnostic Testing: Clinical Impression(s) from Imaging Studies Abdomen CT 07/03/22 02:08 IMPRESSION: No acute abnormal finding the abdomen or pelvis. Electronically Signed: Chad Hickey MD at 4:19 EST , Discharge Plan Triage Chief Complaint: Abd Pain ED Provider: Angel Smith Dx/Rx/DC Orders Clinical Impression: Abdominal pain, acute, Post-operative pain, Constipation Prescriptions: No Action buspirone 10 mg tablet 20 mg PO TID lamotrigine [Lamictal] 25 mg tablet 150 mg PO DAILY ropinirole 1 mg tablet 1 mg PO QHS furosemide 20 mg tablet 20 - 40 mg PO DAILY PRN PRN (Reason: Edema) pantoprazole 40 mg tablet,delayed release (DR/EC) 40 mg PO DAILY lisinopril 10 mg tablet 10 mg PO DAILY sertraline [Zoloft] 50 mg tablet 100 mg PO DAILY cholecalciferol (vitamin D3) 1,250 mcg (50,000 unit) capsule 1,250 mcg PO QWEEK Qty: 4 0RF epinephrine 0.3 MG syringe 0.3 mg IM X1 Qty: 2 0RF gabapentin 600 mg tablet 600 mg PO TID PRN PRN (Reason: leg pain) sumatriptan succinate 50 mg tablet 50 - 100 mg PO BID PRN PRN (Reason: migraines) Label Comments: TAKE 1 TO 2 TABLETS BY MOUTH TWICE DAILY NEEDED FOR MIGRAINE. TAKE AT LEAST 2 HOURS BETWEEN DOSES dextroamphetamine-amphetamine 10 mg tablet 1 tab PO TID cyanocobalamin (vitamin B-12) 1,000 mcg/mL solution 1,000 mcg IM QMONTH docusate sodium 100 mg Capsule 100 mg PO BID polyethylene glycol 3350 17 gram/dose Powder 17 g PO DAILY PRN PRN (Reason: Constipation) oxycodone 5 mg tablet 5 mg PO Q6H PRN PRN (Reason: pain 4-6) escitalopram oxalate 10 mg tablet 10 mg PO DAILY Label Comments: take 1 tablet by mouth once daily diclofenac sodium 1 % gel 1 g TOPICAL 4XD Label Comments: APPLY 2 GRAMS TOPICALLY TO AFFECTED AREA 4 TIMES PER DAY NEEDED ondansetron 4 MG tablet,disintegrating 4 mg PO Q6H PRN PRN (Reason: Nausea) Primary Care Provider: Israel North Referrals: Israel North DO [Primary Care Provider] -
[2022-07-03] MEDS: Mag Hydrox/Al Hydrox/Simeth 30 ML UDC PO (05:27)
[2022-07-03 05:30] VITALS: BP 139/83; PULSE 65; RESP 16; O2SAT 99
[2022-07-03 06:34] VITALS: BP 128/67; PULSE 75; RESP 15; O2SAT 98
== END 2022-07-03 06:48 | disposition home or self-care (01) ==
PROVIDERS: Emergency Provider Emergency Medicine; PCP Family Medicine; Visit Provider Emergency Medicine
DX: R10.9 Unspecified abdominal pain (principal); G89.18 Other acute postprocedural pain; K59.00 Constipation, unspecified; I10 Essential (primary) hypertension; F32.A Depression, unspecified; Z79.899 Other long term (current) drug therapy; Z87.891 Personal history of nicotine dependence
CPT/HCPCS: 74176; 80053; 83690; 85025; 96374; 96375; 96376; 99285; A4216; J2405

== ENCOUNTER → 2023-04-07 | Outpatient (CLI) | payer MEDICAID, SELFPAY ==
[2023-04-07 12:40] LABS: Absolute Neutrophil Count 3.8 X10^3/uL (2.0-7.7); Basophil# 0.02 X10^3/uL; Basophil% 0.4 % (0-1); Eosinophil# 0.07 X10^3/uL; Eosinophils% 1.3 % (0-5); Hematocrit 42.3 % (37-47); Hemoglobin 13.6 g/dL (12.0-15.0); Lymphocyte % 22.2 % (19-41); Mean Corp Hgb Conc 32.2 g/dL (32-36); Mean Corpuscular Hgb 28.3 pg (27.0-32.0); Mean Corpuscular Volume 87.9 fL (81-99); Mean Platelet Vol. 11.1 fl (6.2-12.0); Monocyte# 0.28 X10^3/uL; Monocyte% 5.2 % (0-10); NRBC Flagged by Analyzer 0 % (0-5); Neutrophil # 3.81 X10^3/uL (2.7-7.7); Neutrophil % 70.5 % (47-70); Platelet Count 196 K/mm3 (150-450); RBC Distribution Width CV 12.9 % (11.6-14.6); Red Blood Count 4.81 M/mm3 (4.2-5.4); White Blood Count 5.4 K/mm3 (4.4-11.0)
[2023-04-07 12:44] LABS: Color, Urine Yellow (Yellow); Glucose, Dipstick Normal (Normal); Ketone-Dipstick 5 mg/dl (Negative); Leukocyte Esterase-Dipstick 25 /ul (Negative); Nitrite-Dipstick Negative (Negative); Occult Blood-Urine Negative /ul (Negative); Protein-Dipstick 30 mg/dl (Negative); Specific Gravity, Urine 1.025 (1.002-1.030); Urine Bilirubin Dipstick 1 mg/dL (Negative); Urine Clarity Clear (Clear); Urine Urobilinogen 1 mg/dl (Normal)
[2023-04-07 13:01] LABS: OXY Internal Control LINE = VALID (VALID)
[2023-04-07 13:02] LABS: Oxycodone Drug Screen Positive (<100 ng/mL)
[2023-04-07 13:10] LABS: Vitamin B12 392 pg/mL (211-911)
[2023-04-07 13:11] LABS: ALB/GLOB Ratio 1.1 RATIO (0.9-2.4); AST(SGOT) 20 U/L (15-37); Alanine Aminotransfer ALT/SGPT 21 U/L (13-56); Albumin, Serum 4.2 g/dL (3.2-5.0); Alkaline Phosphatase 76 U/L (45-117); Anion Gap 5 (5-15); BUN 11 mg/dL (7-18); BUN/Creat Ratio 14.9 RATIO (10-20); Calcium,Total 9.1 mg/dL (8.5-10.1); Chloride 106 mmol/L (98-107); Creatinine, Serum 0.74 mg/dL (0.55-1.02); EST Glomerular Filtration Rate 92 mL/min (>60); Est Glom Filt Rate - Afr Amer 111 mL/min (>60); Ferritin 11 ng/mL (8-252); Globulin 3.9 g/dL (2.2-4.2); Glucose 136 mg/dL (74-106); Iron 128 ug/dL (50-170); Potassium 3.6 mmol/L (3.5-5.1); Protein, Total 8.1 g/dL (6.4-8.2); Sodium Level 139 mmol/L (136-145)
[2023-04-07 13:13] LABS: Hemoglobin A1c 5.6 % (3.8-5.6)
[2023-04-07 13:41] LABS: Amphetamine Urine VISTA POSITIVE (<1000 ng/mL); Barbiturate Urine VISTA NEGATIVE (< 200 ng/mL); Benzodiazepine Urine VISTA NEGATIVE (< 200 ng/mL); Cocaine Urine VISTA NEGATIVE (< 300 ng/mL); Ecstacy Urine VISTA POSITIVE (< 500 ng/mL); Methadone Urine VISTA NEGATIVE (< 300 ng/mL); PCP Urine VISTA NEGATIVE (< 25 ng/mL); THC Urine VISTA POSITIVE (< 50 ng/mL); Vista UDS pH Range 5
== END | disposition home or self-care (01) ==
LOC: LAB 12:21
PROVIDERS: PCP Family Medicine; Referring Provider Family Medicine; Visit Provider Family Medicine
DX: R10.12 Left upper quadrant pain (principal); R73.03 Prediabetes; D64.9 Anemia, unspecified; Z79.899 Other long term (current) drug therapy
CPT/HCPCS: 80365; 36415; 80053; 80307; 81002; 82607; 82728; 83036; 83540; 85025; G0480

== ENCOUNTER → 2023-06-07 | Outpatient (CLI) | payer MEDICAID, SELFPAY ==
--- NOTE | 2023-06-07 10:03 | VDLE_ITS ---
Reason For Study: Bilateral leg pain RIGHT LEFT CFV is compressible, spontaneous, phasic, CFV is compressible, spontaneous, phasic, competent and demonstrates normal competent, and demonstrates normal augmentation. augmentation. FV is compressible, spontaneous, phasic, FV is compressible, spontaneous, phasic, competent and demonstrates normal competent and demonstrates normal augmentation. augmentation. POP V is compressible, spontaneous, phasic, POP V is compressible, spontaneous, phasic, competent and demonstrates normal competent and demonstrates normal augmentation. augmentation. T/P Trunk is compressible. T/P Trunk is compressible. PTV is compressible. PTV is compressible. RT PerV is compressible. LT PerV is compressible. SFJ is competent and measures 0.56 x 0.60 cm. SFJ is competent and measures 0.86 x 0.91 cm. GSV proximal thigh measures 0.25 x 0.25 cm. GSV proximal thigh measures 0.24 x 0.27 cm. GSV at knee measures 0.23 x 0.25 cm. GSV at knee measures 0.25 x 0.25 cm. GSV is competent throughout. GSV is competent throughout. SSV proximal calf is competent and measures SSV proximal calf is competent and measures 0.21 x 0.21 cm. 0.18 x 0.23 cm. Procedure This is a venous duplex using B-mode, color flow and spectral Doppler. Exam performed in department. Patient was scanned in reverse Trendelenburg position during reflux assessment. VL/Venous Duplex US - Eligio Extrem Interpretation Summary Deep veins of the bilateral lower extremities are patent and compressible segme ntally. There is no evidence of bilateral lower extremity deep vein thrombosis. The bilateral great saphenous veins appear patent and compressible segmentally. Negative for reflux bilateral Ordering Physician: Dianna Lr Referring Physician: Israel North Performed By: Marge Lee RVT
== END | disposition home or self-care (01) ==
LOC: CVS 10:02
PROVIDERS: PCP Family Medicine; Referring Provider Physician Assistant; Visit Provider Physician Assistant
DX: I87.2 Venous insufficiency (chronic) (peripheral) (principal)
CPT/HCPCS: 93970

== ENCOUNTER → 2024-01-18 | Outpatient (CLI) | payer MEDICAID, SELFPAY | END | disposition home or self-care (01) | LOC: BFHLAB 11:13 | PROVIDERS: PCP Family Medicine; Referring Provider Family Medicine; Visit Provider Family Medicine | DX: E11.9 Type 2 diabetes mellitus without complications (principal); R53.83 Other fatigue; D64.9 Anemia, unspecified ==

== ENCOUNTER → 2024-01-26 | Outpatient (CLI) | payer MEDICAID, SELFPAY ==
[2024-01-26 12:19] LABS: Absolute Lymphocyte Count 1.24 X10^3/uL (0.83-4.51); Basophil# 0.01 X10^3/uL; Basophil% 0.2 % (0-1); Eosinophil# 0.05 X10^3/uL; Eosinophils% 1.1 % (0-5); Hematocrit 42.5 % (37-47); Hemoglobin 13.7 g/dL (12.0-15.0); Lymphocyte # 1.24 X10^3/ul (0.83-4.51); Lymphocyte % 27.1 % (19-41); Mean Corp Hgb Conc 32.2 g/dL (32-36); Mean Corpuscular Volume 83.7 fL (81-99); Mean Platelet Vol. 11.7 fl (6.2-12.0); Monocyte# 0.26 X10^3/uL; Monocyte% 5.7 % (0-10); NRBC Flagged by Analyzer 0 % (0-5); Neutrophil # 2.99 X10^3/uL (2.7-7.7); Neutrophil % 65.5 % (47-70); Platelet Count 187 K/mm3 (150-450); RBC Distribution Width CV 13.4 % (11.6-14.6); RBC Distribution Width SD 41.4 fl (35.1-43.9); Red Blood Count 5.08 M/mm3 (4.2-5.4); White Blood Count 4.6 K/mm3 (4.4-11.0)
[2024-01-26 12:35] LABS: Hemoglobin A1c 5.8 % (3.8-5.6)
[2024-01-26 13:19] LABS: Ferritin 8 ng/mL (8-252); Iron 65 ug/dL (50-170); Iron Binding Capacity,Total 525 ug/dL (250-450); PERCENT IRON SATURATION 12.4 % (15.0-55.0); Thyroid Stim Hormone (TSH) 1.44 uIU/mL (0.358-3.74)
== END | disposition home or self-care (01) ==
LOC: LAB 11:18
PROVIDERS: PCP Family Medicine; Referring Provider Family Medicine; Visit Provider Family Medicine
DX: E11.9 Type 2 diabetes mellitus without complications (principal); R53.83 Other fatigue; D64.9 Anemia, unspecified
CPT/HCPCS: 36415; 82728; 83036; 83540; 83550; 84443; 85025

== ENCOUNTER → 2024-09-10 | Outpatient (CLI) | payer MEDICAID, SELFPAY ==
[2024-09-10 17:56] LABS: ALB/GLOB Ratio 1.1 RATIO (0.9-2.4); AST(SGOT) 14 U/L (15-37); Alanine Aminotransfer ALT/SGPT 18 U/L (13-56); Albumin, Serum 3.9 g/dL (3.2-5.0); Alkaline Phosphatase 81 U/L (45-117); Anion Gap 6 (5-15); BUN 11 mg/dL (7-18); BUN/Creat Ratio 16.5 RATIO (10-20); Chloride 108 mmol/L (98-107); Creatinine, Serum 0.67 mg/dL (0.55-1.02); EST Glomerular Filtration Rate 102 mL/min (>60); Est Glom Filt Rate - Afr Amer 124 mL/min (>60); Ferritin 6 ng/mL (8-252); Globulin 3.4 g/dL (2.2-4.2); Glucose 84 mg/dL (74-106); Hemoglobin A1c 5.7 % (3.8-5.6); Iron 32 ug/dL (50-170); Potassium 3.8 mmol/L (3.5-5.1); Protein, Total 7.3 g/dL (6.4-8.2); Sodium Level 138 mmol/L (136-145)
[2024-09-10 18:23] LABS: Color, Urine Yellow (Yellow); Glucose, Dipstick Normal (Normal); Ketone-Dipstick Negative (Negative); Leukocyte Esterase-Dipstick 100 /ul (Negative); Nitrite-Dipstick Negative (Negative); Occult Blood-Urine 10 /ul (Negative); Protein-Dipstick Negative (Negative); Specific Gravity, Urine 1.015 (1.002-1.030); Urine Bilirubin Dipstick Negative (Negative); Urine Clarity Clear (Clear); Urine Urobilinogen Normal (Normal)
[2024-09-10 18:32] LABS: OXY Internal Control LINE = VALID (VALID); Oxycodone Drug Screen Positive (<100 ng/mL)
[2024-09-10 18:38] LABS: Amphetamine Urine POSITIVE (<1000 ng/mL); Barbiturate Urine VISTA NEGATIVE (< 200 ng/mL); Benzodiazepine Urine VISTA NEGATIVE (< 200 ng/mL); Cocaine Urine VISTA NEGATIVE (< 300 ng/mL); Ecstacy Urine VISTA NEGATIVE (< 500 ng/mL); Methadone Urine VISTA NEGATIVE (< 300 ng/mL); PCP Urine VISTA NEGATIVE (< 25 ng/mL); THC Urine VISTA POSITIVE (< 50 ng/mL); Vista UDS pH Range 4
[2024-09-11 11:41] LABS: Absolute Lymphocyte Count 1.44 X10^3/uL (0.83-4.51); Absolute Neutrophil Count 3.4 X10^3/uL (2.0-7.7); Basophil# 0.02 X10^3/uL; Basophil% 0.4 % (0-1); Eosinophil# 0.12 X10^3/uL; Eosinophils% 2.3 % (0-5); Hematocrit 38.9 % (37-47); Hemoglobin 12.4 g/dL (12.0-15.0); Lymphocyte # 1.44 X10^3/ul (0.83-4.51); Lymphocyte % 27.2 % (19-41); Mean Corp Hgb Conc 31.9 g/dL (32-36); Mean Corpuscular Hgb 27.3 pg (27.0-32.0); Mean Corpuscular Volume 85.5 fL (81-99); Monocyte# 0.35 X10^3/uL; Monocyte% 6.6 % (0-10); NRBC Flagged by Analyzer 0 % (0-5); Neutrophil # 3.35 X10^3/uL (2.7-7.7); Neutrophil % 63.3 % (47-70); Platelet Count 183 K/mm3 (150-450); RBC Distribution Width SD 43.6 fl (35.1-43.9); Red Blood Count 4.55 M/mm3 (4.2-5.4); White Blood Count 5.3 K/mm3 (4.4-11.0)
== END | disposition home or self-care (01) ==
LOC: BFHLAB 15:29
PROVIDERS: PCP Family Medicine; Referring Provider Family Medicine; Visit Provider Family Medicine
DX: I10 Essential (primary) hypertension (principal); D50.9 Iron deficiency anemia, unspecified; R39.15 Urgency of urination; R73.9 Hyperglycemia, unspecified; Z79.899 Other long term (current) drug therapy
CPT/HCPCS: 80365; 85025; 36415; 80053; 80307; 81002; 82728; 83036; 83540; G0480

== ENCOUNTER 2024-09-22 11:00 | Emergency (ER) | payer MEDICAID, SELFPAY ==
[2024-09-22 11:00] VITALS: BP 139/87; PULSE 82; RESP 16; TEMP 36.6; O2SAT 100; BMI 34.2
[2024-09-22 11:20] VITALS: TEMP 36.6; O2SAT 100
--- NOTE | 2024-09-22 11:52 | ED.VIS.FALL ---
HPI HPI - Fall History of Present Illness Chief Complaint: Fall Informant: patient Occured/Mechanism Occurred: Days (5) Fall down steps #: 4 Usually ambulates: Without assistance Pain/Injury Pain Location: head, upper extremity (Right shoulder) and lower extremity (Right hip) Quality of Pain: Sharp Worsened by: Nothing Relieved by: Nothing Associated Symptoms Associated Symptoms: Positive for Parasthesias; Negative for Weakness, Loss of function, Inability to ambulate, Loss of consciousness or Amnesia Narrative Narrative: Patient presents after a fall that occurred 5 days ago. Patient states she fell down 4 steps. Patient states she hit her head and her right shoulder. Patient also complains of pain in her right hip. Patient has been ambulatory since the fall. Patient describes her pain as sharp. Patient states nothing makes it worse and nothing makes it better. Patient admits to some tingling into her right arm. Patient denies any weakness. Patient denies any loss of consciousness. Patient does not take any anticoagulants. [facility] Medical History Perforated ulcer (~2021) Raynauds disease Hepatomegaly Hypertension Wears glasses Depression Marijuana use Diabetes Arthritis Anemia Back pain History of ulceration Former smoker Asthma History of stress test Candidal dermatitis Depressive disorder Type II diabetes mellitus Fibromyalgia Lumbar spinal stenosis Chronic pain syndrome Chronic pain Hypertension Restless leg Home Medications ?Medication ?Instructions ?Recorded ?Last Taken ?Type epinephrine 0.3 mg/0.3 mL 0.3 mg (0.3 mL) IM X1 #2 syringes 04/07/20 03/29/21 Rx injection, auto-injector lamotrigine 25 mg tablet (Lamictal) 150 mg PO DAILY 02/09/21 03/29/21 History pantoprazole 40 mg tablet,delayed 40 mg PO DAILY 02/09/21 03/30/21 History release ropinirole 1 mg tablet 1 mg PO QHS restless legs 02/09/21 03/29/21 History lisinopril 10 mg tablet 10 mg PO DAILY 03/11/21 03/30/21 History sertraline 50 mg tablet (Zoloft) 100 mg PO DAILY 11/16/21 Unknown History cyanocobalamin (vitamin B-12) 1,000 mcg IM QMONTH 07/03/22 Unknown History 1,000 mcg/mL injection solution dextroamphetamine-amphetamine 10 1 tab PO TID 07/03/22 Unknown History mg tablet escitalopram oxalate 10 mg tablet 10 mg PO DAILY 07/03/22 Unknown History ondansetron 4 mg disintegrating 4 mg PO Q6H PRN PRN Nausea 07/03/22 Unknown History tablet polyethylene glycol 3350 17 17 g PO DAILY PRN PRN Constipation 07/03/22 Unknown History gram/dose oral powder aripiprazole 5 mg tablet mg PO 04/13/23 Unknown History oxycodone-acetaminophen 10 mg-325 tab PO 04/13/23 Unknown History mg tablet Allergy/AdvReac Type Severity Reaction Status Date / Time bee pollen Allergy Anaphylaxis Verified 09/22/24 11:04 ketorolac (From Toradol) Allergy Itching Verified 09/22/24 11:04 NSAIDS (Non-Steroidal Allergy GASTRIC Verified 09/22/24 11:04 Anti-Inflamma ULCERS Family History Mother Diabetes Hypertension Cancer Surgical History H/O abdominal surgery S/P hysterectomy Hx of tooth extraction Hx of arthroscopy of right knee History of surgery on arm Carpal tunnel syndrome FHx: cholecystectomy Gastric bypass status for obesity Social History household members: spouse and children housing: house number of children: 4 current occupational status: unemployed other: children are adopted Smoking Status: Former smoker Tobacco: How many years used: 15 Electronic Cigarette Use: not used how long ago did patient quit smokin years ago second hand exposure: No alcohol intake: former substance use type: other details: medical marijuana caffeine: Yes seatbelt use: always do you feel safe at home: Yes ROS ROS ED Constitutional Constitutional ED: Denies chills or fever(s) Eyes Eyes: Denies blurry vision or change in vision ENT ENT ED: Denies rhinorrhea or sore throat Cardiovascular Cardiovascular: Denies chest pain or palpitations Respiratory/Chest Respiratory/Chest: Denies cough or dyspnea Gastrointestinal Gastrointestinal: Reports nausea; Denies vomiting Genitourinary Genitourinary ED: Denies dysuria or hematuria Musculoskeletal Musculoskeletal: Reports back pain and neck pain Integumentary Denies abscess or rash Neurologic Neurologic: Reports headache(s) and paresthesias; Denies weakness Allergic/Immunologic Allergic/Immunologic ED: Denies mouth swelling or urticaria EXAM Physical Exam Const Vital Signs: 09/22/24 11:00 09/22/24 11:20 09/22/24 13:00 Temperature 98 F 97.9 F Temperature Source Temporal Pulse Rate 82 Respiratory Rate 16 Respiratory Effort Normal Non-Labored Respiratory Depth Normal Respiratory Pattern Normal Blood Pressure 139/87 H 138/90 H Blood Pressure Mean 104 106 Pulse Ox 100 100 Oxygen Delivery Method Room Air Room Air Positive well nourished and well developed General Appearance ED: well developed and NAD HEENT Reports normocephalic atraumatic Neck full ROM and supple Resp normal respiratory effort and clear to auscultation bilaterally Cardio regular rate and regular rhythm GI non-tender and non-distended Palpation: soft Extremity Extremity Narrative: There is tenderness over the right scapular area. There is no bony crepitance or step-off. There is no obvious deformity noted. Range of motion was limited in all motions of the right shoulder secondary to pain. There is also mild tenderness over the right hip. There is good range of motion. Strength is 5/5 bilaterally upper and lower extremities. There are no sensory deficits noted. Radial and pedal pulses are equal bilaterally. Neuro oriented x3, CN's II-XII intact bilaterally, moves all extremities, no focal motor deficits and no sensory deficits noted Sensorium / Orientation: alert Motor Exam: strength 5/5 throughout Psych mental status grossly normal MDM MDM MDM Narrative Medical decision making narrative: Differential diagnosis includes closed head injury, scapular fracture, shoulder contusion, and hip contusion. CT scan of the brain will be obtained to assess for intracranial bleeding. X-rays of the right shoulder will be obtained to assess for fracture and dislocation. Radiography Diagnostic Testing: Clinical Impression(s) from Imaging Studies Brain CT 09/22/24 11:56 IMPRESSION: No CT evidence of acute intracranial pathology. Reading Location: [facility] Shoulder X-Ray 09/22/24 11:56 IMPRESSION: As above. Reading Location: [facility] CT scan of the brain was obtained. There is no acute intracranial abnormality. This was interpreted by the radiologist and was also independently reviewed by myself. X-rays of the right shoulder were obtained. There are 5 views. On my independent interpretation, there is no acute fracture or dislocation noted. Radiologist also interpreted the x-ray and agrees. Treatment and Re-Evaluation Narrative: Patient was given a dose of [place] here. Patient was advised of her findings. Patient was instructed to use ice to the areas. Patient was instructed to take Tylenol as needed for pain. Patient was instructed to follow-up with her primary care provider. Prior to coming days. Patient understood and was agreeable with the plan. All questions were answered. Discharge Plan Triage Chief Complaint: Fall ED Provider: Myron Silva Dx/Rx/DC Orders Clinical Impression: Closed head injury, Fall, Contusion of right scapular region, Contusion of right hip region Instructions: ED Soft Tissue Contusion, ED Head Injury (Adult) Prescriptions: No Action lamotrigine [Lamictal] 25 mg tablet 150 mg PO DAILY ropinirole 1 mg tablet 1 mg PO QHS pantoprazole 40 mg tablet,delayed release (DR/EC) 40 mg PO DAILY lisinopril 10 mg tablet 10 mg PO DAILY sertraline [Zoloft] 50 mg tablet 100 mg PO DAILY epinephrine 0.3 MG syringe 0.3 mg IM X1 Qty: 2 0RF dextroamphetamine-amphetamine 10 mg tablet 1 tab PO TID cyanocobalamin (vitamin B-12) 1,000 mcg/mL solution 1,000 mcg IM QMONTH polyethylene glycol 3350 17 gram/dose Powder 17 g PO DAILY PRN PRN (Reason: Constipation) escitalopram oxalate 10 mg tablet 10 mg PO DAILY Patient Comments: take 1 tablet by mouth once daily ondansetron 4 MG tablet,disintegrating 4 mg PO Q6H PRN PRN (Reason: Nausea) Primary Care Provider: Israel North Referrals: Israel North DO [Primary Care Provider] - 5-7 Days Print Language: Tajik Disposition Disposition: Home, Self Care
--- NOTE | 2024-09-22 11:56 | RAD_ITS ---
PROCEDURE: SHOULDER MIN 2 VIEWS REASON FOR EXAM: Pain TECHNIQUE: Right shoulder x-ray four views COMPARISON: None. FINDINGS: Osseous structures intact. Scattered degenerative changes. No dislocations. Soft tissues normal. RAD/Shoulder min 2 Views IMPRESSION: As above. Reading Location: [facility]
--- NOTE | 2024-09-22 11:56 | CT_ITS ---
EXAM: BRAIN/HEAD WITHOUT CONTRAST CLINICAL HISTORY: Trauma COMPARISON: None. TECHNIQUE: Noncontrast images of the head with multiplanar reconstructions. Dose reduction techniques were used including intermediate exposure control (AEC),iterative reconstruction technique, and/or mA and/or KV dose adjustments based on patient's size. FINDINGS: CT HEAD FINDINGS: No acute intracranial hemorrhage, mass, mass effect, midline shift or pathologic extra-axial fluid collection. No hydrocephalus. Age- appropriate cerebral volume and white matter. Visualized paranasal sinuses and mastoid air cells are clear. The calvarium is grossly intact. CT/Brain/Head without Contrast IMPRESSION: No CT evidence of acute intracranial pathology. Reading Location: [facility]
[2024-09-22] MEDS: HYDROcodone Bitartrate/Apap 5/325 Tablet PO (12:02)
[2024-09-22 13:00] VITALS: BP 138/90
[2024-09-22 13:27] VITALS: BP 138/90; PULSE 69; RESP 16; TEMP 36.8; O2SAT 99
== END 2024-09-22 13:27 | disposition home or self-care (01) ==
PROVIDERS: Emergency Provider Emergency Medicine; PCP Family Medicine; Visit Provider Emergency Medicine
DX: S09.90XA Unspecified injury of head, initial encounter (principal); I10 Essential (primary) hypertension; S40.011A Contusion of right shoulder, initial encounter; S70.01XA Contusion of right hip, initial encounter; W10.9XXA Fall (on) (from) unspecified stairs and steps, initial encounter; Z79.899 Other long term (current) drug therapy; Z87.891 Personal history of nicotine dependence
CPT/HCPCS: 70450; 73030; 99282; A4216

== ENCOUNTER 2024-12-09 11:33 | Emergency (ER) | payer MEDICAID, SELFPAY ==
[2024-12-09 11:33] VITALS: BP 107/82; PULSE 99; RESP 16; TEMP 36.8; O2SAT 99
--- NOTE | 2024-12-09 12:03 | RAD_ITS ---
EXAM: Left foot CLINICAL HISTORY: Pain following injury. COMPARISON: None TECHNIQUE: Three views of the left foot were obtained. FINDINGS: Nondisplaced fracture of the distal portion of the 5th metacarpal. Soft tissue swelling. A spur is seen at the insertion of the Achilles tendon. RAD/Foot min 3 Views IMPRESSION: Nondisplaced fracture through the distal portion of the 5th metatarsal with ove rlying soft tissue swelling. Reading Location: [facility]
--- NOTE | 2024-12-09 12:03 | RAD_ITS ---
PROCEDURE: ANKLE MIN 3 VIEWS 12/09/2024 REASON FOR EXAM: INJURY Lateral foot pain. TECHNIQUE: 3 views of the left ankle COMPARISON: None FINDINGS: Bones: Unremarkable Joints: Unremarkable Soft tissues: No significant soft tissue swelling. Other: A spur is seen at the insertion of the Achilles tendon. RAD/Ankle min 3 Views IMPRESSION: NEGATIVE ANKLE SERIES Reading Location: [place] [id number]
--- NOTE | 2024-12-09 12:05 | EDS_ITS ---
HPI History of Present Illness Chief Complaint: Lower Extremity Injury Informant: patient Narrative Narrative: 44-year-old female states that last evening she missed the last 2 steps of her stairs. She notes painful ambulation. She notes some swelling and bruising. She denies any other injuries. [facility] Medical History Perforated ulcer (~2021) Raynauds disease Hepatomegaly Hypertension Wears glasses Depression Marijuana use Diabetes Arthritis Anemia Back pain History of ulceration Former smoker Asthma History of stress test Candidal dermatitis Depressive disorder Type II diabetes mellitus Fibromyalgia Lumbar spinal stenosis Chronic pain syndrome Chronic pain Hypertension Restless leg Home Medications ?Medication ?Instructions ?Recorded ?Last Taken ?Type epinephrine 0.3 mg/0.3 mL 0.3 mg (0.3 mL) IM X1 #2 syr inges 04/07/20 03/29/21 Rx injection, auto-injector lamotrigine 25 mg tablet (Lamictal) 150 mg PO DAILY 03/29/21 History pantoprazole 40 mg tablet,delayed 40 mg PO DAILY 02/0903/30/21 History release ropinirole 1 mg tablet 1 mg PO QHS restless legs 03/29/21 History lisinopril 10 mg tablet 10 mg PO DAILY 03/11/2103/21 History sertraline 50 mg tablet (Zoloft) 100 mg PO DAILY 11/16 Unknown History cyanocobalamin (vitamin B-12) 1,000 mcg IM QMONTH 06/21 11/09 Unknown History 1,000 mcg/mL injection solution dextroamphetamine-amphetamine 10 1 tab PO TID 07/03/22 Unknown History mg tablet escitalopram oxalate 10 mg tablet 10 mg PO DAILY 07/03 Unknown History ondansetron 4 mg disintegrating 4 mg PO Q6H PRN PRN Na usea 07/03/22 Unknown History tablet polyethylene glycol 3350 17 17 g PO DAILY PRN PRN Cons tipation 07/03/22 Unknown History gram/dose oral powder aripiprazole 5 mg tablet mg PO 04/13/23 Unknown Histo ry oxycodone-acetaminophen 10 mg-325 tab PO 04/13/23 Unkn own History mg tablet Allergy/AdvReac Type Severity Reaction Status Date / Time bee pollen Allergy Anaphylaxis Verified 09/22/24 11:04 ketorolac (From Toradol) Allergy Itching Verified 09/22/24 11:04 NSAIDS (Non-Steroidal Allergy GASTRIC Verified 09/22/24 11:04 Anti-Inflamma ULCERS Family History Mother Diabetes Hypertension Cancer Surgical History H/O abdominal surgery S/P hysterectomy Hx of tooth extraction Hx of arthroscopy of right knee History of surgery on arm Carpal tunnel syndrome FHx: cholecystectomy Gastric bypass status for obesity Social History household members: spouse and children housing: house number of children: 4 current occupational status: unemployed other: children are adopted Smoking Status: Former smoker Tobacco: How many years used: 15 Electronic Cigarette Use: not used how long ago did patient quit smokin years ago second hand exposure: No alcohol intake: former substance use type: other details: medical marijuana caffeine: Yes seatbelt use: always do you feel safe at home: Yes ROS ROS ED Constitutional Constitutional ED: Denies chills, fever(s) or weight loss Eyes Eyes: Denies change in vision or diplopia ENT ENT ED: Denies ear pain, rhinorrhea or sore throat Cardiovascular Cardiovascular: Denies chest pain, orthopnea, palpitations or racing heartbeat Respiratory/Chest Respiratory/Chest: Denies cough, dyspnea or orthopnea Gastrointestinal Gastrointestinal: Denies abdominal pain, diarrhea, nausea or vomiting Genitourinary Genitourinary ED: Denies dysuria, hematuria or urinary frequency Musculoskeletal Musculoskeletal: Reports other Details: Left foot/ankle pain swelling and bruising ; Denies arthralgias or myalgias Integumentary Denies abscess or rash Neurologic Neurologic: Denies headache(s) or weakness Psychiatric Psychiatric: Denies anxiety, depression, suicidal ideation or suicidal thoughts Endocrine Endocrinology: Denies polydipsia, polyphagia or polyuria Allergic/Immunologic Allergic/Immunologic ED: Denies mouth swelling, tongue swelling or urticaria EXAM Physical Exam Const Vital Signs: 12/09/24 11:33 Temperature 98.3 F Temperature Source Temporal Pulse Rate 99 Respiratory Rate 16 Blood Pressure 107/82 H Blood Pressure Mean 90 Pulse Ox 99 Oxygen Delivery Method Room Air Positive well nourished and well developed General Appearance ED: well developed and NAD HEENT Reports normocephalic, head/scalp atraumatic and moist mucous membranes Eyes PERRL and EOMs intact bilaterally Neck no lymphadenopathy, supple and no JVD Resp normal respiratory effort and clear to auscultation bilaterally Cardio regular rate, regular rhythm and no murmurs GI normal to inspection, nondistended, normoactive bowel sounds and non-tender Palpation: soft Back/Spine no CVA tenderness and normal ROM Extremity Extremity Narrative: Left foot demonstrates some mild swelling over the dorsal lateral surface. There is slight degree of ecchymosis over the distal aspect of the fourth and the fifth metatarsal. There is tenderness at the base of the fifth metatarsal. There is some mild swelling extending up over the the lateral malleolus. General Extremety ED: Negative for edema General Extremity: Negative for edema Neuro oriented x3 and CN's II-XII intact bilaterally Sensorium / Orientation: alert Motor Exam: strength 5/5 throughout Psych mental status grossly normal Mood & Affect: Negative for depressed or tearful Skin no rashes or lesions noted and no wounds MDM MDM MDM Narrative Medical decision making narrative: Differential diagnosis includes but not limited to foot fracture ankle fracture contusion neurovascular injury hematoma/contusion My independent interpretation of the plain films of the ankle is no acute fracture. My independent interpretation of the plain films of the foot is an acute fracture of the distal metatarsal. Case was discussed with on-call mixer foam rubber Dr Coles. He recommends walking boot weightbearing as tolerated. She would like crutches. History & Record Review Discussion w/independent historian: Patient Additional record(s) reviewed:: Prior outpatient record Radiography Diagnostic Testing: Clinical Impression(s) from Imaging Studies Ankle X-Ray 12/09/24 12:03 IMPRESSION: NEGATIVE ANKLE SERIES Reading Location: [facility]-IR-1 Foot X-Ray 12/09/24 12:03 IMPRESSION: Nondisplaced fracture through the distal portion of the 5th metatarsal with overlying soft tissue swelling. Reading Location: [facility]--1 Management Discussion w/another healthcare provider: [employer] Operator (Dr Coles) Discharge Plan Triage Chief Complaint: Lower Extremity Injury ED Provider: Angel Smith Dx/Rx/DC Orders Clinical Impression: Closed fracture of fifth metatarsal bone, Fall, Acute pain of left foot Prescriptions: No Action lamotrigine [Lamictal] 25 mg tablet 150 mg PO DAILY ropinirole 1 mg tablet 1 mg PO QHS pantoprazole 40 mg tablet,delayed release (DR/EC) 40 mg PO DAILY lisinopril 10 mg tablet 10 mg PO DAILY sertraline [Zoloft] 50 mg tablet 100 mg PO DAILY epinephrine 0.3 MG syringe 0.3 mg IM X1 Qty: 2 0RF dextroamphetamine-amphetamine 10 mg tablet 1 tab PO TID cyanocobalamin (vitamin B-12) 1,000 mcg/mL solution 1,000 mcg IM QMONTH polyethylene glycol 3350 17 gram/dose Powder 17 g PO DAILY PRN PRN (Reason: Constipation) escitalopram oxalate 10 mg tablet 10 mg PO DAILY Patient Comments: take 1 tablet by mouth once daily ondansetron 4 MG tablet,disintegrating 4 mg PO Q6H PRN PRN (Reason: Nausea) Primary Care Provider: Israel North Referrals: Norberto Coles DPM [Med Staff - Active Staff] - As soon as possible Israel North DO [Primary Care Provider] - Activity Restrictions/Additional Instructions: Limited weightbearing until cleared by podiatry. Use the walking boot with your walker. Ice and elevation over the next 48 to 72 hours. Print Language: Belarusian Disposition Disposition: Home, Self Care Discharge Date/Time: 12/09/24 13:03
== END 2024-12-09 13:03 | disposition home or self-care (01) ==
PROVIDERS: Emergency Provider Emergency Medicine; PCP Family Medicine; Referring Provider Emergency Medicine; Visit Provider Emergency Medicine
DX: S92.355A Nondisplaced fracture of fifth metatarsal bone, left foot, initial encounter for closed fracture (principal); E11.9 Type 2 diabetes mellitus without complications; Z87.891 Personal history of nicotine dependence; I10 Essential (primary) hypertension; M79.672 Pain in left foot; W10.9XXA Fall (on) (from) unspecified stairs and steps, initial encounter; Z79.899 Other long term (current) drug therapy; F32.A Depression, unspecified; G25.81 Restless legs syndrome; Z90.710 Acquired absence of both cervix and uterus; Z90.49 Acquired absence of other specified parts of digestive tract
CPT/HCPCS: 73610; 73630; 99283

== ENCOUNTER 2025-04-22 11:37 | Emergency (ER) | payer MEDICAID, SELFPAY ==
[2025-04-22 11:38] VITALS: BP 146/78; PULSE 78; RESP 16; TEMP 37.1; O2SAT 98; BMI 31.3
--- NOTE | 2025-04-22 11:40 | RAD_ITS ---
PROCEDURE: ELBOW MIN 3 VIEWS 04/22/2025 REASON FOR EXAM: INJURY Recent fall. TECHNIQUE: Procedure Code: RADEL Modality: DX Procedure: ELBOW MIN 3 VIEWS Laterality: Right elbow COMPARISON: None FINDINGS: Bones: No fracture is seen. Joints: Normal alignment. Joint spaces preserved. No arthropathic features. Soft tissues: Soft tissues are unremarkable. Other: RAD/Elbow min 3 Views IMPRESSION: No acute abnormality is seen. Reading Location: [place] [id number]
--- NOTE | 2025-04-22 12:00 | RAD_ITS ---
PROCEDURE: SHOULDER MIN 2 VIEWS 04/22/2025 REASON FOR EXAM: INJURY Recent fall. TECHNIQUE: Procedure Code: RADSH Modality: DX Procedure: SHOULDER MIN 2 VIEWS Laterality: Right shoulder COMPARISON: None FINDINGS: Bones: No fracture. Joints: Normal alignment. Joint spaces preserved. No arthropathic features. Soft tissues: Soft tissues are unremarkable. Other: RAD/Shoulder min 2 Views IMPRESSION: NO ACUTE FRACTURE OR DISLOCATION. Reading Location: [place] [id number]
[2025-04-22 14:44] VITALS: BP 138/70; PULSE 78; RESP 16; TEMP 36.9; O2SAT 98
--- NOTE | 2025-04-22 14:49 | EX.ED.UPPERE ---
HPI History of Present Illness Chief Complaint: Upper Extremity Injury Narrative Narrative: Chief complaint and HPI: 44-year-old female with past medical history of HTN, Raynaud's disease, DM2 presents for evaluation of right elbow and shoulder pain. Patient states she was at work approximately 1 week ago in which she hit her elbow on an object. Triage note states she fell however she denies falling to me. She denies any numbness or tingling. She denies pain in the neck. Denies any fever, chills, shortness of breath, chest pain abdominal pain, nausea, vomiting. Review of systems: See HPI Medications: As listed on the chart Allergies: As listed on the chart PFSH: Per chart Vital signs: As listed on the chart. Reviewed. Physical exam: Gen: A&O x3, NAD Head: Normocephalic, atraumatic Eyes: No sclera icterus, conjunctiva clear ENT: Moist mucous membranes Neck: Trachea midline, No JVD, full range of motion, nontender CV: RRR, no murmurs Resp: Lungs CTA BL, no w/r/c Musc: Full ROM of all the extremities including the right upper extremity, no deformity, patient has tenderness to palpation of the superior trapezius muscle of the right shoulder as well as tenderness to palpation of the elbow diffusely, no swelling or edema to the shoulder or elbow, joints are not erythematous or warm, no rash, joints have full range of motion without instability, compartments soft, radial pulse +2 bilaterally, good capillary refill, sensation intact Skin: Warm, dry Neuro: Alert, oriented, grossly intact, sensation intact Psych: Cooperative, appropriate mood and affect [facility] Medical History Perforated ulcer (~2021) Raynauds disease Hepatomegaly Hypertension Wears glasses Depression Marijuana use Diabetes Arthritis Anemia Back pain History of ulceration Former smoker Asthma History of stress test Candidal dermatitis Depressive disorder Type II diabetes mellitus Fibromyalgia Lumbar spinal stenosis Chronic pain syndrome Chronic pain Hypertension Restless leg Home Medications ?Medication ?Instructions ?Recorded ?Last Taken ?Type epinephrine 0.3 mg/0.3 mL 0.3 mg (0.3 mL) IM X1 #2 syringes 04/07/20 03/29/21 Rx injection, auto-injector lamotrigine 25 mg tablet (Lamictal) 150 mg PO DAILY 02/09/21 03/29/21 History pantoprazole 40 mg tablet,delayed 40 mg PO DAILY 02/09/21 03/30/21 History release ropinirole 1 mg tablet 1 mg PO QHS restless legs 02/09/21 03/29/21 History lisinopril 10 mg tablet 10 mg PO DAILY 03/11/21 03/30/21 History sertraline 50 mg tablet (Zoloft) 100 mg PO DAILY 11/16/21 Unknown History cyanocobalamin (vitamin B-12) 1,000 mcg IM QMONTH 07/03/22 Unknown History 1,000 mcg/mL injection solution dextroamphetamine-amphetamine 10 1 tab PO TID 07/03/22 Unknown History mg tablet escitalopram oxalate 10 mg tablet 10 mg PO DAILY 07/03/22 Unknown History ondansetron 4 mg disintegrating 4 mg PO Q6H PRN PRN Nausea 07/03/22 Unknown History tablet polyethylene glycol 3350 17 17 g PO DAILY PRN PRN Constipation 07/03/22 Unknown History gram/dose oral powder aripiprazole 5 mg tablet mg PO 04/13/23 Unknown History oxycodone-acetaminophen 10 mg-325 tab PO 04/13/23 Unknown History mg tablet cyclobenzaprine 5 mg tablet 5 mg PO TID PRN muscle spasm 3 04/22/25 Unknown Rx days #9 tabs Allergy/AdvReac Type Severity Reaction Status Date / Time bee pollen Allergy Anaphylaxis Verified 04/22/25 11:38 ketorolac (From Toradol) Allergy Itching Verified 04/22/25 11:38 NSAIDS (Non-Steroidal Allergy GASTRIC Verified 04/22/25 11:38 Anti-Inflamma ULCERS Family History Mother Diabetes Hypertension Cancer Surgical History H/O abdominal surgery S/P hysterectomy Hx of tooth extraction Hx of arthroscopy of right knee History of surgery on arm Carpal tunnel syndrome FHx: cholecystectomy Gastric bypass status for obesity Social History household members: spouse and children housing: house number of children: 4 current occupational status: unemployed other: children are adopted Smoking Status: Former smoker Tobacco: How many years used: 15 Electronic Cigarette Use: not used how long ago did patient quit smokin years ago second hand exposure: No alcohol intake: former substance use type: other details: medical marijuana caffeine: Yes seatbelt use: always do you feel safe at home: Yes EXAM Physical Exam Const Vital Signs: 04/22/25 11:38 04/22/25 14:44 Temperature 98.7 F 98.5 F Temperature Source Oral Pulse Rate 78 78 Respiratory Rate 16 16 Blood Pressure 146/78 H 138/70 H Blood Pressure Mean 100 92 Pulse Ox 98 98 Oxygen Delivery Method Room Air MDM MDM MDM Narrative Medical decision making narrative: 44-year-old female with past medical history of HTN, Raynaud's disease, DM2 presents for evaluation of right elbow and shoulder pain after an injury. Differential diagnosis includes but is not limited to contusion, sprain, fracture, myofascial spasm. See physical exam findings. Not consistent with dislocation. Patient had x-ray of the right shoulder and elbow performed in triage per protocol. Agreed the x-rays that were performed. X-rays resulted by the time I saw the patient. I personally reviewed the x-ray of the shoulder and elbow, no obvious fracture or dislocation. Radiology in agreement. I suspect patient's right shoulder pain is secondary to a myofascial spasm. Will place her on Flexeril well as needed for muscle spasm. Tylenol and Motrin as needed for pain. She confirmed understanding of the plan. As for her elbow may be secondary to contusion versus sprain. Follow-up with PCP and orthopedic physician if needed. Return back to the ED if symptoms change or worsen. Patient stable to discharge home. Impression: 1. Right shoulder pain suspect myofascial spasm 2. Right elbow pain, contusion versus sprain Radiography Diagnostic Testing: Clinical Impression(s) from Imaging Studies Elbow X-Ray 04/22/25 11:40 IMPRESSION: No acute abnormality is seen. Reading Location: [facility]-IR-1 Shoulder X-Ray 04/22/25 12:00 IMPRESSION: NO ACUTE FRACTURE OR DISLOCATION. Reading Location: [facility]-IR-1 Discharge Plan Triage Chief Complaint: Upper Extremity Injury ED Provider: Thom Nguyen Dx/Rx/DC Orders Clinical Impression: Elbow sprain, Pain in right shoulder Instructions: ED Sprain, Elbow, ED RICE Prescriptions: New cyclobenzaprine 5 mg tablet 5 mg PO TID PRN (Reason: muscle spasm) 3 Days Qty: 9 0RF No Action lamotrigine [Lamictal] 25 mg tablet 150 mg PO DAILY ropinirole 1 mg tablet 1 mg PO QHS pantoprazole 40 mg tablet,delayed release (DR/EC) 40 mg PO DAILY lisinopril 10 mg tablet 10 mg PO DAILY sertraline [Zoloft] 50 mg tablet 100 mg PO DAILY epinephrine 0.3 MG syringe 0.3 mg IM X1 Qty: 2 0RF dextroamphetamine-amphetamine 10 mg tablet 1 tab PO TID cyanocobalamin (vitamin B-12) 1,000 mcg/mL solution 1,000 mcg IM QMONTH polyethylene glycol 3350 17 gram/dose Powder 17 g PO DAILY PRN PRN (Reason: Constipation) escitalopram oxalate 10 mg tablet 10 mg PO DAILY Patient Comments: take 1 tablet by mouth once daily ondansetron 4 MG tablet,disintegrating 4 mg PO Q6H PRN PRN (Reason: Nausea) Primary Care Provider: Israel North Referrals: Israel North DO [Primary Care Provider] - 3-5 Days Merlin Ortiz MD [Med Staff - Active Staff] - 3-5 Days Activity Restrictions/Additional Instructions: Follow-up with orthopedic physician and primary care physician. Recommend Tylenol and Motrin as needed for pain. Muscle relaxer as needed for muscle spasm. Do not take muscle relaxers while operating heavy machinery or driving. They can increase confusion, weakness, falls. Print Language: Maori Disposition Disposition: Home, Self Care Discharge Date/Time: 04/22/25 14:46
== END 2025-04-22 14:46 | disposition home or self-care (01) ==
PROVIDERS: Emergency Provider Surgery; PCP Family Medicine; Visit Provider Surgery
DX: S53.401A Unspecified sprain of right elbow, initial encounter (principal); M25.511 Pain in right shoulder; W22.09XA Striking against other stationary object, initial encounter; Y99.0 Civilian activity done for income or pay; Z87.891 Personal history of nicotine dependence
CPT/HCPCS: 73030; 73080; 99282

== ENCOUNTER → 2025-08-05 | Outpatient (CLI) | payer MEDICAID, SELFPAY ==
[2025-08-05 15:16] LABS: Hematocrit 38.7 % (37-47); Hemoglobin 12.1 g/dL (12.0-15.0); Immature Granulocytes Count 0.010 X10^3/uL (0.0-0.0); Mean Corp Hgb Conc 31.3 g/dL (32-36); Mean Corpuscular Volume 79.1 fL (81-99); Mean Platelet Vol. 11.7 fl (6.2-12.0); NRBC Flagged by Analyzer 0 % (0-5); Platelet Count 200 K/mm3 (150-450); RBC Distribution Width CV 15.5 % (11.6-14.6); RBC Distribution Width SD 44.1 fl (35.1-43.9); Red Blood Count 4.89 M/mm3 (4.2-5.4); White Blood Count 5.2 K/mm3 (4.4-11.0)
[2025-08-05 16:03] LABS: AST(SGOT) 20 U/L (<=31); Alanine Aminotransfer ALT/SGPT 11 U/L (<=34); Albumin, Serum 4.7 g/dL (3.5-5.0); Alkaline Phosphatase 84 U/L (35-104); Anion Gap 13 (5-15); BUN 12 mg/dL (4-19); BUN/Creat Ratio 14.4 RATIO (10-20); Calcium,Total 9.8 mg/dL (7.6-11.0); Carbon Dioxide 25.5 mmol/L (21.0-32.0); Chloride 100 mmol/L (98-108); Cholesterol 208 mg/dL (<=200); Ferritin 11 ng/mL (22-378); Globulin 3.3 g/dL (2.2-4.2); Glucose 119 mg/dL (70-99); Low Density Lipoprotein Calc. 119 mg/dL; Potassium 4.4 mmol/L (3.3-5.1); Triglycerides 124 mg/dL; Very Low Density Lipoprotein 25 mg/dL (5-40); Vitamin B12 449 pg/mL (180-914); Vitamin D,25 Hydroxy 25.3 ng/mL (30-100); cholesterol:hdl ratio screen 3.09
[2025-08-05 16:39] LABS: Barbiturate Urine NEGATIVE (< 200 ng/mL); Benzodiazepine Urine NEGATIVE (< 200 ng/mL); PCP Urine NEGATIVE (< 25 ng/mL); THC Urine PRESUMPTIVE POSITIVE (< 50 ng/mL)
== END | disposition home or self-care (01) ==
LOC: BFHLAB 11:17
PROVIDERS: PCP Family Medicine; Visit Provider Family Medicine
DX: Z00.00 Encounter for general adult medical examination without abnormal findings (principal); I10 Essential (primary) hypertension; D50.9 Iron deficiency anemia, unspecified; E55.9 Vitamin D deficiency, unspecified; R23.2 Flushing; Z79.899 Other long term (current) drug therapy
CPT/HCPCS: 36415; 80053; 80061; 80307; 82306; 82607; 82670; 82728; 83036; 84443; 85025